=== PATIENT | female | born 1950 | race Caucasian/White ===

== ENCOUNTER 2018-09-04 09:48 | Emergency (ER) | payer OTHER ==
--- OUTSIDE RECORDS SUMMARY | 2018-09-04 09:52 | XMS REPORT | Summary of Care ---
:1950 Author Organization [facility] Address [address] [place] [id number] Encounter HQ Encntr_alias(FIN) [id number] Date(s): 06/16/16 - 06/16/16 [facility] [address] [place] [address]- [phone] Discharge Disposition: Home or Self Care Attending Physician: Elizabeth Rodriguez MD Vital Signs No data available for this section Problem List Condition Effective Dates Status Health Status Informant Kidney disease(Confirmed) Active Breast cancer(Confirmed) Resolved Chicken pox(Confirmed) Resolved Allergies, Adverse Reactions, Alerts Substance Reaction Severity Status NKDA Active Medications No data available for this section Results No data available for this section Immunizations No data available for this section Procedures Procedure Date Related Diagnosis Body Site Breast cancer1 07/26/94 1removal of right breast Social History Social History Type Response Smoking Status Never smoker; Exposure to Tobacco Smoke None; Cigarette Smoking Last 365 Days No; Reg Smoking Cessation Counseling No Assessment and Plan No data available for this section
--- OUTSIDE RECORDS SUMMARY | 2018-09-04 09:52 | XMS REPORT | Continuity of Care Document ---
:1950 Author Organization Interface Problems Problem Status Onset Classification Date Comments Source Date Reported HIP FRACTURE Active [facility] 7 [place] R22.31 - Active [facility] "LOCALIZED 6 [place] SWELLING, MASS AND L Kidney Active Problem 12/18/2016 [facility] disease [place], [place] Breast Resolved Problem 12/18/2016 [facility] cancer [place] Chicken pox Resolved Problem 12/18/2016 [facility] [place] FRACTURE OF Active [facility] [place] [facility] Medications Medication Details Route Status Patient Ordering Order Source Instructions Provider Date Calcium 500 mg, PO, BID, Active Carbonate 500 MG # 60 tab, 0 2017 [place] Chewable Tablet Refill(s), Pharmacy: [facility] [id number] 0.4 ML 40 mg, SUB-Q, Active Enoxaparin Q12H, X 10 day, 2017 [place] sodium 100 MG/ML # 20 ea, 0 Prefilled Refill(s), Syringe Pharmacy: [Lovenox] [facility] [id number] Acetaminophen 1 - 2 tab, PO, Active 300 MG / Codeine Q4H, PRN Pain, X 2017 [place] Phosphate 30 MG 4 day, # 36 tab, Oral Tablet 0 Refill(s) [Tylenol with Codeine #3] Melatonin 3 MG 3 mg=1 tab, PO, Active Extended Release Bedtime, PRN as 2017 [place] Tablet needed for insomnia, X 14 day, # 14 tab, 0 Refill(s), Pharmacy: [facility] [id number] Reglan 10 mg, 1 tab, Inactive Route: PO, Drug 2017 [place] form: TAB, Q6H, PRN Nausea & Vomiting, Start date: 12/15/16 13:13:00 CDT, Duration: 30 day, Stop date: 01/14/17 13:12:00 CDTNotes: (Same as: Reglan) Take 30 min before meals Trazodone 25 mg, 0.5 tab, No Longer Route: PO, Drug Active 2016 [place] form: TAB, Bedtime, Dosing Weight 88.091, kg, PRN Sleep, Start date: 12/13/16 14:39:00 CDT, Duration: 30 day, Stop date: 01/12/17 14:38:00 CDT, ..Notes: (Same As: Desyrel) Melatonin 3 MG 3 mg, 1 tab, No Longer Extended Release Route: PO, Drug Active 2016 [place] Tablet Form: TAB, Dosing Weight 88.091, kg, Bedtime, PRN as needed for insomnia, Start date: 12/13/16 14:39:00 CDT, Duration: 30 day, Stop date: 01/12/17 14:38:00 CDTNotes: (Same as: Melatonin) Ambien 5 mg, 1 tab, No Longer Route: PO, Drug Active 2016 [place] form: TAB, Bedtime, Dosing Weight 88.091, kg, PRN Insomnia, Start date: 12/13/16 14:39:00 CDT, Duration: 30 day, Stop date: 01/12/17 14:38:00 CDTNotes: (Same As: Ambien) Calcium 2,000 mg, 20 mL, Inactive Gluconate Route: IVPB, 2016 [place] ONCE, Dosing Weight 88.091, kg, Priority: STAT, Start date: 12/13/16 11:33:00 CDT, Stop date: 12/13/16 11:33:00 CDTNotes: WASTE: F/P - Sink; E - Municipal Trash Bin Vitamin D3 50,000 IntlUnit, No Longer 10 tab, Route: Active 2016 [place] PO, Drug form: TAB, Q7D, Start date: 12/12/16 11:00:00 CDT, Duration: 30 day, Stop date: 01/09/17 9:00:00 CDTNotes: Same as: Vitamin D3 Non-Formulary Vitamin D2 50,000 IntlUnit, Inactive 1 cap, Route: 2016 [place] PO, Drug form: CAP, Q7D, Start date: 12/12/16 9:00:00 CDT, Duration: 30 day, Stop date: 01/09/17 9:00:00 CDTNotes: (Same as: Vitamin D) "Do Not Crush" phenol 1 spray, Route: No Longer TOP, BID, Drug Active 2016 [place] form: SPRY, PRN Sore Throat, Start date: 12/11/16 21:19:00 CDT, Duration: 30 day, Stop date: 01/10/17 21:18:00 CDTNotes: WASTE: F/P - Black; E - Municipal Trash Bin heparin 5,000 unit, 1 No Longer mL, Route: Active 2016 [place] SUB-Q, Drug form: INJ, Q8H, Start date: 12/11/16 20:00:00 CDT, Duration: 30 day, Stop date: 01/10/17 20:00:00 CDTNotes: porcine heparin vancomycin 1,250 mg, Route: No Longer (SCIP) + sodium IVPB, [id number], Active 2016 [place] chloride 0.9% Dosing Weight 250 mL INJ (for 88.091, kg, Time IV set) 250 mL Critical Medication, Start date: 12/11/16 18:30:00 CDT, Duration: 2 doses or times, Stop date: 12/12/16 6:30:00 CDT, Pharmacy to adjust dose for renal function, ABX Indication: Surgical Pr...Notes: TIME CRITICAL MEDICATION (Same As: Vancocin) Infusion rate 2001 mg: infuse over 2.5 hours MEDICATION WASTE Product Size: 1000 mg Product Wasted: ___ mg Cefazolin 2 gm, Route: Inactive IVPB, [id number], 2017 [place] Dosing Weight 88.091, kg, Start date: 12/11/16 15:00:00 CDT, Duration: 1 doses or times, Stop date: 12/11/16 15:00:00 CDT, ABX Indication: Surgical ProphylaxisNotes : (Same As: AncJuan galiciafzol) MEDICATION WASTE Product Size: 1000 mg Product Wasted: ___ mg Dilaudid 0.5 mg, Route: Inactive 12/11[facility] IVP, ONCE, 2016 [place] Dosing Weight 88.091, kg, Priority: STAT, Start date: 12/11/16 14:01:00 CDT, Stop date: 12/11/16 14:01:00 CDT Fentanyl 25 microgram, Inactive 12/11[facility] Route: IV, 2016 [place] Q10Min, Dosing Weight 88.091, kg, PRN Pain Score 6-10, Start date: 12/11/16 10:02:00 CDT, Duration: 30 day, Stop date: 01/10/17 10:01:00 CDT Ondansetron 4 mg, Route: Inactive 12/11[facility] IVP, ONCE, 2017 [place] Dosing Weight 88.091, kg, PRN Nausea & Vomiting, Start date: 12/11/16 10:02:00 CDT Hydromorphone 0.5 mg, Route: Inactive 12/11[facility] IVP, Q5Min, 2016 [place] Dosing Weight 88.091, kg, PRN Pain Score 7-10, Start date: 12/11/16 10:02:00 CDT, Duration: 4 doses or times, Stop date: Limited # of times Morphine 4 mg, Route: Inactive 12/11[facility] IVP, Q5Min, 2017 [place] Dosing Weight 88.091, kg, PRN Pain Score 7-10, Start date: 12/11/16 10:02:00 CDT, Duration: 3 doses or times, Stop date: Limited # of times Oxycodone 10 mg, Route: Inactive 12/11[facility] PO, Drug form: 2016 [place] TAB, Q4H, Dosing Weight 88.091, kg, PRN Pain Score 7-10, Start date: 12/11/16 10:02:00 CDT, Duration: 30 day, Stop date: 01/10/17 10:01:00 CDT Flumazenil 0.2 mg, Route: Inactive 12/11[facility] IVP, PRN, Dosing 2017 [place] Weight 88.091, kg, PRN Benzodiazepine Reversal, Initial dose, Start date: 12/11/16 10:02:00 CDT, Duration: 30 day, Stop date: 01/10/17 10:01:00 CDT Naloxone 0.4 mg, Route: Inactive IVP, Q2MIN, 2016 [place] Dosing Weight 88.091, kg, PRN Narcotic Reversal, Start date: 12/11/16 10:02:00 CDT, Duration: 8 doses or times, Stop date: Limited # of times ketOROLAC (ANES) IV, ONCE Inactive 2016 [place] dexamethasone Route: IV, Drug Inactive (ANES) form: INJ, ONCE, 2016 [place] Stop date: 12/11/16 9:57:00 CDT ondansetron Route: IV, Drug Inactive (ANES) form: INJ, ONCE, 2016 [place] Stop date: 12/11/16 9:57:00 CDT ergocalciferol 50,000 unit, 1 Inactive cap, Route: PO, 2016 [place] Drug form: CAP, Q7D, Dosing Weight 88.091, kg, Start date: 12/11/16 9:00:00 CDT, Duration: 30 day, Stop date: 01/08/17 9:00:00 CDTNotes: (Same as: Vitamin D) "Do Not Crush" Calcium 500 mg, 1 tab, No Longer Carbonate Route: PO, Drug Active 2016 [place] form: TAB, BID, Dosing Weight 88.091, kg, Start date: 12/11/16 9:00:00 CDT, Duration: 30 day, Stop date: 01/09/17 17:00:00 CDTNotes: 500mg elemental [id number] calcium carbonate. Contains 500mg elemental calcium. (Same As: OsCal 500) Vancomycin 1,250 mg, Route: Inactive IVPB, [id number], 2016 [place] Dosing Weight 88.091, kg, Time Critical Medication, Start date: 12/11/16 9:00:00 CDT, Duration: 2 doses or times, Stop date: 12/11/16 21:00:00 CDT, Pharmacy to adjust dose for renal function, ABX Indication: Surgical Pr...Notes: TIME CRITICAL MEDICATION (Same As: Vancocin) Infusion rate 2001 mg: infuse over 2.5 hours MEDICATION WASTE Product Size: 1000 mg Product Wasted: ___ mg heparin 5,000 unit, 1 Inactive MH mL, Route: 2016 [place] SUB-Q, Drug form: INJ, Q8H, Dosing Weight 81.818, kg, Start date: 12/11/16 8:46:00 CDT, Duration: 30 day, Stop date: 01/10/17 8:00:00 CDTNotes: porcine heparin propofol (ANES) Route: IV, Drug Inactive MH form: INJ, ONCE, 2016 [place] Stop date: 12/11/16 7:31:00 CDT fentaNYL (ANES) Route: IV, Drug Inactive 12/11/ MH form: INJ, ONCE, 2016 [place] Stop date: 12/11/16 7:31:00 CDT ceFAZolin (ANES) Route: IV, Drug Inactive 12/11/ MH form: INJ, ONCE, 2016 [place] Stop date: 12/11/16 7:31:00 CDT midazolam (ANES) Route: IV, Drug Inactive form: SACHINN, 2016 [place] ONCE, Stop date: 12/11/16 7:31:00 CDT Calcium Chloride 1,000 mL, Rate: No Longer 0.0014 MEQ/ML / 25 ml/hr, Infuse Active 2016 [place] Potassium over: 40 hr, Chloride 0.004 Route: IV, MEQ/ML / Sodium Dosing Weight Chloride 0.103 88.091 kg, Total MEQ/ML / Sodium Volume: 1,000, Lactate 0.028 Start date: MEQ/ML 12/11/16 6:28:00 Injectable CDT, Duration: Solution 30 day, Stop date: 01/10/17 6:27:00 CDT vancomycin Route: IV, Drug Inactive MH (ANES) (ANES) form: INJ, Start 2016 [place] date: 12/11/16 6:15:00 CDT, Stop date: 12/11/16 7:15:00 CDT LR 1000 mL INJ Route: IV, Total Inactive (ANES) Volume: 1,000, 2016 [place] Start date: 12/11/16 6:00:00 CDT, Stop date: 12/11/16 7:00:00 CDT Dilaudid 0.5 mg, 0.5 mL, Inactive Route: IV, Drug 2016 [place] form: INJ, ONCE, Dosing Weight 88.091, kg, Start date: 12/11/16 4:41:00 CDT, Stop date: 12/11/16 4:41:00 CDTNotes: Same as: Dilaudid sodium chloride 1,000 mL, Rate: No Longer 0.45% 1000 ml 100 ml/hr, Active 2016 [place] INJ 1,000 mL Infuse over: 10 hr, Route: IV, Dosing Weight 81.818 kg, Total Volume: 1,000, Start date: 12/10/16 20:55:00 CDT, Duration: 30 day, Stop date: 01/09/17 20:54:00 CDT Reglan 10 mg, 2 mL, No Longer Route: IVP, Drug Active 2016 [place] form: INJ, Q6H, Dosing Weight 81.818, kg, PRN Nausea & Vomiting, Start date: 12/10/16 20:53:00 CDT, Duration: 30 day, Stop date: 01/09/17 20:52:00 CDTNotes: (Same as: Reglan) Acetaminophen 650 mg, 2 tab, No Longer Route: PO, Drug Active 2016 [place] form: TAB, Q4H, Dosing Weight 81.818, kg, PRN Pain 1-3/Temp > 100.4 F, Start date: 12/10/16 20:45:00 CDT, Duration: 30 day, Stop date: 01/09/17 20:44:00 CDTNotes: Do not exceed 4 gm/day. (Same as: Tylenol) Saline Flush 10 ml, Route: No Longer 0.9% IVP, Drug Form: Active 2016 [place] INJ, Dosing Weight 81.818, kg, PRN, PRN Line Flush, Start date: 12/10/16 20:45:00 CDT, Duration: 30 day, Stop date: 01/09/17 20:44:00 CDTNotes: (Same as: BD Posiflush) Ondansetron 4 mg, 2 mL, Inactive Route: IVP, Drug 2016 [place] form: INJ, Q6H, Dosing Weight 81.818, kg, PRN Nausea & Vomiting, Start date: 12/10/16 20:45:00 CDT, Duration: 30 day, Stop date: 01/09/17 20:44:00 CDTNotes: (Same as: Zofran) MEDICATION WASTE Product Size: 4 mg Product Wasted: ___ mg Sodium Chloride 1,000 mL, Rate: Inactive 0.154 MEQ/ML 100 ml/hr, 2017 [place] Injectable Infuse over: 10 Solution hr, Route: IV, Dosing Weight 81.818 kg, Total Volume: 1,000, Start date: 12/10/16 20:45:00 CDT, Duration: 30 day, Stop date: 01/09/17 20:44:00 CDT Dilaudid 0.5 mg, 0.5 mL, No Longer Route: IVP, Drug Active 2016 [place] form: INJ, Q3H, Dosing Weight 81.818, kg, PRN Pain Score 7-10, Start date: 12/10/16 20:45:00 CDT, Duration: 30 day, Stop date: 01/09/17 20:44:00 CDTNotes: Same as: Dilaudid Acetaminophen 1 tab, Route: No Longer 325 MG / PO, Drug Form: Active 2017 [place] Hydrocodone TAB, Dosing Bitartrate 10 MG Weight 81.818, Oral Tablet kg, Q4H, PRN [Metter 10/325] Pain Score 4-6, Start date: 12/10/16 20:45:00 CDT, Duration: 30 day, Stop date: 01/09/17 20:44:00 CDTNotes: Do not exceed 4gm/day of acetaminophen. (Same as: Metter 325/10) Zofran 4 mg, 2 mL, Inactive Route: IVP, Drug 2016 [place] form: INJ, ONCE, Dosing Weight 81.818, kg, Priority: STAT, Start date: 12/10/16 19:30:00 CDT, Stop date: 12/10/16 19:30:00 CDTNotes: (Same as: Zofran) MEDICATION WASTE Product Size: 4 mg Product Wasted: ___ mg Morphine 4 mg, 1 mL, Inactive Route: IVP, Drug 2016 [place] form: INJ, ONCE, Dosing Weight 81.818, kg, Priority: STAT, Start date: 12/10/16 19:30:00 CDT, Stop date: 12/10/16 19:30:00 CDTNotes: (Same as:MORPhine Sulfate) Allergies, Adverse Reactions, Alerts Substance Category Reaction Severity Reaction Status Date Comments Source type Reported Immunizations Immunization Date Given Site Status Last Updated Comments Source Results Order Name Results Value Reference Date Interpretation Comments Source Range HEMATOLOGY WBC X 10x3 4.5 K/CMM 3.7 - 10.4 12/14 [place] HEMATOLOGY Hgb 8.4 g/dL 12.0 - 12/14 16.0 [place] HEMATOLOGY RBC X 10x6 2.84 M/CMM 4.20 - 12/14 MH 5.40 /2016 [place] HEMATOLOGY Hct 25.0 % 36.0 - 12/14 MH 48.0 [place] HEMATOLOGY RDW 13.5 % 11.5 - 12/14 14.5 [place] HEMATOLOGY MCV 88.0 fL 80.0 - 12/14 98.0 [place] HEMATOLOGY MCHC 33.5 g/dL 32.0 - 12/14 36.0 [place] HEMATOLOGY MCH 29.5 pg 27.0 - 12/14 31.0 [place] HEMATOLOGY Platelet 159 K/CMM 133 - 450 12/14 [place] HEMATOLOGY MPV 7.9 fL 7.4 - 10.4 12/14 [place] URINE AND UA Bacteria Occasional None Seen 12/13 STOOL /HPF /HPF [place] URINE AND UA RBC 0-2 /HPF 0 - 2 12/13 STOOL [place] URINE AND UA WBC 0-2 /HPF None Seen 12/13 STOOL /HPF [place] URINE AND UA Sq Epi Occasional Few /LPF 12/13 STOOL /LPF /2016 [place] URINE AND UA Leuk Est Negative Negative 12/13 STOOL /2016 [place] (12/13/16 4:31 PM) URINE AND UA 0.2 EU/dL 0.1 - 1.0 12/13 STOOL Urobilinogen [place] URINE AND UA Nitrite Negative Negative 12/13 STOOL [place] (12/13/16 4:31 PM) URINE AND UA Blood Negative Negative 12/13 STOOL [place] (12/13/16 4:31 PM) URINE AND UA Bili Negative Negative 12/13 [place] *NA* (12/13/16 4:31 PM) URINE AND UA Ketones 40 mg/dL Negative 12/13 STOOL mg/dL [place] URINE AND UA Glucose Negative Negative 12/13 STOOL [place] (12/13/16 4:31 PM) URINE AND UA Protein Negative Negative 12/13 STOOL [place] (12/13/16 4:31 PM) URINE AND UA pH 6.0 5.0 - 8.0 12/13 [place] URINE AND UA Spec Grav 1.010 <=1.030 12/13 [place] URINE AND UA Turbidity Clear Clear 12/13 [place] (12/13/16 4:31 PM) URINE AND UA Color Yellow Yellow 12/13 [place] *NA* (12/13/16 4:31 PM) CHEM PANEL Magnesium 2.0 mg/dL 1.8 - 2.4 12/13 [facility] [place] CHEM PANEL Lactic Acid 0.8 mMol/L 0.5 - 2.2 12/13 [facility] [place] Chest 1view Chest 1view Patient Name: THELMA HOLGUIN 12/13 [facility] DX /2016 [facility] : 1950; Age: 66 years Female MR: [id number] Read by: Albert Wilcox MD Dictated Date/time: 12/13/16 12:14 Electronically Signed by: Albert Wilcox MD 12/13/16 12:15 FINAL REPORT Study: Chest 1view DX Order Time: 12/13/2016 11:05 AM CDT Clinical Indication: - post op day #2. COMPARISON: None FINDINGS: Views: 1 LUNGS: There is normal lung volume. Right upper lobe atelectasis/ scarring. There are no pleural effusions. There is no pneumothorax. The pulmonary vasculature is normal. MEDIASTINUM: The cardiac silhouette is prominent which may be accentuated by portable technique. The trachea is midline. Right hilar prominence. Right axillary nicole. BONES: There are no clinically significant osseous abnormalities noted. IMPRESSION: 1. Right hilar prominence secondary to posttreatment change, adenopathy, mass. Right axillary nicole. SL: [id number] ELECTROLYTE AGAP 13.1 meq/L 10.0 - 05/ MH S 20.0 [place] ELECTROLYTE eGFR 96 12/12 Result Comment: The eGFR is calculated using the CKD-EPI formula. In most young, healthy individuals the eGFR will be >90 mL/ min/1.73m2. The eGFR declines with age. An eGFR of 60-89 may be normal in S mL/min/1.7 /2017 some populations, particularly the elderly, for whom the CKD-EPI formula has not been extensively validated. Use of the eGFR is not recommended in the following populations: [address] Individuals with unstable creatinine concentrations, including patients and those with serious co-morbid conditions. Patients with extremes in muscle mass or diet. The data above are obtained from the National Kidney Disease Education Program (NKDEP) which additionally recommends that when the eGFR is used in patients with extremes of body mass index for purposes of drug dosing, the eGFR should be multiplied by the estimated BMI. ELECTROLYTE Sodium Lvl 139 meq/L 135 - 145 /20 MH S /2016 [place] ELECTROLYTE Creatinine 0.60 mg/dL 0.50 - 05 MH S Lvl 1.40 /2016 [place] ELECTROLYTE CO2 26 meq/L 24 - 32 / MH S /2016 [place] ELECTROLYTE Chloride Lvl 104 meq/L 95 - 109 / MH S /2016 [place] ELECTROLYTE Potassium 4.1 meq/L 3.5 - 5.1 /20 MH S Lvl /2017 [place] ELECTROLYTE Calcium Lvl 8.1 mg/dL 8.5 - 10.5 /20 MH S /2016 [place] ELECTROLYTE Glucose Lvl 128 mg/dL 70 - 99 /20 MH S /2016 [place] ELECTROLYTE BUN 14 mg/dL 7 - 22 /20 MH S /2016 [place] HEMATOLOGY Monocytes # 0.5 K/CMM 0.0 - 0.8 12/12 MH /2016 [place] HEMATOLOGY Monocytes 10.1 % 2.0 - 12.0 / MH /2016 [place] HEMATOLOGY Eosinophils 0.1 % 0.0 - 4.0 / [place] HEMATOLOGY Lymphocytes 0.4 K/CMM 1.0 - 5.5 12/12 MH # /2017 [place] HEMATOLOGY Segs-Bands # 4.1 K/CMM 1.5 - 8.1 12/12 [place] HEMATOLOGY Basophils 0.1 % 0.0 - 1.0 12/12 [place] HEMATOLOGY Segs 81.3 % 45.0 - 12/12 MH 75.0 [place] HEMATOLOGY Lymphocytes 8.4 % 20.0 - 12/12 MH 40.0 [place] HEMATOLOGY Platelet 151 K/CMM 133 - 450 12/12 [place] HEMATOLOGY MPV 8.3 fL 7.4 - 10.4 12/12 [place] HEMATOLOGY MCHC 33.7 g/dL 32.0 - 12/12 MH 36.0 [place] HEMATOLOGY Hct 27.9 % 36.0 - 12/12 MH 48.0 [place] HEMATOLOGY MCH 29.9 pg 27.0 - 12/12 MH 31.0 [place] HEMATOLOGY RDW 13.6 % 11.5 - 12/12 MH 14.5 [place] HEMATOLOGY MCV 88.7 fL 80.0 - 12/12 MH 98.0 [place] HEMATOLOGY WBC X 10x3 5.1 K/CMM 3.7 - 10.4 12/12 [place] HEMATOLOGY RBC X 10x6 3.14 M/CMM 4.20 - 12/12 MH 5.40 [place] HEMATOLOGY Hgb 9.4 g/dL 12.0 - 12/12 MH 16.0 [place] CHEM PANEL eGFR 91 12/11 Result Comment: The eGFR is calculated using the CKD-EPI formula. In most young, healthy individuals the eGFR will be >90 mL/ min/1.73m2. The eGFR declines with age. An eGFR of 60-89 may be normal in MH mL/min/1. some populations, particularly the elderly, for whom the CKD-EPI formula has not been extensively validated. Use of the eGFR is not recommended in the following populations: [address] Individuals with unstable creatinine concentrations, including patients and those with serious co-morbid conditions. Patients with extremes in muscle mass or diet. The data above are obtained from the National Kidney Disease Education Program (NKDEP) which additionally recommends that when the eGFR is used in patients with extremes of body mass index for purposes of drug dosing, the eGFR should be multiplied by the estimated BMI. CHEM PANEL CO2 24 meq/L 24 - 32 12/11 [place] CHEM PANEL Calcium Lvl 8.5 mg/dL 8.5 - 10.5 12/11 [place] CHEM PANEL Potassium 4.2 meq/L 3.5 - 5.1 12/11 MH Lvl /2016 [place] CHEM PANEL Sodium Lvl 140 meq/L 135 - 145 12/11 [place] CHEM PANEL Chloride Lvl 106 meq/L 95 - 109 12/11 [place] CHEM PANEL Creatinine 0.70 mg/dL 0.50 - 12/11 MH Lvl 1.40 [place] CHEM PANEL BUN 16 mg/dL 7 - 22 12/11 [place] CHEM PANEL Glucose Lvl 113 mg/dL 70 - 99 12/11 [place] CHEM PANEL AGAP 14.2 meq/L 10.0 - 12/11 MH 20.0 [place] HEMATOLOGY Lymphocytes 9.3 % 20.0 - 12/11 MH 40.0 [place] HEMATOLOGY Segs 80.3 % 45.0 - 12/11 MH 75.0 [place] HEMATOLOGY Monocytes 10.0 % 2.0 - 12.0 12/11 [place] HEMATOLOGY Segs-Bands # 5.5 K/CMM 1.5 - 8.1 12/11 [place] HEMATOLOGY Lymphocytes 0.6 K/CMM 1.0 - 5.5 12/11 MH /2017 [place] HEMATOLOGY Basophils 0.1 % 0.0 - 1.0 12/11 [facility] HEMATOLOGY Eosinophils 0.3 % 0.0 - 4.0 12/11 [facility] HEMATOLOGY Monocytes # 0.7 K/CMM 0.0 - 0.8 12/11 [facility] HEMATOLOGY aPTT 27.2 s 22.9 - 12/11 MH 35.8 [place] HEMATOLOGY PROTIME 13.1 s 12.0 - 12/11 MH 14.7 [facility] HEMATOLOGY INR 0.97 0.85 - 12/11 MH 1. [place] HEMATOLOGY MPV 7.7 fL 7.4 - 10.4 12/11 [facility] HEMATOLOGY RDW 14.2 % 11.5 - 12/11 MH 14.5 [facility] HEMATOLOGY Hgb 12.5 g/dL 12.0 - 12/11 MH 16.0 [place] HEMATOLOGY WBC X 10x3 6.8 K/CMM 3.7 - 10.4 12/11 /2016 [place] HEMATOLOGY MCHC 33.2 g/dL 32.0 - 12/11 MH 36.0 [facility] HEMATOLOGY Hct 37.7 % 36.0 - 12/11 MH 48.0 [place] HEMATOLOGY MCV 89.6 fL 80.0 - 12/11 MH 98.0 [place] HEMATOLOGY MCH 29.7 pg 27.0 - 12/11 MH 31.0 [place] HEMATOLOGY RBC X 10x6 4.21 M/CMM 4.20 - 12/11 MH 5.40 [place] HEMATOLOGY Platelet 170 K/CMM 133 - 450 12/11 MH [place] BLOOD BANK ABO/Rh A POS 12/11 RESULTS /2016 [place] BLOOD BANK Antibody Negative 12/11 RESULTS Scrn /2016 [facility] (12/10/16 11:25 PM) CARDIAC Total CK 115 unit/L 12 - 191 12/11 ENZYMES [place] ELECTROLYTE AGAP 11.3 meq/L 10.0 - 12/11 MH S 20.0 [place] ELECTROLYTE B/C Ratio 22 6 - 25 12/11 S [place] ELECTROLYTE Globulin 3.3 g/dL 2.7 - 4.2 12/11 S [place] ELECTROLYTE A/G Ratio 1.2 0.7 - 1.6 12/11 S [place] ELECTROLYTE eGFR 86 12/11 Result Comment: The eGFR is calculated using the CKD-EPI formula. In most young, healthy individuals the eGFR will be >90 mL/ min/1.73m2. The eGFR declines with age. An eGFR of 60-89 may be normal in S mL/min/1.7 some populations, particularly the elderly, for whom the CKD-EPI formula has not been extensively validated. Use of the eGFR is not recommended in the following populations: [place] 3m2 Individuals with unstable creatinine concentrations, including patients and those with serious co-morbid conditions. Patients with extremes in muscle mass or diet. The data above are obtained from the National Kidney Disease Education Program (NKDEP) which additionally recommends that when the eGFR is used in patients with extremes of body mass index for purposes of drug dosing, the eGFR should be multiplied by the estimated BMI. ELECTROLYTE ASPARTATE 18 unit/L 0 - 37 12/11 S TRANSAMINASE [place] ELECTROLYTE Chloride Lvl 108 meq/L 95 - 109 12/11 S [place] ELECTROLYTE CO2 27 meq/L 24 - 32 12/11 S [place] ELECTROLYTE Calcium Lvl 8.9 mg/dL 8.5 - 10.5 12/11 S [place] ELECTROLYTE Bili Total 0.6 mg/dL 0.2 - 1.3 12/11 S [place] ELECTROLYTE Total 7.2 g/dL 6.4 - 8.4 12/11 S Protein [place] ELECTROLYTE ALANINE 35 unit/L 0 - 65 12/11 S AMINOTRANSFE [place] RASE ELECTROLYTE Sodium Lvl 142 meq/L 135 - 145 12/11 S [place] ELECTROLYTE Potassium 4.3 meq/L 3.5 - 5.1 12/11 S Lvl [place] ELECTROLYTE Creatinine 0.74 mg/dL 0.50 - 12/11 S Lvl 1.40 [place] ELECTROLYTE Alk Phos 113 unit/L 39 - 136 12/11 S [place] ELECTROLYTE Glucose Lvl 151 mg/dL 70 - 99 12/11 S [place] ELECTROLYTE BUN 16 mg/dL 7 - 22 12/11 S [place] ELECTROLYTE Albumin Lvl 3.9 g/dL 3.5 - 5.0 12/11 S [place] HEMATOLOGY Basophils 0.2 % 0.0 - 1.0 12/11 [facility] HEMATOLOGY Monocytes # 0.4 K/CMM 0.0 - 0.8 12/11 [facility] HEMATOLOGY Segs-Bands # 5.5 K/CMM 1.5 - 8.1 12/11 [facility] HEMATOLOGY Lymphocytes 0.5 K/CMM 1.0 - 5.5 12/11 MH # /2017 [place] HEMATOLOGY Lymphocytes 8.4 % 20.0 - 12/11 MH 40.0 [place] HEMATOLOGY Monocytes 6.1 % 2.0 - 12.0 12/11 [facility] HEMATOLOGY Eosinophils 0.2 % 0.0 - 4.0 12/11 /2016 [facility] HEMATOLOGY Segs 85.1 % 45.0 - 12/11 MH 75.0 /2017 [facility] HEMATOLOGY aPTT 24.3 s 22.9 - 12/11 MH 35.8 /2016 [facility] HEMATOLOGY PROTIME 11.9 s 12.0 - 12/11 MH 14.7 [facility] HEMATOLOGY INR 0.86 0.85 - 12/11 MH 1. [facility] Femur Femur series EXAM: XR LEFT FEMUR, 2 VIEWS 12/10 - [facility] DX DX /2016 - [place] DATE: 12/10/2016 7:21 PM CDT Read by: Misael Mccoy MD Dictated Date/time: 12/10/16 20:57 Electronically Signed by: Misael Mccoy MD 12/10/16 20:58 FINAL REPORT INDICATION: Pain Post Trauma. COMPARISON: None Available. TECHNIQUE: AP and lateral views of the left femur were obtained. FINDINGS: There is a displaced and angulated fracture of the left femoral neck. Visualized portions of the pelvic ring are grossly intact. The soft tissues are within normal limits. No radiopaque foreign bodies are noted. IMPRESSION: Displaced and angulated fracture of the left femoral neck. SL: [id number] Ext Upper Ext Upper EXAM: US Right UPPER EXTREMITY VENOUS DOPPLER 06/16 - [facility] Venous Venous /2015 - [facility] Doppler Doppler Unilat US Unilat US DATE: 06/16/2016 3:10 PM [employer] Read by: Ramírez Carson MD Dictated Date/time: 06/16/16 15:50 Electronically Signed by: Ramírez Carson MD 06/16/16 15:57 FINAL REPORT INDICATION: R22.31 Localized swelling, mass and lump, right upper limb ADDITIONAL INFORMATION: Right arm swelling 2 weeks with no pain or redness. History of right-sided breast cancer 15 years ago with lymph nodes removed.. COMPARISON: None. TECHNIQUE: Multiplanar grayscale, color Doppler and spectral Doppler ultrasound of the upper extremity veins. FINDINGS: Upper Extremity Veins: Internal Jugular: Patent. Compressible. Subclavian: Patent. Axillary: Patent. Compressible. Brachial: Patent. Compressible. Basilic: Patent. Compressible. Cephalic: Not visible.. IMPRESSION: 1. No deep venous thrombosis (DVT). 2. The right cephalic vein is not visible. Digital Digital - DIGITAL MAMMO DX UNI MA/L 06/16 - [facility] Mammo DX Mammo DX - [facility] MA UNILATERAL LEFT DIGITAL DIAGNOSTIC MAMMOGRAM: 06/16/2016 CLINICAL: C50.919 Malignant Neoplasm Of Unspecified Site Of Unspecified Female Breast. Read by: Gracia Childs MD PHD Dictated Date/time: 06/16/16 15:06 Electronically Signed by: Gracia Childs MD PHD 06/16/16 15:06 FINAL REPORT Comparison is made to exam dated: 08/14/2014 mammogram. There are scattered fibroglandular densities in the left breast. The patient is status post right mastectomy. There are benign calcifications in the left breast. No significant masses, calcifications, or other findings are seen in the breast. There has been no significant interval change. IMPRESSION: BENIGN There is no mammographic evidence of malignancy. A 1 year screening mammogram is recommended. Gracia Childs M.D. Additional Observers: Franklyn Burns M.D. hh/penrad:06/16/2016 15:06:15 Mortgage Loan Coordinator: Macy URIARTE(Linnea)(Srinivas), [facility] Outpatient Imaging Department This exam was dictated and interpreted by [id number] for [facility]. letter sent: Normal [facility] Mammogram BI-RADS: 2 Benign Vital Signs Vital Sign Value Date Comments Source Heart Rate 81 12/15/2016 [facility] Temperature Oral (F) 98.3 F 12/15/2016 [facility] Respitory Rate 18 12/15/2016 [facility] Systolic (mm Hg) 133 12/15/2016 [facility] Diastolic (mm Hg) 79 12/15/2016 [facility] Respitory Rate 18 12/15/2016 [facility] Heart Rate 96 12/15/2016 [facility] Systolic (mm Hg) 140 12/15/2016 [facility] Diastolic (mm Hg) 78 12/15/2016 [facility] Temperature Oral (F) 98.0 F 12/15/2016 [facility] Respitory Rate 18 12/15/2016 [facility] Temperature Oral (F) 97.7 F 12/15/2016 [facility] Systolic (mm Hg) 144 12/15/2016 [facility] Diastolic (mm Hg) 80 12/15/2016 [facility] Heart Rate 93 12/15/2016 [facility] Height 182.88 cm 12/11/2016 [facility] Weight 88.091 12/11/2016 [facility] BMI Calculated 26.34 12/11/2016 [facility] Weight 81.818 12/10/2016 [facility] BMI Calculated 24.46 12/10/2016 [facility] Height 182.88 cm 12/10/2016 [facility] Encounters Location Location Encounter Encounter Reason Attending ADM DC Status Source Details Type Number For Provider Date Date Visit Outpatient [id number] JULIA 05/18 Active [facility] [place] [facility] [id number] JULIA 06/03 Active [facility] S[facility]AN[facility] /2016 [facility] Outpatient [id number] [facility] 06/16 06/17 [facility] Michael /2015 [facility] Outpt Diag [id number] Elizabeth 06/16 06/17 [facility] Michael /2015 [facility] [id number] JULIA 10/14 [facility] SERRANO /2017 [place] Outpatient [id number] JULIA 10/23 [facility] SERRANO /2017 [place] Outpatient [id number] ABRAR 12/03 [id number]/10 12[facility]2016 [facility] Procedures Procedure Code Date Perfomer Comments Source Breast [id number] 07/26/1994 removal of [facility] cancer<sup>1</sup right breast [place] > Breast [id number] 07/26/1994 removal of [facility] cancer<sup>1</sup right breast > [facility]astectomy [id number] [facility]
--- OUTSIDE RECORDS SUMMARY | 2018-09-04 09:52 | XMS REPORT | Summary of Care ---
:1950 Author Organization [facility] Address [id number] [place] [id number] Encounter HQ [email or web address](FIN) [id number] Date(s): 12/10/16 - 12/15/16 [facility] [id number] [place] [phone] Discharge Disposition: Longterm Facility Attending Physician: Calvin Martinez MD Admitting Physician: Calvin Martinez MD Vital Signs Most recent to oldest 1 2 3 [Reference Range]: Height 182.88 cm 182.88 cm (12/11/16 12:10 AM) (12/10/16 6:59 PM) Current Weight 88.091 kg (12/10/16 9:42 PM) Temperature Oral [96.4-99.1 98.3 DegF 98.0 DegF 97.7 DegF DegF] (12/15/16 3:41 PM) (12/15/16 11:22 AM) (12/15/16 7:57 AM) Blood Pressure [90-140/60-90 133/79 mmHg 140/78 mmHg 144/80 mmHg mmHg] (12/15/16 3:41 PM) (12/15/16 11:22 AM) *HI* (12/15/16 7:57 AM) Respiratory Rate [14-20 18 BRMIN 18 BRMIN 18 BRMIN BRMIN] (12/15/16 3:41 PM) (12/15/16 11:22 AM) (12/15/16 7:57 AM) Peripheral Pulse Rate [60-100 81 bpm 96 bpm 93 bpm bpm] (12/15/16 3:41 PM) (12/15/16 11:22 AM) (12/15/16 7:57 AM) Weight 88.091 kg 81.818 kg (12/11/16 12:10 AM) (12/10/16 6:59 PM) Body Mass Index 26.34 m2 24.46 m2 (12/11/16 12:10 AM) (12/10/16 6:59 PM) Problem List Condition Effective Dates Status Health Status Informant Kidney disease(Confirmed) Active Breast cancer(Confirmed) Resolved Chicken pox(Confirmed) Resolved Allergies, Adverse Reactions, Alerts Substance Reaction Severity Status NKDA Active Medications acetaminophen 650 mg, 2 tab, Route: PO, Drug form: TAB, Q4H, Dosing Weight 81.818, kg, PRN Pain 1-3/Temp > 100.4 F, Start date: 12/10/16 20:45:00 CDT, Duration: 30 day, Stop date: 01/09/17 20:44:00 CDT Notes: Do not exceed 4 gm/day. (Same as: Tylenol) Start Date: 12/10/16 Stop Date: 12/15/16 Status: DiscontinuedAmbien 5 mg, 1 tab, Route: PO, Drug form: TAB, Bedtime, Dosing Weight 88.091, kg, PRN Insomnia, Start date:12/13/16 14:39:00 CDT, Duration: 30 day, Stop date: 14:38:00 CDT Notes: (Same As: Ambien) Start Date: 12/13/16 Stop Date: 12/15/16 Status: DiscontinuedANES flumazenil 0.2 mg, Route: IVP, PRN, Dosing Weight 88.091, kg, PRN Benzodiazepine Reversal, Initial dose, Start date: 12/11/16 10:02:00 CDT, Duration: 30 day, Stop date: 10:01:00 CDT Start Date: 12/11/16 Stop Date: 12/11/16 Status: DiscontinuedANES HYDROmorphone 0.5 mg, Route: IVP, Q5Min, Dosing Weight 88.091, kg, PRN Pain Score 7-10, Start date: 12/11/16 10:02:00 CDT, Duration: 4 doses or times, Stop date: Limited # of times Start Date: 12/11/16 Stop Date: 12/11/16 Status: DiscontinuedANES morphine Sulfate 4 mg, Route: IVP, Q5Min, Dosing Weight 88.091, kg, PRN Pain Score 7-10, Start date: 12/11/16 10:02:00 CDT, Duration: 3 doses or times, Stop date: Limited # of times Start Date: 12/11/16 Stop Date: 12/11/16 Status: DiscontinuedANES naloxone 0.4 mg, Route: IVP, Q2MIN, Dosing Weight 88.091, kg, PRN Narcotic Reversal, Start date: 12/11/16 10:02:00 CDT, Duration: 8 doses or times, Stop date: Limited # of times Start Date: 12/11/16 Stop Date: 12/11/16 Status: DiscontinuedANES ondansetron 4 mg, Route: IVP, ONCE, Dosing Weight 88.091, kg, PRN Nausea & Vomiting, Start date: 12/11/16 10:02:00 CDT Start Date: 12/11/16 Stop Date: 12/11/16 Status: DiscontinuedANES oxyCODONE 10 mg, Route: PO, Drug form: TAB, Q4H, Dosing Weight 88.091, kg, PRN Pain Score 7-10, Start date: 12/11/16 10:02:00 CDT, Duration: 30 day, Stop date: 01/10/17 10:01:00 CDT Start Date: 12/11/16 Stop Date: 12/11/16 Status: Discontinuedcalcium carbonate 500 mg, 1 tab, Route: PO, Drug form: TAB, BID, Dosing Weight 88.091, kg, Start date: 12/11/16 9:00:00 CDT, Duration: 30 day, Stop date: 01/09/17 17:00:00 CDT Notes: 500mg elemental [id number] calcium carbonate. Contains 500mg elemental calcium. (Same As: OsCal 500) Start Date: 12/11/16 Stop Date: 12/15/16 Status: Discontinuedcalcium carbonate 500 mg (200 mg elemental calcium) oral tablet 500 mg, PO, BID, # 60 tab, 0 Refill(s), Pharmacy: [id number] Start Date: 12/15/16 Stop Date: 01/14/17 Status: Orderedcalcium gluconate + sodium chloride 0.9% INJ 80 mL 2,000 mg, 20 mL, Route: IVPB, ONCE, Dosing Weight 88.091, kg, Priority: STAT, Start date: 12/13/16 11:33:00 CDT, Stop date: 12/13/16 11:33:00 CDT Notes: WASTE: F/P - Sink; E - Municipal Trash Bin Start Date: 12/13/16 Stop Date: 12/13/16 Status: CompletedceFAZolin (ANES) Route: IV, Drug form: INJ, ONCE, Stop date: 12/11/16 7:31:00 CDT Start Date: 12/11/16 Stop Date: 12/11/16 Status: CompletedceFAZolin (SCIP) + sodium chloride 0.9% INJ 100 mL 2 gm, Route: IVPB, [id number], Dosing Weight 88.091, kg, Start date: 12/11/16 15:00: 00 CDT, Duration: 1 doses or times, Stop date: 12/11/16 15:00:00 CDT, ABX Indication: Surgical Prophylaxis Notes: (Same As: Darinel Frye) MEDICATION WASTE Product Size: 1000 mgProduct Wasted: ___ mg Start Date: 12/11/16 Stop Date: 12/11/16 Status: CompletedChloraseptic 1.4% spray 1 spray, Route: TOP, BID, Drug form: SPRY, PRN Sore Throat, Start date: 21:19:00 CDT, Duration: 30 day, Stop date: 01/10/17 21:18:00 CDT Notes: WASTE: F/P - Black; E - Municipal Trash Bin Start Date: 12/11/16 Stop Date: 12/15/16 Status: Discontinueddexamethasone (ANES) Route: IV, Drug form: INJ, ONCE, Stop date: 12/11/16 9:57:00 CDT Start Date: 12/11/16 Stop Date: 12/11/16 Status: CompletedDilaudid 0.5 mg, 0.5 mL, Route: IV, Drug form: INJ, ONCE, Dosing Weight 88.091, kg, Start date: 12/11/16 4:41:00 CDT, Stop date: 12/11/16 4:41:00 CDT Notes: Same as: Dilaudid Start Date: 12/11/16 Stop Date: 12/11/16 Status: CompletedDilaudid 0.5 mg, Route: IVP, ONCE, Dosing Weight 88.091, kg, Priority: STAT, Start date: 12/11/16 14:01:00 CDT, Stop date: 12/11/16 14:01:00 CDT Start Date: 12/11/16 Stop Date: 12/11/16 Status: CompletedDilaudid 0.5 mg, 0.5 mL, Route: IVP, Drug form: INJ, Q3H, Dosing Weight 81.818, kg, PRN Pain Score 7-10, Start date: 12/10/16 20:45:00 CDT, Duration: 30 day, Stop date : 01/09/17 20:44:00 CDT Notes: Same as: Dilaudid Start Date: 12/10/16 Stop Date: 12/15/16 Status: Discontinuedergocalciferol 50,000 unit, 1 cap, Route: PO, Drug form: CAP, Q7D, Dosing Weight 88.091, kg, Start date: 12/11/16 9:00:00 CDT, Duration: 30 day, Stop date: 01/08/17 9:00:00 CDT Notes: (Same as: Vitamin D) "Do Not Crush" Start Date: 12/11/16 Stop Date: 12/11/16 Status: DeletedfentaNYL 25 microgram, Route: IV, Q10Min, Dosing Weight 88.091, kg, PRN Pain Score 6-10, Start date: 12/11/1709:02:00 CDT, Duration: 30 day, Stop date: 01/10/17 10:01: 00 CDT Start Date: 12/11/16 Stop Date: 12/11/16 Status: DiscontinuedfentaNYL (ANES) Route: IV, Drug form: INJ, ONCE, Stop date: 12/11/16 7:31:00 CDT Start Date: 12/11/16 Stop Date: 12/11/16 Status: Completedheparin 5,000 unit, 1 mL, Route: SUB-Q, Drug form: INJ, Q8H, Start date: 12/11/16 20:00: 00 CDT, Duration: 30day, Stop date: 01/10/17 20:00:00 CDT Notes: porcine heparin Start Date: 12/11/16 Stop Date: 12/15/16 Status: Discontinuedheparin 5,000 unit, 1 mL, Route: SUB-Q, Drug form: INJ, Q8H, Dosing Weight 81.818, kg, Start date: 12/11/16 8:46:00 CDT, Duration: 30 day, Stop date: 01/10/17 8:00:00 CDT Notes: porcine heparin Start Date: 12/11/16 Stop Date: 12/11/16 Status: DiscontinuedketOROLAC (ANES) IV, ONCE Start Date: 12/11/16 Stop Date: 12/11/16 Status: CompletedLactated Ringers 1,000 mL 1,000 mL, Rate: 25 ml/hr, Infuse over: 40 hr, Route: IV, Dosing Weight 88.091 kg , Total Volume: 1,000, Start date: 12/11/16 6:28:00 CDT, Duration: 30 day, Stop date: 01/10/17 6:27:00 CDT Start Date: 12/11/16 Stop Date: 12/13/16 Status: DiscontinuedLovenox 40 mg/0.4 mL subcutaneous solution 40 mg, SUB-Q, Q12H, X 10 day, # 20 ea, 0 Refill(s), Pharmacy: [facility] [id number] Start Date: 12/15/16 Stop Date: 12/25/16 Status: OrderedLR 1000 mL INJ (ANES) Route: IV, Total Volume: 1,000, Start date: 12/11/16 6:00:00 CDT, Stop date: 7:00:00 CDT Start Date: 12/11/16 Stop Date: 12/11/16 Status: Completedmelatonin 3 mg oral tablet 3 mg, 1 tab, Route: PO, Drug Form: TAB, Dosing Weight 88.091, kg, Bedtime, PRN as needed for insomnia, Start date: 12/13/16 14:39:00 CDT, Duration: 30 day, Stop date: 01/12/17 14:38:00 CDT Notes: (Same as: Melatonin) Start Date: 12/13/16 Stop Date: 12/15/16 Status: Discontinuedmelatonin 3 mg oral tablet 3 mg=1 tab, PO, Bedtime, PRN as needed for insomnia, X 14 day, # 14 tab, 0 Refill(s), Pharmacy: [facility] [id number] Start Date: 12/15/16 Stop Date: 12/29/16 Status: Orderedmidazolam (ANES) Route: IV, Drug form: SOLN, ONCE, Stop date: 12/11/16 7:31:00 CDT Start Date: 12/11/16 Stop Date: 12/11/16 Status: Completedmorphine Sulfate 4 mg, 1 mL, Route: IVP, Drug form: INJ, ONCE, Dosing Weight 81.818, kg, Priority : STAT, Start date: 12/10/16 19:30:00 CDT, Stop date: 12/10/16 19:30:00 CDT Notes: (Same as:MORPhine Sulfate) Start Date: 12/10/16 Stop Date: 12/10/16 Status: CompletedNorco 10/325 oral tablet 1 tab, Route: PO, Drug Form: TAB, Dosing Weight 81.818, kg, Q4H, PRN Pain Score 4-6, Start date: 12/10/16 20:45:00 CDT, Duration: 30 day, Stop date: 01/09/17 20 :44:00 CDT Notes: Do not exceed 4gm/day of acetaminophen. (Same as: Lancing 325/10) Start Date: 12/10/16 Stop Date: 12/15/16 Status: Discontinuedondansetron 4 mg, 2 mL, Route: IVP, Drug form: INJ, Q6H, Dosing Weight 81.818, kg, PRN Nausea & Vomiting, Start date: 12/10/16 20:45:00 CDT, Duration: 30 day, Stop date: 01/09/17 20:44:00 CDT Notes: (Same as: Zofran) MEDICATION WASTE Product Size: 4 mgProduct Wasted: ___ mg Start Date: 12/10/16 Stop Date: 12/10/16 Status: Discontinuedondansetron (ANES) Route: IV, Drug form: INJ, ONCE, Stop date: 12/11/16 9:57:00 CDT Start Date: 12/11/16 Stop Date: 12/11/16 Status: Completedpropofol (ANES) Route: IV, Drug form: INJ, ONCE, Stop date: 12/11/16 7:31:00 CDT Start Date: 12/11/16 Stop Date: 12/11/16 Status: CompletedReglan 10 mg, 2 mL, Route: IVP, Drug form: INJ, Q6H, Dosing Weight 81.818, kg, PRN Nausea & Vomiting, Start date: 12/10/16 20:53:00 CDT, Duration: 30 day, Stop date: 01/09/17 20:52:00 CDT Notes: (Same as: Reglan) Start Date: 12/10/16 Stop Date: 12/15/16 Status: DiscontinuedReglan 10 mg, 1 tab, Route: PO, Drug form: TAB, Q6H, PRN Nausea & Vomiting, Start date: 12/15/16 13:13:00 CDT, Duration: 30 day, Stop date: 01/14/17 13:12:00 CDT Notes: (Same as: Reglan) Take 30 min before meals Start Date: 12/15/16 Stop Date: 12/15/16 Status: DiscontinuedSaline Flush 0.9% 10 ml, Route: IVP, Drug Form: INJ, Dosing Weight 81.818, kg, PRN, PRN Line Flush , Start date: 12/10/16 20:45:00 CDT, Duration: 30 day, Stop date: 01/09/17 20:44 :00 CDT Notes: (Same as: BD Posiflush) Start Date: 12/10/16 Stop Date: 12/15/16 Status: Discontinuedsodium chloride 0.45% 1000 ml INJ 1,000 mL 1,000 mL, Rate: 100 ml/hr, Infuse over: 10 hr, Route: IV, Dosing Weight 81.818 kg, Total Volume: 1,000, Start date: 12/10/16 20:55:00 CDT, Duration: 30 day, Stop date: 01/09/17 20:54:00 CDT Start Date: 12/10/16 Stop Date: 12/12/16 Status: Discontinuedsodium chloride 0.9% 1000 ml INJ 1,000 mL 1,000 mL, Rate: 100 ml/hr, Infuse over: 10 hr, Route: IV, Dosing Weight 81.818 kg, Total Volume: 1,000, Start date: 12/10/16 20:45:00 CDT, Duration: 30 day, Stop date: 01/09/17 20:44:00 CDT Start Date: 12/10/16 Stop Date: 12/10/16 Status: Discontinuedtrazodone 25 mg, 0.5 tab, Route: PO, Drug form: TAB, Bedtime, Dosing Weight 88.091, kg, PRN Sleep, Start date:12/13/16 14:39:00 CDT, Duration: 30 day, Stop date: 14:38:00 CDT, .. Notes: (Same As: Lucía) Start Date: 12/13/16 Stop Date: 12/15/16 Status: DiscontinuedTylenol with Codeine #3 oral tablet 1 - 2 tab, PO, Q4H, PRN Pain, X 4 day, # 36 tab, 0 Refill(s) Start Date: 12/15/16 Stop Date: 12/19/16 Status: Orderedvancomycin (ANES) (ANES) Route: IV, Drug form: INJ, Start date: 12/11/16 6:15:00 CDT, Stop date: 7:15:00 CDT Start Date: 12/11/16 Stop Date: 12/11/16 Status: Completedvancomycin (SCIP) + sodium chloride 0.9% 250 mL INJ (for IV set ) 250 mL 1,250 mg, Route: IVPB, [id number], Dosing Weight 88.091, kg, Time Critical Medication, Start date: 12/11/16 9:00:00 CDT, Duration: 2 doses or times, Stop date: 12/11/16 21:00:00 CDT, Pharmacy to adjust dose for renal function, ABX Indication: Surgical Pr... Notes: TIME CRITICAL MEDICATION(Same As: Vancocin)Infusion rate< 1000 mg: infuse over 1 [id number] - 1500 mg: infuse over 1.5 [id number] - 2000 mg: infuse over 2 hours> 2001 mg: infuse over 2.5 hours MEDICATION WASTE Product Size: 1000 mgProduct Wasted: ___ mg Start Date: 12/11/16 Stop Date: 12/11/16 Status: Deletedvancomycin (SCIP) + sodium chloride 0.9% 250 mL INJ (for IV set) 250 mL 1,250 mg, Route: IVPB, [id number], Dosing Weight 88.091, kg, Time Critical Medication, Start date: 12/11/16 18:30:00 CDT, Duration: 2 doses or times, Stop date: 12/12/16 6:30:00 CDT, Pharmacy to adjust dose for renal function, ABX Indication: Surgical Pr... Notes: TIME CRITICAL MEDICATION(Same As: Vancocin)Infusion rate< 1000 mg: infuse over 1 [id number] - 1500 mg: infuse over 1.5 [id number] - 2000 mg: infuse over 2 hours> 2001 mg: infuse over 2.5 hours MEDICATION WASTE Product Size: 1000 mgProduct Wasted: ___ mg Start Date: 12/11/16 Stop Date: 12/12/16 Status: CompletedVitamin D2 50,000 IntlUnit, 1 cap, Route: PO, Drug form: CAP, Q7D, Start date: 12/12/16 9: 00:00 CDT, Duration: 30 day, Stop date: 01/09/17 9:00:00 CDT Notes: (Same as: Vitamin D) "Do Not Crush" Start Date: 12/12/16 Stop Date: 12/12/16 Status: Voided With ResultsVitamin D3 50,000 IntlUnit, 10 tab, Route: PO, Drug form: TAB, Q7D, Start date: 12/12/16 11 :00:00 CDT, Duration: 30 day, Stop date: 01/09/17 9:00:00 CDT Notes: Same as: Vitamin D3 Non-Formulary Start Date: 12/12/16 Stop Date: 12/15/16 Status: DiscontinuedZofran 4 mg, 2 mL, Route: IVP, Drug form: INJ, ONCE, Dosing Weight 81.818, kg, Priority : STAT, Start date: 12/10/16 19:30:00 CDT, Stop date: 12/10/16 19:30:00 CDT Notes: (Same as: Fausto) MEDICATION WASTE Product Size: 4 mgProduct Wasted: ___ mg Start Date: 12/10/16 Stop Date: 12/10/16 Status: Completed Results BLOOD BANK RESULTS Most recent to oldest [Reference Range]: 1 2 3 ABO/Rh A POS *Unknown* (12/10/16 11:25 PM) Antibody Scrn Negative (12/10/16 11:25 PM) ELECTROLYTES Most recent to oldest 1 2 3 [Reference Range]: Sodium Lvl [135-145 mEq/L] 139 mEq/L 140 mEq/L 142 mEq/L (12/12/16 3:53 AM) (12/11/16 4:21 AM) (12/10/16 10:09 PM) Potassium Lvl [3.5-5.1 4.1 mEq/L 4.2 mEq/L 4.3 mEq/L mEq/L] (12/12/16 3:53 AM) (12/11/16 4:21 AM) (12/10/16 10:09 PM) Chloride Lvl [95-109 mEq/L] 104 mEq/L 106 mEq/L 108 mEq/L (12/12/16 3:53 AM) (12/11/16 4:21 AM) (12/10/16 10:09 PM) CO2 [24-32 mEq/L] 26 mEq/L 24 mEq/L 27 mEq/L (12/12/16 3:53 AM) (12/11/16 4:21 AM) (12/10/16 10:09 PM) AGAP [10.0-20.0 mEq/L] 13.1 mEq/L 14.2 mEq/L 11.3 mEq/L (12/12/16 3:53 AM) (12/11/16 4:21 AM) (12/10/16 10:09 PM) CHEM PANEL Most recent to oldest 1 2 3 [Reference Range]: Creatinine Lvl [0.50-1.40 0.60 mg/dL 0.70 mg/dL 0.74 mg/dL mg/dL] (12/12/16 3:53 AM) (12/11/16 4:21 AM) (12/10/16 10:09 PM) eGFR 96 mL/min/1.73m2 1 91 mL/min/1.73m2 2 86 mL/min/1.73m2 3 *NA* *NA* *NA* (12/12/16 3:53 AM) (12/11/16 4:21 AM) (12/10/16 10:09 PM) BUN [7-22 mg/dL] 14 mg/dL 16 mg/dL 16 mg/dL (12/12/16 3:53 AM) (12/11/16 4:21 AM) (12/10/16 10:09 PM) B/C Ratio [6-25] 22 (12/10/16 10:09 PM) Glucose Lvl [70-99 mg/dL] 128 mg/dL 113 mg/dL 151 mg/dL *HI* *HI* *HI* (12/12/16 3:53 AM) (12/11/16 4:21 AM) (12/10/16 10:09 PM) Total Protein [6.4-8.4 7.2 g/dL g/dL] (12/10/16 10:09 PM) Albumin Lvl [3.5-5.0 g/dL] 3.9 g/dL (12/10/16 10:09 PM) Globulin [2.7-4.2 g/dL] 3.3 g/dL (12/10/16 10:09 PM) A/G Ratio [0.7-1.6] 1.2 (12/10/16 10:09 PM) Calcium Lvl [8.5-10.5 8.1 mg/dL 8.5 mg/dL 8.9 mg/dL mg/dL] *LOW* (12/11/16 4:21 AM) (12/10/16 10:09 PM) (12/12/16 3:53 AM) Magnesium Lvl [1.8-2.4 2.0 mg/dL mg/dL] (12/13/16 2:56 PM) ALT [0-65 unit/L] 35 unit/L (12/10/16 10:09 PM) AST [0-37 unit/L] 18 unit/L (12/10/16 10:09 PM) Alk Phos [39-136 unit/L] 113 unit/L (12/10/16 10:09 PM) Bili Total [0.2-1.3 mg/dL] 0.6 mg/dL (12/10/16 10:09 PM) Lactic Acid Lvl [0.5-2.2 0.8 mMol/L mMol/L] (12/13/16 2:56 PM) 1Result Comment: The eGFR is calculated using the CKD-EPI formula. In most young , healthy individualsthe eGFR will be >90 mL/min/1.73m2. The eGFR declines with age. An eGFR of 60-89 may be normal in some populations, particularly the elderly, for whom the CKD-EPI formula has not been extensively validated. Use of the eGFR is not recommended in the following populations: Individuals with unstable creatinine concentrations, including patients and those with serious co-morbid conditions. Patients with extremes in muscle mass or diet. The data above are obtained from the National Kidney Disease Education Program ( NKDEP) which additionally recommends that when the eGFR is used in patients with extremes of body mass index for purposesof drug dosing, the eGFR should be multiplied by the estimated BMI.2Result Comment: The eGFR is calculated using the CKD-EPI formula. In most young, healthy individualsthe eGFR will be >90 mL/ min/1.73m2. The eGFR declines with age. An eGFR of 60-89 may be normal in some populations, particularly the elderly, for whom the CKD-EPI formula has not been extensively validated. Use of the eGFR is not recommended in the following populations: Individuals with unstable creatinine concentrations, including patients and those with serious co-morbid conditions. Patients with extremes in muscle mass or diet. The data above are obtained from the National Kidney Disease Education Program ( NKDEP) which additionally recommends that when the eGFR is used in patients with extremes of body mass index for purposesof drug dosing, the eGFR should be multiplied by the estimated BMI.3Result Comment: The eGFR is calculated using the CKD-EPI formula. In most young, healthy individualsthe eGFR will be >90 mL/ min/1.73m2. The eGFR declines with age. An eGFR of 60-89 may be normal in some populations, particularly the elderly, for whom the CKD-EPI formula has not been extensively validated. Use of the eGFR is not recommended in the following populations: Individuals with unstable creatinine concentrations, including patients and those with serious co-morbid conditions. Patients with extremes in muscle mass or diet. The data above are obtained from the National Kidney Disease Education Program ( NKDEP) which additionally recommends that when the eGFR is used in patients with extremes of body mass index for purposesof drug dosing, the eGFR should be multiplied by the estimated BMI.CARDIAC ENZYMES Most recent to oldest [Reference Range]: 1 2 3 Total CK [12-191 unit/L] 115 unit/L (12/10/16 10:09 PM) URINE AND STOOL Most recent to oldest [Reference Range]: 1 2 3 UA Turbidity [Clear] Clear (12/13/16 4:31 PM) UA Color [Yellow] Yellow *NA* (12/13/16 4:31 PM) UA pH [5.0-8.0] 6.0 (12/13/16 4:31 PM) UA Spec Grav [<=1.030] 1.010 (12/13/16 4:31 PM) UA Glucose [Negative] Negative (12/13/16 4:31 PM) UA Blood [Negative] Negative (12/13/16 4:31 PM) UA Ketones [Negative mg/dL] 40 mg/dL *ABN* (12/13/16 4:31 PM) UA Protein [Negative] Negative (12/13/16 4:31 PM) UA Urobilinogen [0.1-1.0 EU/dL] 0.2 EU/dL (12/13/16 4:31 PM) UA Bili [Negative] Negative *NA* (12/13/16 4:31 PM) UA Leuk Est [Negative] Negative (12/13/16 4:31 PM) UA Nitrite [Negative] Negative (12/13/16 4:31 PM) UA WBC [None Seen /HPF] 0-2 /HPF (12/13/16 4:31 PM) UA RBC [0-2 /HPF] 0-2 /HPF (12/13/16 4:31 PM) UA Bacteria [None Seen /HPF] Occasional /HPF (12/13/16 4:31 PM) UA Sq Epi [Few /LPF] Occasional /LPF (12/13/16 4:31 PM) HEMATOLOGY Most recent to oldest 1 2 3 [Reference Range]: WBC [3.7-10.4 K/CMM] 4.5 K/CMM 5.1 K/CMM 6.8 K/CMM (12/14/16 4:34 AM) (12/12/16 3:53 AM) (12/11/16 4:21 AM) RBC [4.20-5.40 M/CMM] 2.84 M/CMM 3.14 M/CMM 4.21 M/CMM *LOW* *LOW* (12/11/16 4:21 AM) (12/14/16 4:34 AM) (12/12/16 3:53 AM) Hgb [12.0-16.0 g/dL] 8.4 g/dL 9.4 g/dL 12.5 g/dL *LOW* *LOW* (12/11/16 4:21 AM) (12/14/16 4:34 AM) (12/12/16 3:53 AM) Hct [36.0-48.0 %] 25.0 % 27.9 % 37.7 % *LOW* *LOW* (12/11/16 4:21 AM) (12/14/16 4:34 AM) (12/12/16 3:53 AM) MCV [80.0-98.0 fL] 88.0 fL 88.7 fL 89.6 fL (12/14/16 4:34 AM) (12/12/16 3:53 AM) (12/11/16 4:21 AM) MCH [27.0-31.0 pg] 29.5 pg 29.9 pg 29.7 pg (12/14/16 4:34 AM) (12/12/16 3:53 AM) (12/11/16 4:21 AM) MCHC [32.0-36.0 g/dL] 33.5 g/dL 33.7 g/dL 33.2 g/dL (12/14/16 4:34 AM) (12/12/16 3:53 AM) (12/11/16 4:21 AM) RDW [11.5-14.5 %] 13.5 % 13.6 % 14.2 % (12/14/16 4:34 AM) (12/12/16 3:53 AM) (12/11/16 4:21 AM) Platelet [133-450 K/CMM] 159 K/CMM 151 K/CMM 170 K/CMM (12/14/16 4:34 AM) (12/12/16 3:53 AM) (12/11/16 4:21 AM) MPV [7.4-10.4 fL] 7.9 fL 8.3 fL 7.7 fL (12/14/16 4:34 AM) (12/12/16 3:53 AM) (12/11/16 4:21 AM) Segs [45.0-75.0 %] 81.3 % 80.3 % 85.1 % *HI* *HI* *HI* (12/12/16 3:53 AM) (12/11/16 4:21 AM) (12/10/16 10:09 PM) Lymphocytes [20.0-40.0 %] 8.4 % 9.3 % 8.4 % *LOW* *LOW* *LOW* (12/12/16 3:53 AM) (12/11/16 4:21 AM) (12/10/16 10:09 PM) Monocytes [2.0-12.0 %] 10.1 % 10.0 % 6.1 % (12/12/16 3:53 AM) (12/11/16 4:21 AM) (12/10/16 10:09 PM) Eosinophils [0.0-4.0 %] 0.1 % 0.3 % 0.2 % (12/12/16 3:53 AM) (12/11/16 4:21 AM) (12/10/16 10:09 PM) Basophils [0.0-1.0 %] 0.1 % 0.1 % 0.2 % (12/12/16 3:53 AM) (12/11/16 4:21 AM) (12/10/16 10:09 PM) Segs-Bands # [1.5-8.1 4.1 K/CMM 5.5 K/CMM 5.5 K/CMM K/CMM] (12/12/16 3:53 AM) (12/11/16 4:21 AM) (12/10/16 10:09 PM) Lymphocytes # [1.0-5.5 0.4 K/CMM 0.6 K/CMM 0.5 K/CMM K/CMM] *LOW* *LOW* *LOW* (12/12/16 3:53 AM) (12/11/16 4:21 AM) (12/10/16 10:09 PM) Monocytes # [0.0-0.8 K/CMM] 0.5 K/CMM 0.7 K/CMM 0.4 K/CMM (12/12/16 3:53 AM) (12/11/16 4:21 AM) (12/10/16 10:09 PM) PT [12.0-14.7 seconds] 13.1 seconds 11.9 seconds (12/11/16 4:21 AM) *LOW* (12/10/16 10:09 PM) INR [0.85-1.17] 0.97 0.86 (12/11/16 4:21 AM) (12/10/16 10:09 PM) PTT [22.9-35.8 seconds] 27.2 seconds 24.3 seconds (12/11/16 4:21 AM) (12/10/16 10:09 PM) Immunizations No data available for this section Procedures Procedure Date Related Diagnosis Body Site Breast cancer1 07/26/94 Mastectomy 1removal of right breast Social History Social History Type Response Substance Abuse Use: None. Alcohol Never Smoking Status Never smoker; Exposure to Tobacco Smoke None; Cigarette Smoking Last 365 Days No; Reg Smoking Cessation Counseling No Assessment and Plan Extracted from: Title: Progress Note Author: Fabian Mcnally MD Date: 12/13/16 Assessment/Plan Left femoral neck fracture, s/p left hip hemiarthroplasty - POD#2 Abnormal EKG prolonged Qtc Fever PLAN: Continue acute therapy Repeat EKG F/u blood cultures and will check UA and CXR and lactate Pain control heplock IV Awaiting authorization for post-acute care Prophylaxis heparin Disposition Acute rehab Addendum by Fabian Mcnally MD on 12/13/2016 11:34 CDT Qtc still prolonged. Calcium being replaced. K ok and Mg pending Extracted from: Title: Clinical Document Author: Jonas Bishop MD Date: 12/10/16 History and Physical Attending: Polo Fleming MD Service: Internal Medicine Code status: None Specified=FULL CODE Reason for Admission: HIP FRACTURE Working DRG: None Documented Isolation: None Documented Consulting Physicians: Manfred Zaman MD Office: Service: Orthopedic Surgery CC: L hip pain HPI: This is a 66-year-old woman with below past medical history who presents with left hip pain. Admission, patient was in her backyard walking around when she noticed a large snake which startled her . She quickly turned around to run away from the snake but fell and landed on her left hip. She developed severe on characterizable left hip pain that radiated around the thigh, it was constant. Weig htbearing and movement worsen the pain, alleviated the pain. She called for her son who eventually came but could not help her up so he called 911 and patient was transported to [facility] ER. Before this incident, patient was at her baseline functioning, she denied any preceding lightheadedness/dizziness, shortness of breath, chest pain, palpitations, or any other additional symptoms. She fell on her left side but denies any head trauma or LOC. PMHx: Breast cancer (in remission, s/p mastectomy, chemo, RT) nephritis CKD hypertension and hypotension (meds stopped) PSHx: R mastectomy kidney biopsy FHx: reviewed and noncontributory SHx: Denies T/E/D Meds: See medicine reconciliation Medication List Active Medications No Active Medications Found Medications Inactivated in the Last 72 Hours morphine Sulfate: 4 mg, 1 mL, IVP, ONCE. morphine Sulfate: 4 mg, 1 mL, PYXIS, ONCE. ondansetron: 4 mg, 2 mL, IVP, ONCE. ondansetron: 4 mg, 2 mL, PYXIS, ONCE. Allergies: NKDA ROS: See HPI. All other systems reviewed by myself are negative unless noted above. Physical Exam: Vitals Tmp(F) Pulse BP RR SpO2 FIO2 18 18:59 98.2 86 137/60 18 100 --- 24 Hr Tmax: 98.2F (36.78c) at 0518 18:59 Vital Signs are the last 5 in the past 48 hours. General: NAD, nontoxic appearing HEENT: NCAT, PERRL, MMM, oropharynx is clear, no LAD, no thyromegaly Cardiovascular: RRR, S1S2, no murmurs/rubs/gallops, 2+ bilateral carotid pulses Respiratory: good respiratory effort, CTAB Abdomen: soft, +BS, NT/ND Extremities: no b/l LE edema Skin: No major ecchymosis around left hip Neurologic: AAOx3, comprehension and speech intact, CN III-XII grossly intact Musculoskeletal: Moves all extremities well except for left lower extremity, has limited range of motion of left hip due to pain Psych: appropriate affect Rectal/: deferred Labs: pending Micro: none Imaging: Left hip x-ray ([facility]): Subcapital fracture involves the proximal left femur with mild displacement of the fracture fragments and marked angulation seen at the fracture site. No dislocation is noted. CXR ([facility]): No acute abnormality Femur series DX 12/10/16 21:01:38 IMPRESSION: Displaced and angulated fracture of the left femoral neck. SL: [id number] Signed By: Misael Mccoy MD EKG: NSR, prolonged QT, no major ST abnormalities I reviewed all resulted labs, radiology, and any old records that are pertinent. Assessment and Plan: This is a 66-year-old woman who presents with left hip pain after mechanical fall. She is found to have left femur fracture on imaging. Labs pending. # Left femoral fracture: NPO, iv fluids, pain and nausea control, orthopedics consult #QT prolonged: Avoid QT prolonging agents, will give Reglan for nausea Prophylaxis: SCDs, subQ heparin after surgery Diet: NPO
--- OUTSIDE RECORDS SUMMARY | 2018-09-04 09:52 | XMS REPORT | Summary of Care ---
:1950 Author Organization [facility] [place] Address [address] [place] [id number]- Encounter HQ Encntr_alijonny(FIN) [id number] Date(s): 06/16/16 - 06/16/16 [facility] [address] [place] [address]- [phone] Discharge Disposition: Home or Self Care Attending [...]
[2018-09-04] MEDS ORDERED: LIDOCAINE VISCOUS 2% SOLN 15 ML UDC ONE (10:36)
[2018-09-04] MEDS ORDERED: MAGNE/ALUM HYDROXD 30 ML UCUP ONE (10:36)
--- NOTE | 2018-09-04 11:10 | RAD REPORT ---
EXAM DESCRIPTION: US - Abdomen Exam Limited - 09/04/2018 11:04 am CLINICAL HISTORY: Abdominal pain COMPARISON: None. FINDINGS: No gallstones or sludge. There is no wall thickening or pericholecystic fluid. A [address] polyp is seen adherent to the gallbladder wall. No common duct stone or biliary tree dilatation identified. IMPRESSION: Small 5 mm gallbladder polyp. No other gallbladder or biliary tree finding.
[2018-09-04 11:12] LABS: Absolute Lymphocytes (CBC) 0.8 K/uL (0.7-4.9); Absolute Monocytes 0.5 K/uL (0.1-1.3); Absolute Neutrophil 2.5 K/uL (1.8-8.0); Basophils % 0.4 % (0-1.3); Eosinophils % 1.9 % (0-4.4); Hematocrit 38.2 % (36.0-45.0); Lymphocytes % 21.5 % (15.3-44.8); MPV 8.1 fL (7.6-11.3); Monocytes % 11.6 % (3.3-12.3); RBC Red Blood Cell Count 4.28 M/uL (3.86-4.86)
[2018-09-04 11:38] LABS: Albumin 3.5 g/dL (3.4-5.0); Bilirubin Direct 0.1 mg/dL (0-0.2); Bilirubin Total 0.4 mg/dL (0.2-1.0); Potassium 4.1 mmol/L (3.5-5.1); Protein, Total 6.9 g/dL (6.4-8.2)
[2018-09-04] MEDS ORDERED: MORPHINE 4 MG/ML SYR ONE (13:05)
[2018-09-04] MEDS ORDERED: ONDANSETRON 4 MG/2 ML VIAL ONE (13:05)
--- NOTE | 2018-09-04 14:11 | RAD REPORT ---
EXAM DESCRIPTION: CT - Abdomen Pelvis W Contrast - 09/04/2018 1:44 pm CLINICAL HISTORY: Abdominal pain, epigastric pain, history of right mastectomy for carcinoma COMPARISON: None. TECHNIQUE: Biphasic, helical CT imaging of the abdomen and pelvis was performed following 100 ml non -ionic IV contrast. Oral contrast was given. All CT scans are performed using dose optimization technique as appropriate and may include automated exposure control or mA/KV adjustment according to patient size. FINDINGS: No suspicious findings in the lung bases. The liver, spleen, and pancreas show no suspicious findings. Liver is borderline to mildly fatty infi ltrated. Gallbladder and biliary tree are also without suspicious finding. Symmetric renal function is seen with no hydronephrosis or suspicious renal mass. No pyelonephritis o r acute parenchymal process. No bladder abnormalities. No adrenal abnormalities. No dilated bowel loops or bowel wall thickening. Appendix normal. No active GI process seen. No free air, free fluid or inflammatory stranding. No hernia, mass or bulky lymphadenopathy. No acute bone finding. Left hip prosthesis in place. IMPRESSION: Contrast enhanced CT abdomen and pelvis showing no significant or suspicious finding. Nonacute findings detailed in the body of the report.
[2018-09-04 14:13] LABS: Urine Blood NEGATIVE (NEG); Urine Glucose NEGATIVE (NEG); Urine Protein NEGATIVE (NEG); Urine pH 6.5 (5.0-7.0)
--- NOTE | 2018-09-04 14:50 | EDPHYS ---
Physician Documentation [facility] Name: Mayela Hou Age: 67 yrs Sex: Female : 1950 Arrival Date: 09/04/2018 Time: 09:50 Bed 5 Private MD: Gm Lim ED Physician Gavin Matos HPI: 09/04 10:12 This 67 yrs old Female presents to ER via Unassigned with complaints of rn Abdominal Tenderness. 10:12 The patient presents with abdominal pain in the epigastric area. Onset: The rn symptoms/episode began/occurred last night. The symptoms do not radiate. Associated signs and symptoms: Pertinent positives: anorexia, nausea, Pertinent negatives: blood in stools, chest pain, dysuria, fever, shortness of breath, vomiting, vomiting blood. The symptoms are described as achy, constant. Modifying factors: The symptoms are alleviated by nothing, the symptoms are aggravated by food, touching the area. Severity of pain: At its worst the pain was mild in the emergency department the pain is unchanged. The patient has not experienced similar symptoms in the past. The patient has not recently seen a physician. Epigastric pain that began last night, no vomiting, + nausea, + acid problems in past, no known gallbladder problems. . Historical: - Allergies: 10:16 No Known Allergies; ss - Home Meds: 10:16 None [Active]; ss - PMHx: 10:16 Cancer, Breast Right; ss - PSHx: 10:16 Mastectomy, Right; ss - Immunization history:: Adult Immunizations up to date. - Social history:: Smoking status: Patient/guardian denies using tobacco. - Family history:: not pertinent. - Ebola Screening: : Patient denies exposure to infectious person Patient denies travel to an Ebola-affected area in the 21 days before illness onset. - Hospitalizations: : No recent hospitalization is reported. ROS: 10:12 Constitutional: Negative for fever, chills, and weight loss, Eyes: Negative for injury, rn pain, redness, and discharge, Cardiovascular: Negative for chest pain, palpitations, and edema, Respiratory: Negative for shortness of breath, cough, wheezing, and pleuritic chest pain, Abdomen/GI: + abd pain and nausea MS/Extremity: Negative for injury and deformity, Skin: Negative for injury, rash, and discoloration, Neuro: Negative for headache, weakness, numbness, tingling, and seizure. Exam: 10:12 Constitutional: This is a well developed, well nourished patient who is awake, alert, rn and in no acute distress. Head/Face: Normocephalic, atraumatic. Cardiovascular: Regular rate and rhythm, No pulse deficits. Respiratory: No increased work of breathing, no retractions or nasal flaring. Abdomen/GI: soft, + mild epigastric tenderness, no rebound, neg parson Skin: Warm, dry with normal turgor. Normal color with no rashes, no lesions, and no evidence of cellulitis. MS/ Extremity: Pulses equal, no cyanosis. Neurovascular intact. Full, normal range of motion. Equal circumference. Neuro: Awake and alert, GCS 15, oriented to person, place, time, and situation. Cranial nerves II-XII grossly intact. Motor strength 5/5 in all extremities. Sensory grossly intact. Cerebellar exam normal. Normal gait. Vital Signs: 10:16 BP 129 / 62; Pulse 70; Resp 15; Temp 97.9(TE); Pulse Ox 98% on R/A; Weight 83.01 kg; ss Height 6 ft. 0 in. (182.88 cm); Pain 2/10; 13:12 BP 146 / 80; Pulse 75; Resp 16; Pulse Ox 98% ; sv 10:16 Body Mass Index 24.82 (83.01 kg, 182.88 cm) ss MDM: 09:55 Patient medically screened. rn 14:48 Differential diagnosis: cholecystitis, Cholelithiasis, gastritis, gastroesophageal rn reflux disease, non-specific abd pain, pancreatitis, Peptic Ulcer Disease. Data reviewed: vital signs, nurses notes, lab test result(s), EKG, radiologic studies, CT scan, ultrasound, and as a result, I will admit patient. Counseling: I had a detailed discussion with the patient and/or guardian regarding: the historical points, exam findings, and any diagnostic results supporting the discharge/admit diagnosis, lab results, radiology results, the need for further work-up and treatment in the hospital. Response to treatment: the patient's symptoms have markedly improved after treatment, and as a result, I will admit patient. Refusal of service: The patient/guardian displays adequate decision making capability and despite a detailed discussion of alternatives, benefits, risks, and consequences refuses: Admission to the hospital for further work-up and treatment. ED course: Pt states does not want to be admitted, wants to f/u with Dr. Lim, told her has mild pancreatitis, needs MRCP and HIDA scan as well as GI evaluation, wants to go home, understands risks of leaving. . 09/04 10:02 Order name: Basic Metabolic Panel rn 09/04 10:02 Order name: CBC with Diff; Complete Time: 11:18 rn 09/04 10:02 Order name: Hepatic Function; Complete Time: 11:41 rn 09/04 10:02 Order name: Lipase; Complete Time: 11:41 rn 09/04 10:03 Order name: Basic Metabolic Panel; Complete Time: 11:41 EDMS 09/04 12:13 Order name: Urine Dipstick--Ancillary (enter results); Complete Time: 14:15 em1 09/04 10:02 Order name: IV Saline Lock; Complete Time: 10:38 rn 09/04 10:02 Order name: Labs collected and sent; Complete Time: 10:38 rn 09/04 10:02 Order name: EKG; Complete Time: 10:03 rn 09/04 10:02 Order name: US Abdomen Limited; Complete Time: 11:18 rn 09/04 11:42 Order name: CT Abd/Pelvis - W/Contrast; Complete Time: 14:15 rn 09/04 10:02 Order name: EKG - Nurse/Tech; Complete Time: 10:38 rn 09/04 12:13 Order name: Urine Dipstick-Ancillary (obtain specimen); Complete Time: 12:16 em1 Administered Medications: 10:35 Drug: GI Cocktail without - (Maalox Suspension 30 ml, Lidocaine Liquid 2 % 15 sg ml) Route: PO; 10:54 Follow up: Response: No adverse reaction sg 13:00 Drug: morphine 4 mg Route: IVP; Site: left forearm; sg 14:00 Follow up: Response: No adverse reaction; Pain is decreased sg 13:02 Drug: Zofran 4 mg Route: IVP; Site: left forearm; sg 14:00 Follow up: Response: No adverse reaction; Nausea is decreased sg Disposition: 09/04/18 14:50 Discharged to Home. Impression: Upper abdominal pain, unspecified, Acute pancreatitis, unspecified. - Condition is Stable. - Discharge Instructions: Abdominal Pain, Adult, Acute Pancreatitis, Upper Endoscopy. - Medication Reconciliation Form, Thank You Letter, Antibiotic Education, Prescription Opioid Use form. - Follow up: Gm Lim MD; When: Tomorrow; Reason: Recheck today's complaints, Re-evaluation by your physician. - Problem is new. - Symptoms have improved. Signatures: Dispatcher [employer] EDMS Estrada Mazariegos RN RN Gavin Matos MD MD rn Martinez, [facility] Marleny Sharma RN RN ss Corrections: (The following items were deleted from the chart) 14:50 14:50 09/04/2018 14:50 Discharged to Home. Impression: Upper abdominal pain, rn unspecified. Condition is Stable. Forms are Medication Reconciliation Form, Thank You Letter, Antibiotic Education, Prescription Opioid Use. Follow up: Gm Lim; When: Tomorrow; Reason: Recheck today's complaints, Re-evaluation by your physician. Problem is new. Symptoms have improved. rn 15:04 14:50 09/04/2018 14:50 Discharged to Home. Impression: Upper abdominal pain, rn unspecified; Acute pancreatitis, unspecified. Condition is Stable. Forms are Medication Reconciliation Form, Thank You Letter, Antibiotic Education, Prescription Opioid Use. Follow up: Gm Lim; When: Tomorrow; Reason: Recheck today's complaints, Re-evaluation by your physician. Problem is new. Symptoms have improved. rn
--- NOTE | 2018-09-04 14:50 | ER ---
Nurse's Notes [facility] Name: Mayela Hou Age: 67 yrs Sex: Female : 1950 Arrival Date: 09/04/2018 Time: 09:50 Bed 5 Private MD: Gm Lim Diagnosis: Upper abdominal pain, unspecified;Acute pancreatitis, unspecified Presentation: 09/04 10:08 Presenting complaint: Patient states: epigastric discomfort x 2-3 days. Denies fever, ss V/D. Transition of care: patient was not received from another setting of care. Onset of symptoms was August 01, 2018. Risk Assessment: Do you want to hurt yourself or someone else? Patient reports no desire to harm self or others. Initial Sepsis Screen: Does the patient meet any 2 criteria? No. Patient's initial sepsis screen is negative. Does the patient have a suspected source of infection? No. Patient's initial sepsis screen is negative. Care prior to arrival: None. 10:08 Method Of Arrival: Ambulatory ss 10:08 Acuity: DANIEL 3 ss Historical: - Allergies: 10:16 No Known Allergies; ss - Home Meds: 10:16 None [Active]; ss - PMHx: 10:16 Cancer, Breast Right; ss - PSHx: 10:16 Mastectomy, Right; ss - Immunization history:: Adult Immunizations up to date. - Social history:: Smoking status: Patient/guardian denies using tobacco. - Family history:: not pertinent. - Ebola Screening: : Patient denies exposure to infectious person Patient denies travel to an Ebola-affected area in the 21 days before illness onset. - Hospitalizations: : No recent hospitalization is reported. Screenin:40 Abuse screen: Denies threats or abuse. Denies injuries from another. Nutritional sg screening: No deficits noted. Tuberculosis screening: No symptoms or risk factors identified. Fall Risk None identified. Assessment: 10:40 General: Appears in no apparent distress. comfortable, well groomed, well developed, sg well nourished, Behavior is calm, cooperative, appropriate for age. Pain: Complains of pain in abdomen Quality of pain is described as aching. Neuro: No deficits noted. Cardiovascular: Capillary refill is brisk in bilateral fingers Patient's skin is warm and dry. Chest pain is denied. Respiratory: Airway is patent Respiratory effort is even, unlabored, Respiratory pattern is regular, symmetrical. GI: Abdomen is flat, non-distended, Bowel sounds present X 4 quads. Reports lower abdominal pain, nausea. : No signs and/or symptoms were reported regarding the genitourinary system. EENT: No signs and/or symptoms were reported regarding the EENT system. Derm: Skin is pink, warm \T\ dry. Musculoskeletal: No signs and/or symptoms reported regarding the musculoskeletal system. Vital Signs: 10:16 BP 129 / 62; Pulse 70; Resp 15; Temp 97.9(TE); Pulse Ox 98% on R/A; Weight 83.01 kg; ss Height 6 ft. 0 in. (182.88 cm); Pain 2/10; 13:12 BP 146 / 80; Pulse 75; Resp 16; Pulse Ox 98% ; sv 10:16 Body Mass Index 24.82 (83.01 kg, 182.88 cm) ED Course: 09:50 Patient arrived in ED. sb2 09:51 Gm Lim MD is Private Physician. sb2 09:55 Gavin Matos MD is Attending Physician. rn 10:16 Triage completed. ss 10:16 Arm band placed on right wrist. ss 10:20 Patient has correct armband on for positive identification. Bed in low position. Call sg light in reach. Side rails up X2. 10:20 Pulse ox on. NIBP on. sg 10:38 Estrada Mazariegos, RN is Primary Nurse. sg 10:40 No provider procedures requiring assistance completed. sg 11:06 US Abdomen Limited In Process Unspecified. EDMS 13:44 CT Abd/Pelvis - W/Contrast In Process Unspecified. EDMS 13:48 CT completed. Patient tolerated procedure well. Patient moved to CT via wheelchair. kw1 Patient moved back from CT. 14:49 Gm Lim MD is Referral Physician. rn Administered Medications: 10:35 Drug: GI Cocktail without - (Maalox Suspension 30 ml, Lidocaine Liquid 2 % 15 sg ml) Route: PO; 10:54 Follow up: Response: No adverse reaction sg 13:00 Drug: morphine 4 mg Route: IVP; Site: left forearm; sg 14:00 Follow up: Response: No adverse reaction; Pain is decreased sg 13:02 Drug: Zofran 4 mg Route: IVP; Site: left forearm; sg 14:00 Follow up: Response: No adverse reaction; Nausea is decreased sg Outcome: 14:50 Discharge ordered by MD. skinner 15:04 Patient left the ED. rn Signatures: Dispatcher [employer] Netta Abraham, RN Estrada Farr RN RN sg Nieto, Roman, MD MD rn Smirch, Shelby, RN RN Caroline Thompson kw1 Shiela Palma sb2
--- NOTE | 2018-09-04 21:51 | EKG ---
Test Date: 2018-09-04 Test Time: 10:37:59 Vending Machine Attendant: MEASUREMENT RESULTS: Intervals: Rate: 73 VT: 226 QRSD: 80 QT: 428 QTc: 471 [place]: P: 46 VT: 226 QRS: 17 T: 51 INTERPRETIVE STATEMENTS: Sinus rhythm with 1st degree AV block Otherwise normal ECG Compared to ECG 12/10/2016 12:52:58 First degree AV block now present Prolonged QT interval no longer present Electronically Signed On 09-04-18 21:50:17 LEAF SORTER by Connor Hoskins
== END 2018-09-04 15:04 | disposition home or self-care (01) ==
LOC: ER 09:48
DX: K85.90 Acute pancreatitis without necrosis or infection, unspecified (principal); Z85.3 Personal history of malignant neoplasm of breast; Z90.11 Acquired absence of right breast and nipple
CPT/HCPCS: 36415; 74177; 76705; 80048; 80076; 81003; 83690; 85025; 93005; 96374; 96375; 99284; J2405; Q9967

== ENCOUNTER 2018-11-03 11:50 | Emergency (ER) | payer OTHER ==
--- OUTSIDE RECORDS SUMMARY | 2018-11-03 11:58 | XMS REPORT | Continuity of Care Document ---
:1950 Author Organization Interface Problems Problem Status Onset Classification Date Comments Source Date Reported HIP FRACTURE Active [facility] 7 [place] R22.31 - Active [facility] "LOCALIZED 6 [place] SWELLING, MASS AND L Kidney Active Problem 12/18/2016 [facility] disease [place], [place] Breast Resolved Problem 12/18/2016 [facility] cancer [place], [place] Chicken pox Resolved Problem 12/18/2016 [facility] [place] FRACTURE OF Active [facility] [place] [facility] Medications Medication Details Route Status Patient Ordering Order Source Instructions Provider Date Calcium 500 mg, PO, BID, Active Carbonate 500 MG # 60 tab, 0 2017 [place] Chewable Tablet Refill(s), Pharmacy: [facility] [id number] 0.4 ML 40 mg, SUB-Q, Active Enoxaparin Q12H, X 10 day, 2017 [place] sodium 100 MG/ML # 20 ea, 0 Prefilled Refill(s), Syringe Pharmacy: [Lovenox] [facility] [id number] Acetaminophen 1 - 2 tab, PO, Active 300 MG / Codeine Q4H, PRN Pain, X 2017 [place] Phosphate 30 MG 4 day, # 36 tab, Oral Tablet 0 Refill(s) [Tylenol with Codeine #3] Melatonin 3 MG 3 mg=1 tab, PO, Active Extended Release Bedtime, PRN as 2017 [place] Tablet needed for insomnia, X 14 day, # 14 tab, 0 Refill(s), Pharmacy: [facility] [id number] Reglan 10 mg, 1 tab, Inactive Route: PO, Drug 2017 [place] form: TAB, Q6H, PRN Nausea & Vomiting, Start date: 12/15/16 13:13:00 CDT, Duration: 30 day, Stop date: 01/14/17 13:12:00 CDTNotes: (Same as: Reglan) Take 30 min before meals Trazodone 25 mg, 0.5 tab, No Longer Route: PO, Drug Active 2016 [place] form: TAB, Bedtime, Dosing Weight 88.091, kg, PRN Sleep, Start date: 12/13/16 14:39:00 CDT, Duration: 30 day, Stop date: 01/12/17 14:38:00 CDT, ..Notes: (Same As: Desyrel) Melatonin 3 MG 3 mg, 1 tab, No Longer Extended Release Route: PO, Drug Active 2016 [place] Tablet Form: TAB, Dosing Weight 88.091, kg, Bedtime, PRN as needed for insomnia, Start date: 12/13/16 14:39:00 CDT, Duration: 30 day, Stop date: 01/12/17 14:38:00 CDTNotes: (Same as: Melatonin) Ambien 5 mg, 1 tab, No Longer Route: PO, Drug Active 2016 [place] form: TAB, Bedtime, Dosing Weight 88.091, kg, PRN Insomnia, Start date: 12/13/16 14:39:00 CDT, Duration: 30 day, Stop date: 01/12/17 14:38:00 CDTNotes: (Same As: Ambien) Calcium 2,000 mg, 20 mL, Inactive Gluconate Route: IVPB, 2016 [place] ONCE, Dosing Weight 88.091, kg, Priority: STAT, Start date: 12/13/16 11:33:00 CDT, Stop date: 12/13/16 11:33:00 CDTNotes: WASTE: F/P - Sink; E - Municipal Trash Bin Vitamin D3 50,000 IntlUnit, No Longer 10 tab, Route: Active 2016 [place] PO, Drug form: TAB, Q7D, Start date: 12/12/16 11:00:00 CDT, Duration: 30 day, Stop date: 01/09/17 9:00:00 CDTNotes: Same as: Vitamin D3 Non-Formulary Vitamin D2 50,000 IntlUnit, Inactive 1 cap, Route: 2016 [place] PO, Drug form: CAP, Q7D, Start date: 12/12/16 9:00:00 CDT, Duration: 30 day, Stop date: 01/09/17 9:00:00 CDTNotes: (Same as: Vitamin D) "Do Not Crush" phenol 1 spray, Route: No Longer TOP, BID, Drug Active 2016 [place] form: SPRY, PRN Sore Throat, Start date: 12/11/16 21:19:00 CDT, Duration: 30 day, Stop date: 01/10/17 21:18:00 CDTNotes: WASTE: F/P - Black; E - Municipal Trash Bin heparin 5,000 unit, 1 No Longer mL, Route: Active 2016 [place] SUB-Q, Drug form: INJ, Q8H, Start date: 12/11/16 20:00:00 CDT, Duration: 30 day, Stop date: 01/10/17 20:00:00 CDTNotes: porcine heparin vancomycin 1,250 mg, Route: No Longer (SCIP) + sodium IVPB, [id number], Active 2016 [place] chloride 0.9% Dosing Weight 250 mL INJ [...] 2 gm, Route: Inactive IVPB, [id number], 2017 [place] Dosing Weight 88.091, kg, Start date: 12/11/16 15:00:00 CDT, Duration: 1 doses or times, Stop date: 12/11/16 15:00:00 CDT, ABX Indication: Surgical ProphylaxisNotes : (Same As: AncJuan galiciafzol) MEDICATION WASTE Product Size: 1000 mg Product Wasted: ___ mg Dilaudid 0.5 mg, Route: Inactive [facility] IV[facility], ONCE, 2016 [place] Dosing Weight 88.091, kg, Priority: STAT, Start date: 12/11/16 14:01:00 CDT, Stop date: 12/11/16 14:01:00 CDT Fentanyl 25 microgram, Inactive [facility] Route: IV, 2016 [place] Q10Min, Dosing Weight 88.091, kg, PRN Pain Score 6-10, Start date: 12/11/16 10:02:00 CDT, Duration: 30 day, Stop date: 01/10/17 10:01:00 CDT Ondansetron 4 mg, Route: Inactive [facility] IVP, ONCE, 2017 [place] Dosing Weight 88.091, kg, PRN Nausea & Vomiting, Start date: 12/11/16 10:02:00 CDT Hydromorphone 0.5 mg, Route: Inactive 12/11[facility] IVP, Q5Min, 2016 [place] Dosing Weight 88.091, kg, PRN Pain Score 7-10, Start date: 12/11/16 10:02:00 CDT, Duration: 4 doses or times, Stop date: Limited # of times Morphine 4 mg, Route: Inactive 12/11[facility] IVP, Q5Min, 2017 [place] Dosing Weight 88.091, kg, PRN Pain Score 7-10, Start date: 12/11/16 10:02:00 CDT, Duration: 3 doses or times, Stop date: Limited # of times Oxycodone 10 mg, Route: Inactive 12/[facility] PO, Drug form: 2016 [place] TAB, Q4H, Dosing Weight 88.091, kg, PRN Pain Score 7-10, Start date: 12/11/16 10:02:00 CDT, Duration: 30 day, Stop date: 01/10/17 10:01:00 CDT Flumazenil 0.2 mg, Route: Inactive 12/[facility] IVP, PRN, Dosing 2017 [place] Weight 88.091, kg, PRN Benzodiazepine Reversal, Initial dose, Start date: 12/11/16 10:02:00 CDT, Duration: 30 day, Stop date: 01/10/17 10:01:00 CDT Naloxone 0.4 mg, Route: Inactive IVP, Q2MIN, 2016 [place] Dosing Weight 88.091, kg, PRN Narcotic Reversal, Start date: 12/11/16 10:02:00 CDT, Duration: 8 doses or times, Stop date: Limited # of times ketOROLAC (ANES) IV, ONCE Inactive 2016 [place] dexamethasone Route: IV, Drug Inactive (ANES) form: INJ, ONCE, 2016 [place] Stop date: 12/11/16 9:57:00 CDT ondansetron Route: IV, Drug Inactive (ANES) form: INJ, ONCE, 2016 [place] Stop date: 12/11/16 9:57:00 CDT ergocalciferol 50,000 unit, 1 Inactive cap, Route: PO, 2016 [place] Drug form: CAP, Q7D, Dosing Weight 88.091, kg, Start date: 12/11/16 9:00:00 CDT, Duration: 30 day, Stop date: 01/08/17 9:00:00 CDTNotes: (Same as: Vitamin D) "Do Not Crush" Calcium 500 mg, 1 tab, No Longer Carbonate Route: PO, Drug Active 2016 [place] form: TAB, BID, Dosing Weight 88.091, kg, Start date: 12/11/16 9:00:00 CDT, Duration: 30 day, Stop date: 01/09/17 17:00:00 CDTNotes: 500mg elemental [id number] calcium carbonate. Contains 500mg elemental calcium. (Same As: OsCal 500) Vancomycin 1,250 mg, Route: Inactive IVPB, [id number], 2016 [place] Dosing Weight 88.091, kg, Time Critical Medication, [...] unit, 1 Inactive MH mL, Route: 2016 [place] SUB-Q, Drug form: INJ, Q8H, Dosing Weight 81.818, kg, Start date: 12/11/16 8:46:00 CDT, Duration: 30 day, Stop date: 01/10/17 8:00:00 CDTNotes: porcine heparin propofol (ANES) Route: IV, Drug Inactive MH form: INJ, ONCE, 2016 [place] Stop date: 12/11/16 7:31:00 CDT fentaNYL (ANES) Route: IV, Drug Inactive 12/11/ MH form: INJ, ONCE, 2016 [place] Stop date: 12/11/16 7:31:00 CDT ceFAZolin (ANES) Route: IV, Drug Inactive 12/11/ MH form: INJ, ONCE, 2016 [place] Stop date: 12/11/16 7:31:00 CDT midazolam (ANES) Route: IV, Drug Inactive form: SACHINN, 2016 [place] ONCE, Stop date: 12/11/16 7:31:00 CDT Calcium Chloride 1,000 mL, Rate: No Longer 0.0014 MEQ/ML / 25 ml/hr, Infuse Active 2016 [place] Potassium over: 40 hr, Chloride 0.004 Route: IV, MEQ/ML / Sodium Dosing Weight Chloride 0.103 88.091 kg, Total MEQ/ML / Sodium Volume: 1,000, Lactate 0.028 Start date: MEQ/ML 12/11/16 6:28:00 Injectable CDT, Duration: Solution 30 day, Stop date: 01/10/17 6:27:00 CDT vancomycin Route: IV, Drug Inactive MH (ANES) (ANES) form: INJ, Start 2016 [place] date: 12/11/16 6:15:00 CDT, Stop date: 12/11/16 7:15:00 CDT LR 1000 mL INJ Route: IV, Total Inactive (ANES) Volume: 1,000, 2016 [place] Start date: 12/11/16 6:00:00 CDT, Stop date: 12/11/16 7:00:00 CDT Dilaudid 0.5 mg, 0.5 mL, Inactive Route: IV, Drug 2016 [place] form: INJ, ONCE, Dosing Weight 88.091, kg, Start date: 12/11/16 4:41:00 CDT, Stop date: 12/11/16 4:41:00 CDTNotes: Same as: Dilaudid sodium chloride 1,000 mL, Rate: No Longer 0.45% 1000 ml 100 ml/hr, Active 2016 [place] INJ 1,000 mL Infuse over: 10 hr, Route: IV, Dosing Weight 81.818 kg, Total Volume: 1,000, Start date: 12/10/16 20:55:00 CDT, Duration: 30 day, Stop date: 01/09/17 20:54:00 CDT Reglan 10 mg, 2 mL, No Longer Route: IVP, Drug Active 2016 [place] form: INJ, Q6H, Dosing Weight 81.818, kg, PRN Nausea & Vomiting, Start date: 12/10/16 20:53:00 CDT, Duration: 30 day, Stop date: 01/09/17 20:52:00 CDTNotes: (Same as: Reglan) Acetaminophen 650 mg, 2 tab, No Longer Route: PO, Drug Active 2016 [place] form: TAB, Q4H, Dosing Weight 81.818, kg, PRN Pain 1-3/Temp > 100.4 F, Start date: 12/10/16 20:45:00 CDT, Duration: 30 day, Stop date: 01/09/17 20:44:00 CDTNotes: Do not exceed 4 gm/day. (Same as: Tylenol) Saline Flush 10 ml, Route: No Longer 0.9% IVP, Drug Form: Active 2016 [place] INJ, Dosing Weight 81.818, kg, PRN, PRN Line Flush, Start date: 12/10/16 20:45:00 CDT, Duration: 30 day, Stop date: 01/09/17 20:44:00 CDTNotes: (Same as: BD Posiflush) Ondansetron 4 mg, 2 mL, Inactive Route: IVP, Drug 2016 [place] form: INJ, Q6H, Dosing Weight 81.818, kg, PRN Nausea & Vomiting, Start date: 12/10/16 20:45:00 CDT, Duration: 30 day, Stop date: 01/09/17 20:44:00 CDTNotes: (Same as: Zofran) MEDICATION WASTE Product Size: 4 mg Product Wasted: ___ mg Sodium Chloride 1,000 mL, Rate: Inactive 0.154 MEQ/ML 100 ml/hr, 2017 [place] Injectable Infuse over: 10 Solution hr, Route: IV, Dosing Weight 81.818 kg, Total Volume: 1,000, Start date: 12/10/16 20:45:00 CDT, Duration: 30 day, Stop date: 01/09/17 20:44:00 CDT Dilaudid 0.5 mg, 0.5 mL, No Longer Route: IVP, Drug Active 2016 [place] form: INJ, Q3H, Dosing Weight 81.818, kg, PRN Pain Score 7-10, Start date: 12/10/16 20:45:00 CDT, Duration: 30 day, Stop date: 01/09/17 20:44:00 CDTNotes: Same as: Dilaudid Acetaminophen 1 tab, Route: No Longer 325 MG / PO, Drug Form: Active 2017 [place] Hydrocodone TAB, Dosing Bitartrate 10 MG Weight 81.818, Oral Tablet kg, Q4H, PRN [[place] 10/325] Pain Score 4-6, Start date: 12/10/16 20:45:00 CDT, Duration: 30 day, Stop date: 01/09/17 20:44:00 CDTNotes: Do not exceed 4gm/day of acetaminophen. (Same as: [place] 325/10) Zofran 4 mg, 2 mL, Inactive Route: IVP, Drug 2016 [place] form: INJ, ONCE, Dosing Weight 81.818, kg, Priority: STAT, Start date: 12/10/16 19:30:00 CDT, Stop date: 12/10/16 19:30:00 CDTNotes: (Same as: Zofran) MEDICATION WASTE Product Size: 4 mg Product Wasted: ___ mg Morphine 4 mg, 1 mL, Inactive Route: IVP, Drug 2016 [place] form: INJ, ONCE, Dosing Weight 81.818, kg, [...] 10x3 4.5 K/CMM 3.7 - 10.4 12/14 [place] HEMATOLOGY Hgb 8.4 g/dL 12.0 - 12/14 16.0 [place] HEMATOLOGY RBC X 10x6 2.84 M/CMM 4.20 - 12/14 MH 5.40 /2016 [place] HEMATOLOGY Hct 25.0 % 36.0 - 12/14 MH 48.0 [place] HEMATOLOGY RDW 13.5 % 11.5 - 12/14 14.5 [place] HEMATOLOGY MCV 88.0 fL 80.0 - 12/14 98.0 [place] HEMATOLOGY MCHC 33.5 g/dL 32.0 - 12/14 36.0 [place] HEMATOLOGY MCH 29.5 pg 27.0 - 12/14 31.0 [place] HEMATOLOGY Platelet 159 K/CMM 133 - 450 12/14 [place] HEMATOLOGY MPV 7.9 fL 7.4 - 10.4 12/14 [place] URINE AND UA Bacteria Occasional None Seen 12/13 STOOL /HPF /HPF [place] URINE AND UA RBC 0-2 /HPF 0 - 2 12/13 STOOL [place] URINE AND UA WBC 0-2 /HPF None Seen 12/13 STOOL /HPF [place] URINE AND UA Sq Epi Occasional Few /LPF 12/13 STOOL /LPF /2016 [place] URINE AND UA Leuk Est Negative Negative 12/13 STOOL /2016 [place] (12/13/16 4:31 PM) URINE AND UA 0.2 EU/dL 0.1 - 1.0 12/13 STOOL Urobilinogen [place] URINE AND UA Nitrite Negative Negative 12/13 STOOL [place] (12/13/16 4:31 PM) URINE AND UA Blood Negative Negative 12/13 STOOL [place] (12/13/16 4:31 PM) URINE AND UA Bili Negative Negative 12/13 [place] *NA* (12/13/16 4:31 PM) URINE AND UA Ketones 40 mg/dL Negative 12/13 STOOL mg/dL [place] URINE AND UA Glucose Negative Negative 12/13 STOOL [place] (12/13/16 4:31 PM) URINE AND UA Protein Negative Negative 12/13 STOOL [place] (12/13/16 4:31 PM) URINE AND UA pH 6.0 5.0 - 8.0 12/13 [place] URINE AND UA Spec Grav 1.010 <=1.030 12/13 [place] URINE AND UA Turbidity Clear Clear 12/13 [place] (12/13/16 4:31 PM) URINE AND UA Color Yellow Yellow 12/13 [place] *NA* (12/13/16 4:31 PM) CHEM PANEL Magnesium 2.0 mg/dL 1.8 - 2.4 12/13 [facility] [place] CHEM PANEL Lactic Acid 0.8 mMol/L 0.5 - 2.2 12/13 [facility] [place] Chest 1view Chest 1view Patient Name: THELMA HOLGUIN 12/13 [facility] DX /2016 [facility] : 1950; Age: 66 years Female MR: [id number] Read by: Albert Wilcox MD Dictated Date/time: [...] change, adenopathy, mass. Right axillary nicole. SL: [id number] ELECTROLYTE AGAP 13.1 meq/L 10.0 - 05/ MH S 20.0 [place] ELECTROLYTE eGFR 96 12/12 Result Comment: The [...] is not recommended in the following populations: [address] Individuals with unstable creatinine concentrations, including [...] 135 - 145 /20 MH S /2016 [place] ELECTROLYTE Creatinine 0.60 mg/dL 0.50 - 05 MH S Lvl 1.40 /2016 [place] ELECTROLYTE CO2 26 meq/L 24 - 32 / MH S /2016 [place] ELECTROLYTE Chloride Lvl 104 meq/L 95 - 109 / MH S /2016 [place] ELECTROLYTE Potassium 4.1 meq/L 3.5 - 5.1 /20 MH S Lvl /2017 [place] ELECTROLYTE Calcium Lvl 8.1 mg/dL 8.5 - 10.5 /20 MH S /2016 [place] ELECTROLYTE Glucose Lvl 128 mg/dL 70 - 99 /20 MH S /2016 [place] ELECTROLYTE BUN 14 mg/dL 7 - 22 /20 MH S /2016 [place] HEMATOLOGY Monocytes # 0.5 K/CMM 0.0 - 0.8 12/12 MH /2016 [place] HEMATOLOGY Monocytes 10.1 % 2.0 - 12.0 / MH /2016 [place] HEMATOLOGY Eosinophils 0.1 % 0.0 - 4.0 / [place] HEMATOLOGY Lymphocytes 0.4 K/CMM 1.0 - 5.5 12/12 MH # /2017 [place] HEMATOLOGY Segs-Bands # 4.1 K/CMM 1.5 - 8.1 12/12 [place] HEMATOLOGY Basophils 0.1 % 0.0 - 1.0 12/12 [place] HEMATOLOGY Segs 81.3 % 45.0 - 12/12 MH 75.0 [place] HEMATOLOGY Lymphocytes 8.4 % 20.0 - 12/12 MH 40.0 [place] HEMATOLOGY Platelet 151 K/CMM 133 - 450 12/12 [place] HEMATOLOGY MPV 8.3 fL 7.4 - 10.4 12/12 [place] HEMATOLOGY MCHC 33.7 g/dL 32.0 - 12/12 MH 36.0 [place] HEMATOLOGY Hct 27.9 % 36.0 - 12/12 MH 48.0 [place] HEMATOLOGY MCH 29.9 pg 27.0 - 12/12 MH 31.0 [place] HEMATOLOGY RDW 13.6 % 11.5 - 12/12 MH 14.5 [place] HEMATOLOGY MCV 88.7 fL 80.0 - 12/12 MH 98.0 [place] HEMATOLOGY WBC X 10x3 5.1 K/CMM 3.7 - 10.4 12/12 [place] HEMATOLOGY RBC X 10x6 3.14 M/CMM 4.20 - 12/12 MH 5.40 [place] HEMATOLOGY Hgb 9.4 g/dL 12.0 - 12/12 MH 16.0 [place] CHEM PANEL eGFR 91 12/11 Result Comment: [...] is not recommended in the following populations: [address] Individuals with unstable creatinine concentrations, including [...] CO2 24 meq/L 24 - 32 12/11 [place] CHEM PANEL Calcium Lvl 8.5 mg/dL 8.5 - 10.5 12/11 [place] CHEM PANEL Potassium 4.2 meq/L 3.5 - 5.1 12/11 MH Lvl /2016 [place] CHEM PANEL Sodium Lvl 140 meq/L 135 - 145 12/11 [place] CHEM PANEL Chloride Lvl 106 meq/L 95 - 109 12/11 [place] CHEM PANEL Creatinine 0.70 mg/dL 0.50 - 12/11 MH Lvl 1.40 [place] CHEM PANEL BUN 16 mg/dL 7 - 22 12/11 [place] CHEM PANEL Glucose Lvl 113 mg/dL 70 - 99 12/11 [place] CHEM PANEL AGAP 14.2 meq/L 10.0 - 12/11 MH 20.0 [place] HEMATOLOGY Lymphocytes 9.3 % 20.0 - 12/11 MH 40.0 [place] HEMATOLOGY Segs 80.3 % 45.0 - 12/11 MH 75.0 [place] HEMATOLOGY Monocytes 10.0 % 2.0 - 12.0 12/11 [place] HEMATOLOGY Segs-Bands # 5.5 K/CMM 1.5 - 8.1 12/11 [place] HEMATOLOGY Lymphocytes 0.6 K/CMM 1.0 - 5.5 12/11 MH /2017 [place] HEMATOLOGY Basophils 0.1 % 0.0 - 1.0 12/11 [place] HEMATOLOGY Eosinophils 0.3 % 0.0 - 4.0 12/11 [place] HEMATOLOGY Monocytes # 0.7 K/CMM 0.0 - 0.8 12/11 [place] HEMATOLOGY aPTT 27.2 s 22.9 - 12/11 MH 35.8 [place] HEMATOLOGY PROTIME 13.1 s 12.0 - 12/11 MH 14.7 [place] HEMATOLOGY INR 0.97 0.85 - 12/11 MH 1. [place] HEMATOLOGY MPV 7.7 fL 7.4 - 10.4 12/11 [place] HEMATOLOGY RDW 14.2 % 11.5 - 12/11 MH 14.5 [place] HEMATOLOGY Hgb 12.5 g/dL 12.0 - 12/11 MH 16.0 [place] HEMATOLOGY WBC X 10x3 6.8 K/CMM 3.7 - 10.4 12/11 /2016 [place] HEMATOLOGY MCHC 33.2 g/dL 32.0 - 12/11 MH 36.0 [place] HEMATOLOGY Hct 37.7 % 36.0 - 12/11 MH 48.0 [place] HEMATOLOGY MCV 89.6 fL 80.0 - 12/11 MH 98.0 [place] HEMATOLOGY MCH 29.7 pg 27.0 - 12/11 MH 31.0 [place] HEMATOLOGY RBC X 10x6 4.21 M/CMM 4.20 - 12/11 MH 5.40 [place] HEMATOLOGY Platelet 170 K/CMM 133 - 450 12/11 MH [place] BLOOD BANK ABO/Rh A POS 12/11 RESULTS /2016 [place] BLOOD BANK Antibody Negative 12/11 RESULTS Scrn /2016 [place] (12/10/16 11:25 PM) CARDIAC Total CK 115 unit/L 12 - 191 12/11 ENZYMES [place] ELECTROLYTE AGAP 11.3 meq/L 10.0 - 12/11 MH S 20.0 [place] ELECTROLYTE B/C Ratio 22 6 - 25 12/11 S [place] ELECTROLYTE Globulin 3.3 g/dL 2.7 - 4.2 12/11 S [place] ELECTROLYTE A/G Ratio 1.2 0.7 - 1.6 12/11 S [place] ELECTROLYTE eGFR 86 12/11 Result Comment: The [...] is not recommended in the following populations: [place] 3m2 Individuals with unstable creatinine concentrations, including [...] unit/L 0 - 37 12/11 S TRANSAMINASE [place] ELECTROLYTE Chloride Lvl 108 meq/L 95 - 109 12/11 S [place] ELECTROLYTE CO2 27 meq/L 24 - 32 12/11 S [place] ELECTROLYTE Calcium Lvl 8.9 mg/dL 8.5 - 10.5 12/11 S [place] ELECTROLYTE Bili Total 0.6 mg/dL 0.2 - 1.3 12/11 S [place] ELECTROLYTE Total 7.2 g/dL 6.4 - 8.4 12/11 S Protein [place] ELECTROLYTE ALANINE 35 unit/L 0 - 65 12/11 S AMINOTRANSFE [place] RASE ELECTROLYTE Sodium Lvl 142 meq/L 135 - 145 12/11 S [place] ELECTROLYTE Potassium 4.3 meq/L 3.5 - 5.1 12/11 S Lvl [place] ELECTROLYTE Creatinine 0.74 mg/dL 0.50 - 12/11 S Lvl 1.40 [place] ELECTROLYTE Alk Phos 113 unit/L 39 - 136 12/11 S [place] ELECTROLYTE Glucose Lvl 151 mg/dL 70 - 99 12/11 S [place] ELECTROLYTE BUN 16 mg/dL 7 - 22 12/11 S [place] ELECTROLYTE Albumin Lvl 3.9 g/dL 3.5 - 5.0 12/11 S [place] HEMATOLOGY Basophils 0.2 % 0.0 - 1.0 12/11 [place] HEMATOLOGY Monocytes # 0.4 K/CMM 0.0 - 0.8 12/11 [place] HEMATOLOGY Segs-Bands # 5.5 K/CMM 1.5 - 8.1 12/11 [place] HEMATOLOGY Lymphocytes 0.5 K/CMM 1.0 - 5.5 12/11 MH # /2017 [place] HEMATOLOGY Lymphocytes 8.4 % 20.0 - 12/11 MH 40.0 [place] HEMATOLOGY Monocytes 6.1 % 2.0 - 12.0 12/11 [place] HEMATOLOGY Eosinophils 0.2 % 0.0 - 4.0 12/11 /2016 [place] HEMATOLOGY Segs 85.1 % 45.0 - 12/11 MH 75.0 /2017 [place] HEMATOLOGY aPTT 24.3 s 22.9 - 12/11 MH 35.8 /2016 [place] HEMATOLOGY PROTIME 11.9 s 12.0 - 12/11 MH 14.7 [place] HEMATOLOGY INR 0.86 0.85 - 12/11 MH 1. [place] Femur Femur series EXAM: XR LEFT FEMUR, 2 VIEWS 12/10 - [facility] DX /2016 - [place] DATE: 12/10/2016 7:21 PM CDT Read by: [...] fracture of the left femoral neck. SL: [id number] Ext Upper Ext Upper EXAM: US Right UPPER EXTREMITY VENOUS DOPPLER 06/16 - [facility] Venous Venous /2015 - [place] Doppler Doppler Unilat US Unilat US DATE: 06/16/2016 3:10 PM [employer] Read by: Ramírez Carson MD Dictated Date/time: [...] - [facility] Mammo DX Mammo DX - [facility] MA UNILATERAL LEFT DIGITAL DIAGNOSTIC MAMMOGRAM: [...] Additional Observers: Franklyn Burns M.D. hh/penrad:06/16/2016 15:06:15 Distribution Technician: Macy URIARTE(Linnea)(Srinivas), [facility] Outpatient Imaging Department This exam was dictated and interpreted by [id number] for [facility]. letter sent: Normal [place] Mammogram BI-RADS: 2 Benign Vital Signs Vital Sign Value Date Comments Source Heart Rate 81 12/15/2016 [facility] Temperature Oral (F) 98.3 F 12/15/2016 [facility] Respitory Rate 18 12/15/2016 [facility] Systolic (mm Hg) 133 12/15/2016 [facility] Diastolic (mm Hg) 79 12/15/2016 [facility] Respitory Rate 18 12/15/2016 [facility] Heart Rate 96 12/15/2016 [facility] Systolic (mm Hg) 140 12/15/2016 [facility] Diastolic (mm Hg) 78 12/15/2016 [facility] Temperature Oral (F) 98.0 F 12/15/2016 [facility] Respitory Rate 18 12/15/2016 [facility] Temperature Oral (F) 97.7 F 12/15/2016 [facility] Systolic (mm Hg) 144 12/15/2016 [facility] Diastolic (mm Hg) 80 12/15/2016 [facility] Heart Rate 93 12/15/2016 [facility] Height 182.88 cm 12/11/2016 [facility] Weight 88.091 12/11/2016 [facility] BMI Calculated 26.34 12/11/2016 [facility] Weight 81.818 12/10/2016 [facility] BMI Calculated 24.46 12/10/2016 [facility] Height 182.88 cm 12/10/2016 [facility] Encounters Location Location Encounter Encounter Reason Attending ADM DC Status Source Details Type Number For Provider Date Date Visit Outpatient [id number] JULIA 05/18 Active [facility] SERRANO [place] Outpatient [id number] JULIA 06/03 Active [facility] SERRANO /2016 [place] [facility] Outpatient [id number] Counts Include [facility] 06/16 06/17 [facility] Outpatient Michael /2015 [place] [facility] Outpt Diag [id number] Elizabeth 06/16 06/17 [facility] Outpatient Services Michael /2015 [place] [facility] [place] [facility] [id number] JULIA 10/14 [facility] SERRANO /2017 [place] Outpatient [id number] JULIA 10/23 [facility] S[place]ANO /2017 [place] Outpatient [id number] ABRAR 12/03 [id number] Procedures Procedure Code Date Perfomer Comments Source Breast [id number] 07/26/1994 removal of [facility] cancer<sup>1</sup right breast [place] > Breast [id number] 07/26/1994 removal of [facility] cancer<sup>1</sup right breast > Mastectomy [id number] [facility]
[2018-11-03 13:37] LABS: Absolute Lymphocytes (CBC) 0.5 K/uL (0.7-4.9); Absolute Monocytes 0.3 K/uL (0.1-1.3); Absolute Neutrophil 2.2 K/uL (1.8-8.0); Basophils % 0.4 % (0-1.3); Eosinophils % 1.4 % (0-4.4); Lymphocytes % 16.8 % (15.3-44.8); MPV 7.9 fL (7.6-11.3); Monocytes % 9.4 % (3.3-12.3); RBC Red Blood Cell Count 4.39 M/uL (3.86-4.86)
[2018-11-03 13:39] LABS: Protime INR 1.01
[2018-11-03 13:57] LABS: ALT/SGPT 769 U/L (12-78); Alkaline Phosphatase 568 U/L (45-117); BUN Blood Urea Nitrogen 12 mg/dL (7-18); Bicarbonate 27 mmol/L (21-32); Bilirubin Total 2.2 mg/dL (0.2-1.0); Glucose Level 122 mg/dL (74-106); Potassium 3.6 mmol/L (3.5-5.1); Sodium Level 141 mmol/L (136-145)
[2018-11-03 13:58] LABS: Albumin 3.7 g/dL (3.4-5.0); Bilirubin Direct 1.8 mg/dL (0-0.2); Lipase 99 U/L (73-393); Magnesium 2.4 mg/dL (1.8-2.4); NT PRO-BNP 471 pg/mL (<125); Protein, Total 7.3 g/dL (6.4-8.2); Troponin (Emerg Dept Use Only) < 0.02 ng/mL (0.0-0.045)
[2018-11-03 14:01] LABS: AST/SGOT 336 U/L (15-37)
--- NOTE | 2018-11-03 14:33 | RAD REPORT ---
EXAM DESCRIPTION: RAD - Chest Single View - 11/03/2018 2:26 pm CLINICAL HISTORY: epigastric pain Chest pain. COMPARISON: Chest Single View dated 12/10/2016; CHEST PA AND LAT 2 VIEW dated 12/23/2007 FINDINGS: Portable technique limits examination quality. Linear areas of scarring suspected in the medial right apex. The lungs are otherwise clear. The heart is normal in size. No displaced fractures.Right axillary node dissection clips seen.
--- NOTE | 2018-11-03 14:41 | RAD REPORT ---
EXAM DESCRIPTION: US - Abdomen Exam Limited - 11/03/2018 2:24 pm CLINICAL HISTORY: elevated LFTs COMPARISON: Abdomen Exam Limited dated 09/04/2018; Abdomen Pelvis W Contrast dated 09/04/2018 FINDINGS: The gallbladder demonstrates small 5 mm gallbladder polyp. No pericholecystic fluid or gal lbladder wall thickening. The common bile duct is enlarged measuring 12 mm.. The liver demonstrates fatty liver with evidence of mild intrahepatic biliary dilatation. Incompletel y characterized 26 x 21 mm hypoechoic mass is present in the right lobe of the liver. IMPRESSION: Common bile duct and intrahepatic biliary tree dilatation is present. CBD measures 12 mm . No stones are seen in the gallbladder. Recommend CT abdomen and pelvis with contrast for further as sessment of these findings. Poorly defined 26 x 21 mm hypoechoic mass in the right lobe liver. This may also be further assessed on CT examination.
[2018-11-03] MEDS ORDERED: NA CHLORIDE 0.9% 1,000 ML ONE (15:00)
--- NOTE | 2018-11-03 15:54 | RAD REPORT ---
EXAM DESCRIPTION: CT - Abdomen Pelvis W Contrast - 11/03/2018 3:14 pm CLINICAL HISTORY: Abdominal pain . With vomiting COMPARISON: November 03, 2018 ultrasound TECHNIQUE: Computed axial tomography of the abdomen pelvis was obtained. 100 cc Isovue-300 was admin istered intravenously. Oral contrast was not requested which limits evaluation of bowel. All CT scans are performed using dose optimization technique as appropriate and may include automated exposure control or mA/KV adjustment according to patient size. FINDINGS: 3.2 centimeter mass pancreatic head. Dilatation of the pancreatic duct, bile ducts and gal lbladder. No encasement of the superior mesenteric vessels Several hypodense lesions within right and left lobe of the liver. Largest measures 2.4 centimeters. Vague area of mildly increased density within the dome of the liver measures 3.7 centimeters. Since t he right hepatic vein is narrowed this may represent an additional lesion. Focal fatty sparing is ano ther consideration Spleen, adrenals and kidneys are unremarkable. No evidence of diverticulitis. No omental/ mesenteric nodules seen Tiny umbilical hernia Couple of nonspecific areas of sclerosis within the bones. Small hiatal hernia IMPRESSION: 3.2 centimeter mass within the pancreatic head likely pancreatic carcinoma. Mass obstruc ts the pancreatic and bile ducts. The gallbladder is distended Hepatic lesions likely indicating metastatic disease
--- NOTE | 2018-11-03 17:14 | EKG ---
Test Date: 2018-11-03 Test Time: 12:50:36 Rough Rib Grader: AG/S MEASUREMENT RESULTS: Intervals: Rate: 74 NC: 196 QRSD: 82 QT: 424 QTc: 470 [place]: P: 49 NC: 196 QRS: 15 T: 59 INTERPRETIVE STATEMENTS: Normal sinus rhythm Normal ECG Compared to ECG 09/04/2018 10:37:59 First degree AV block no longer present Electronically Signed On 11-03-18 17:13:06 CDT by Connor Hoskins
--- NOTE | 2018-11-03 17:14 | EDPHYS ---
Physician Documentation [facility] Name: Mayela Hou Age: 67 yrs Sex: Female : 1950 Arrival Date: 11/03/2018 Time: 11:[address] Private MD: ED Physician Gavin Matos HPI: 11/03 12:50 This 67 yrs old Female presents to ER via Ambulatory with complaints of High cp Enzymes. 12:50 The patient presents with abdominal pain in the epigastric area. cp 12:50 Onset: The symptoms/episode began/occurred gradually, and became worse 2 day(s) ago. cp 12:50 Associated signs and symptoms: Pertinent positives: nausea and vomiting, diarrhea, cp shortness of breath, Pertinent negatives: blood in stools, constipation, fever, vomiting blood. The symptoms are described as sharp. Severity of pain: in the emergency department the pain has improved. The patient has been recently seen by a physician: Dr. Lim yesterday, with different complaint(s), lab tests were performed, and was sent to the [facility] Emergency Department for further evaluation. Historical: - Allergies: 11:57 No Known Allergies; sv - PMHx: 11:57 Cancer, Breast Right; sv - PSHx: 11:57 Mastectomy, Right; left hip; sv - Immunization history:: Adult Immunizations up to date. - Social history:: Smoking status: Patient/guardian denies using tobacco. - Ebola Screening: : No symptoms or risks identified at this time. ROS: 13:00 Constitutional: Negative for body aches, chills, fever, poor PO intake. cp 13:00 Eyes: Negative for injury, pain, redness, and discharge. cp 13:00 ENT: Negative for drainage from ear(s), ear pain, sore throat, difficulty swallowing, difficulty handling secretions. 13:00 Cardiovascular: Negative for chest pain, edema, palpitations. 13:00 Respiratory: Positive for shortness of breath, Negative for cough, wheezing. 13:00 Abdomen/GI: Positive for abdominal pain, nausea and vomiting, Negative for constipation, hematemesis, black/tarry stool, rectal bleeding. 13:00 : Negative for urinary symptoms. 13:00 Skin: Negative for rash. 13:00 Neuro: Negative for altered mental status, headache, weakness. 13:00 All other systems are negative. Exam: 12:55 ECG was reviewed by the Attending Physician. cp 13:05 Constitutional: The patient appears in no acute distress, alert, awake, cp non-diaphoretic, non-toxic, well developed, well nourished. 13:05 Head/Face: Normocephalic, atraumatic. Eyes: Pupils equal round and reactive to light, cp extra-ocular motions intact. Lids and lashes normal. Conjunctiva and sclera are non-icteric and not injected. Cornea within normal limits. Periorbital areas with no swelling, redness, or edema. ENT: Nares patent. No nasal discharge, no septal abnormalities noted. Tympanic membranes are normal and external auditory canals are clear. Oropharynx with no redness, swelling, or masses, exudates, or evidence of obstruction, uvula midline. Mucous membranes moist. Chest/axilla: Normal chest wall appearance and motion. Nontender with no deformity. No lesions are appreciated. 13:05 Cardiovascular: Rate: normal, Rhythm: regular, Heart sounds: murmur, not appreciated, JVD: is not appreciated. 13:05 Respiratory: the patient does not display signs of respiratory distress, Respirations: normal, no use of accessory muscles, no retractions, no splinting, no tachypnea, labored breathing, is not present, Breath sounds: are clear throughout, no decreased breath sounds, no stridor, no wheezing. 13:05 Abdomen/GI: Inspection: abdomen appears normal, Bowel sounds: active, all quadrants, Palpation: soft, in all quadrants, mild abdominal tenderness, in the epigastric area, rebound tenderness, is not appreciated, voluntary guarding, is not appreciated, involuntary guarding, is not appreciated. 13:05 Back: pain, is absent, ROM is normal. 13:05 Skin: cellulitis, is not appreciated, no rash present. 13:05 Neuro: Orientation: to person, place \T\ time. Mentation: is normal, Cerebellar function: is grossly normal, Motor: moves all fours, strength is normal, Sensation: is normal. Vital Signs: 11:57 BP 124 / 81; Pulse 88; Resp 24; Temp 97.9; Pulse Ox 98% ; Weight 82.55 kg; Height 6 ft. sv 0 in. (182.88 cm); Pain 0/10; 12:38 BP 142 / 89; Pulse 76; Resp 20; Pulse Ox 100% on R/A; rb1 13:30 BP 151 / 84; Pulse 80; Resp 17; Pulse Ox 100% on R/A; rb1 14:30 BP 143 / 89; Pulse 72; Resp 12; Pulse Ox 97% on R/A; rb1 15:30 BP 166 / 87; Pulse 85; Resp 18; Pulse Ox 99% on R/A; rb1 16:27 BP 160 / 93; Pulse 82; Resp 19; Pulse Ox 98% on R/A; rb1 17:25 BP 171 / 93; Pulse 75; Resp 18; Pulse Ox 99% on R/A; rb1 18:25 BP 165 / 86; Pulse 68; Resp 16; Pulse Ox 100% on R/A; Pain 0/10; rb1 11:57 Body Mass Index 24.68 (82.55 kg, 182.88 cm) sv MDM: 12:06 Patient medically screened. 16:30 Data reviewed: vital signs, nurses notes, lab test result(s), EKG, radiologic studies, cp CT scan, ultrasound, and as a result, I will transfer patient. 16:30 Test interpretation: by ED physician or midlevel provider: ECG, plain radiologic cp studies. 16:51 Physician consultation: DR Espinoza, preschool head teacher \[facility], will consul on cp patient and requests transfer to hospitalist services. 17:00 Physician consultation: [facility], will [facility] for transfer. 11/03 12:43 Order name: Basic Metabolic Panel; Complete Time: 14:26 cp 11/03 14:26 Interpretation: Normal except: CL 108; GLUC 122; GFR 55. cp 11/03 12:43 Order name: CBC with Diff; Complete Time: 14:26 cp 11/03 14:28 Interpretation: Normal except: WBC 3.1; LYMA 0.5. cp 11/03 12:43 Order name: LFT's; Complete Time: 14:26 cp 11/03 14:27 Interpretation: Normal except: AST 336; ALT 769; ALK 568; BILIT 2.2; BILID 1.8; GLOB cp 3.6; A/G 1.0. 11/03 12:43 Order name: Magnesium; Complete Time: 14:26 cp 11/03 12:43 Order name: NT PRO-BNP; Complete Time: 14:26 cp 11/03 12:43 Order name: PT-INR; Complete Time: 14:44 cp 11/03 12:43 Order name: Troponin (emerg Dept Use Only); Complete Time: 14:26 cp 11/03 14:27 Interpretation: Reviewed. 11/03 12:43 Order name: XRAY Chest (1 view); Complete Time: 14:44 cp 11/03 12:43 Order name: EKG; Complete Time: 12:44 cp 11/03 12:43 Order name: Cardiac monitoring; Complete Time: 13:40 cp 11/03 12:43 Order name: Lipase; Complete Time: 14:26 cp 11/03 14:27 Interpretation: Within normal limits: LIP 99. 11/03 14:00 Order name: US Abdomen Limited: liver and gallbladder; Complete Time: 14:44 cp 11/03 14:46 Order name: CT Abd/Pelvis - W/Contrast: no oral contrast; Complete Time: 16:14 cp 11/03 12:43 Order name: EKG - Nurse/Tech; Complete Time: 15:44 cp 11/03 12:43 Order name: IV Saline Lock; Complete Time: 13:39 cp 11/03 12:43 Order name: Labs collected and sent; Complete Time: 13:40 cp 11/03 12:43 Order name: O2 Per Protocol; Complete Time: 13:39 cp 11/03 12:43 Order name: O2 Sat Monitoring; Complete Time: 13:39 cp 11/03 15:51 Order name: NPO; Complete Time: 16:23 cp EC:55 Rate is 74 beats/min. Rhythm is regular. TN interval is normal. QRS interval is normal. cp QT interval is normal. T waves are Flattened in lead aVL. Interpreted by me. Reviewed by me. Administered Medications: 14:50 Drug: NS 0.9% 1000 ml Route: IV; Rate: 500 ml/hr; Site: left forearm; rb1 16:23 Follow up: IV Status: Completed infusion rb1 Disposition: 11/03/18 17:14 Transfer ordered to [facility]. Diagnosis are Pancreatic mass, Elevated liver enzymes. - Reason for transfer: Higher level of care. - Accepting physician is DR Sandy. - Condition is Stable. - Problem is new. - Symptoms have improved. Addendum: 11/05/2018 19:44 Co-signature as Attending Physician, Gavin Matos MD. r n Signatures: Dispatcher [employer] Netta Abraham, RN RN Gavin Sandhu MD MD rn Page, Corey, PA PA cp Sujatha Davis, RN RN rb1 Corrections: (The following items were deleted from the chart) 11/03 14:28 14:26 Normal except: WBC 3.1. cp cp 18:23 12:50 Onset: The symptoms/episode began/occurred and became worse 3 day(s) ago, for cp months, cp 19:24 17:14 11/03/2018 17:14 Transfer ordered to [facility]. Diagnosis is rb1 Pancreatic mass; Elevated liver enzymes. Reason for transfer: Higher level of care. Accepting physician is DR Sandy. Condition is Stable. Problem is new. Symptoms have improved. cp
--- NOTE | 2018-11-03 17:14 | ER ---
Nurse's Notes [facility] Name: Mayela Hou Age: 67 yrs Sex: Female : 1950 Arrival Date: 11/03/2018 Time: 11:[address] Private MD: Diagnosis: Pancreatic mass;Elevated liver enzymes Presentation: 11/03 11:55 Presenting complaint: Patient states: vomiting x 3 days, SOB/epigastric pain x 2 days. sv Went to see Dr Lim and had lab work done and stated "my enzymes are high." Denies fever/chills. Transition of care: patient was not received from another setting of care. Onset of symptoms was October 31, 2018. Care prior to arrival: None. 11:55 Method Of Arrival: Ambulatory sv 11:55 Acuity: DANIEL 3 sv 12:10 Risk Assessment: Do you want to hurt yourself or someone else? Patient reports no rb1 desire to harm self or others. Initial Sepsis Screen: Does the patient meet any 2 criteria? No. Patient's initial sepsis screen is negative. Does the patient have a suspected source of infection? No. Patient's initial sepsis screen is negative. Historical: - Allergies: 11:57 No Known Allergies; sv - PMHx: 11:57 Cancer, Breast Right; sv - PSHx: 11:57 Mastectomy, Right; left hip; sv - Immunization history:: Adult Immunizations up to date. - Social history:: Smoking status: Patient/guardian denies using tobacco. - Ebola Screening: : No symptoms or risks identified at this time. Screenin:10 Abuse screen: Denies threats or abuse. Nutritional screening: No deficits noted. rb1 Tuberculosis screening: No symptoms or risk factors identified. Fall Risk None identified. Assessment: 12:10 General: Appears in no apparent distress. comfortable, Behavior is calm, cooperative, rb1 Denies fever. Pain: Complains of pain in epigastric area Pain currently is 6 out of 10 on a pain scale. Pain began 2-3 days ago. Neuro: Level of Consciousness is awake, alert, obeys commands, Oriented to person, place, time, situation. Cardiovascular: Capillary refill < 3 seconds is brisk in bilateral fingers. Respiratory: Airway is patent Respiratory effort is even, unlabored, Respiratory pattern is regular, symmetrical. GI: Reports diarrhea, nausea, vomiting, since x 3 days. : No signs and/or symptoms were reported regarding the genitourinary system. Derm: Skin is pink, warm \\T\\ dry. 13:10 Reassessment: Patient appears in no apparent distress at this time. No changes from rb1 previously documented assessment. Pt. is requesting something to eat. Educated the pt that she could not have anything to eat or drink until after the test results were all back. Verbalized understanding. 14:10 Reassessment: Patient appears in no apparent distress at this time. Patient and/or rb1 family updated on plan of care and expected duration. Pain level reassessed. Patient is alert, oriented x 3, equal unlabored respirations, skin warm/dry/pink. Pt. is watching TV. 15:09 Reassessment: Patient appears in no apparent distress at this time. No changes from rb1 previously documented assessment. Pt. is wanting something to eat; provider notified. 16:04 Reassessment: Patient appears in no apparent distress at this time. Patient and/or rb1 family updated on plan of care and expected duration. Pain level reassessed. Patient is alert, oriented x 3, equal unlabored respirations, skin warm/dry/pink. Pt. is wanting to eat; provider notified. Received order to keep the pt. NPO. 17:35 Reassessment: Patient appears in no apparent distress at this time. No changes from rb1 previously documented assessment. 17:40 Reassessment: Called report to NELSY Pereira. Information from the [facility] was given. All rb1 questions asked and answered. 18:25 Reassessment: Patient appears in no apparent distress at this time. Patient and/or rb1 family updated on plan of care and expected duration. Pain level reassessed. Patient is alert, oriented x 3, equal unlabored respirations, skin warm/dry/pink. Patient denies pain at this time. 18:40 Reassessment: [facility]. rb1 Vital Signs: 11:57 BP 124 / 81; Pulse 88; Resp 24; Temp 97.9; Pulse Ox 98% ; Weight 82.55 kg; Height 6 ft. sv 0 in. (182.88 cm); Pain 0/10; 12:38 BP 142 / 89; Pulse 76; Resp 20; Pulse Ox 100% on R/A; rb1 13:30 BP 151 / 84; Pulse 80; Resp 17; Pulse Ox 100% on R/A; rb1 14:30 BP 143 / 89; Pulse 72; Resp 12; Pulse Ox 97% on R/A; rb1 15:30 BP 166 / 87; Pulse 85; Resp 18; Pulse Ox 99% on R/A; rb1 16:27 BP 160 / 93; Pulse 82; Resp 19; Pulse Ox 98% on R/A; rb1 17:25 BP 171 / 93; Pulse 75; Resp 18; Pulse Ox 99% on R/A; rb1 18:25 BP 165 / 86; Pulse 68; Resp 16; Pulse Ox 100% on R/A; Pain 0/10; rb1 11:57 Body Mass Index 24.68 (82.55 kg, 182.88 cm) sv ED Course: 11:53 Patient arrived in ED. tw3 11:56 Triage completed. sv 11:57 Arm band placed on. sv 12:06 Kole Feldman PA is PHCP. cp 12:06 Gavin Matos MD is Attending Physician. cp 12:10 Patient has correct armband on for positive identification. Placed in gown. Bed in low rb1 position. Call light in reach. Side rails up X 1. Pulse ox on. NIBP on. Warm blanket given. 12:55 EKG done, by founder and chief technical officer. reviewed by Kole BECK. at1 13:28 Inserted saline lock: 22 gauge in left forearm, using aseptic technique. Blood rb1 collected. 13:34 Sujatha Davis, RN is Primary Nurse. rb1 14:24 US Abdomen Limited: liver and gallbladder In Process Unspecified. EDMS 14:26 XRAY Chest (1 view) In Process Unspecified. EDMS 15:15 CT Abd/Pelvis - W/Contrast: no oral contrast In Process Unspecified. EDMS 16:30 initiated a transfer with Mary at the [facility] transfer center. eb 16:[address] Espinoza the GI occupational health physiotherapist for [facility] with Kole BECK for patient eb transfer consultaion. 16:[address] Sandy the hospitalist occupational health physiotherapist for [facility] with Kole BECK for eb patient transfer consultation. 17:25 administrative approval given by Alondra Falcon at the [facility] transfer eb center/ Pt is going to 2009/ Dr. Sandy has accepted the patient in transfer/ report to be called to [phone]. 18:50 No provider procedures requiring assistance completed. Patient transferred, IV remains rb1 in place. Administered Medications: 14:50 Drug: NS 0.9% 1000 ml Route: IV; Rate: 500 ml/hr; Site: left forearm; rb1 16:23 Follow up: IV Status: Completed infusion rb1 Outcome: 17:14 ER care complete, transfer ordered by . rosalva 18:50 Patient left the ED. rb1 18:50 Transferred by ground EMS to [facility], Transfer form completed. rb1 18:50 Condition: stable 18:50 Instructed on the need for transfer. Signatures: Dispatcher [employer] EDMS Netta Alarcon, RN RN Mable Cantor, quality assurance engineer EKG Tat1 Kole Feldman PA PA cp Barber, Rebecca, RN RN rb1 Ion, Funmilayo tw3 Alondra Marsh Corrections: (The following items were deleted from the chart) 19:29 19:24 Patient left the ED. rb1 rb1
== END 2018-11-03 19:24 | disposition short-term general hospital (02) ==
LOC: ER 11:50
DX: K86.9 Disease of pancreas, unspecified (principal); R74.8 Abnormal levels of other serum enzymes; C50.919 Malignant neoplasm of unspecified site of unspecified female breast
CPT/HCPCS: 96361; 93005; 85025; 80048; 36415; 83735; 85610; 80076; 84484; 83690; 83880; 74177; 71045; 76705; 96360; 99285; Q9967; J7030

== ENCOUNTER 2018-12-08 21:14 | Emergency (ER) | payer OTHER ==
--- OUTSIDE RECORDS SUMMARY | 2018-12-08 21:17 | XMS REPORT | Clinical Summary ---
:1950 Author Organization [facility] Address [address] [place] [address] Care Team Providers Name Role Phone Unavailable Primary Care Provider Unavailable Allergies No Known Allergies Medications Medication Sig Dispensed Refills Start Date End Date Status sodium chloride 1 spray by 15 mL 0 11/05/2018 11/05/2019 Active 0.65% (OCEAN) 0.65 Nasal route % nasal spray as needed. bisacodyl Take 2 30 tablet 0 11/10/2018 12/10/2018 Active (DULCOLAX) 5 mg EC tablets (10 tablet mg total) by mouth daily for 30 days. gabapentin Take 1 90 capsule 2 11/09/2018 11/09/2019 Active (NEURONTIN) 100 MG capsule (100 capsule mg total) by mouth 3 (three) times daily. senna-docusate Take 1 tablet 60 tablet 11 11/09/2018 11/09/2019 Active (SENOKOT S) 8.6-50 by mouth 2 mg per tablet (two) times daily. pantoprazole Take 1 tablet 30 tablet 1 11/09/2018 Active (PROTONIX) 40 MG (40 mg total) tablet by mouth daily. oxyCODONE Take 1 tablet 60 tablet 0 11/09/2018 12/09/2018 Active (ROXICODONE) 5 MG (5 mg total) immediate release by mouth tablet every 4 (four) hours as needed for up to 30 days. Max Daily Amount: 30 mg cetirizine (ZYRTEC) Take 1 tablet 30 tablet 0 11/06/2018 2018 10 MG tablet (10 mg total) by mouth daily for 30 days. HYDROcodone-acetami Take 1 tablet 30 tablet 0 11/05/2018 11/05/2018 Discontinued nophen (NORCO by mouth 5-325) 5-325 mg per every 6 (six) tablet hours as needed for up to 10 days. Max Daily Amount: 4 tablets amLODIPine Take 1 tablet 30 tablet 0 11/06/2018 2018 (NORVASC) 5 MG (5 mg total) tablet by mouth daily for 30 days. HYDROcodone-acetami Take 1 tablet 30 tablet 0 11/05/2018 11/09/2018 Discontinued nophen (NORCO by mouth 5-325) 5-325 mg per every 6 (six) tablet hours as needed for up to 10 days. Max Daily Amount: 4 tablets Active Problems Problem Noted Date Cancer related pain 11/10/2018 Constipation due to opioid therapy 11/10/2018 Pancreatic carcinoma metastatic to liver 11/10/2018 Liver mass 11/04/2018 Biliary obstruction 11/04/2018 Breast CA 11/04/2018 Pancreatic mass 11/03/2018 Elevated LFTs 11/03/2018 Encounters Date Type Specialty Care Team Description 11/04/2018 Surgery Gastroenterology Emelyn Horta UPPER ENDOSCOPY,FNA Mychal Woodard MD W/ULTRASOUND 11/04/2018 Anesthesia Event Gastroenterology Radha Salomon 11/03/2018 - Hospital Encounter Oncology Caren Sandy Elevated LFTs; 11/10/2018 MD Dorothy Pancreatic mass; Aurelio, History of breast cancer; Sonny Elmore Biliary obstruction; MD OSCAR Malignant neoplasm of female breast, unspecified estrogen receptor status, unspecified laterality, unspecified site of breast (HCC); Athreya, Liver mass; Doc Rivera MD Cancer related pain; Pancreatic adenocarcinoma (HCC); Metastatic cancer (HCC) 11/03/2018 Travel after 12/07/2017 Social History Tobacco Use Types Packs/Day Years Used Date Never Smoker Smokeless Tobacco: Never Used Alcohol Use Drinks/Week oz/Week Comments No Alcohol Habits Answer Date Recorded How often do you have a drink containing alcohol? Never 11/03/2018 How many drinks containing alcohol do you have on a typical Not asked day when you are drinking? How often do you have six or more drinks on one occasion? Not asked Sex Assigned at Date Recorded Not on file Job Start Date Occupation Industry Not on file Not on file Not on file Travel History Travel Start Travel End No recent travel history available. Last Filed Vital Signs Vital Sign Reading Time Taken Blood Pressure 145/72 11/10/2018 4:21 AM CDT Pulse 94 11/10/2018 4:21 AM CDT Temperature 36.8 C (98.2 F) 11/10/2018 4:21 AM CDT Respiratory Rate 18 11/10/2018 4:21 AM CDT Oxygen Saturation 95% 11/10/2018 4:21 AM CDT Inhaled Oxygen Concentration 21% 11/07/2018 11:00 PM CDT Weight 78.9 kg (174 lb) 11/07/2018 6:00 AM CDT Height 182.9 cm (6') 11/03/2018 8:20 PM CDT Body Mass Index 23.6 11/07/2018 6:00 AM CDT Plan of Treatment Not on file Implants Implanted Type Area [employer] Device Shelf Model / Identifier Expiration Date Serial / Lot Stent Panc Advanix 5fx3cm Str 3750 - [id number] Stents-Pe [employer] 11/06/2019 3750 / Implanted: Qty: 1 on 11/04/2018 by Emelyn Horta MD ripheral / Stent Viabil Bili 10x6 No Hole [id number] - [id number] Stents-Pe [employer]ORE & 04/29/2020 [id number] / Implanted: Qty: 1 on 11/04/2018 by Emelyn Horta MD ripheral ASSC:MED PRDT / Procedures Procedure Name Priority Date/Time Associated Comments Diagnosis REPORT OF PROCEDURE - 11/22/2018 6:14 ENDOSCOPY URL PM CDT RHYTHM STRIP - SCAN 11/11/2018 10:52 AM CDT US ABDOMEN LIMITED Routine 11/09/2018 5:11 Results for this PM CDT procedure are in the results section. PROTHROMBIN TIME/INR Routine 11/09/2018 11:32 Results for this AM CDT procedure are in the results section. CBC W/PLT COUNT & AUTO Routine 11/09/2018 4:24 Results for this DIFFERENTIAL AM CDT procedure are in the results section. HEPATIC FUNCTION PANEL Routine 11/09/2018 4:24 Results for this AM CDT procedure are in the results section. BASIC METABOLIC PANEL Routine 11/09/2018 4:24 Results for this (7) AM CDT procedure are in the results section. CBC W/PLT COUNT & AUTO Routine 11/09/2018 4:24 Results for this DIFFERENTIAL AM CDT procedure are in the results section. CT ABD/PELVIS - PANCREAS Routine 11/08/2018 1:01 Results for this EVALUATION PM CDT procedure are in the results section. CT CHEST WITH IV Routine 11/08/2018 1:01 Results for this CONTRAST PM CDT procedure are in the results section. XR ABDOMEN 1 VIEW Routine 11/08/2018 10:42 Results for this AM CDT procedure are in the results section. CBC W/PLT COUNT & AUTO Routine 11/08/2018 5:20 Results for this DIFFERENTIAL AM CDT procedure are in the results section. HEPATIC FUNCTION PANEL Routine 11/08/2018 5:20 Results for this AM CDT procedure are in the results section. BASIC METABOLIC PANEL Routine 11/08/2018 5:20 Results for this (7) AM CDT procedure are in the results section. CBC W/PLT COUNT & AUTO Routine 11/08/2018 5:20 Results for this DIFFERENTIAL AM CDT procedure are in the results section. ECG 12-LEAD Routine 11/07/2018 5:49 Results for this PM CDT procedure are in the results section. TROPONIN I Routine 11/07/2018 4:24 Results for this PM CDT procedure are in the results section. CARCINOEMBRYONIC ANTIGEN Routine 11/07/2018 11:01 Results for this (CEA) AM CDT procedure are in the results section. CARBOHYDRATE ANTIGEN Routine 11/07/2018 11:01 Results for this 19-9 (CA 19-9) AM CDT procedure are in the results section. CBC W/PLT COUNT & AUTO Routine 11/07/2018 6:11 Results for this DIFFERENTIAL AM CDT procedure are in the results section. HEPATIC FUNCTION PANEL Routine 11/07/2018 6:11 Results for this AM CDT procedure are in the results section. BASIC METABOLIC PANEL Routine 11/07/2018 6:11 Results for this (7) AM CDT procedure are in the results section. CBC W/PLT COUNT & AUTO Routine 11/07/2018 6:11 Results for this DIFFERENTIAL AM CDT procedure are in the results section. CBC W/PLT COUNT & AUTO Routine 11/06/2018 5:07 Results for this DIFFERENTIAL AM CDT procedure are in the results section. HEPATIC FUNCTION PANEL Routine 11/06/2018 5:07 Results for this AM CDT procedure are in the results section. BASIC METABOLIC PANEL Routine 11/06/2018 5:07 Results for this (7) AM CDT procedure are in the results section. CBC W/PLT COUNT & AUTO Routine 11/06/2018 5:07 Results for this DIFFERENTIAL AM CDT procedure are in the results section. CBC W/PLT COUNT & AUTO Routine 11/05/2018 4:39 Results for this DIFFERENTIAL AM CDT procedure are in the results section. HEPATIC FUNCTION PANEL Routine 11/05/2018 4:39 Results for this AM CDT procedure are in the results section. BASIC METABOLIC PANEL Routine 11/05/2018 4:39 Results for this (7) AM CDT procedure are in the results section. CBC W/PLT COUNT & AUTO Routine 11/05/2018 4:39 Results for this DIFFERENTIAL AM CDT procedure are in the results section. CALCIUM, IONIZED Routine 11/05/2018 4:39 Results for this AM CDT procedure are in the results section. PHOSPHORUS Routine 11/05/2018 4:39 Results for this AM CDT procedure are in the results section. MAGNESIUM Routine 11/05/2018 4:39 Results for this AM CDT procedure are in the results section. REPORT OF PROCEDURE - 11/04/2018 6:12 ENDOSCOPY URL PM CDT FL ERCP Routine 11/04/2018 5:55 Results for this PM CDT procedure are in the results section. CYTOLOGY REQUEST Routine 11/04/2018 5:37 Results for this PM CDT procedure are in the results section. CYTOLOGY AP Routine 11/04/2018 5:37 Results for this PM CDT procedure are in the results section. TISSUE EXAM AP Routine 11/04/2018 5:17 Results for this PM CDT procedure are in the results section. ERCP,BILIARY STENT 11/04/2018 5:00 Pancreatic mass PM CDT Special Needs UPPER ENDOSCOPY,ULTRASOUND, with anesthesia PROCEDURE W/ C-ARM 11/04/2018 5:00 PM CDT Pancreatic mass Special Needs UPPER ENDOSCOPY,ULTRASOUND, with anesthesia ERCP,PANCREATIC STENT 11/04/2018 5:00 PM CDT Pancreatic mass Special Needs UPPER ENDOSCOPY,ULTRASOUND, with anesthesia ERCP,PAPILLOTOMY 11/04/2018 5:00 PM CDT Pancreatic mass Special Needs UPPER ENDOSCOPY,ULTRASOUND, with anesthesia UPPER ENDOSCOPY,FNA W/ULTRASOUND 11/04/2018 5:00 PM CDT Pancreatic mass Special Needs UPPER ENDOSCOPY,ULTRASOUND, with anesthesia FINE NEEDLE ASPIRATE (FNA) Routine 11/04/2018 4:55 PM Results for this REQUEST CDT procedure are in the results section. FINE NEEDLE ASPIRATION BY AP Routine 11/04/2018 4:55 PM Results for this CLINICIAN CDT procedure are in the results section. FINE NEEDLE ASPIRATE (FNA) Routine 11/04/2018 4:46 PM Results for this REQUEST CDT procedure are in the results section. FINE NEEDLE ASPIRATION BY AP Routine 11/04/2018 4:46 PM Results for this CLINICIAN CDT procedure are in the results section. XR CHEST 1 VIEW Routine 11/04/2018 11:56 AM Results for this PORTABLE/BEDSIDE CDT procedure are in the results section. CBC W/PLT COUNT & AUTO Routine 11/03/2018 11:50 PM Results for this DIFFERENTIAL CDT procedure are in the results section. GAMMA GLUTAMYL TRANSFERASE Routine 11/03/2018 11:50 PM Results for this (GGT) CDT procedure are in the results section. HEPATIC FUNCTION PANEL Routine 11/03/2018 11:50 PM Results for this CDT procedure are in the results section. BASIC METABOLIC PANEL (7) Routine 11/03/2018 11:50 PM Results for this CDT procedure are in the results section. CARBOHYDRATE ANTIGEN 19-9 (CA Routine 11/03/2018 11:50 PM Results for this 19-9) CDT procedure are in the results section. CARCINOEMBRYONIC ANTIGEN Routine 11/03/2018 11:50 PM Results for this (CEA) CDT procedure are in the results section. LIPASE Routine 11/03/2018 11:50 PM Results for this CDT procedure are in the results section. PROTHROMBIN TIME/INR Routine 11/03/2018 11:50 PM Results for this CDT procedure are in the results section. CBC W/PLT COUNT & AUTO Routine 11/03/2018 11:50 PM Results for this DIFFERENTIAL CDT procedure are in the results section. URINALYSIS WITH MICROSCOPIC Routine 11/03/2018 11:49 PM Results for this IF INDICATED CDT procedure are in the results section. ECG 12-LEAD Routine 11/03/2018 10:15 PM Results for this CDT procedure are in the results section. after 12/07/2017 Results REPORT OF PROCEDURE - ENDOSCOPY URL (11/22/2018 6:14 PM CDT) Narrative Performed At RHYTHM STRIP - SCAN (11/11/2018 10:52 AM CDT) Narrative Performed At US abdomen limited (11/09/2018 5:11 PM CDT) Specimen Narrative Performed At FINAL REPORT [facility] Limited abdominal ultrasound Technique/findings: Limited sonographic images were obtained of the liver or the assessment of liver lesions. A 2.7 cm hypoechoic lesion is identified within at the junction of the left and right hepatic lobes, likely segment 4. Patient was originally scheduled for image guided biopsy; however, the procedure was canceled by the referring physician endoscopic biopsy had been preceded performed and found to be adequate. Impression: 2.7 cm hepatic lesion identified. Patient originally scheduled for image guided biopsy but the procedure was canceled by the referring provider prior to procedure initiation. Signed: Nils Cruz MD Report Verified Date/Time:11/09/2018 18:07:18 Reading Location: [address] Ultrasound Reading Room Procedure Note Interface, External Ris In - 11/09/2018 6:09 PM CDT FINAL REPORT Limited abdominal ultrasound Technique/findings: Limited sonographic images were obtained of the liver or the assessment of liver lesions. A 2.7 cm hypoechoic lesion is identified within at the junction of the left and right hepatic lobes, likely segment 4. Patient was originally scheduled for image guided biopsy; however, the procedure was canceled by the referring physician endoscopic biopsy had been preceded performed and found to be adequate. Impression: 2.7 cm hepatic lesion identified. Patient originally scheduled for image guided biopsy but the procedure was canceled by the referring provider prior to procedure initiation. Signed: Nils Cruz MD Report Verified Date/Time: 11/09/2018 18:07:18 Reading Location: [address] Ultrasound Reading Room Performing Organization Address City/State/Zipcode Phone Number [facility] Prothrombin time/INR (11/09/2018 11:32 AM CDT)Only the most recent of2 resultswithin the time period is included. Protime 13.3 11.7 - 14.7 seconds [facility] INR 1.0 <=5.9 [facility] Specimen Blood Narrative Performed At RECOMMENDED COUMADIN/WARFARIN INR THERAPY [facility] RANGES STANDARD DOSE: 2.0 - 3.0 Includes: PROPHYLAXIS for venous thrombosis, systemic embolization; TREATMENT for venous thrombosis and/or pulmonary embolus. HIGH RISK: Target INR is 2.5-3.5 for patients with mechanical heart valves. Performing Organization Address City/State/Zipcode Phone Number [facility] [address] [place] [address] [phone] CENTER CBC with platelet count + automated diff (11/09/2018 4:24 AM CDT)Only the most recent of6 resultswithin the time period is included. WBC 4.7 3.5 - 10.5 K/L [facility] RBC 4.02 3.93 - 5.22 M/L [facility] Hemoglobin 11.7 11.2 - 15.7 GM/DL [facility] Hematocrit 37.3 34.1 - 44.9 % [facility] MCV 92.8 79.4 - 94.8 fL [facility] MCH 29.1 25.6 - 32.2 pg [facility] MCHC 31.4 (L) 32.2 - 35.5 GM/DL [facility] RDW 13.4 11.7 - 14.4 % [facility] Platelets 252 150 - 450 K/CU MM [facility] MPV 9.2 (L) 9.4 - 12.3 fL [facility] nRBC 0 0 - 0 /100 WBC [facility] % Neutros 69 % [facility] % Lymphs 17 % [facility] % Monos 13 % [facility] % Eos 1 % [facility] % Baso 0 % [facility] # Neutros 3.25 1.56 - 6.13 K/L [facility] # Lymphs 0.79 (L) 1.18 - 3.74 K/L [facility] # Monos 0.62 (H) 0.24 - 0.36 K/L [facility] # Eos 0.05 0.04 - 0.36 K/L [facility] # Baso 0.01 0.01 - 0.08 K/L [facility] Immature Granulocytes-Relative 0 0 - 1 % [facility] Specimen Blood Performing Organization Address City[facility] Phone Number [address] [phone] [place] Hepatic function panel (11/09/2018 4:24 AM CDT)Only the most recent of6 resultswithin the time period is included. Protein, Total 6.0 6.0 - 8.3 gm/dL [facility] Albumin 3.3 (L) 3.5 - 5.0 g/dL [facility] Total Bilirubin 0.7 0.2 - 1.2 mg/dL [facility] Bilirubin, Direct 0.5 0.1 - 0.5 mg/dL [facility] Alkaline Phosphatase 301 (H) 40 - 150 U/L [facility] AST 20 5 - 34 U/L [facility] ALT 112 (H) 6 - 55 U/L [facility] Specimen Blood Performing Organization Address City/[facility]/Zipcode Phone Number [facility] [address] [place] [phone] [place] Basic Metabolic Panel (11/09/2018 4:24 AM CDT)Only the most recent of6 resultswithin the time period is included. Sodium 131 (L) 136 - 145 meq/L [facility] Potassium 4.6 3.5 - 5.1 meq/L [facility] Chloride 97 (L) 98 - 107 meq/L [facility] CO2 26 22 - 29 meq/L [facility] BUN 24 (H) 7 - 21 mg/dL [facility] Creatinine 0.75 0.57 - 1.25 mg/dL [facility] Glucose 157 (H) 70 - 105 mg/dL [facility] Calcium 8.7 8.4 - 10.2 mg/dL [facility] EGFR 77Comment: ESTIMATED GFR IS mL/min/1.[address] [facility] NOT ACCURATE CREATININE [facility] CENTER CLEARANCE IN PREDICTING GLOMERULAR FILTRATION RATE. ESTIMATED GFR IS NOT APPLICABLE FOR DIALYSIS PATIENTS. Specimen Blood Performing Organization Address City/State/Zipcode Phone Number [facility] [address] [place] [address] [phone] abd/pelvis - pancreas evaluation (11/08/2018 1:01 PM CDT) Specimen Narrative Performed At FINAL REPORT [facility] CT of the Chest, abdomen and pelvis dated 11/08/2018 Clinical information: evaluation of pancreatic cancer. Comment:Axial images of the chest, abdomen, and pelvis were obtained from thoracic inlet to the pubic symphysis with intravenous contrast. Preintravenous axial images of the abdomen were obtained. This exam was performed according to our departmental dose-optimization program, which includes automated exposure control, adjustment of the mA and/or kV according to patient size and/or use of interactive reconstruction technique. Right breast is surgically absent. Heart is normal in size.Great vessels are unremarkable. No adenopathy in the mediastinum or perihilar region. Trachea and mainstem bronchi are patent. Scarring and bronchiectasis is seen in the right upper lobe. Subsegmental atelectasis is seen in both lung bases. The rest of the lungs are clear. No nodular, mass lesion, or airspace disease is present. Esophagus is distended with fluid suggestive of gastroesophageal reflux. Small hiatal hernia is present. No pleural effusion or pleural based mass is seen. Liver and spleen are normal in size. There are 6 hypodense masses in the liver with the largest measuring 2.3 cm in the segment 4B of the liver. Gallbladder is contracted. No gallstone or biliary dilatation is noted. A 4.0 x 2.8 cm mass is seen in the head of the pancreas. There is pancreatic duct dilatation in the neck, body, and tail of the pancreas. The pancreas mass partially encases the superior mesenteric artery and superior mesenteric vein. Both kidneys are normal in size and functioning with bilateral excretion.No hydronephrosis, hydroureter, or urolithiasis is noted. The opacified small and large bowel are suboptimally evaluated secondary to lack of oral GI contrast. Large amount fecal material is seen large bowel suggestive of constipation. The small bowel and appendix are normal in caliber. Uterus is atrophic. Both ovaries are unremarkable. Impression: 1. Hiatal hernia with gastroesophageal reflux. 2. Mass lesion in the head of the pancreas compatible with pancreatic carcinoma. 3. Hypodense masses in the liver consistent with hepatic metastasis. 4. Scarring and bronchiectasis in the right upper lobe. Signed: Sosa Melgar MD Report Verified Date/Time:11/08/2018 16:30:42 Reading Location: [facility] B1 [id number] CT Body Reading Room Procedure Note Interface, External Ris In - 11/08/2018 4:33 PM CDT FINAL REPORT CT of the Chest, abdomen and pelvis dated 11/08/2018 Clinical information: evaluation of pancreatic cancer. Comment: Axial images of the chest, abdomen, and pelvis were obtained from thoracic inlet to the pubic symphysis with intravenous contrast. Preintravenous axial images of the abdomen were obtained. This exam was performed according to our departmental dose-optimization program, which includes automated exposure control, adjustment of the mA and/or kV according to patient size and/or use of interactive reconstruction technique. Right breast is surgically absent. Heart is normal in size. Great vessels are unremarkable. No adenopathy in the mediastinum or perihilar region. Trachea and mainstem bronchi are patent. Scarring and bronchiectasis is seen in the right upper lobe. Subsegmental atelectasis is seen in both lung bases. The rest of the lungs are clear. No nodular, mass lesion, or airspace disease is present. Esophagus is distended with fluid suggestive of gastroesophageal reflux. Small hiatal hernia is present. No pleural effusion or pleural based mass is seen. Liver and spleen are normal in size. There are 6 hypodense masses in the liver with the largest measuring 2.3 cm in the segment 4B of the liver. Gallbladder is contracted. No gallstone or biliary dilatation is noted. A 4.0 x 2.8 cm mass is seen in the head of the pancreas. There is pancreatic duct dilatation in the neck, body, and tail of the pancreas. The pancreas mass partially encases the superior mesenteric artery and superior mesenteric vein. Both kidneys are normal in size and functioning with bilateral excretion. No hydronephrosis, hydroureter, or urolithiasis is noted. The opacified small and large bowel are suboptimally evaluated secondary to lack of oral GI contrast. Large amount fecal material is seen large bowel suggestive of constipation. The small bowel and appendix are normal in caliber. Uterus is atrophic. Both ovaries are unremarkable. Impression: 1. Hiatal hernia with gastroesophageal reflux. 2. Mass lesion in the head of the pancreas compatible with pancreatic carcinoma. 3. Hypodense masses in the liver consistent with hepatic metastasis. 4. Scarring and bronchiectasis in the right upper lobe. Signed: Sosa Melgar MD Report Verified Date/Time: 11/08/2018 16:30:42 Reading Location: [place] [id number] CT Body Reading Room Performing Organization Address City/State/Zipcode Phone Number [facility] CT chest with IV contrast (11/08/2018 1:01 PM CDT) Specimen Narrative Performed At FINAL REPORT [facility] CT of the Chest, abdomen and pelvis dated 11/08/2018 Clinical information: evaluation of pancreatic cancer. Comment:Axial images of the chest, abdomen, and pelvis were obtained from thoracic inlet to the pubic symphysis with intravenous contrast. Preintravenous axial images of the abdomen were obtained. This exam was performed according to our departmental dose-optimization program, which includes automated exposure control, adjustment of the mA and/or kV according to patient size and/or use of interactive reconstruction technique. Right breast is surgically absent. Heart is normal in size.Great vessels are unremarkable. No adenopathy in the mediastinum or perihilar region. Trachea and mainstem bronchi are patent. Scarring and bronchiectasis is seen in the right upper lobe. Subsegmental atelectasis is seen in both lung bases. The rest of the lungs are clear. No nodular, mass lesion, or airspace disease is present. Esophagus is distended with fluid suggestive of gastroesophageal reflux. Small hiatal hernia is present. No pleural effusion or pleural based mass is seen. Liver and spleen are normal in size. There are 6 hypodense masses in the liver with the largest measuring 2.3 cm in the segment 4B of the liver. Gallbladder is contracted. No gallstone or biliary dilatation is noted. A 4.0 x 2.8 cm mass is seen in the head of the pancreas. There is pancreatic duct dilatation in the neck, body, and tail of the pancreas. The pancreas mass partially encases the superior mesenteric artery and superior mesenteric vein. Both kidneys are normal in size and functioning with bilateral excretion.No hydronephrosis, hydroureter, or urolithiasis is noted. The opacified small and large bowel are suboptimally evaluated secondary to lack of oral GI contrast. Large amount fecal material is seen large bowel suggestive of constipation. The small bowel and appendix are normal in caliber. Uterus is atrophic. Both ovaries are unremarkable. Impression: 1. Hiatal hernia with gastroesophageal reflux. 2. Mass lesion in the head of the pancreas compatible with pancreatic carcinoma. 3. Hypodense masses in the liver consistent with hepatic metastasis. 4. Scarring and bronchiectasis in the right upper lobe. Signed: Sosa Melgar MD Report Verified Date/Time:11/08/2018 16:30:42 Reading Location: [address] Body Reading Room Procedure Note Interface, External Ris In - 11/08/2018 4:33 PM CDT FINAL REPORT CT of the Chest, abdomen and pelvis dated 11/08/2018 Clinical information: evaluation of pancreatic cancer. Comment: Axial images of the chest, abdomen, and pelvis were obtained from thoracic inlet to the pubic symphysis with intravenous contrast. Preintravenous axial images of the abdomen were obtained. This exam was performed according to our departmental dose-optimization program, which includes automated exposure control, adjustment of the mA and/or kV according to patient size and/or use of interactive reconstruction technique. Right breast is surgically absent. Heart is normal in size. Great vessels are unremarkable. No adenopathy in the mediastinum or perihilar region. Trachea and mainstem bronchi are patent. Scarring and bronchiectasis is seen in the right upper lobe. Subsegmental atelectasis is seen in both lung bases. The rest of the lungs are clear. No nodular, mass lesion, or airspace disease is present. Esophagus is distended with fluid suggestive of gastroesophageal reflux. Small hiatal hernia is present. No pleural effusion or pleural based mass is seen. Liver and spleen are normal in size. There are 6 hypodense masses in the liver with the largest measuring 2.3 cm in the segment 4B of the liver. Gallbladder is contracted. No gallstone or biliary dilatation is noted. A 4.0 x 2.8 cm mass is seen in the head of the pancreas. There is pancreatic duct dilatation in the neck, body, and tail of the pancreas. The pancreas mass partially encases the superior mesenteric artery and superior mesenteric vein. Both kidneys are normal in size and functioning with bilateral excretion. No hydronephrosis, hydroureter, or urolithiasis is noted. The opacified small and large bowel are suboptimally evaluated secondary to lack of oral GI contrast. Large amount fecal material is seen large bowel suggestive of constipation. The small bowel and appendix are normal in caliber. Uterus is atrophic. Both ovaries are unremarkable. Impression: 1. Hiatal hernia with gastroesophageal reflux. 2. Mass lesion in the head of the pancreas compatible with pancreatic carcinoma. 3. Hypodense masses in the liver consistent with hepatic metastasis. 4. Scarring and bronchiectasis in the right upper lobe. Signed: Sosa Melgar MD Report Verified Date/Time: 11/08/2018 16:30:42 Reading Location: [facility] B1 C013Y CT Body Reading Room Performing Organization Address City/State/Zipcode Phone Number [facility] XR abdomen / KUB 1 view (11/08/2018 10:42 AM CDT) Specimen Narrative Performed At FINAL REPORT [facility] Abdomen one view Comparison: None. Reason for exam:Constipation Findings: There is mild gaseous distention of colon. A moderate amount of fecal content is present. No free air is identified. Two stents project over the right upper quadrant, one is likely located in the CBD, location of the other is unclear, probably in bowel. There is suspected pneumobilia. Status post left hip hemiarthroplasty. No acute bony abnormality. Signed: Sean Godoy MD Report Verified Date/Time:11/08/2018 11:16:58 Reading Location: [facility] Radiology Reading Room Procedure Note Interface, External Ris In - 11/08/2018 11:19 AM CDT FINAL REPORT Abdomen one view Comparison: None. Reason for exam: Constipation Findings: There is mild gaseous distention of colon. A moderate amount of fecal content is present. No free air is identified. Two stents project over the right upper quadrant, one is likely located in the CBD, location of the other is unclear, probably in bowel. There is suspected pneumobilia. Status post left hip hemiarthroplasty. No acute bony abnormality. Signed: Sean Godoy MD Report Verified Date/Time: 11/08/2018 11:16:58 Reading Location: [facility] Radiology Reading Room Performing Organization Address City/State/Zipcode Phone Number GE RIS ECG 12 lead (11/07/2018 5:49 PM CDT)Only the most recent of2 resultswithin the time period is included. Specimen Narrative Performed At Ventricular Rate 89 BPM GE MUSE Atrial Rate 89 BPM P-R Interval 166 ms QRS Duration 82 ms Q-T Interval 412 ms QTC Calculation(Bazett) 501 ms P [place] 33 degrees R [place] -3 degrees T [place] 43 degrees Normal sinus rhythm Normal ECG When compared with ECG of 03-NOV-2018 22:15, No significant change was found Confirmed by Marisol FOWLER, TAYLA ([id number]) on 11/08/2018 7:39:45 AM Procedure Note Interface, External Ris In - 11/08/2018 7:39 AM CDT Ventricular Rate 89 BPM Atrial Rate 89 BPM P-R Interval 166 ms QRS Duration 82 ms Q-T Interval 412 ms QTC Calculation(Bazett) 501 ms P [place] 33 degrees R [place] -3 degrees T [place] 43 degrees Normal sinus rhythm Normal ECG When compared with ECG of 03-NOV-2018 22:15, No significant change was found Confirmed by Marisol FOWLER MICHAEL ([id number]) on 11/08/2018 7:39:45 AM Performing Organization Address City/[facility] Phone Number GE PADMINI Troponin I (11/07/2018 4:24 PM CDT) Troponin I <0.01 0.00 - 0.03 ng/mL [facility] Specimen Blood Narrative Performed At Troponin I (TnI) levels must be interpreted [facility] in the context of the presenting symptoms and the clinical findings. Elevated TnI levels indicate myocardial damage, but are not specific for ischemic heart disease. Elevated TnI levels are seen in patients with other cardiac conditions (including myocarditis and congestive heart failure), and slight TnI elevations occur in patients with other conditions, including sepsis, renal failure, acidosis, acute neurological disease, and persistent tachyarrhythmia. Performing Organization Address [facility] Phone Number [place] [phone] [place] [address] [place] Carbohydrate antigen 19-9 (CA 19-9) (11/07/2018 11:01 AM CDT)Only the most recent of2 resultswithin the time period is included. CA 19-9 1978 (H) <34 U/mL [facility] Comment: This test was performed using the Siemens Chemiluminescent method. Values obtained from different assay methods cannot be used interchangeably. CA19-9 levels, regardless of value, should not be interpreted as absolute evidence of the presence or absence of disease. Specimen Blood Narrative Performed At Performing Lab [facility] [address] [place] [address] [place] [address] Heidy Kaur MD, PhD, CRISTÓBAL Performing Organization Address [facility] Phone Number [facility] [place] [address] [facility] [id number] [facility] Carcinoembryonic Antigen (CEA) (11/07/2018 11:01 AM CDT)Only the most recent of2 resultswithin the time period is included. CEA, SERUM 2.6 0.0 - 5.0 ng/mL [facility] Specimen Blood Performing Organization Address City/[facility]/Zipcode Phone Number [address] [address] CENTER Calcium, Ionized (11/05/2018 4:39 AM CDT) Calcium, Ion 1.06 (L) 1.12 - 1.27 mmol/L [facility] pH, Blood 7.39 [facility] Specimen Blood Performing Organization Address City/[facility]/Zipcode Phone Number [address] [phone] CENTER Phosphorus (11/05/2018 4:39 AM CDT) Phosphorus 2.7 2.3 - 4.7 mg/dL [facility] Specimen Blood Performing Organization Address City/[facility] Phone Number [address] [address] [phone] CENTER Magnesium (11/05/2018 4:39 AM CDT) Magnesium 1.9 1.6 - 2.6 mg/dL [facility] Specimen Blood Performing Organization Address [facility] Phone Number [address] [phone] [place] REPORT OF PROCEDURE - ENDOSCOPY URL (11/04/2018 6:12 PM CDT) Narrative Performed At FL ERCP (11/04/2018 5:55 PM CDT) Specimen Narrative Performed At FINAL REPORT [facility] Examination: ERCP 5 fluoroscopic spot views were obtained during the procedure by the ordering service. Images are nondiagnostic as no radiologist was present at the time of imaging. Fluoroscopic time was 71.7 seconds. Please see the procedure report for details. Signed: Rubio Goel MD Report Verified Date/Time:11/04/2018 21:43:27 Reading Location: [address] Reading Room Procedure Note Interface, External Ris In - 11/04/2018 9:45 PM CDT FINAL REPORT Examination: ERCP 5 fluoroscopic spot views were obtained during the procedure by the ordering service. Images are nondiagnostic as no radiologist was present at the time of imaging. Fluoroscopic time was 71.7 seconds. Please see the procedure report for details. Signed: Rubio Goel MD Report Verified Date/Time: 11/04/2018 21:43:27 Reading Location: [address] Reading Room Performing Organization Address City/[facility]/Zipcode Phone Number GE [facility] CYTOLOGY REQUEST (11/04/2018 5:37 PM CDT) Cytology See Separate Report [facility] Specimen Brushings Performing Organization Address City/[facility] Phone Number [address] [address] [phone] CENTER Cytology (11/04/2018 5:37 PM CDT) Case Report Medical Cytology Report Case: [id number] [facility] Authorizing Provider:Emelyn Horta Collected: 11/04/2018 1737 [facility] MD Vance Ordering Location: [address] Received: 11/07/2018 1148 SERVICE Pathologist: Eric Flower MD Specimen:Common Bile Duct DIAGNOSIS COMMON BILE DUCT BRUSHING (CYTOSPINS): [facility] - SUSPICIOUS FOR MALIGNANCY [facility] Signing Pathologist Direct Phone Line: [phone] COMMENT [facility] Please also see surgical pathology report [id number] and cytopathology reports [id number] and [id number]. [facility] CPT Code(s) 78566 [facility] CLINICAL DATA Focal liver lesions; [facility] pancreatic massinvading [facility] vein and liver; hepatobiliary obstruction; elevated LFTs; h/o breast cancer s/p Chemo/XRT and right mastectomy SPECIMEN SOURCE COMMON BILE DUCT BRUSHING [facility] GROSS DESCRIPTION Prepared 2 cytospins from 1 brush tip collected in 15 ml cytorich red fixative [facility] Collected: [id number] [facility] Received: [id number] STATEMENT OF ADEQUACY Satisfactory [facility] Gross assessment was [facility] performed at [place], Department of [facility] Pathology, [address] [place] [address], Technical component was [facility] performed at [place], Department [facility] Pathology, [address] [place] [address], Professional component was [facility] performed at [place], Department of [facility] Pathology, [address] [place] [address], Specimen [place]ushings Narrative Performed At Performing Organization Address City/State/Zipcode Phone Number [address] [address] [phone] [place] Tissue Exam (11/04/2018 5:17 PM CDT) Case Report Surgical Pathology Report Case: [id number] [facility] Authorizing Provider:Emelyn Horta Collected: 11/04/2018 1717 [facility] MD Vance Ordering Location: [address] Received: 11/07/2018 0808 SERVICE Pathologist: Tresa Lanier MD Specimen:Pancreas, Head,fine needle aspirate of mass in formulin DIAGNOSIS A. PANCREAS, HEAD MASS, FNA GUIDED BIOPSY: [facility] - INVASIVE POORLY DIFFERENTIATED ADENOCARCINOMA (SEE COMMENT) [facility] Signing Pathologist Direct Phone Line: [phone] COMMENT There is extremely minimal amount of tumor in the biopsy. Please correlate with results of concurrently obtained cytology results ([id number] ). [facility] Special stain for mucicarmine is negative. Immunostain for Cam5.2 highlights the stromal invasion. Immunostain for SOILA-3 (faint nuclear staining is non- specific), ER and mammaglobin are negative. IDC: Dr. Pedro Pablo banks. CPT Code(s) 38354 [facility] [address] [facility] [id number] CLINICAL HISTORY Pancreatic mass [facility] SPECIMEN SOURCE Pancreas head fine needle aspirate [facility] GROSS DESCRIPTION The specimen is received in a [facility] formalin-filled container labeled [facility] with the patient's information and labeled "pancreas head fine needle aspirate" and consists of multiple stringy fragments of hemorrhagic soft tissue measuring 1 x 0.4 x 0.2 cm in aggregate, submitted entirely in A1. CG/ew SPECIAL STUDIES The interpretation of this case included the use of immunohistochemistry or special stains. [facility] Immunohistochemistry technical testing was performed at [facility], Pathology Laboratory where it was developed and its performance characteristics were determined. It has not be en cleared or approved by the U.S. Food and Drug Administration. The FDA has determined that such clearance or approval is not necessary. The test is used for clinical purposes. It should not be regarde d as investigational or for research. This laboratory is certified under the Clinical Laboratory Improvement Amendments of 1988 (CLIA-88) as qualified to perform high complexity clinical laboratory testing. Specimen Tissue - Pancreas, Head Performing Organization Address City/[facility]/Zipcode Phone Number [address] [address] [phone] [place] FINE NEEDLE ASPIRATE (FNA) REQUEST (11/04/2018 4:55 PM CDT)Only the most recent of2 resultswithin the time period is included. Cytology See Separate Report [facility] Specimen Fine Needle Aspirate - Pancreas, Head Performing Organization Address City/[facility]/Zipcode Phone Number [address] [address] [phone] CENTER Fine Needle Aspirate by Clinician (11/04/2018 4:55 PM CDT)Only the most recent of2 resultswithin the time period is included. Case Report Medical Cytology Report Case: [id number] [facility] Authorizing Provider:Emelyn Horta Collected: 11/04/2018 1655 [facility] MD Vance Ordering Location: [address] Received: 11/07/2018 1148 SERVICE Pathologist: Eric Flower MD Specimen:Pancreas, Head DIAGNOSIS HEAD OF PANCREAS MASS, FNA BY CLINICIAN (CYTOSPINS AND CELL BLOCK OF ASPIRATE): [facility] - POSITIVE FOR MALIGNANCY [facility] - ADENOCARCINOMA, DUCTAL TYPE Signing Pathologist Direct Phone Line: [phone] COMMENT [facility] Please also see surgical pathology report [id number] and cytopathology reports [id number] and [id number]. [facility] CPT Code(s) 79026, [address] [facility] CLINICAL DATA Focal liver lesions; [facility] pancreatic massinvading [facility] vein and liver; hepatobiliary obstruction; elevated LFTs; h/o breast cancer s/p Chemo/XRT and right mastectomy SPECIMEN SOURCE HEAD OF PANCREAS MASS FNA [facility] GROSS DESCRIPTION Prepared cell block(A2) and 4 cytospins from 18 ml cytorich red fixative sample [facility] Collected: [id number] [facility] Received: [id number] Gross assessment was [facility] performed at [place], Department [facility] Pathology, [address] [place] [address], Technical component was [facility] performed at [place], Department [facility] Pathology, [address] [place] [address], Professional component was [facility] performed at [place], Department of [facility] Pathology, [address] [place] [address], Specimen Fine Needle Aspirate - Pancreas, Head Narrative Performed At Performing Organization Address City/State/Zipcode Phone Number [place] [phone] [place] [phone] CENTER XR chest 1 view portable / bedside (11/04/2018 11:56 AM CDT) Specimen Narrative Performed At FINAL REPORT GE RIS TECHNIQUE: Frontal chest radiograph dated 11/04/2018. CLINICAL HISTORY: SOB COMPARISON STUDY: None IMPRESSION: Linear scarring is seen in the medial right upper lobe. Lungs are otherwise clear. No pleural effusion or pneumothorax. Cardiomediastinal silhouette is normal in size. No pulmonary edema. Bones are osteopenic. The right axilla. Signed: Michaela Martinez MD Report Verified Date/Time:11/04/2018 14:08:49 Reading Location: [facility] Radiology Reading Room Procedure Note Interface, External Ris In - 11/04/2018 2:10 PM CDT FINAL REPORT TECHNIQUE: Frontal chest radiograph dated 11/04/2018. CLINICAL HISTORY: SOB COMPARISON STUDY: None IMPRESSION: Linear scarring is seen in the medial right upper lobe. Lungs are otherwise clear. No pleural effusion or pneumothorax. Cardiomediastinal silhouette is normal in size. No pulmonary edema. Bones are osteopenic. The right axilla. Signed: Michaela Martinez MD Report Verified Date/Time: 11/04/2018 14:08:49 Reading Location: [facility] Radiology Reading Room Performing Organization Address City/State/Zipcode Phone Number [facility] Lipase (11/03/2018 11:50 PM CDT) Lipase 34 8 - 78 U/L [facility] Specimen Blood Narrative Performed At Specimen slightly icteric [facility] Performing Organization Address City/[facility]/Zipcode Phone Number [address] [address] CENTER Gamma Glutamyl Transferase (GGT) (11/03/2018 11:50 PM CDT) GGT 465 (H) 9 - 64 U/L [facility] Specimen Blood Narrative Performed At Specimen slightly icteric [facility] Performing Organization Address City/[facility]/Zipcode Phone Number [facility] [address] [place] [address] [place] Urinalysis with Microscopic If Indicated (11/03/2018 11:49 PM CDT) Color, UA Yellow [facility] Clarity, UA Clear [facility] Specific [place], UA 1.019 1.001 - 1.035 [facility] pH, UA 7.0 5.0 - 8.0 [facility] Protein, UA Negative Negative [facility] Glucose, UA 50 mg/dL (A) Negative [facility] Ketones, UA 100 mg/dL (A) Negative [facility] Bilirubin, UA Negative Negative [facility] Blood, UA Negative Negative [facility] Nitrite, UA Negative Negative [facility] Leukocytes, UA Negative Negative [facility] Urobilinogen, UA 0.2 0.2 - 1.0 mg/dL [facility] Specimen Source [facility] Specimen Urine Performing Organization Address City/[facility]/Zipcode Phone Number [facility] [address] [place] [address] [place] after 12/07/2017 Insurance Payer Benefit Plan / Group Subscriber ID Type Phone Address MEDICARE MEDICARE A B xxxxxxxxxxx Medicare [facility] GENERIC MEDICARE xxxxxxxxx Medigap SUPPLEMENT/INDIVIDUAL SUPPLEMENT Advance Directives For more information, please contact:[address] [phone] Code Status Date Activated Date Inactivated Comments Full Code 11/03/2018 9:48 PM 11/10/2018 12:13 PM This code status was determined by: Patient Name Relationship Healthcare Agent Relationship Phone RAVINRUDDYVICTOR MANUEL Nesbitt son Primary healthcare agent [phone]
--- OUTSIDE RECORDS SUMMARY | 2018-12-08 21:18 | XMS REPORT | Continuity of Care Document ---
:1950 Author Organization Interface Problems Problem Status Onset Classification Date Comments Source Date Reported CHEMOTHERAPY Active 12/02/[address] [facility] 19 [place] Trochanteric 06/23/20 10/12/2018 [facility] bursitis, left 18 [place] hip 727.49 - BURSAL Active 04/27/20 [facility] CYST NEC 18 [place] Z00.00 - ENCNTR Active 03/11/20 [facility] FOR GENERAL 18 [place] ADULT MEDIC Unspecified 02/26/20 09/08/2018 [facility] intracapsular 18 [place] fracture of left [facility] femur, [place] subsequent encounter for closed fracture with routine healing LEFT HIP Active 12/23/19 [facility] WALTER METHOD 18 [facility] UPDATE Active 12/10/19 [facility] 18 [facility] L HIP DRY NEEDLE Active 07/26/19 [facility] 18 [facility] LEFT Active 12/12/19 [facility] HIP/WALTER 17 [place] [facility] HIP FRACTURE Active 12/11/[address] [facility] 17 [place] LEFT HIP Active 11/24/19 [facility] 17 [facility] R22.31 - Active 06/09/20 [facility] "LOCALIZED 16 [place] SWELLING, MASS AND L Kidney disease Active Problem 10/12/2018 MICHELLE Vera,[facility] Breast cancer Resolved Problem 10/12/2018 MICHELLE Vera,[facility] Chicken pox Resolved Problem 10/12/2018 MICHELLE Vera,[facility] Pain in left hip 09/08/2018 [facility] FRACTURE OF UNSP Active [facility] PART OF NECK OF [place] UNSP FE SECONDARY MALIG Active [facility] NEOPLASM OF [place] LIVER AND IN MALIGNANT Active [facility] NEOPLASM OF HEAD [place] OF PANCREAS UNSP Active [facility] INTRACAPSULAR [place] FRACTURE OF LEFT [facility] FEMU [place] PAIN IN LEFT HIP Active [facility] Medications Medication Details Route Status Patient Ordering Order Source Instructions Provider Date Calcium 500 mg, PO, BID, Active Carbonate 500 MG # 60 tab, 0 2017 [place] Chewable Tablet Refill(s), Pharmacy: [facility] [id number] 0.4 ML 40 mg, SUB-Q, Active Enoxaparin Q12H, X 10 day, 2017 [place] sodium 100 MG/ML # 20 ea, 0 Prefilled Refill(s), Syringe Pharmacy: [Lovenox] [facility] [id number] Acetaminophen 1 - 2 tab, PO, Active 300 MG / Codeine Q4H, PRN Pain, X 2017 [place] Phosphate 30 MG 4 day, # 36 tab, Oral Tablet 0 Refill(s) [Tylenol with Codeine #3] Melatonin 3 MG 3 mg=1 tab, PO, Active Extended Release Bedtime, PRN as 2017 [place] Tablet needed for insomnia, X 14 day, # 14 tab, 0 Refill(s), Pharmacy: [facility] [id number] Reglan 10 mg, 1 tab, Inactive Route: PO, Drug 2016 [place] form: TAB, Q6H, PRN Nausea & Vomiting, Start date: 12/15/16 13:13:00 CDT, Duration: 30 day, Stop date: 01/14/17 13:12:00 CDTNotes: (Same as: Reglan) Take 30 min before meals Trazodone 25 mg, 0.5 tab, No Longer Route: PO, Drug Active 2016 [place] form: TAB, Bedtime, Dosing Weight 88.091, kg, PRN Sleep, Start date: 12/13/16 14:39:00 CDT, Duration: 30 day, Stop date: 01/12/17 14:38:00 CDT, ..Notes: (Same As: Desyrel) Melatonin 3 MG 3 mg, 1 tab, No Longer Extended Release Route: PO, Drug Active 2016 [place] Tablet Form: TAB, Dosing Weight 88.091, kg, Bedtime, PRN as needed for insomnia, Start date: 12/13/16 14:39:00 CDT, Duration: 30 day, Stop date: 01/12/17 14:38:00 CDTNotes: (Same as: Melatonin) Ambien 5 mg, 1 tab, No Longer Route: PO, Drug Active 2016 [place] form: TAB, Bedtime, Dosing Weight 88.091, kg, PRN Insomnia, Start date: 12/13/16 14:39:00 CDT, Duration: 30 day, Stop date: 01/12/17 14:38:00 CDTNotes: (Same As: Ambien) Calcium 2,000 mg, 20 mL, Inactive Gluconate Route: IVPB, 2016 [place] ONCE, Dosing Weight 88.091, kg, Priority: STAT, Start date: 12/13/16 11:33:00 CDT, Stop date: 12/13/16 11:33:00 CDTNotes: WASTE: F/P - Sink; E - Municipal Trash Bin Vitamin D3 50,000 IntlUnit, No Longer 10 tab, Route: Active 2016 [place] PO, Drug form: TAB, Q7D, Start date: 12/12/16 11:00:00 CDT, Duration: 30 day, Stop date: 01/09/17 9:00:00 CDTNotes: Same as: Vitamin D3 Non-Formulary Vitamin D2 50,000 IntlUnit, Inactive 1 cap, Route: 2016 [place] PO, Drug form: CAP, Q7D, Start date: 12/12/16 9:00:00 CDT, Duration: 30 day, Stop date: 01/09/17 9:00:00 CDTNotes: (Same as: Vitamin D) "Do Not Crush" phenol 1 spray, Route: No Longer TOP, BID, Drug Active 2016 [place] form: SPRY, PRN Sore Throat, Start date: 12/11/16 21:19:00 CDT, Duration: 30 day, Stop date: 01/10/17 21:18:00 CDTNotes: WASTE: F/P - Black; E - Municipal Trash Bin heparin 5,000 unit, 1 No Longer mL, Route: Active 2016 [place] SUB-Q, Drug form: INJ, Q8H, Start date: 12/11/16 20:00:00 CDT, Duration: 30 day, Stop date: 06/18/17 20:00:00 CDTNotes: porcine heparin vancomycin 1,250 mg, Route: No Longer (SCIP) + sodium IVPB, [id number], Active 2016 [place] chloride 0.9% Dosing Weight 250 mL INJ [...] 2 gm, Route: Inactive IVPB, [id number], 2017 [place] Dosing Weight 88.091, kg, Start date: 12/11/16 15:00:00 CDT, Duration: 1 doses or times, Stop date: 12/11/16 15:00:00 CDT, ABX Indication: Surgical ProphylaxisNotes : (Same As: Ancef Kefzol) MEDICATION WASTE Product Size: 1000 mg Product Wasted: ___ mg Dilaudid 0.5 mg, Route: Inactive IVP, ONCE, 2016 [place] Dosing Weight 88.091, kg, Priority: STAT, Start date: 12/11/16 14:01:00 CDT, Stop date: 12/11/16 14:01:00 CDT Fentanyl 25 microgram, Inactive Route: IV, 2017 [place] Q10Min, Dosing Weight 88.091, kg, PRN Pain Score 6-10, Start date: 12/11/16 10:02:00 CDT, Duration: 30 day, Stop date: 01/10/17 10:01:00 CDT Ondansetron 4 mg, Route: Inactive IVP, ONCE, 2016 [place] Dosing Weight 88.091, kg, PRN Nausea & Vomiting, Start date: 12/11/16 10:02:00 CDT Hydromorphone 0.5 mg, Route: Inactive IVP, Q5Min, 2017 [place] Dosing Weight 88.091, kg, PRN Pain Score 7-10, Start date: 12/11/16 10:02:00 CDT, Duration: 4 doses or times, Stop date: Limited # of times Morphine 4 mg, Route: Inactive IVP, Q5Min, 2017 [place] Dosing Weight 88.091, kg, PRN Pain Score 7-10, Start date: 12/11/16 10:02:00 CDT, Duration: 3 doses or times, Stop date: Limited # of times Oxycodone 10 mg, Route: Inactive PO, Drug form: 2017 [place] TAB, Q4H, Dosing Weight 88.091, kg, PRN Pain Score 7-10, Start date: 12/11/16 10:02:00 CDT, Duration: 30 day, Stop date: 01/10/17 10:01:00 CDT Flumazenil 0.2 mg, Route: Inactive IVP, PRN, Dosing 2017 [place] Weight 88.091, kg, PRN Benzodiazepine Reversal, Initial dose, Start date: 12/11/16 10:02:00 CDT, Duration: 30 day, Stop date: 01/10/17 10:01:00 CDT Naloxone 0.4 mg, Route: Inactive IVP, Q2MIN, 2017 [place] Dosing Weight 88.091, kg, PRN Narcotic Reversal, Start date: 12/11/16 10:02:00 CDT, Duration: 8 doses or times, Stop date: Limited # of times ketOROLAC (ANES) IV, ONCE Inactive 2016 [place] dexamethasone Route: IV, Drug Inactive (ANES) form: INJ, ONCE, 2016 [place] Stop date: 12/11/16 9:57:00 CDT ondansetron Route: IV, Drug Inactive (ANES) form: INJ, ONCE, 2016 [place] Stop date: 12/11/16 9:57:00 CDT ergocalciferol 50,000 unit, 1 Inactive cap, Route: PO, 2016 [place] Drug form: CAP, Q7D, Dosing Weight 88.091, kg, Start date: 12/11/16 9:00:00 CDT, Duration: 30 day, Stop date: 01/08/17 9:00:00 CDTNotes: (Same as: Vitamin D) "Do Not Crush" Calcium 500 mg, 1 tab, No Longer Carbonate Route: PO, Drug Active 2016 [place] form: TAB, BID, Dosing Weight 88.091, kg, Start date: 12/11/16 9:00:00 CDT, Duration: 30 day, Stop date: 01/09/17 17:00:00 CDTNotes: 500mg elemental [id number] calcium carbonate. Contains 500mg elemental calcium. (Same As: OsCal 500) Vancomycin 1,250 mg, Route: Inactive IVPB, [id number], 2016 [place] Dosing Weight 88.091, kg, Time Critical Medication, Start date: 12/11/16 9:00:00 CDT, Duration: 2 doses or times, Stop date: 12/11/16 21:00:00 CDT, Pharmacy to adjust dose for renal function, ABX Indication: Surgical Pr...Notes: TIME CRITICAL MEDICATION (Same As: Vancocin) Infusion rate 2001 mg: infuse over 2.5 hours MEDICATION WASTE Product Size: 1000 mg Product Wasted: ___ mg heparin 5,000 unit, 1 Inactive mL, Route: 2016 [place] SUB-Q, Drug form: INJ, Q8H, Dosing Weight 81.818, kg, Start date: 12/11/16 8:46:00 CDT, Duration: 30 day, Stop date: 01/10/17 8:00:00 CDTNotes: porcine heparin propofol (ANES) Route: IV, Drug Inactive form: INJ, ONCE, 2016 [place] Stop date: 12/11/16 7:31:00 CDT fentaNYL (ANES) Route: IV, Drug Inactive form: INJ, ONCE, 2016 [place] Stop date: 12/11/16 7:31:00 CDT ceFAZolin (ANES) Route: IV, Drug Inactive form: INJ, ONCE, 2016 [place] Stop date: 12/11/16 7:31:00 CDT midazolam (ANES) Route: IV, Drug Inactive form: SOLN, 2016 [place] ONCE, Stop date: 12/11/16 7:31:00 CDT Calcium Chloride 1,000 mL, Rate: No Longer 0.0014 MEQ/ML / 25 ml/hr, Infuse Active 2016 [place] Potassium over: 40 hr, Chloride 0.004 Route: IV, MEQ/ML / Sodium Dosing Weight Chloride 0.103 88.091 kg, Total MEQ/ML / Sodium Volume: 1,000, Lactate 0.028 Start date: MEQ/ML 12/11/16 6:28:00 Injectable CDT, Duration: Solution 30 day, Stop date: 01/10/17 6:27:00 CDT vancomycin Route: IV, Drug Inactive (ANES) (ANES) form: INJ, Start 2016 [place] date: 12/11/16 6:15:00 CDT, Stop date: 12/11/16 7:15:00 CDT LR 1000 mL INJ Route: IV, Total Inactive (ANES) Volume: 1,000, 2016 [place] Start date: 12/11/16 6:00:00 CDT, Stop date: 12/11/16 7:00:00 CDT Dilaudid 0.5 mg, 0.5 mL, Inactive Route: IV, Drug 2016 [place] form: INJ, ONCE, Dosing Weight 88.091, kg, Start date: 12/11/16 4:41:00 CDT, Stop date: 12/11/16 4:41:00 CDTNotes: Same as: Dilaudid sodium chloride 1,000 mL, Rate: No Longer 0.45% 1000 ml 100 ml/hr, Active 2016 [place] INJ 1,000 mL Infuse over: 10 hr, Route: IV, Dosing Weight 81.818 kg, Total Volume: 1,000, Start date: 12/10/16 20:55:00 CDT, Duration: 30 day, Stop date: 01/09/17 20:54:00 CDT Reglan 10 mg, 2 mL, No Longer Route: IVP, Drug Active 2016 [place] form: INJ, Q6H, Dosing Weight 81.818, kg, PRN Nausea & Vomiting, Start date: 12/10/16 20:53:00 CDT, Duration: 30 day, Stop date: 01/09/17 20:52:00 CDTNotes: (Same as: Reglan) Acetaminophen 650 mg, 2 tab, No Longer Route: PO, Drug Active 2016 [place] form: TAB, Q4H, Dosing Weight 81.818, kg, PRN Pain 1-3/Temp > 100.4 F, Start date: 12/10/16 20:45:00 CDT, Duration: 30 day, Stop date: 01/09/17 20:44:00 CDTNotes: Do not exceed 4 gm/day. (Same as: Tylenol) Saline Flush 10 ml, Route: No Longer 0.9% IVP, Drug Form: Active 2016 [place] INJ, Dosing Weight 81.818, kg, PRN, PRN Line Flush, Start date: 12/10/16 20:45:00 CDT, Duration: 30 day, Stop date: 01/09/17 20:44:00 CDTNotes: (Same as: BD Posiflush) Ondansetron 4 mg, 2 mL, Inactive Route: IVP, Drug 2016 [place] form: INJ, Q6H, Dosing Weight 81.818, kg, PRN Nausea & Vomiting, Start date: 12/10/16 20:45:00 CDT, Duration: 30 day, Stop date: 01/09/17 20:44:00 CDTNotes: (Same as: Luciefran) MEDICATION WASTE Product Size: 4 mg Product Wasted: ___ mg Sodium Chloride 1,000 mL, Rate: Inactive 0.154 MEQ/ML 100 ml/hr, 2016 [place] Injectable Infuse over: 10 Solution hr, Route: IV, Dosing Weight 81.818 kg, Total Volume: 1,000, Start date: 12/10/16 20:45:00 CDT, Duration: 30 day, Stop date: 01/09/17 20:44:00 CDT Dilaudid 0.5 mg, 0.5 mL, No Longer Route: IVP, Drug Active 2016 [place] form: INJ, Q3H, Dosing Weight 81.818, kg, PRN Pain Score 7-10, Start date: 12/10/16 20:45:00 CDT, Duration: 30 day, Stop date: 01/09/17 20:44:00 CDTNotes: Same as: Dilaudid Acetaminophen 1 tab, Route: No Longer 325 MG / PO, Drug Form: Active 2017 [place] Hydrocodone TAB, Dosing Bitartrate 10 MG Weight 81.818, Oral Tablet kg, Q4H, PRN [[place] 10/325] Pain Score 4-6, Start date: 12/10/16 20:45:00 CDT, Duration: 30 day, Stop date: 01/09/17 20:44:00 CDTNotes: Do not exceed 4gm/day of acetaminophen. (Same as: [place] 325/10) Zofran 4 mg, 2 mL, Inactive Route: IVP, Drug 2016 [place] form: INJ, ONCE, Dosing Weight 81.818, kg, Priority: STAT, Start date: 12/10/16 19:30:00 CDT, Stop date: 12/10/16 19:30:00 CDTNotes: (Same as: Zofran) MEDICATION WASTE Product Size: 4 mg Product Wasted: ___ mg Morphine 4 mg, 1 mL, Inactive Route: IVP, Drug 2016 [place] form: INJ, ONCE, Dosing Weight 81.818, kg, Priority: STAT, Start date: 12/10/16 19:30:00 CDT, Stop date: 12/10/16 19:30:00 CDTNotes: (Same as:MORPhine Sulfate) Allergies, Adverse Reactions, Alerts Substance Category Reaction Severity Reaction Status Date Comments Source type Reported Immunizations Immunization Date Given Site Status Last Updated Comments Source Results Order Name Results Value Reference Date Interpretation Comments Source Range Venogram Venogram Patient Name: THELMA HOLGUIN 12/06 - [facility] [place] vena cava vena cava VR : 1950; Age: 68 years Female VR MR: [id number] Read by: Denny Zavala MD Dictated Date/time: 12/06/18 11:35 Electronically Signed by: Denny Zavala MD 12/06/18 11:40 FINAL REPORT PROCEDURE: 1. Ultrasound and fluoroscopic-guided placement of a right chest port via the right internal jugular vein 2. Venography of the left brachiocephalic vein and superior vena cava 3. Moderate sedation CLINICAL INFORMATION: Need for chemotherapy, history of pancreatic and breast cancer CONSENT: The procedure, risks, benefits and alternatives were discussed with the patient and written informed consent was obtained. A "time out" was performed per protocol prior to the procedure. 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 The patient was continuously monitored by a nurse using automated blood pressure , electrocardiogram, and pulse oximetry. [place] [facility] [place] is permanently stored in the hospital information system. The personal supervised moderate sedation time was 45 minutes. Medications administered: Versed 4 mg IV and Fentanyl 200 mcg IV. The patient was placed in a supine position on the fluoroscopy table. The patient's left neck and chest were prepped and draped with sterile technique. All elements of maximum sterile barrier techn ique were utilized. The overlying skin was anesthetized with 1% lidocaine. Preprocedure ultrasound demonstrated a patent left internal jugular vein and an image stored in the medical record. Under steri le ultrasound guidance, an 18-gauge needle was advanced into the left internal jugular vein. Subsequently, a 0.035 inch wire was advanced into the left brachiocephalic vein but was noted to have difficu lty. A 4-Mauritian sheath was then placed over the wire. Digital subtraction angiography was then performed which demonstrated complete occlusion of the left brachiocephalic vein with numerous collaterals. Although patient has had a prior right mastectomy for breast cancer 23 years ago, the decision was made to place the chest port on the right side. The patient's right neck and chest were prepped and draped with sterile technique. All elements of maximum sterile barrier technique were utilized. The overlying skin was anesthetized with 1% lidoc sandra. Preprocedure ultrasound demonstrated a patent right internal jugular vein and an image stored in the medical record. Under sterile ultrasound guidance, an 18-gauge needle was advanced into the right internal jugular vein. Subsequently, a 0.035 inch wire was advanced into the IVC. An incision was made using a 10 blade and a pocket created within the chest wall using blunt dissection. The catheter was tunneled under the sk in to the IJ puncture site. The peel-away sheath was inserted over the wire. The catheter was then inserted until the tip projected over the cavoatrial junction. The peel-away sheath was removed and the catheter was connected to the chest port. Final postprocedure fluoroscopic imaging demonstrated good position of the chest port, with tip projecting over the cavoatrial junction. The port was packed with heparin and the incision site was closed using deep and subcuticular Vicryl sutures. The skin puncture site in the neck was closed using Dermabond. Sterile dressings were applie d. Patient tolerated the procedure well without immediate complication. IMPRESSION: Successful placement of a right IJ chest port. 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 SL: [id number] CVC insert CVC insert Patient Name: THELMA HOLGUIN 12/06 - [facility] tunnel tunnel /[address] [place] [address] w/-w/o w/-w/o : 1950; Age: 68 years Female port/pump port/pump age 5+ yrs age 5+ yrs MR: [id number] Read by: Denny Zavala MD VR Dictated Date/time: 12/06/18 11:35 Electronically Signed by: Denny Zavala MD 12/06/18 11:40 FINAL REPORT PROCEDURE: 1. Ultrasound and fluoroscopic-guided placement of a right chest port via the right internal jugular vein 2. Venography of the left brachiocephalic vein and superior vena cava 3. Moderate sedation CLINICAL INFORMATION: Need for chemotherapy, history of pancreatic and breast cancer CONSENT: The procedure, risks, benefits and alternatives were discussed with the patient and written informed consent was obtained. A "time out" was performed per protocol prior to the procedure. 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 The patient was continuously monitored by a nurse using automated blood pressure , electrocardiogram, and pulse oximetry. The [facility] emergency sedation record is permanently stored in the hospital information system. The personal supervised moderate sedation time was 45 minutes. Medications administered: Versed 4 mg IV and Fentanyl 200 mcg IV. The patient was placed in a supine position on the fluoroscopy table. The patient's left neck and chest were prepped and draped with sterile technique. All elements of maximum sterile barrier techn ique were utilized. The overlying skin was anesthetized with 1% lidocaine. Preprocedure ultrasound demonstrated a patent left internal jugular vein and an image stored in the medical record. Under steri le ultrasound guidance, an 18-gauge needle was advanced into the left internal jugular vein. Subsequently, a 0.035 inch wire was advanced into the left brachiocephalic vein but was noted to have difficu lty. A 4-Mauritian sheath was then placed over the wire. Digital subtraction angiography was then performed which demonstrated complete occlusion of the left brachiocephalic vein with numerous collaterals. Although patient has had a prior right mastectomy for breast cancer 23 years ago, the decision was made to place the chest port on the right side. The patient's right neck and chest were prepped and draped with sterile technique. All elements of maximum sterile barrier technique were utilized. The overlying skin was anesthetized with 1% lidoc sandra. Preprocedure ultrasound demonstrated a patent right internal jugular vein and an image stored in the medical record. Under sterile ultrasound guidance, an 18-gauge needle was advanced into the right internal jugular vein. Subsequently, a 0.035 inch wire was advanced into the IVC. An incision was made using a 10 blade and a pocket created within the chest wall using blunt dissection. The catheter was tunneled under the sk in to the IJ puncture site. The peel-away sheath was inserted over the wire. The catheter was then inserted until the tip projected over the cavoatrial junction. The peel-away sheath was removed and the catheter was connected to the chest port. Final postprocedure fluoroscopic imaging demonstrated good position of the chest port, with tip projecting over the cavoatrial junction. The port was packed with heparin and the incision site was closed using deep and subcuticular Vicryl sutures. The skin puncture site in the neck was closed using Dermabond. Sterile dressings were applie d. Patient tolerated the procedure well without immediate complication. IMPRESSION: Successful placement of a right IJ chest port. 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 SL: [id number] Drain/Inj Drain/Inj EXAM: ULTRASOUND-GUIDED THERAPEUTIC LEFT GREATER TROCHANTER REGION INJECTIONS 03/25 - [facility] /2018 - [place] Joint/Bursa Joint/Bursa This report was dictated by a College Athlete/Fellow. I have personally reviewed the images as US US well as the Resident's interpretation and agree with the findings. DATE: 03/25/2018 9:58 AM CDT Read by: Hugh Galindo (Fellow ) Resident: Hugh Galindo (Fellow) Dictated Date/time: 03/25/18 10:44 Electronically Signed by: Aleena Rasmussen MD 03/25/18 18:38 FINAL REPORT INDICATION: lt trochanteric bursitis COMPARISON: None. PRE-PROCEDURE: Consent: An informed consent was obtained from the patient, prior to the procedure. Appropriate time out procedures were performed. Preliminary ultrasound demonstrates a small greater trochanteric bursal effusion and tendinosis of the gluteus medius and minimus. PROCEDURE: The skin was prepped and draped in the usual fashion under aseptic precautions. 1% lidocaine was utilized for local anesthesia. Under direct ultrasound guidance a 25-gauge 1.5 inch long needle was advanced to the greater trochanteric bursa, and subsequently to the myotendinous junctions of the gluteus medius and gluteus minimus muscles. Infiltration of lidocaine 1% was performed to produce a cleavage plane. 20 mg of Kenalog (1mL) and 1mL 0.2% ropivacaine were subsequently injected into each site. Then, a 25-gauge 1.5 inch long needle was advanced into 3 triggerpoints indicated by the patient and lidocaine than 7-10 mg of Kenalog and 1 mL 0.2% ropivacaine were injected into each site. No immediate complications. Preprocedure pain score: 0/10 Postprocedure pain score: 0/10 Dr. Aleena Rasmussen, attending, was present for the procedure. IMPRESSION: Technically successful ultrasound-guided therapeutic injection of the left greater trochanteric bursa, left gluteus minimus and medius myotendinous junctions, and 3 painful trigger points around the region that the patient indicated. HEMATOLOGY WBC X 10x3 4.5 K/CMM 3.7 - 10.4 12/14 [place] HEMATOLOGY Hgb 8.4 g/dL 12.0 - 12/14 MH 16.0 [place] HEMATOLOGY RBC X 10x6 2.84 M/CMM 4.20 - 12/14 MH 5.40 /2016 [place] HEMATOLOGY Hct 25.0 % 36.0 - 12/14 MH 48.0 /2016 [place] HEMATOLOGY RDW 13.5 % 11.5 - 12/14 MH 14.5 /2016 [place] HEMATOLOGY MCV 88.0 fL 80.0 - 12/14 MH 98.0 /2016 [place] HEMATOLOGY MCHC 33.5 g/dL 32.0 - 12/14 MH 36.0 [place] HEMATOLOGY MCH 29.5 pg 27.0 - 12/14 MH 31.0 [place] HEMATOLOGY Platelet 159 K/CMM 133 - 450 12/14 [place] HEMATOLOGY MPV 7.9 fL 7.4 - 10.4 12/14 [place] URINE AND UA Bacteria Occasional None Seen 12/13 STOOL /HPF /HPF /2016 [place] URINE AND UA RBC 0-2 /HPF 0 - 2 12/13 STOOL [place] URINE AND UA WBC 0-2 /HPF None Seen 12/13 STOOL /HPF /2016 [place] URINE AND UA Sq Epi Occasional Few /LPF 12/13 STOOL /LPF /2016 [place] URINE AND UA Leuk Est Negative Negative 12/13 STOOL [place] (12/13/16 4:31 PM) URINE AND UA 0.2 EU/dL 0.1 - 1.0 12/13 STOOL Urobilinogen /2016 [place] URINE AND UA Nitrite Negative Negative 12/13 STOOL [place] (12/13/16 4:31 PM) URINE AND UA Blood Negative Negative 12/13 STOOL [place] (12/13/16 4:31 PM) URINE AND UA Bili Negative Negative 12/13 STOOL [place] *NA* (12/13/16 4:31 PM) URINE AND UA Ketones 40 mg/dL Negative 12/13 [facility] mg/dL /2016 [place] URINE AND UA Glucose Negative Negative 12/13 [place] (12/13/16 4:31 PM) URINE AND UA Protein Negative Negative 12/13 STOOL [place] (12/13/16 4:31 PM) URINE AND UA pH 6.0 5.0 - 8.0 12/13 [place] URINE AND UA Spec Grav 1.010 <=1.030 12/13 [place] URINE AND UA Turbidity Clear Clear 12/13 [place] (12/13/16 4:31 PM) URINE AND UA Color Yellow Yellow 12/13 [place] *NA* (12/13/16 4:31 PM) CHEM PANEL Magnesium 2.0 mg/dL 1.8 - 2.4 12/13 [facility] [place] CHEM PANEL Lactic Acid 0.8 mMol/L 0.5 - 2.2 12/13 [facility] [place] Chest 1view Chest 1view Patient Name: THELMA HOLGUIN 12/13 [facility] DX DX /2016 [facility] : 1950; Age: 66 years Female MR: [id number] Read by: Albert Wilcox MD Dictated Date/time: [...] change, adenopathy, mass. Right axillary nicole. SL: [id number] ELECTROLYTE AGAP 13.1 meq/L 10.0 - 12/12 S 20.0 [place] ELECTROLYTE eGFR 96 12/12 Result Comment: The eGFR is calculated using the CKD-EPI formula. In most young, healthy individuals the eGFR will be >90 mL/ min/1.73m2. The eGFR declines with age. An eGFR of 60-89 may be normal in mL/min/1.7 /2017 some populations, particularly the elderly, for whom the CKD-EPI formula has not been extensively validated. Use of the eGFR is not recommended in the following populations: [address] Individuals with unstable creatinine concentrations, including [...] Sodium Lvl 139 meq/L 135 - 145 12/12 S [place] ELECTROLYTE Creatinine 0.60 mg/dL 0.50 - 12/12 S Lvl 1.40 [place] ELECTROLYTE CO2 26 meq/L 24 - 32 12/12 S [place] ELECTROLYTE Chloride Lvl 104 meq/L 95 - 109 12/12 S [place] ELECTROLYTE Potassium 4.1 meq/L 3.5 - 5.1 12/12 S Lvl /2016 [place] ELECTROLYTE Calcium Lvl 8.1 mg/dL 8.5 - 10.5 12/12 S [place] ELECTROLYTE Glucose Lvl 128 mg/dL 70 - 99 12/12 S [place] ELECTROLYTE BUN 14 mg/dL 7 - 22 12/12 S [place] HEMATOLOGY Monocytes # 0.5 K/CMM 0.0 - 0.8 12/12 [place] HEMATOLOGY Monocytes 10.1 % 2.0 - 12.0 12/12 [place] HEMATOLOGY Eosinophils 0.1 % 0.0 - 4.0 12/12 [place] HEMATOLOGY Lymphocytes 0.4 K/CMM 1.0 - 5.5 12/12 MH # /2017 [place] HEMATOLOGY Segs-Bands # 4.1 K/CMM 1.5 - 8.1 12/12 [place] HEMATOLOGY Basophils 0.1 % 0.0 - 1.0 12/12 [place] HEMATOLOGY Segs 81.3 % 45.0 - 12/12 MH 75.0 /2017 [place] HEMATOLOGY Lymphocytes 8.4 % 20.0 - 12/12 MH 40.0 [place] HEMATOLOGY Platelet 151 K/CMM 133 - 450 12/12 [place] HEMATOLOGY MPV 8.3 fL 7.4 - 10.4 12/12 [place] HEMATOLOGY MCHC 33.7 g/dL 32.0 - 12/12 MH 36.0 [place] HEMATOLOGY Hct 27.9 % 36.0 - 12/12 MH 48.0 [place] HEMATOLOGY MCH 29.9 pg 27.0 - 12/12 MH 31.0 [place] HEMATOLOGY RDW 13.6 % 11.5 - 12/12 MH 14. [place] HEMATOLOGY MCV 88.7 fL 80.0 - 12/12 MH 98.0 [place] HEMATOLOGY WBC X 10x3 5.1 K/CMM 3.7 - 10.4 12/12 [place] HEMATOLOGY RBC X 10x6 3.14 M/CMM 4.20 - 12/12 MH 5.40 [place] HEMATOLOGY Hgb 9.4 g/dL 12.0 - 12/12 MH 16.0 [place] CHEM PANEL eGFR 91 12/11 Result Comment: The eGFR is calculated using the CKD-EPI formula. In most young, healthy individuals the eGFR will be >90 mL/ min/1.73m2. The eGFR declines with age. An eGFR of 60-89 may be normal in mL/min/1. some populations, particularly the elderly, for whom the CKD-EPI formula has not been extensively validated. Use of the eGFR is not recommended in the following populations: [place] [address] Individuals with unstable creatinine concentrations, including patients [...] CO2 24 meq/L 24 - 32 12/11 [place] CHEM PANEL Calcium Lvl 8.5 mg/dL 8.5 - 10.5 12/11 [place] CHEM PANEL Potassium 4.2 meq/L 3.5 - 5.1 12/11 MH Lvl [place] CHEM PANEL Sodium Lvl 140 meq/L 135 - 145 12/11 [place] CHEM PANEL Chloride Lvl 106 meq/L 95 - 109 12/11 [place] CHEM PANEL Creatinine 0.70 mg/dL 0.50 - 12/11 MH Lvl 1.40 /2016 [place] CHEM PANEL BUN 16 mg/dL 7 - 22 12/11 /2016 [place] CHEM PANEL Glucose Lvl 113 mg/dL 70 - 99 12/11 [place] CHEM PANEL AGAP 14.2 meq/L 10.0 - 12/11 MH 20.0 [place] HEMATOLOGY Lymphocytes 9.3 % 20.0 - 12/11 MH 40.0 [place] HEMATOLOGY Segs 80.3 % 45.0 - 12/11 MH 75.0 [place] HEMATOLOGY Monocytes 10.0 % 2.0 - 12.0 12/11 [place] HEMATOLOGY Segs-Bands # 5.5 K/CMM 1.5 - 8.1 12/11 [place] HEMATOLOGY Lymphocytes 0.6 K/CMM 1.0 - 5.5 12/11 MH [place] HEMATOLOGY Basophils 0.1 % 0.0 - 1.0 12/11 [place] HEMATOLOGY Eosinophils 0.3 % 0.0 - 4.0 12/11 [place] HEMATOLOGY Monocytes # 0.7 K/CMM 0.0 - 0.8 12/11 [place] HEMATOLOGY aPTT 27.2 s 22.9 - 12/11 MH 35.8 [place] HEMATOLOGY PROTIME 13.1 s 12.0 - 12/11 MH 14.7 [place] HEMATOLOGY INR 0.97 0.85 - 12/11 MH 1. [place] HEMATOLOGY MPV 7.7 fL 7.4 - 10.4 12/11 [place] HEMATOLOGY RDW 14.2 % 11.5 - 12/11 MH 14.5 [place] HEMATOLOGY Hgb 12.5 g/dL 12.0 - 12/11 MH 16.0 [place] HEMATOLOGY WBC X 10x3 6.8 K/CMM 3.7 - 10.4 12/11 [place] HEMATOLOGY MCHC 33.2 g/dL 32.0 - 12/11 MH 36.0 [place] HEMATOLOGY Hct 37.7 % 36.0 - 12/11 MH 48.0 [place] HEMATOLOGY MCV 89.6 fL 80.0 - 05/19 MH 98.0 [place] HEMATOLOGY MCH 29.7 pg 27.0 - 12/11 MH 31.0 [place] HEMATOLOGY RBC X 10x6 4.21 M/CMM 4.20 - 12/11 MH 5.40 /2016 [place] HEMATOLOGY Platelet 170 K/CMM 133 - 450 12/11 /2016 [place] BLOOD BANK ABO/Rh A POS 12/11 MH RESULTS /2016 [place] BLOOD BANK Antibody Negative 12/11 RESULTS Scrn /2016 [place] (12/10/16 11:25 PM) CARDIAC Total CK 115 unit/L 12 - 191 12/11 ENZYMES [place] ELECTROLYTE AGAP 11.3 meq/L 10.0 - 12/11 S 20.0 [place] ELECTROLYTE B/C Ratio 22 6 - 25 12/11 S [place] ELECTROLYTE Globulin 3.3 g/dL 2.7 - 4.2 12/11 S [place] ELECTROLYTE A/G Ratio 1.2 0.7 - 1.6 12/11 [place] ELECTROLYTE eGFR 86 12/11 Result Comment: The eGFR is calculated using the CKD-EPI formula. In most young, healthy individuals the eGFR will be >90 mL/ min/1.73m2. The eGFR declines with age. An eGFR of 60-89 may be normal in mL/min/1.7 some populations, particularly the elderly, for whom the CKD-EPI formula has not been extensively validated. Use of the eGFR is not recommended in the following populations: [place] 3m2 Individuals with unstable creatinine concentrations, including [...] 18 unit/L 0 - 37 12/11 S [place] ELECTROLYTE Chloride Lvl 108 meq/L 95 - 109 12/11 S [place] ELECTROLYTE CO2 27 meq/L 24 - 32 12/11 S [place] ELECTROLYTE Calcium Lvl 8.9 mg/dL 8.5 - 10.5 12/11 S [place] ELECTROLYTE Bili Total 0.6 mg/dL 0.2 - 1.3 12/11 S /2016 [place] ELECTROLYTE Total 7.2 g/dL 6.4 - 8.4 12/11 S Protein /2016 [place] ELECTROLYTE ALANINE 35 unit/L 0 - 65 12/11 S AMINOTRANSFE [place] RASE ELECTROLYTE Sodium Lvl 142 meq/L 135 - 145 12/11 S [place] ELECTROLYTE Potassium 4.3 meq/L 3.5 - 5.1 12/11 S Lvl /2016 [place] ELECTROLYTE Creatinine 0.74 mg/dL 0.50 - 12/11 S Lvl 1.40 /2016 [place] ELECTROLYTE Alk Phos 113 unit/L 39 - 136 12/11 S [place] ELECTROLYTE Glucose Lvl 151 mg/dL 70 - 99 12/11 S [place] ELECTROLYTE BUN 16 mg/dL 7 - 22 12/11 S [place] ELECTROLYTE Albumin Lvl 3.9 g/dL 3.5 - 5.0 12/11 S [place] HEMATOLOGY Basophils 0.2 % 0.0 - 1.0 12/11 [place] HEMATOLOGY Monocytes # 0.4 K/CMM 0.0 - 0.8 12/11 MH /2016 [place] HEMATOLOGY Segs-Bands # 5.5 K/CMM 1.5 - 8.1 12/11 [place] HEMATOLOGY Lymphocytes 0.5 K/CMM 1.0 - 5.5 12/11 MH # /2017 [place] HEMATOLOGY Lymphocytes 8.4 % 20.0 - 12/11 MH 40.0 [place] HEMATOLOGY Monocytes 6.1 % 2.0 - 12.0 12/11 [place] HEMATOLOGY Eosinophils 0.2 % 0.0 - 4.0 12/11 [place] HEMATOLOGY Segs 85.1 % 45.0 - 12/11 MH 75.0 [place] HEMATOLOGY aPTT 24.3 s 22.9 - 12/11 MH 35.8 [place] HEMATOLOGY PROTIME 11.9 s 12.0 - 12/11 MH 14.7 [place] HEMATOLOGY INR 0.86 0.85 - 12/11 MH 1.17 [place] Femur Femur series EXAM: XR LEFT FEMUR, 2 VIEWS 12/10 - [facility] series DX DX /2016 [place] DATE: 12/10/2016 7:21 PM CDT Read by: [...] fracture of the left femoral neck. 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 hh/penrad:06/16/2016 15:06:15 Trades Helper: Macy MONDRAGON)(Srinivas), [facility] Outpatient Imaging Department This exam was dictated and interpreted by [id number] for [facility] Breast Center. letter sent: Normal [place] Mammogram BI-RADS: 2 Benign Vital Signs Vital Sign Value Date Comments Source Heart Rate 81 12/15/2016 [facility] Temperature Oral (F) 98.3 F 12/15/2016 [facility] Respitory Rate 18 12/15/2016 [facility] Systolic (mm Hg) 133 12/15/2016 [facility] Diastolic (mm Hg) 79 12/15/2016 [facility] Respitory Rate 18 12/15/2016 [facility] Heart Rate 96 12/15/2016 [facility] Systolic (mm Hg) 140 12/15/2016 [facility] Diastolic (mm Hg) 78 12/15/2016 [facility] Temperature Oral (F) 98.0 F 12/15/2016 [facility] Respitory Rate 18 12/15/2016 [facility] Temperature Oral (F) 97.7 F 12/15/2016 [facility] Systolic (mm Hg) 144 12/15/2016 [facility] Diastolic (mm Hg) 80 12/15/2016 [facility] Heart Rate 93 12/15/2016 [facility] Height 182.88 cm 12/11/2016 [facility] Weight 88.091 12/11/2016 [facility] BMI Calculated 26.34 12/11/2016 [facility] Weight 81.818 12/10/2016 [facility] BMI Calculated 24.46 12/10/2016 [facility] Height 182.88 cm 12/10/2016 [facility] Encounters Location Location Encounter Encounter Reason Attending ADM DC Status Source Details Type Number For Provider Date Date Visit Outpatient [id number] [facility] [place] [address] Outpatient [id number] JULIA [facility]/03 [facility] Outpatient [id number] Elizabeth 06/16 06/17 [facility] Michael [facility]2015 [facility] [id number] Elizabeth 06/16 06/17 [facility] Michael /2015 [facility] [place] Outpatient [id number] JULIA 10/14 [facility] [place] Outpatient [id number] JULIA 10/23 [facility] [place] Outpatient [id number] ABRAR 12/03 [facility] [id number] Coryadijat 12/10 12/16 [place] Gregorioyi /2016 [facility] OP Therapy [id number] Manfred Junie 12/22 01/21 [facility] Patients /2017 [facility] SMR OP Therapy [id number] Manfred Junie 01/21 02/20 [facility] Patients /2017 [facility] Outpt Diag [id number] Manfred Junie 03/25 03/26 [facility] Out[facility] Services /2017 [facility] [place] Procedures Procedure Code Date Perfomer Comments Source Arthrocentesis, 03/25/2018 [facility] aspiration and/or [place] injection, major joint or bursa (eg, shoulder, hip, knee, subacromial bursa); with ultrasound guidance, with permanent recording and reporting Breast [id number] 07/26/1994 removal of [facility] cancer<sup>1</sup> right breast [place] Breast [id number] 07/26/1994 removal of [facility] cancer<sup>1</sup> right breast Breast [id number] 07/26/1994 removal of [facility] cancer<sup>1</sup> right breast [facility] Mastectomy [id number] [facility] Mastectomy [id number] [facility] Mastectomy [id number] [facility] [place]
--- OUTSIDE RECORDS SUMMARY | 2018-12-08 21:19 | XMS REPORT | Summary of Care ---
:1950 Author Organization [facility] Address Unavailable , Encounter HQ Renetta(GAEL) [id number] Date(s): 01/21/18 - 02/19/18 [facility] Encounter Diagnosis Unspecified intracapsular fracture of left femur, subsequent encounter for closed fracture with routine healing (Final) - 02/24/18 Pain in left hip (Final) - Discharge Disposition: Home or Self Care Attending Physician: Manfred Zaman MD Vital Signs No data available for [...] Procedures Procedure Date Related Diagnosis Body Site Status Breast cancer1 07/26/94 Completed Mastectomy Completed 1removal of right breast Social History Social History Type Response Substance Abuse Use: None. Alcohol Never Smoking Status Never smoker; Exposure to Tobacco Smoke None; Cigarette Smoking Last 365 Days No; Reg Smoking Cessation Counseling No entered on: 12/10/16 Assessment and Plan No data available for this section
--- OUTSIDE RECORDS SUMMARY | 2018-12-08 21:19 | XMS REPORT | Summary of Care ---
:1950 Author Organization [facility] Address Unavailable , Encounter HQ Renetta(GAEL) [id number] Date(s): 12/22/17 - 01/20/18 [facility] Discharge Disposition: Home or Self Care Attending [...]
--- OUTSIDE RECORDS SUMMARY | 2018-12-08 21:19 | XMS REPORT | Summary of Care ---
:1950 Author Organization [facility]patient [facility] [place] Address [address] [place] [address]- Encounter HQ Rubyntr_feliciano(FIN) [id number] Date(s): 03/25/18 - 03/25/18 [facility] [place] [address] [place] [address]- [phone] Encounter Diagnosis Trochanteric bursitis, left hip (Final) - 06/23/18 Discharge Disposition: Home or Self Care Attending Physician: Manfred Zaman MD Referring Physician: Manfred Zaman MD Vital Signs No [...] Procedure Date Related Diagnosis Body Site Status Arthrocentesis, aspiration and/or 03/25/18 Completed injection, major joint or bursa (eg, shoulder, hip, knee, subacromial bursa); with ultrasound guidance, with permanent recording and reporting Breast cancer1 07/26/94 Completed Mastectomy Completed 1removal of right breast Social History Social History Type Response Substance Abuse Use: None. Alcohol Never Smoking Status Never smoker; Exposure to Tobacco Smoke None; Cigarette Smoking Last 365 Days No; Reg Smoking Cessation Counseling No entered on: 12/10/16 Assessment and Plan No data available for this section
--- OUTSIDE RECORDS SUMMARY | 2018-12-08 21:20 | XMS REPORT ---
:1950 [facility] [address] [place] [address] [address] [place] [address] Care Team Providers Name Role Phone CARLOS HUNT Unavailable Unavailable Problems This patient has no known problems. Allergies, Adverse Reactions, Alerts This patient has no known allergies or adverse reactions. Medications This patient has no known medications. Encounters Start End Encounter Admission Attending Care Care Encounter Date/Time Date/Time Type Type Clinicians Facility Department ID 2018 2018 Outpatient [facility] MED [id number] 07:24:00 07:24:00 Results Test Description Test Time Test Comments Text Results Atomic Results Result Comments FINE NEEDLE 2018-11-29 Medical Cytology Report ASPIRATION BY 15:36:00 Case: [id number] CLINICIAN Authorizing Provider: Emelyn Horta Collected: 11/04/2018 Megan Woodard MD Ordering Location: [address] Received: 11/07/2018 1148 SERVICE Pathologist: Eric Flower MD Specimen: Liver REASON FOR ADDENDUM: TO REPORT ADDITIONAL IMMUNOSTAINS.RESULT:SOILA-3 IMMUNOSTAIN: NEGATIVE (PATCHY/WEAK)MAMMOGLOBIN: NEGATIVETissue will be sent for PDL-1 as per the request of the clinician.CPT code:[id number] electronically signed by Tresa Lanier MD on 11/29/2018 at 3:36 PMFOCAL LIVER LESIONS, FNA BY CLINICIAN (CYTOSPINS AND CELL BLOCK OF ASPIRATE): - POSITIVE FOR MALIGNANCY - METASTATIC ADENOCARCINOMA Signing Pathologist Direct Phone Line: [phone] signed by Eric Flower MD on 11/08/2018 at 1:16 PMThe tumor cells show the same morphologic appearance as the adenocarcinoma in the pancreas.Please also see surgical pathology report [id number] and cytopathology reports [id number] and 993. 50352, [id number] liver lesions; pancreatic mass invading vein and liver; hepatobiliary obstruction; elevated LFTs; h/o breast cancer s/p Chemo/XRT and right mastectomyFOCAL LIVER LESIONS FNAPrepared cell block(A2) and 4 cytospins from 15 ml cytorich red fixative sampleCollected: [id number]: [id number] [facility], Department of Pathology, [address] [place] [address], [facility], [address] [place] [address], [facility]voqcLos [facility], [facility] of [facility]ology, [address] [place] [address], TISSUE EXAM 2018-11-10 Surgical Pathology Report 14:07:00 Case: [id number] Authorizing Provider: Eemlyn Horta Collected: 11/04/2018 Ad Woodard MD Ordering Location: [address] Received: 11/07/2018 0808 SERVICE Pathologist: Tresa Lanier MD Specimen: Pancreas, Head, fine needle aspirate of mass in formulin A. PANCREAS, HEAD MASS, FNA GUIDED BIOPSY: - INVASIVE POORLY DIFFERENTIATED ADENOCARCINOMA (SEE COMMENT) Signing Pathologist Direct Phone Line: [phone] signed by Tresa Lanier MD on 11/10/2018 at 2:07 PMPreliminary result electronically signed by Tresa Lanier MD on 11/08/2018 at 3:45 PMPreliminary result electronically signed by Tresa Lanier MD on 11/07/2018 at 6:50 PMThere is extremely minimal amount of tumor in the biopsy. Please correlate with results of concurrently obtained cytology results ([id number] to 993 ).Special stain for mucicarmine is negative. Immunostain for Cam5.2 highlights the stromal invasion. Immunostain for SOILA-3 (faint nuclear staining is non-specific), ER and mammaglobin are negative.IDC: Dr. Pedro Pablo Umana concurs.[id number] ncreatic massPancreas head fine needle aspirate of mass The specimen is received in a formalin-filled container labeled with the patient's information and labeled "pancreas head fine needle aspirate" and consists of multiple stringy fragments of hemorrhagic soft tissue measuring 1 x 0.4 x 0.2 cm in aggregate, submitted entirely in A1. CG/ew The interpretation of this case included the use of immunohistochemistry or special stains. Immunohistochemistry technical testing was performed at [facility], Pathology Laboratory where it was developed and its performance characteristics were determined. It has not been cleared or approved by the U.S. Food and Drug Administration. The FDA has determined that such clearance or approval is not necessary. The test is used for clinical purposes. It should not be regarded as investigational or for research. This laboratory is certified under the Clinical Laboratory Improvement Amendments of 1988 (CLIA-88) as qualified to perform high complexity clinical laboratory testing. U/S, ABDOMINAL, 2018-11-09 Reason for FINAL REPORT PATIENT ID: LIMITED 18:07:00 exam:->please [id number] Limited abdominal biopsy liver ultrasound Technique/findings: masses visualized Limited sonographic images were on CT to diagnose obtained of the liver or the metastatic cancer assessment of liver lesions. A 2.7 cm [...] prior to procedure initiation. Signed: Nils Cruz MDReport Verified Date/Time: 11/09/2018 18:07:18 Reading Location: [address] Ultrasound Reading Room HROMBIN TIME/INR 2018-11-09 11:59:00 Test Item Value Reference Range Comments PROTIME (BEAKER) (test qikt=552) 13.3 seconds 11.7-14.7 INR (BEAKER) (test oveh=144) 1.0 <=5.9 RECOMMENDED COUMADIN/WARFARIN INR THERAPY RANGESSTANDARD DOSE: 2.0 - 3.0 Includes: PROPHYLAXIS forvenous thrombosis, systemic embolization; TREATMENT for venous thrombosis and/or pulmonary embolus.HIGH RISK: Target INR is 2.5-3.5 for patients with mechanical heart valves.HEPATIC FUNCTION [id number] 05:41 :00 Test Item Value Reference Range Comments TOTAL PROTEIN (BEAKER) (test yqwv=595) 6.0 gm/dL 6.0-8.3 ALBUMIN (BEAKER) (test edut=2585) 3.3 g/dL 3.5-5.0 BILIRUBIN TOTAL (BEAKER) (test ufrv=913) 0.7 mg/dL 0.2-1.2 BILIRUBIN DIRECT (BEAKER) (test hbjv=326) 0.5 mg/dL 0.1-0.5 ALKALINE PHOSPHATASE (BEAKER) (test ovij=184) 301 U/L 40-150 AST (SGOT) (BEAKER) (test cltv=773) 20 U/L 5-34 ALT (SGPT) (BEAKER) (test qwuk=701) 112 U/L 6-55 BASIC METABOLIC [id number] 05:41:00 Test Item Value Reference Range Comments SODIUM (BEAKER) (test 131 meq/L 136-145 mqrq=504) POTASSIUM (BEAKER) (test 4.6 meq/L 3.5-5.1 rjxz=003) CHLORIDE (BEAKER) (test 97 meq/L 98-107 yrwn=478) CO2 (BEAKER) (test 26 meq/L 22-29 kynr=934) BLOOD UREA NITROGEN 24 mg/dL 7-21 (BEAKER) (test pxet=108) CREATININE (BEAKER) (test 0.75 mg/dL 0.57-1.25 hmkx=042) GLUCOSE RANDOM (BEAKER) 157 mg/dL 70-105 (test hpla=434) CALCIUM (BEAKER) (test 8.7 mg/dL 8.4-10.2 vatf=098) EGFR (BEAKER) (test 77 mL/min/1.73 sq m ESTIMATED GFR IS NOT motj=6813) ACCURATE CREATININE CLEARANCE IN PREDICTING GLOMERULAR FILTRATION RATE. ESTIMATED GFR IS NOT APPLICABLE FOR DIALYSIS PATIENTS. CBC W/PLT COUNT & AUTO [id number] 05:15:00 Test Item Value Reference Range Comments WHITE BLOOD CELL COUNT (BEAKER) (test uwye=833) 4.7 K/ L 3.5-10.5 RED BLOOD CELL COUNT (BEAKER) (test fmyu=403) 4.02 M/ L 3.93-5.22 HEMOGLOBIN (BEAKER) (test xpup=275) 11.7 GM/DL 11.2-15.7 HEMATOCRIT (BEAKER) (test sedi=313) 37.3 % 34.1-44.9 MEAN CORPUSCULAR VOLUME (BEAKER) (test yvgf=222) 92.8 fL 79.4-94.8 MEAN CORPUSCULAR HEMOGLOBIN (BEAKER) (test 29.1 pg 25.6-32.2 zjly=182) MEAN CORPUSCULAR HEMOGLOBIN CONC (BEAKER) (test 31.4 GM/DL 32.2-35.5 zdxj=972) RED CELL DISTRIBUTION WIDTH (BEAKER) (test 13.4 % 11.7-14.4 vwge=956) PLATELET COUNT (BEAKER) (test zlip=855) 252 K/CU MM 150-450 MEAN PLATELET VOLUME (BEAKER) (test lodc=978) 9.2 fL 9.4-12.3 NUCLEATED RED BLOOD CELLS (BEAKER) (test 0 /100 WBC 0-0 zqvx=209) NEUTROPHILS RELATIVE PERCENT (BEAKER) (test 69 % oujt=047) LYMPHOCYTES RELATIVE PERCENT (BEAKER) (test 17 % rrwc=018) MONOCYTES RELATIVE PERCENT (BEAKER) (test 13 % uhzc=493) EOSINOPHILS RELATIVE PERCENT (BEAKER) (test 1 % fuox=605) BASOPHILS RELATIVE PERCENT (BEAKER) (test 0 % ewax=394) NEUTROPHILS ABSOLUTE COUNT (BEAKER) (test 3.25 K/ L 1.56-6.13 qggv=944) LYMPHOCYTES ABSOLUTE COUNT (BEAKER) (test 0.79 K/ L 1.18-3.74 wsuv=072) MONOCYTES ABSOLUTE COUNT (BEAKER) (test 0.62 K/ L 0.24-0.36 ibcb=605) EOSINOPHILS ABSOLUTE COUNT (BEAKER) (test 0.05 K/ L 0.04-0.36 jywy=587) BASOPHILS ABSOLUTE COUNT (BEAKER) (test 0.01 K/ L 0.01-0.08 kmoa=134) IMMATURE GRANULOCYTES-RELATIVE PERCENT (BEAKER) 0 % 0-1 (test usem=0669) CT, CHEST, WITH [id number] 16:30:00FINAL REPORT CT of the Chest, abdomen and pelvis dated 11/08/2018 Clinical information: evaluation of pancreatic cancer. Comment: Axial images of the chest, abdomen, and pelvis were obtained from thoracic inlet to the pubic symphysis with intravenous contrast. Preintravenous axial images of the abdomen were obtained. This exam was performed according to our departmental dose-optimization program , which includes automated exposure control, adjustment of the mA and/or kV according to patient size and/or use of interactive reconstruction technique. Right breast is surgically absent. Heart is normal in size. Great vessels are unremarkable. No adenopathy in the mediastinum or perihilar region. Trachea and mainstem bronchi are patent. Scarring and bronchiectasis is seen in theright upper lobe. Subsegmental atelectasis is seen in both lung bases. The rest of the lungs are clear. No nodular, mass lesion, or airspace disease is present. Esophagus is distended with fluid suggestive of gastroesophageal reflux. Small hiatal hernia is present. No pleural effusion or pleural basedmass is seen. Liver and spleen are normal in size. There are 6 hypodense masses in the liver with the largest measuring 2.3 cm in the segment 4B of the liver. Gallbladder is contracted. No gallstone orbiliary dilatation is noted. A 4.0 x 2.8 [...] secondary to lack of oral GI contrast. Largeamount fecal material is seen large bowel suggestive of constipation. The small bowel and appendix are normal in caliber. Uterus is atrophic. Both ovaries are unremarkable. Impression: 1. Hiatal herniawith gastroesophageal reflux.2. Mass lesion in the head of the pancreas compatible with pancreatic carcinoma.3. Hypodense masses in the liver consistent with hepatic metastasis.4. Scarring and bronchiectasis in the right upper lobe. Signed: Sosa Melgar MDReport Verified Date/Time: 11/08/2018 16:30:42Reading Location: [facility] B1 C013Y CT Body Reading Room 04: 30 PMCT, ABDOMEN - PELVIS, PANCREAS [id number] 16:30:00Reason for exam :->evaluation of pancreatic cancer.FINAL REPORT CT of the Chest, abdomen and pelvis dated 11/08/2018 Clinical information: evaluation of pancreatic cancer. Comment: Axial images of the chest, abdomen, and pelvis were obtained from thoracic inlet to the pubic symphysis with intravenous contrast. Preintravenous axial images of the abdomen were obtained. This exam was performed according to our departmental dose-optimization program , which includes automated exposure control, adjustment of the mA and/or kV according to patient size and/or use of interactive reconstruction technique. Right breast is surgically absent. Heart is normal in size. Great vessels are unremarkable. No adenopathy in the mediastinum or perihilar region. Trachea and mainstem bronchi are patent. Scarring and bronchiectasis is seen in theright upper lobe. Subsegmental atelectasis is seen in both lung bases. The rest of the lungs are clear. No nodular, mass lesion, or airspace disease is present. Esophagus is distended with fluid suggestive of gastroesophageal reflux. Small hiatal hernia is present. No pleural effusion or pleural basedmass is seen. Liver and spleen are normal in size. There are 6 hypodense masses in the liver with the largest measuring 2.3 cm in the segment 4B of the liver. Gallbladder is contracted. No gallstone orbiliary dilatation is noted. A 4.0 x 2.8 [...] secondary to lack of oral GI contrast. Largeamount fecal material is seen large bowel suggestive of constipation. The small bowel and appendix are normal in caliber. Uterus is atrophic. Both ovaries are unremarkable. Impression: 1. Hiatal herniawith gastroesophageal reflux.2. Mass lesion in the head of the pancreas compatible with pancreatic carcinoma.3. Hypodense masses in the liver consistent with hepatic metastasis.4. Scarring and bronchiectasis in the right upper lobe. Signed: Sosa Melgarort Verified Date/Time: 11/08/2018 16:30:42Reading Location: [facility] B1 C013Y CT Body Reading Room 04: 30 [id number] 13:12:00Medical Cytology Report Case: [id number] Authorizing Provider: Emelyn Horta Collected: 11/04/2018 173Yanelis Woodard MD OrderingLocation: [address] Received: 2018 1148 SERVICE Pathologist: Eric Flower MD Specimen: Common Bile Duct COMMON BILE DUCT BRUSHING (CYTOSPINS): - SUSPICIOUS FOR MALIGNANCY Signing Pathologist Direct Phone Line: [phone] signed by Eric Flower MD on 11/08/2018 at 1:12 PMPlease also see surgical pathology report [id number] and cytopathology reports [id number] and 992. [id number] liver lesions; pancreatic mass invading vein and liver; hepatobiliary obstruction; elevated LFTs; h/o breast cancer s/p Chemo/XRT and right mastectomyCOMMON BILE DUCT BRUSHING Prepared 2 cytospins from 1 brush tip collected in 15 ml cytorich red fixativeCollected: [id number]: [id number] [facility], Department of Pathology, [address] [place] [address], [facility]gbLos [facility], [facility] of [facility], [address] [place] [address] , [facility]mmbfqLos [facility], Department of [facility]ology, [address] [place] [address], YVCG NEEDLE ASPIRATION BY [id number] 13:10:00Medical Cytology Report Case: [id number] Authorizing Provider: Emelyn Horta Collected: 11/04/2018 1655 MD Vance OrderingLocation: [address] Received: 2018 1148 SERVICE Pathologist: Eric Flower MD Specimen: Pancreas, Head HEAD OF PANCREAS MASS, FNA BY CLINICIAN (CYTOSPINS AND CELL BLOCK OF ASPIRATE): - POSITIVE FOR MALIGNANCY - ADENOCARCINOMA, DUCTAL TYPE Signing Pathologist Direct Phone Line: [phone] signed by Eric Flower MD on 11/08/2018 at 1:10 PMPlease also see surgical pathology report [id number] and cytopathology reports [id number] and 993. 09274, [id number] liver lesions; pancreatic mass invading vein and liver; hepatobiliary obstruction; elevated LFTs; h/o breast cancer s/p Chemo/XRT and right mastectomyHEAD OF PANCREAS MASS FNAPrepared cell block(A2) and 4 cytospins from 18 ml cytorich red fixative sampleCollected: [id number]: [id number], [facility] of [facility], [address] [place] [address], EgkjwvLos [facility], [facility] of Pathology, [address] [place] [address], Tel WLos [facility], [facility] of [facility], [address] [place] [address], EUR, ABDOMEN/KUB, 1 VIEW [id number] 11:16:00Reason for exam:->ConstipationFINAL REPORT Abdomen one view Comparison: None. Reason for exam: Constipation Findings: There is mild gaseous distention of colon. A moderate amount of fecal content is present.No free air is identified. Two stents project over the right upper quadrant, one is likely located in the CBD, location of the other is unclear, probably in bowel. There is suspected pneumobilia. Status post left hip hemiarthroplasty. No acute bony abnormality. Signed: Sean Godoy MDReport Verified Date/Time: 11/08/2018 11:16:58 Reading Location: [facility] Radiology Reading Room 11: 16 AMHEPATIC FUNCTION [id number] 06:24:00 Test Item Value Reference Range Comments TOTAL PROTEIN (BEAKER) (test xxpx=326) 6.2 gm/dL 6.0-8.3 ALBUMIN (BEAKER) (test jibd=3306) 3.5 g/dL 3.5-5.0 BILIRUBIN TOTAL (BEAKER) (test rlks=993) 0.7 mg/dL 0.2-1.2 BILIRUBIN DIRECT (BEAKER) (test ntoz=625) 0.5 mg/dL 0.1-0.5 ALKALINE PHOSPHATASE (BEAKER) (test wokz=411) 330 U/L 40-150 AST (SGOT) (BEAKER) (test fiqd=575) 40 U/L 5-34 ALT (SGPT) (BEAKER) (test goyi=602) 170 U/L 6-55 BASIC METABOLIC [id number] 06:24:00 Test Item Value Reference Range Comments SODIUM (BEAKER) (test 138 meq/L 136-145 wbjj=804) POTASSIUM (BEAKER) (test 3.9 meq/L 3.5-5.1 ranc=003) CHLORIDE (BEAKER) (test 103 meq/L 98-107 gyav=787) CO2 (BEAKER) (test 26 meq/L 22-29 mnza=119) BLOOD UREA NITROGEN 21 mg/dL 7-21 (BEAKER) (test fkxd=359) CREATININE (BEAKER) (test 0.73 mg/dL 0.57-1.25 eyur=360) GLUCOSE RANDOM (BEAKER) 119 mg/dL 70-105 (test jzyb=038) CALCIUM (BEAKER) (test 9.4 mg/dL 8.4-10.2 khxw=420) EGFR (BEAKER) (test 80 mL/min/1.73 sq m ESTIMATED GFR IS NOT nszg=5352) ACCURATE CREATININE CLEARANCE IN PREDICTING GLOMERULAR FILTRATION RATE. ESTIMATED GFR IS NOT APPLICABLE FOR DIALYSIS PATIENTS. CBC W/PLT COUNT & AUTO [id number] 06:10:00 Test Item Value Reference Range Comments WHITE BLOOD CELL COUNT (BEAKER) (test zkrv=090) 4.8 K/ L 3.5-10.5 RED BLOOD CELL COUNT (BEAKER) (test ijee=159) 4.63 M/ L 3.93-5.22 HEMOGLOBIN (BEAKER) (test mqkq=015) 13.4 GM/DL 11.2-15.7 HEMATOCRIT (BEAKER) (test pzfj=105) 44.6 % 34.1-44.9 MEAN CORPUSCULAR VOLUME (BEAKER) (test kqrr=783) 96.3 fL 79.4-94.8 MEAN CORPUSCULAR HEMOGLOBIN (BEAKER) (test 28.9 pg 25.6-32.2 fftn=120) MEAN CORPUSCULAR HEMOGLOBIN CONC (BEAKER) (test 30.0 GM/DL 32.2-35.5 cgtn=434) RED CELL DISTRIBUTION WIDTH (BEAKER) (test 13.5 % 11.7-14.4 jisr=933) PLATELET COUNT (BEAKER) (test vugd=536) 218 K/CU MM 150-450 MEAN PLATELET VOLUME (BEAKER) (test gogp=976) 9.6 fL 9.4-12.3 NUCLEATED RED BLOOD CELLS (BEAKER) (test 0 /100 WBC 0-0 ejxm=935) NEUTROPHILS RELATIVE PERCENT (BEAKER) (test 63 % oknb=127) LYMPHOCYTES RELATIVE PERCENT (BEAKER) (test 23 % wrtg=306) MONOCYTES RELATIVE PERCENT (BEAKER) (test 12 % uxft=529) EOSINOPHILS RELATIVE PERCENT (BEAKER) (test 1 % idck=517) BASOPHILS RELATIVE PERCENT (BEAKER) (test 0 % xrwz=933) NEUTROPHILS ABSOLUTE COUNT (BEAKER) (test 3.06 K/ L 1.56-6.13 fgzg=271) LYMPHOCYTES ABSOLUTE COUNT (BEAKER) (test 1.13 K/ L 1.18-3.74 fmjz=033) MONOCYTES ABSOLUTE COUNT (BEAKER) (test 0.56 K/ L 0.24-0.36 ntck=979) EOSINOPHILS ABSOLUTE COUNT (BEAKER) (test 0.06 K/ L 0.04-0.36 ojxm=988) BASOPHILS ABSOLUTE COUNT (BEAKER) (test 0.01 K/ L 0.01-0.08 zenf=887) IMMATURE GRANULOCYTES-RELATIVE PERCENT (BEAKER) 0 % 0-1 (test sill=2829) TROPONIN [id number] 17:36:00 Test Item Value Reference Range Comments TROPONIN I (BEAKER) (test tnxk=509) < ng/mL 0.00-0.03 Troponin I (TnI) levels must be interpreted in the context of the presenting symptoms and the clinical findings. Elevated TnI levels indicate myocardial damage, but are not specific for ischemic heart disease. Elevated TnI levels are seen in patients with other cardiac conditions (including myocarditis and congestive heart failure), and slight TnI elevations occur in patients with other conditions, including sepsis, renal failure, acidosis, acute neurological disease, and persistent tachyarrhythmia.CYTOLOGY [id number] 13:00:00 Test Item Value Reference Range Comments CYTOLOGY RESULT POINTER (BEAKER) (test See Separate Report ejjt=6333) FINE NEEDLE ASPIRATE (FNA) [id number] 13:00:00 Test Item Value Reference Range Comments CYTOLOGY RESULT POINTER (BEAKER) (test See Separate Report mmjt=3631) FINE NEEDLE ASPIRATE (FNA) [id number] 13:00:00 Test Item Value Reference Range Comments CYTOLOGY RESULT POINTER (BEAKER) (test See Separate Report oxea=6665) CARCINOEMBRYONIC ANTIGEN (CEA)2018-11-07 12:05:00 Test Item Value Reference Range Comments CARCINOEMBRYONIC ANTIGEN (BEAKER) (test whms=822) 2.6 ng/mL 0.0-5.0 HEPATIC FUNCTION [id number] 07:29:00 Test Item Value Reference Range Comments TOTAL PROTEIN (BEAKER) (test rvhx=087) 6.5 gm/dL 6.0-8.3 ALBUMIN (BEAKER) (test ixpp=4701) 3.6 g/dL 3.5-5.0 BILIRUBIN TOTAL (BEAKER) (test tofv=664) 0.8 mg/dL 0.2-1.2 BILIRUBIN DIRECT (BEAKER) (test rzap=194) 0.6 mg/dL 0.1-0.5 ALKALINE PHOSPHATASE (BEAKER) (test wqae=578) 377 U/L 40-150 AST (SGOT) (BEAKER) (test kino=678) 54 U/L 5-34 ALT (SGPT) (BEAKER) (test mckc=494) 239 U/L 6-55 BASIC METABOLIC [id number] 07:29:00 Test Item Value Reference Range Comments SODIUM (BEAKER) (test 137 meq/L 136-145 jper=770) POTASSIUM (BEAKER) (test 4.1 meq/L 3.5-5.1 nspb=105) CHLORIDE (BEAKER) (test 102 meq/L 98-107 rsdm=175) CO2 (BEAKER) (test 26 meq/L 22-29 bnou=692) BLOOD UREA NITROGEN 15 mg/dL 7-21 (BEAKER) (test vjeu=449) CREATININE (BEAKER) (test 0.76 mg/dL 0.57-1.25 waov=445) GLUCOSE RANDOM (BEAKER) 134 mg/dL 70-105 (test txby=260) CALCIUM (BEAKER) (test 9.8 mg/dL 8.4-10.2 sflo=004) EGFR (BEAKER) (test 76 mL/min/1.73 sq m ESTIMATED GFR IS NOT chij=4724) ACCURATE CREATININE CLEARANCE IN PREDICTING GLOMERULAR FILTRATION RATE. ESTIMATED GFR IS NOT APPLICABLE FOR DIALYSIS PATIENTS. CBC W/PLT COUNT & AUTO [id number] 06:59:00 Test Item Value Reference Range Comments WHITE BLOOD CELL COUNT (BEAKER) (test gknn=523) 5.3 K/ L 3.5-10.5 RED BLOOD CELL COUNT (BEAKER) (test teip=809) 4.18 M/ L 3.93-5.22 HEMOGLOBIN (BEAKER) (test dpwb=925) 12.4 GM/DL 11.2-15.7 HEMATOCRIT (BEAKER) (test lccs=977) 37.9 % 34.1-44.9 MEAN CORPUSCULAR VOLUME (BEAKER) (test cbbp=670) 90.7 fL 79.4-94.8 MEAN CORPUSCULAR HEMOGLOBIN (BEAKER) (test 29.7 pg 25.6-32.2 fsia=942) MEAN CORPUSCULAR HEMOGLOBIN CONC (BEAKER) (test 32.7 GM/DL 32.2-35.5 jxmy=370) RED CELL DISTRIBUTION WIDTH (BEAKER) (test 13.4 % 11.7-14.4 lmmb=838) PLATELET COUNT (BEAKER) (test mbvg=563) 223 K/CU MM 150-450 MEAN PLATELET VOLUME (BEAKER) (test ncvp=156) 9.4 fL 9.4-12.3 NUCLEATED RED BLOOD CELLS (BEAKER) (test 0 /100 WBC 0-0 bpad=759) NEUTROPHILS RELATIVE PERCENT (BEAKER) (test 76 % mmmk=667) LYMPHOCYTES RELATIVE PERCENT (BEAKER) (test 14 % xqji=317) MONOCYTES RELATIVE PERCENT (BEAKER) (test 9 % qfmg=296) EOSINOPHILS RELATIVE PERCENT (BEAKER) (test 1 % gjpw=834) BASOPHILS RELATIVE PERCENT (BEAKER) (test 0 % woiz=994) NEUTROPHILS ABSOLUTE COUNT (BEAKER) (test 3.97 K/ L 1.56-6.13 xqxs=484) LYMPHOCYTES ABSOLUTE COUNT (BEAKER) (test 0.76 K/ L 1.18-3.74 vubp=304) MONOCYTES ABSOLUTE COUNT (BEAKER) (test 0.46 K/ L 0.24-0.36 bsth=647) EOSINOPHILS ABSOLUTE COUNT (BEAKER) (test 0.04 K/ L 0.04-0.36 hzby=067) BASOPHILS ABSOLUTE COUNT (BEAKER) (test 0.01 K/ L 0.01-0.08 qwug=805) IMMATURE GRANULOCYTES-RELATIVE PERCENT (BEAKER) 0 % 0-1 (test dsqn=3506) HEPATIC FUNCTION [id number] 07:57:00 Test Item Value Reference Range Comments TOTAL PROTEIN (BEAKER) (test tlnl=263) 6.5 gm/dL 6.0-8.3 ALBUMIN (BEAKER) (test ysug=6511) 3.6 g/dL 3.5-5.0 BILIRUBIN TOTAL (BEAKER) (test yopk=544) 0.9 mg/dL 0.2-1.2 BILIRUBIN DIRECT (BEAKER) (test pmwx=484) 0.6 mg/dL 0.1-0.5 ALKALINE PHOSPHATASE (BEAKER) (test zkri=575) 410 U/L 40-150 AST (SGOT) (BEAKER) (test mdca=828) 72 U/L 5-34 ALT (SGPT) (BEAKER) (test suuy=751) 321 U/L 6-55 BASIC METABOLIC [id number] 07:41:00 Test Item Value Reference Range Comments SODIUM (BEAKER) (test 136 meq/L 136-145 ludk=312) POTASSIUM (BEAKER) (test 3.8 meq/L 3.5-5.1 Specimen slightly dsxu=344) hemolyzed CHLORIDE (BEAKER) (test 103 meq/L 98-107 kfzx=511) CO2 (BEAKER) (test 24 meq/L 22-29 rvka=368) BLOOD UREA NITROGEN 11 mg/dL 7-21 (BEAKER) (test jmiu=921) CREATININE (BEAKER) (test 0.66 mg/dL 0.57-1.25 Specimen slightly ggxe=356) hemolyzed GLUCOSE RANDOM (BEAKER) 125 mg/dL 70-105 (test zmkc=274) CALCIUM (BEAKER) (test 9.3 mg/dL 8.4-10.2 fobj=031) EGFR (BEAKER) (test 90 mL/min/1.73 sq m ESTIMATED GFR IS NOT puwf=1905) ACCURATE CREATININE CLEARANCE IN PREDICTING GLOMERULAR FILTRATION RATE. ESTIMATED GFR IS NOT APPLICABLE FOR DIALYSIS PATIENTS. CBC W/PLT COUNT & AUTO [id number] 06:24:00 Test Item Value Reference Range Comments WHITE BLOOD CELL COUNT (BEAKER) (test kryl=605) 5.7 K/ L 3.5-10.5 RED BLOOD CELL COUNT (BEAKER) (test ecqc=502) 4.28 M/ L 3.93-5.22 HEMOGLOBIN (BEAKER) (test ddxt=057) 12.6 GM/DL 11.2-15.7 HEMATOCRIT (BEAKER) (test qmrb=880) 39.6 % 34.1-44.9 MEAN CORPUSCULAR VOLUME (BEAKER) (test tywp=164) 92.5 fL 79.4-94.8 MEAN CORPUSCULAR HEMOGLOBIN (BEAKER) (test 29.4 pg 25.6-32.2 rfmn=163) MEAN CORPUSCULAR HEMOGLOBIN CONC (BEAKER) (test 31.8 GM/DL 32.2-35.5 zqnn=045) RED CELL DISTRIBUTION WIDTH (BEAKER) (test 13.7 % 11.7-14.4 topu=246) PLATELET COUNT (BEAKER) (test wodt=144) 236 K/CU MM 150-450 MEAN PLATELET VOLUME (BEAKER) (test vzta=842) 9.6 fL 9.4-12.3 NUCLEATED RED BLOOD CELLS (BEAKER) (test 0 /100 WBC 0-0 firl=206) NEUTROPHILS RELATIVE PERCENT (BEAKER) (test 80 % adfq=849) LYMPHOCYTES RELATIVE PERCENT (BEAKER) (test 11 % nwsu=116) MONOCYTES RELATIVE PERCENT (BEAKER) (test 8 % gqke=483) EOSINOPHILS RELATIVE PERCENT (BEAKER) (test 1 % fkol=061) BASOPHILS RELATIVE PERCENT (BEAKER) (test 0 % hgyv=910) NEUTROPHILS ABSOLUTE COUNT (BEAKER) (test 4.54 K/ L 1.56-6.13 mdnr=036) LYMPHOCYTES ABSOLUTE COUNT (BEAKER) (test 0.63 K/ L 1.18-3.74 xjlf=474) MONOCYTES ABSOLUTE COUNT (BEAKER) (test 0.45 K/ L 0.24-0.36 ijyr=874) EOSINOPHILS ABSOLUTE COUNT (BEAKER) (test 0.05 K/ L 0.04-0.36 mpkr=687) BASOPHILS ABSOLUTE COUNT (BEAKER) (test 0.01 K/ L 0.01-0.08 wnqr=741) IMMATURE GRANULOCYTES-RELATIVE PERCENT (BEAKER) 0 % 0-1 (test efes=3710) [id number] 06:07:00 Test Item Value Reference Range Comments PHOSPHORUS (BEAKER) (test jidk=302) 2.7 mg/dL 2.3-4.7 [id number] 06:07:00 Test Item Value Reference Range Comments MAGNESIUM (BEAKER) (test qdgj=922) 1.9 mg/dL 1.6-2.6 BASIC METABOLIC [id number] 06:07:00 Test Item Value Reference Range Comments SODIUM (BEAKER) (test 139 meq/L 136-145 mnia=101) POTASSIUM (BEAKER) (test 4.0 meq/L 3.5-5.1 cktv=456) CHLORIDE (BEAKER) (test 109 meq/L 98-107 dxfn=607) CO2 (BEAKER) (test 19 meq/L 22-29 vuup=326) BLOOD UREA NITROGEN 13 mg/dL 7-21 (BEAKER) (test iqpz=065) CREATININE (BEAKER) (test 0.63 mg/dL 0.57-1.25 pjtt=758) GLUCOSE RANDOM (BEAKER) 114 mg/dL 70-105 (test bgjc=809) CALCIUM (BEAKER) (test 8.9 mg/dL 8.4-10.2 gpnf=168) EGFR (BEAKER) (test 95 mL/min/1.73 sq m ESTIMATED GFR IS NOT mwpj=0575) ACCURATE CREATININE CLEARANCE IN PREDICTING GLOMERULAR FILTRATION RATE. ESTIMATED GFR IS NOT APPLICABLE FOR DIALYSIS PATIENTS. HEPATIC FUNCTION [id number] 06:07:00 Test Item Value Reference Range Comments TOTAL PROTEIN (BEAKER) (test qsuf=331) 6.1 gm/dL 6.0-8.3 ALBUMIN (BEAKER) (test aemg=2826) 3.5 g/dL 3.5-5.0 BILIRUBIN TOTAL (BEAKER) (test uktj=579) 1.3 mg/dL 0.2-1.2 BILIRUBIN DIRECT (BEAKER) (test dwge=391) 0.9 mg/dL 0.1-0.5 ALKALINE PHOSPHATASE (BEAKER) (test ibac=127) 419 U/L 40-150 AST (SGOT) (BEAKER) (test ldzo=639) 121 U/L 5-34 ALT (SGPT) (BEAKER) (test ywkn=770) 418 U/L 6-55 CALCIUM, [id number] 05:42:00 Test Item Value Reference Range Comments CALCIUM IONIZED (BEAKER) (test iepp=188) 1.06 mmol/L 1.12-1.27 PH, BLOOD (BEAKER) (test lrxm=8324) 7.39 CBC W/PLT COUNT & AUTO [id number] 05:29:00 Test Item Value Reference Range Comments WHITE BLOOD CELL COUNT (BEAKER) (test lhcf=831) 5.8 K/ L 3.5-10.5 RED BLOOD CELL COUNT (BEAKER) (test qxji=577) 4.07 M/ L 3.93-5.22 HEMOGLOBIN (BEAKER) (test ljvb=890) 11.9 GM/DL 11.2-15.7 HEMATOCRIT (BEAKER) (test sqzn=573) 37.3 % 34.1-44.9 MEAN CORPUSCULAR VOLUME (BEAKER) (test uqlh=224) 91.6 fL 79.4-94.8 MEAN CORPUSCULAR HEMOGLOBIN (BEAKER) (test 29.2 pg 25.6-32.2 gnen=392) MEAN CORPUSCULAR HEMOGLOBIN CONC (BEAKER) (test 31.9 GM/DL 32.2-35.5 acyc=402) RED CELL DISTRIBUTION WIDTH (BEAKER) (test 13.8 % 11.7-14.4 xjss=623) PLATELET COUNT (BEAKER) (test mspa=811) 218 K/CU MM 150-450 MEAN PLATELET VOLUME (BEAKER) (test ktpu=322) 9.5 fL 9.4-12.3 NUCLEATED RED BLOOD CELLS (BEAKER) (test 0 /100 WBC 0-0 rhfv=686) NEUTROPHILS RELATIVE PERCENT (BEAKER) (test 81 % bqky=452) LYMPHOCYTES RELATIVE PERCENT (BEAKER) (test 9 % byge=318) MONOCYTES RELATIVE PERCENT (BEAKER) (test 9 % tyky=499) EOSINOPHILS RELATIVE PERCENT (BEAKER) (test 1 % rmbn=403) BASOPHILS RELATIVE PERCENT (BEAKER) (test 0 % zlzv=849) NEUTROPHILS ABSOLUTE COUNT (BEAKER) (test 4.69 K/ L 1.56-6.13 bwro=335) LYMPHOCYTES ABSOLUTE COUNT (BEAKER) (test 0.51 K/ L 1.18-3.74 jfml=623) MONOCYTES ABSOLUTE COUNT (BEAKER) (test 0.51 K/ L 0.24-0.36 ohha=059) EOSINOPHILS ABSOLUTE COUNT (BEAKER) (test 0.04 K/ L 0.04-0.36 usxj=341) BASOPHILS ABSOLUTE COUNT (BEAKER) (test 0.01 K/ L 0.01-0.08 qcml=112) IMMATURE GRANULOCYTES-RELATIVE PERCENT (BEAKER) 0 % 0-1 (test pzxr=5711) [place], [id number] 21:43:00Reason for exam:->Pancreatic head massFINAL REPORT Examination: ERCP 5 fluoroscopic spot views were obtained during the procedure by the ordering service. Images are nondiagnostic as no radiologist was present at the time of imaging. Fluoroscopic time was 71.7 seconds. Please see the procedure report for details. Signed: Rubio Lucas MDReport Verified Date/Time: 11/04/2018 21:43: 27 Reading Location: [address] Reading Room RAD, CHEST, 1 VIEW, NON [id number] 14:08:00Reason for exam:->SOBShould this be performed at the bedside?->YesFINAL REPORT TECHNIQUE: Frontal chest radiograph dated 11/04/2018. CLINICAL HISTORY: SOB COMPARISON STUDY: None IMPRESSION:Linear scarring is seen in the medial right upper lobe.Lungs are otherwise clear. No pleural effusion or pneumothorax. Cardiomediastinal silhouette is normal in size. No pulmonary edema. Bones are osteopenic. The right axilla. Signed: Michaela Cantu MDReport Verified Date/Time: 2018 14:08:49 Reading Location: [facility] Radiology Reading Room CARCINOEMBRYONIC ANTIGEN (CEA)2018-11-04 05:00:00 Test Item Value Reference Range Comments CARCINOEMBRYONIC ANTIGEN (BEAKER) (test estg=487) 2.5 ng/mL 0.0-5.0 BASIC METABOLIC [id number] 00:58:00 Test Item Value Reference Range Comments SODIUM (BEAKER) (test 139 meq/L 136-145 hxjf=282) POTASSIUM (BEAKER) (test 3.4 meq/L 3.5-5.1 pwkf=378) CHLORIDE (BEAKER) (test 108 meq/L 98-107 rbnv=360) CO2 (BEAKER) (test 22 meq/L 22-29 rwzm=844) BLOOD UREA NITROGEN 10 mg/dL 7-21 (BEAKER) (test eakv=586) CREATININE (BEAKER) (test 0.74 mg/dL 0.57-1.25 pfzi=530) GLUCOSE RANDOM (BEAKER) 184 mg/dL 70-105 (test kthw=560) CALCIUM (BEAKER) (test 8.8 mg/dL 8.4-10.2 wjza=190) EGFR (BEAKER) (test 79 mL/min/1.73 sq m ESTIMATED GFR IS NOT nmmi=2208) ACCURATE CREATININE CLEARANCE IN PREDICTING GLOMERULAR FILTRATION RATE. ESTIMATED GFR IS NOT APPLICABLE FOR DIALYSIS PATIENTS. Specimen slightly ictericGAMMA GLUTAMYL TRANSFERASE (GGT)2018-11-04 00:58:00 Test Item Value Reference Range Comments GAMMA GLUTAMYL TRANSFERASE (BEAKER) (test hcpy=820) 465 U/L 9-64 Specimen slightly ictericHEPATIC FUNCTION [id number] 00:58:00 Test Item Value Reference Range Comments TOTAL PROTEIN (BEAKER) (test ikyd=234) 6.5 gm/dL 6.0-8.3 ALBUMIN (BEAKER) (test pndj=6459) 3.7 g/dL 3.5-5.0 BILIRUBIN TOTAL (BEAKER) (test ekfn=866) 3.0 mg/dL 0.2-1.2 BILIRUBIN DIRECT (BEAKER) (test qxsj=121) 2.3 mg/dL 0.1-0.5 ALKALINE PHOSPHATASE (BEAKER) (test fdtr=029) 462 U/L 40-150 AST (SGOT) (BEAKER) (test gaqk=955) 211 U/L 5-34 ALT (SGPT) (BEAKER) (test nkrt=461) 552 U/L 6-55 Specimen slightly [id number] 00:58:00 Test Item Value Reference Range Comments LIPASE (BEAKER) (test cbvf=876) 34 U/L 8-78 Specimen slightly ictericPROTHROMBIN [id number] 00:37:00 Test Item Value Reference Range Comments PROTIME (BEAKER) (test qhfq=134) 13.5 seconds 11.7-14.7 INR (BEAKER) (test tngn=724) 1.0 <=5.9 RECOMMENDED COUMADIN/WARFARIN INR THERAPY RANGESSTANDARD DOSE: 2.0 - 3.0 Includes: PROPHYLAXIS forvenous thrombosis, systemic embolization; TREATMENT for venous thrombosis and/or pulmonary embolus.HIGH RISK: Target INR is 2.5-3.5 for patients with mechanical heart valves.CBC W/PLT COUNT & AUTO [id number] 00:30:00 Test Item Value Reference Range Comments WHITE BLOOD CELL COUNT (BEAKER) (test vvks=778) 3.7 K/ L 3.5-10.5 RED BLOOD CELL COUNT (BEAKER) (test gark=997) 4.04 M/ L 3.93-5.22 HEMOGLOBIN (BEAKER) (test jdyw=015) 11.8 GM/DL 11.2-15.7 HEMATOCRIT (BEAKER) (test ezzn=544) 37.0 % 34.1-44.9 MEAN CORPUSCULAR VOLUME (BEAKER) (test ggyp=507) 91.6 fL 79.4-94.8 MEAN CORPUSCULAR HEMOGLOBIN (BEAKER) (test 29.2 pg 25.6-32.2 yzab=072) MEAN CORPUSCULAR HEMOGLOBIN CONC (BEAKER) (test 31.9 GM/DL 32.2-35.5 zarm=304) RED CELL DISTRIBUTION WIDTH (BEAKER) (test 13.5 % 11.7-14.4 khgb=221) PLATELET COUNT (BEAKER) (test zfih=980) 181 K/CU MM 150-450 MEAN PLATELET VOLUME (BEAKER) (test kioo=169) 9.8 fL 9.4-12.3 NUCLEATED RED BLOOD CELLS (BEAKER) (test 0 /100 WBC 0-0 iizp=692) NEUTROPHILS RELATIVE PERCENT (BEAKER) (test 72 % nogx=840) LYMPHOCYTES RELATIVE PERCENT (BEAKER) (test 17 % kwmn=576) MONOCYTES RELATIVE PERCENT (BEAKER) (test 9 % thpv=965) EOSINOPHILS RELATIVE PERCENT (BEAKER) (test 1 % ppbo=698) BASOPHILS RELATIVE PERCENT (BEAKER) (test 0 % nlbr=940) NEUTROPHILS ABSOLUTE COUNT (BEAKER) (test 2.68 K/ L 1.56-6.13 bvqj=933) LYMPHOCYTES ABSOLUTE COUNT (BEAKER) (test 0.64 K/ L 1.18-3.74 zndm=249) MONOCYTES ABSOLUTE COUNT (BEAKER) (test 0.33 K/ L 0.24-0.36 uvdm=917) EOSINOPHILS ABSOLUTE COUNT (BEAKER) (test 0.05 K/ L 0.04-0.36 dmky=796) BASOPHILS ABSOLUTE COUNT (BEAKER) (test 0.01 K/ L 0.01-0.08 bnco=470) IMMATURE GRANULOCYTES-RELATIVE PERCENT (BEAKER) 0 % 0-1 (test bskz=2952) URINALYSIS WITH MICROSCOPIC IF [id number] 00:29:00 Test Item Value Reference Range Comments COLOR (BEAKER) (test rtan=450) Yellow CLARITY (BEAKER) (test rfvf=808) Clear SPECIFIC GRAVITY UA (BEAKER) (test ukyg=440) 1.019 1.001-1.035 PH UA (BEAKER) (test nwjq=181) 7.0 5.0-8.0 PROTEIN UA (BEAKER) (test dxmg=452) Negative Negative GLUCOSE UA (BEAKER) (test htbj=209) 50 mg/dL Negative KETONES UA (BEAKER) (test kska=222) 100 mg/dL Negative BILIRUBIN UA (BEAKER) (test iaec=728) Negative Negative BLOOD UA (BEAKER) (test clsm=555) Negative Negative NITRITE UA (BEAKER) (test snxd=646) Negative Negative LEUKOCYTE ESTERASE UA (BEAKER) (test vnul=920) Negative Negative UROBILINOGEN UA (BEAKER) (test qtsc=018) 0.2 mg/dL 0.2-1.0 SOURCE(BEAKER) (test liro=4781)
[2018-12-08] MEDS ORDERED: HYDROMORPHONE HCL 1 MG/ML INJ ONE (22:34)
--- NOTE | 2018-12-08 23:10 | ER ---
Nurse's Notes [facility] Name: Mayela Hou Age: 68 yrs Sex: Female : 1950 Arrival Date: 12/08/2018 Time: 21:15 Bed 14 Private MD: Gm Lim Diagnosis: Other chronic pain Presentation: 12/08 21:20 Presenting complaint: Patient states: I have cancer and the pain is getting unbearable. ed1 I called the cancer center and they told me to come here. Transition of care: patient was not received from another setting of care. Onset of symptoms was December 08, 2018. Risk Assessment: Do you want to hurt yourself or someone else? Patient reports no desire to harm self or others. Initial Sepsis Screen: Does the patient meet any 2 criteria? No. Patient's initial sepsis screen is negative. Does the patient have a suspected source of infection? No. Patient's initial sepsis screen is negative. Care prior to arrival: None. 21:20 Method Of Arrival: Wheelchair ed1 21:20 Acuity: DANIEL 3 ed1 Triage Assessment: 21:24 General: Appears uncomfortable, Behavior is calm, cooperative. Pain: Complains of pain ed1 in abdomen Pain currently is 10 out of 10 on a pain scale. Historical: - Allergies: 21:24 No Known Allergies; ed1 - Home Meds: 21:24 Senna-S 8.6-50 mg oral tab 1 tabs twice a day [Active]; Yale 5-325 mg Oral tab 1 tab ed1 every 6 hours [Active]; Dulcolax (bisacodyl) 5 mg Oral TbEC 2 tabs once daily [Active]; gabapentin 100 mg oral cap 1 caps 3 times per day [Active]; - PMHx: 21:24 Cancer, Breast Right; Cancer, Pancreatic and Liver Stage 4; ed1 - PSHx: 21:24 Port Placement; Mastectomy, Right; Hip Replacement; Vein removal; ed1 - Immunization history:: Adult Immunizations up to date. - Social history:: Smoking status: Patient/guardian denies using tobacco. - Ebola Screening: : Patient negative for fever greater than or equal to 101.5 degrees Fahrenheit, and additional compatible Ebola Virus Disease symptoms Patient denies exposure to infectious person Patient denies travel to an Ebola-affected area in the 21 days before illness onset No symptoms or risks identified at this time. Screenin:41 Abuse screen: Denies threats or abuse. Denies injuries from another. Nutritional rv screening: No deficits noted. Tuberculosis screening: No symptoms or risk factors identified. Fall Risk None identified. Assessment: 22:40 General: Appears in no apparent distress. uncomfortable, Behavior is calm, cooperative. rv Pain: Complains of pain in abdomen. Neuro: Level of Consciousness is awake, alert, obeys commands, Oriented to person, place, time, situation. Cardiovascular: Capillary refill < 3 seconds. Respiratory: Airway is patent. GI: No signs and/or symptoms were reported involving the gastrointestinal system. : No signs and/or symptoms were reported regarding the genitourinary system. EENT: No signs and/or symptoms were reported regarding the EENT system. Derm: Skin is intact. Musculoskeletal: Reports pain in generalized. Vital Signs: 21:24 BP 113 / 76; Pulse 102; Resp 20; Temp 99.2(TE); Pulse Ox 98% on R/A; Weight 74.84 kg; ed1 Height 6 ft. 0 in. (182.88 cm); Pain 10/10; 22:00 BP 120 / 77; Pulse 90; Resp 17; Temp 99; Pulse Ox 97% ; rv 22:30 BP 131 / 81; Pulse 85; Resp 15; Temp 98.7; Pulse Ox 99% ; rv 23:30 BP 139 / 76; Pulse 88; Resp 17; Temp 99; Pulse Ox 98% ; rv 21:24 Body Mass Index 22.38 (74.84 kg, 182.88 cm) ed1 ED Course: 21:15 Patient arrived in ED. am2 21:15 Gm Lim MD is Private Physician. am2 21:21 Triage completed. ed1 21:24 Arm band placed on left wrist. ed1 21:30 Shiraz Palacio RN is Primary Nurse. rv 21:46 Gibson Myers NP is PHCP. pm1 21:46 Kole Tavera MD is Attending Physician. pm1 22:41 Patient has correct armband on for positive identification. Bed in low position. Call rv light in reach. Side rails up X 1. Adult w/ patient. Pulse ox on. NIBP on. 23:40 No provider procedures requiring assistance completed. Patient did not have IV access rv during this emergency room visit. Administered Medications: 22:29 Drug: Dilaudid 1 mg Route: IM; Site: left deltoid; rv 23:37 Follow up: Response: No adverse reaction; Pain is unchanged, physician notified rv 23:07 CANCELLED (Change to fentanyl patch): Dilaudid 1 mg IM once pm1 23:25 Drug: fentaNYL Patch (50 mcg/hr) 1 patches Route: Transdermal; Site: affected area; rv 23:38 Follow up: Response: No adverse reaction rv Outcome: 23:09 Discharge ordered by MD. pm1 23:40 Discharged to home via wheelchair. rv 23:40 Condition: DISCHARGED WITH FENTANYL PATCH. 23:40 Discharge instructions given to patient, family, Instructed on discharge instructions, follow up and referral plans. Demonstrated understanding of instructions, follow-up care. 23:41 Patient left the ED. rv Signatures: Radha Powers RN RN ed1 Gibson Myers NP QUARTZ CUTTER pm1 Mable Bravo am2 Shiraz Palacio RN RN rv
--- NOTE | 2018-12-08 23:10 | EDPHYS ---
Physician Documentation [facility] Name: Mayela Hou Age: 68 yrs Sex: Female : 1950 Arrival Date: 12/08/2018 Time: 21:15 Bed 14 Private MD: Gm Lim ED Physician Kole Tavera HPI: 12/08 22:08 This 68 yrs old Female presents to ER via Wheelchair with complaints of Pain pm1 All Over - hx of CA. 22:08 Patient with history of generalized body aches from her stage 4 pancreatic cancer. pm1 Patient reports for the past week her pain has been getting worse. Patient has been prescribed Rhododendron 5 mg PO Q6hr and she has been taking 10 mg PO Q6hr. Patient contacted the cancer center to be seen for stronger pain medications today. She was advised that she would possibly need something stronger, such as a fentanyl patch. Patient was directed to report to the ER for the medication. Historical: - Allergies: 21:24 No Known Allergies; ed1 - Home Meds: 21:24 Senna-S 8.6-50 mg oral tab 1 tabs twice a day [Active]; Rhododendron 5-325 mg Oral tab 1 tab ed1 every 6 hours [Active]; Dulcolax (bisacodyl) 5 mg Oral TbEC 2 tabs once daily [Active]; gabapentin 100 mg oral cap 1 caps 3 times per day [Active]; - PMHx: 21:24 Cancer, Breast Right; Cancer, Pancreatic and Liver Stage 4; ed1 - PSHx: 21:24 Port Placement; Mastectomy, Right; Hip Replacement; Vein removal; ed1 - Immunization history:: Adult Immunizations up to date. - Social history:: Smoking status: Patient/guardian denies using tobacco. - Ebola Screening: : Patient negative for fever greater than or equal to 101.5 degrees Fahrenheit, and additional compatible Ebola Virus Disease symptoms Patient denies exposure to infectious person Patient denies travel to an Ebola-affected area in the 21 days before illness onset No symptoms or risks identified at this time. ROS: 22:08 Constitutional: Negative for fever, chills, and weight loss, Eyes: Negative for injury, pm1 pain, redness, and discharge, ENT: Negative for injury, pain, and discharge, Neck: Negative for injury, pain, and swelling, Cardiovascular: Negative for chest pain, palpitations, and edema, Respiratory: Negative for shortness of breath, cough, wheezing, and pleuritic chest pain, Abdomen/GI: Negative for abdominal pain, nausea, vomiting, diarrhea, and constipation, Back: Negative for injury and pain, : Negative for injury, bleeding, discharge, and swelling, MS/Extremity: Negative for injury and deformity, Skin: Negative for injury, rash, and discoloration, Neuro: Negative for headache, weakness, numbness, tingling, and seizure. Exam: 22:08 Constitutional: This is a well developed, well nourished patient who is awake, alert, pm1 and in no acute distress. Head/Face: Normocephalic, atraumatic. Eyes: Pupils equal round and reactive to light, extra-ocular motions intact. Lids and lashes normal. Conjunctiva and sclera are non-icteric and not injected. Cornea within normal limits. Periorbital areas with no swelling, redness, or edema. ENT: Nares patent. No nasal discharge, no septal abnormalities noted. Tympanic membranes are normal and external auditory canals are clear. Oropharynx with no redness, swelling, or masses, exudates, or evidence of obstruction, uvula midline. Mucous membranes moist. Neck: Trachea midline, no thyromegaly or masses palpated, and no cervical lymphadenopathy. Supple, full range of motion without nuchal rigidity, or vertebral point tenderness. No Meningismus. Chest/axilla: Normal chest wall appearance and motion. Nontender with no deformity. No lesions are appreciated. Cardiovascular: Regular rate and rhythm with a normal S1 and S2. No gallops, murmurs, or rubs. Normal PMI, no JVD. No pulse deficits. Respiratory: Lungs have equal breath sounds bilaterally, clear to auscultation and percussion. No rales, rhonchi or wheezes noted. No increased work of breathing, no retractions or nasal flaring. Abdomen/GI: Soft, non-tender, with normal bowel sounds. No distension or tympany. No guarding or rebound. No evidence of tenderness throughout. Back: No spinal tenderness. No costovertebral tenderness. Full range of motion. Skin: Warm, dry with normal turgor. Normal color with no rashes, no lesions, and no evidence of cellulitis. MS/ Extremity: Pulses equal, no cyanosis. Neurovascular intact. Full, normal range of motion. 22:08 Neuro: Orientation: is normal, Motor: is normal, moves all fours. Vital Signs: 21:24 BP 113 / 76; Pulse 102; Resp 20; Temp 99.2(TE); Pulse Ox 98% on R/A; Weight 74.84 kg; ed1 Height 6 ft. 0 in. (182.88 cm); Pain 10/10; 22:00 BP 120 / 77; Pulse 90; Resp 17; Temp 99; Pulse Ox 97% ; rv 22:30 BP 131 / 81; Pulse 85; Resp 15; Temp 98.7; Pulse Ox 99% ; rv 23:30 BP 139 / 76; Pulse 88; Resp 17; Temp 99; Pulse Ox 98% ; rv 21:24 Body Mass Index 22.38 (74.84 kg, 182.88 cm) ed1 MDM: 21:53 Patient medically screened. pm1 22:04 Data reviewed: vital signs. Data interpreted: Pulse oximetry: on room air is 98 %. pm1 Interpretation: normal. 23:07 Counseling: I had a detailed discussion with the patient and/or guardian regarding: the pm1 historical points, exam findings, and any diagnostic results supporting the discharge/admit diagnosis, the need for outpatient follow up, continued pain management, to return to the emergency department if symptoms worsen or persist or if there are any questions or concerns that arise at home. Administered Medications: 22:29 Drug: Dilaudid 1 mg Route: IM; Site: left deltoid; rv 23:37 Follow up: Response: No adverse reaction; Pain is unchanged, physician notified rv 23:07 CANCELLED (Change to fentanyl patch): Dilaudid 1 mg IM once pm1 23:25 Drug: fentaNYL Patch (50 mcg/hr) 1 patches Route: Transdermal; Site: affected area; rv 23:38 Follow up: Response: No adverse reaction rv Disposition: 12/09 07:23 Co-signature as Attending Physician, Kole Tavera MD I agree with the assessment and oni plan of care. Disposition: 12/08/18 23:09 Discharged to Home. Impression: Other chronic pain. - Condition is Stable. - Discharge Instructions: Chronic Pain. - Medication Reconciliation Form, Thank You Letter, Antibiotic Education, Prescription Opioid Use form. - Follow up: Emergency Department; When: As needed; Reason: Worsening of condition. Follow up: Private Physician; When: 2 - 3 days; Reason: Recheck today's complaints, Continuance of care, Re-evaluation by your physician. - Problem is new. - Symptoms have improved. Signatures: Kole Tavera MD MD cha Riggs, Erika, RN RN ed1 Gibson Myers, SENIOR SOUS CHEF SENIOR SOUS CHEF pm1 Shiraz Palacio, RN RN rv Corrections: (The following items were deleted from the chart) 12/08 23:07 23:00 Dilaudid 1 mg IM once ordered. pm1 pm1 23:41 23:09 12/08/2018 23:09 Discharged to Home. Impression: Other chronic pain. Condition is rv Stable. Discharge Instructions: Chronic Pain. Forms are Medication Reconciliation Form, Thank You Letter, Antibiotic Education, Prescription Opioid Use. Follow up: Emergency Department; When: As needed; Reason: Worsening of condition. Follow up: Private Physician; When: 2 - 3 days; Reason: Recheck today's complaints, Continuance of care, Re-evaluation by your physician. Problem is new. Symptoms have improved. pm1
[2018-12-08] MEDS ORDERED: FENTANYL 50 MCG/PATCH TD ONE (23:31)
== END 2018-12-08 23:41 | disposition home or self-care (01) ==
LOC: ER 21:14
DX: G89.29 Other chronic pain (principal); C22.9 Malignant neoplasm of liver, not specified as primary or secondary; C25.9 Malignant neoplasm of pancreas, unspecified
CPT/HCPCS: 96372; 99283; J1170

== ENCOUNTER 2018-12-11 10:59 | Emergency (ER) | payer OTHER ==
--- OUTSIDE RECORDS SUMMARY | 2018-12-11 11:02 | XMS REPORT | Clinical Summary ---
:1950 [facility] Organization [facility] Address [address] [place] [address] Care Team Providers Name Role Phone Unavailable Primary Care Provider Unavailable Allergies No Known Allergies Medications Medication Sig Dispensed Refills Start Date End Date Status sodium chloride 1 spray by 15 mL 0 11/05/2018 11/05/2019 Active 0.65% (OCEAN) 0.65 Nasal route % nasal spray as needed. gabapentin Take 1 90 capsule 2 11/09/2018 [...] (40 mg total) tablet by mouth daily. cetirizine (ZYRTEC) Take 1 tablet 30 tablet [...] 10 days. Max Daily Amount: 4 tablets bisacodyl Take 2 30 tablet 0 11/10/2018 12/10/2018 (DULCOLAX) 5 mg EC tablets (10 tablet mg total) by mouth daily for 30 days. oxyCODONE Take 1 tablet 60 tablet 0 11/09/2018 12/09/2018 (ROXICODONE) 5 MG (5 mg total) immediate release by mouth tablet every 4 (four) hours as needed for up to 30 days. Max Daily Amount: 30 mg Active Problems Problem Noted Date Cancer related [...] (HCC); Metastatic cancer (HCC) 11/03/2018 Travel after 12/10/2017 Social History Tobacco Use Types Packs/Day Years [...] Not on file Implants Implanted Type Area Quality Assurance Group Leader Device Shelf Model / Identifier Expiration Date Serial / Lot Stent Panc Advanix 5fx3cm Str 3750 - [id number] Stents-Pe [employer] 11/06/2019 3750 / Implanted: Qty: 1 on 11/04/2018 by Emelyn Horta MD ripheral / Stent Viabil Bili 10x6 No Hole [id number] - [id number] Stents-Pe [employer] & 04/29/2020 [id number] / Implanted: Qty: 1 on 11/04/2018 by [...] procedure are in the results section. after 12/10/2017 Results REPORT OF PROCEDURE - ENDOSCOPY URL (11/22/2018 6:14 PM CDT) Narrative Performed At RHYTHM STRIP - SCAN (11/11/2018 10:52 AM CDT) Narrative Performed At US abdomen limited (11/09/2018 5:11 PM CDT) Specimen Narrative Performed At FINAL REPORT [employer] Limited abdominal ultrasound Technique/findings: Limited sonographic images [...] MD Report Verified Date/Time:11/09/2018 18:07:18 Reading Location: [address] Ultrasound Reading Room Procedure Note Interface, [...] Report Verified Date/Time: 11/09/2018 18:07:18 Reading Location: [address] Ultrasound Reading Room Performing Organization Address City/State/Zipcode Phone Number [facility] Prothrombin time/INR (11/09/2018 11:32 AM CDT)Only the most recent of2 resultswithin the time period is included. Protime 13.3 11.7 - 14.7 seconds [facility] INR 1.0 <=5.9 [facility] Specimen Blood Narrative Performed At RECOMMENDED COUMADIN/WARFARIN INR THERAPY [facility] RANGES STANDARD DOSE: 2.0 - 3.0 Includes: PROPHYLAXIS for venous thrombosis, systemic embolization; TREATMENT for venous thrombosis and/or pulmonary embolus. HIGH RISK: Target INR is 2.5-3.5 for patients with mechanical heart valves. Performing Organization Address City/State/Zipcode Phone Number [facility] [address] [place] [address] [phone] CENTER CBC with platelet count + automated diff (11/09/2018 4:24 AM CDT)Only the most recent of6 resultswithin the time period is included. WBC 4.7 3.5 - 10.5 K/L [facility] RBC 4.02 3.93 - 5.22 M/L [facility] Hemoglobin 11.7 11.2 - 15.7 GM/DL [facility] Hematocrit 37.3 34.1 - 44.9 % [facility] MCV 92.8 79.4 - 94.8 fL [facility] MCH 29.1 25.6 - 32.2 pg [facility] MCHC 31.4 (L) 32.2 - 35.5 GM/DL [facility] RDW 13.4 11.7 - 14.4 % [facility] Platelets 252 150 - 450 K/CU MM [facility] MPV 9.2 (L) 9.4 - 12.3 fL [facility] nRBC 0 0 - 0 /100 WBC [facility] % Neutros 69 % [facility] % Lymphs 17 % [facility] % Monos 13 % [facility] % Eos 1 % [facility] % Baso 0 % [facility] # Neutros 3.25 1.56 - 6.13 K/L [facility] # Lymphs 0.79 (L) 1.18 - 3.74 K/L [facility] # Monos 0.62 (H) 0.24 - 0.36 K/L [facility] # Eos 0.05 0.04 - 0.36 K/L [facility] # Baso 0.01 0.01 - 0.08 K/L [facility] Immature Granulocytes-Relative 0 0 - 1 % [facility] Specimen Blood Performing Organization Address City/[facility] Phone Number [address] [address] [phone] [place] Hepatic function panel (11/09/2018 4:24 AM CDT)Only the most recent of6 resultswithin the time period is included. Protein, Total 6.0 6.0 - 8.3 gm/dL [facility] Albumin 3.3 (L) 3.5 - 5.0 g/dL [facility] Total Bilirubin 0.7 0.2 - 1.2 mg/dL [facility] Bilirubin, Direct 0.5 0.1 - 0.5 mg/dL [facility] Alkaline Phosphatase 301 (H) 40 - 150 U/L [facility] AST 20 5 - 34 U/L [facility] ALT 112 (H) 6 - 55 U/L [facility] Specimen Blood Performing Organization Address City/[facility]/Zipcode Phone Number [facility] [address] [place] [address] [phone] [place] Basic Metabolic Panel (11/09/2018 4:24 AM CDT)Only the most recent of6 resultswithin the time period is included. Sodium 131 (L) 136 - 145 meq/L [facility] Potassium 4.6 3.5 - 5.1 meq/L [facility] Chloride 97 (L) 98 - 107 meq/L [facility] CO2 26 22 - 29 meq/L [facility] BUN 24 (H) 7 - 21 mg/dL [facility] Creatinine 0.75 0.57 - 1.25 mg/dL [facility] Glucose 157 (H) 70 - 105 mg/dL [facility] Calcium 8.7 8.4 - 10.2 mg/dL [facility] EGFR 77Comment: ESTIMATED GFR IS mL/min/1.73 sq m [facility] NOT ACCURATE CREATININE [facility] CLEARANCE IN PREDICTING GLOMERULAR FILTRATION RATE. ESTIMATED GFR IS NOT APPLICABLE FOR DIALYSIS PATIENTS. Specimen Blood Performing Organization Address City/State/Zipcode Phone Number [facility] [address] [place] [address] [phone] abd/pelvis - pancreas evaluation (11/08/2018 1:01 PM CDT) Specimen Narrative Performed At FINAL REPORT [facility] CT of the Chest, abdomen and pelvis [...] MD Report Verified Date/Time:11/08/2018 16:30:42 Reading Location: [facility] B[facility] C013Y CT Body Reading Room Procedure [...] Report Verified Date/Time: 11/08/2018 16:30:42 Reading Location: [facility] C013Y CT Body Reading Room Performing Organization Address City/State/Zipcode Phone Number [facility] CT chest with IV contrast (11/08/2018 1:01 PM CDT) Specimen Narrative Performed At FINAL REPORT [facility] CT of the Chest, abdomen and pelvis [...] MD Report Verified Date/Time:11/08/2018 16:30:42 Reading Location: [address] Body Reading Room Procedure Note [...] Report Verified Date/Time: 11/08/2018 16:30:42 Reading Location: [facility] B1 C013Y CT Body Reading Room Performing Organization Address City/State/Zipcode Phone Number [employer] XR abdomen / KUB 1 view (11/08/2018 10:42 AM CDT) Specimen Narrative Performed At FINAL REPORT [employer] Abdomen one view Comparison: None. Reason for [...] MD Report Verified Date/Time:11/08/2018 11:16:58 Reading Location: [facility] [address] Radiology Reading Room Procedure Note Interface, External [...] Report Verified Date/Time: 11/08/2018 11:16:58 Reading Location: [facility] [address] Radiology Reading Room Performing Organization Address City/State/Zipcode Phone Number GE [facility] ECG 12 lead (11/07/2018 5:49 PM CDT)Only the most recent of2 resultswithin the time period is included. Specimen Narrative Performed At Ventricular Rate 89 BPM GE MUSE Atrial Rate 89 BPM P-R Interval 166 ms QRS Duration 82 ms Q-T Interval 412 ms QTC Calculation(Bazett) 501 ms P Etna 33 degrees R Etna -3 degrees T Etna 43 degrees Normal sinus rhythm Normal ECG [...] 412 ms QTC Calculation(Bazett) 501 ms P Etna 33 degrees R Etna -3 degrees T Et[place] 43 degrees Normal sinus rhythm Normal ECG When compared with ECG of 03-NOV-2018 22:15, No significant change was found Confirmed by Marisol FOWLER MICHAEL ([id number]) on 11/08/2018 7:39:45 AM Performing Organization Address [facility] Phone Number [place] Troponin I (11/07/2018 4:24 PM CDT) Troponin I <0.01 0.00 - 0.03 ng/mL [facility] Specimen Blood Narrative Performed At Troponin I (TnI) levels must be interpreted [facility] in the context of the presenting symptoms [...] persistent tachyarrhythmia. Performing Organization Address [facility] [place] [address] [place] Carbohydrate antigen 19-9 (CA 19-9) (11/07/2018 11:01 AM CDT)Only the most recent of2 resultswithin the time period is included. CA 19-9 1978 (H) <34 U/mL [facility] Comment: This test was performed using the Siemens Chemiluminescent method. Values obtained from different assay methods cannot be used interchangeably. CA19-9 levels, regardless of value, should not be interpreted as absolute evidence of the presence or absence of disease. Specimen Blood Narrative Performed At Performing Lab [facility] [employer] [address] [place] [address] Heidy Kaur MD, PhD, CRISTÓBAL Performing Organization Address [facility] Phone Number [facility] [place] [address] [facility] Carcinoembryonic Antigen (CEA) (11/07/2018 11:01 AM CDT)Only the most recent of2 resultswithin the time period is included. CEA, SERUM 2.6 0.0 - 5.0 ng/mL [facility] Specimen Blood Performing Organization Address City/[facility]/Zipcode Phone Number [address] [address] CENTER Calcium, Ionized (11/05/2018 4:39 AM CDT) Calcium, Ion 1.06 (L) 1.12 - 1.27 mmol/L [facility] pH, Blood 7.39 [facility] Specimen Blood Performing Organization Address City/[facility] Phone Number [address] [address] [phone] CENTER Phosphorus (11/05/2018 4:39 AM CDT) Phosphorus 2.7 2.3 - 4.7 mg/dL [facility] Specimen Blood Performing Organization Address City/[facility] Phone Number [address] [address] [phone] CENTER Magnesium (11/05/2018 4:39 AM CDT) Magnesium 1.9 1.6 - 2.6 mg/dL [facility] Specimen Blood Performing Organization Address [facility] Phone Number [address] [phone] [place] REPORT OF PROCEDURE - ENDOSCOPY URL (11/04/2018 6:12 PM CDT) Narrative Performed At FL ERCP (11/04/2018 5:55 PM CDT) Specimen Narrative Performed At FINAL REPORT [facility] Examination: ERCP 5 fluoroscopic spot views were obtained during the procedure by the ordering service. Images are nondiagnostic as no radiologist was present at the time of imaging. Fluoroscopic time was 71.7 seconds. Please see the procedure report for details. Signed: Rubio Goel MD Report Verified Date/Time:11/04/2018 21:43:27 Reading Location: [address] Reading Room Procedure Note Interface, External [...] Report Verified Date/Time: 11/04/2018 21:43:27 Reading Location: [address] Reading Room Performing Organization Address City/[facility]/Zipcode Phone Number [facility] CYTOLOGY REQUEST (11/04/2018 5:37 PM CDT) Cytology See Separate Report [facility] Specimen Brushings Performing Organization Address City/[facility] Phone Number [address] [address] [phone] CENTER Cytology (11/04/2018 5:37 PM CDT) Case Report Medical Cytology Report Case: [id number] [facility] Authorizing Provider:Emelyn Horta Collected: 11/04/2018 1737 [facility] MD Vance Ordering Location: [address] Received: 11/07/2018 1148 SERVICE Pathologist: Eric Flower MD Specimen:Common Bile Duct DIAGNOSIS COMMON BILE DUCT BRUSHING (CYTOSPINS): [facility] - SUSPICIOUS FOR MALIGNANCY [facility] Signing Pathologist Direct Phone Line: [phone] COMMENT [facility] Please also see surgical pathology report [id number] and cytopathology reports [id number] and [id number]. [facility] CPT Code(s) 40350 [facility] CLINICAL DATA Focal liver lesions; [facility] pancreatic massinvading [facility] vein and liver; hepatobiliary obstruction; elevated LFTs; h/o breast cancer s/p Chemo/XRT and right mastectomy SPECIMEN SOURCE COMMON BILE DUCT BRUSHING [facility] GROSS DESCRIPTION Prepared 2 cytospins from 1 brush tip collected in 15 ml cytorich red fixative [facility] Collected: [id number] [facility] Received: [id number] STATEMENT OF ADEQUACY Satisfactory [facility] Gross assessment was [facility] performed at [place], Department of [facility] Pathology, [address] [place] [address], Technical component was [facility] performed at [place], Department [facility] Pathology, [address] [place] [address], Professional component was [facility] performed at [place], Department of [facility] Pathology, [address] [place] [address], Specimen Brushings Narrative Performed At Performing Organization Address City/State/Zipcode Phone Number [address] [phone] [place] Tissue Exam (11/04/2018 5:17 PM CDT) Case Report Surgical Pathology Report Case: [id number] [facility] Authorizing Provider:Emelyn Horta Collected: 11/04/2018 1717 [facility] MD Vance Ordering Location: [address] Received: 11/07/2018 0808 SERVICE Pathologist: Tresa Lanier MD Specimen:Pancreas, Head,fine needle aspirate of mass in formulin DIAGNOSIS A. PANCREAS, HEAD MASS, FNA GUIDED BIOPSY: [facility] - INVASIVE POORLY DIFFERENTIATED ADENOCARCINOMA (SEE COMMENT) [facility] Signing Pathologist Direct Phone Line: [phone] COMMENT There is extremely minimal amount of tumor in the biopsy. Please correlate with results of concurrently obtained cytology results ([id number] ). [facility] Special stain for mucicarmine is negative. Immunostain for Cam5.2 highlights the stromal invasion. Immunostain for SOILA-3 (faint nuclear staining is non- specific), ER and mammaglobin are negative. IDC: Dr. Pedro Pablo banks. CPT Code(s) 39313 [facility] [address] [facility] 278[address] [id number] CLINICAL HISTORY Pancreatic mass [facility] SPECIMEN SOURCE Pancreas head fine needle aspirate [facility] of [facility] GROSS DESCRIPTION The specimen is received in a [facility] formalin-filled container labeled [facility] with the patient's information and labeled "pancreas head fine needle aspirate" and consists of multiple stringy fragments of hemorrhagic soft tissue measuring 1 x 0.4 x 0.2 cm in aggregate, submitted entirely in A1. CG/ew SPECIAL STUDIES The interpretation of this case included the use of immunohistochemistry or special stains. [facility] Immunohistochemistry technical testing was performed at [facility], Pathology Laboratory where it was developed and [...] Tissue - Pancreas, Head Performing Organization Address City/[facility]/Zipcode Phone Number [place] [id number] [place] [address] [phone] [place] FINE NEEDLE ASPIRATE (FNA) REQUEST (11/04/2018 4:55 PM CDT)Only the most recent of2 resultswithin the time period is included. Cytology See Separate Report [facility] Specimen Fine Needle Aspirate - Pancreas, Head Performing Organization Address City/[facility]/Zipcode Phone Number [place] [id number] [place] [address] [phone] [place] Fine Needle Aspirate by Clinician (11/04/2018 4:55 PM CDT)Only the most recent of2 resultswithin the time period is included. Case Report Medical Cytology Report Case: [id number] [facility] Authorizing Provider:Emelyn Horta Collected: 11/04/2018 1655 [facility] MD Vance Ordering Location: [address] Received: 11/07/2018 1148 SERVICE Pathologist: Eric Flower MD Specimen:Pancreas, Head DIAGNOSIS HEAD OF PANCREAS MASS, FNA BY CLINICIAN (CYTOSPINS AND CELL BLOCK OF ASPIRATE): [facility] - POSITIVE FOR MALIGNANCY [facility] - ADENOCARCINOMA, DUCTAL TYPE Signing Pathologist Direct Phone Line: [phone] COMMENT [facility] Please also see surgical pathology report [id number] and cytopathology reports [id number] and [id number]. [facility] CPT Code(s) 54948, 06544 [facility] CLINICAL DATA Focal liver lesions; [facility] pancreatic massinvading [facility] vein and liver; hepatobiliary obstruction; elevated LFTs; h/o breast cancer s/p Chemo/XRT and right mastectomy SPECIMEN SOURCE HEAD OF PANCREAS MASS FNA [facility] GROSS DESCRIPTION Prepared cell block(A2) and 4 cytospins from 18 ml cytorich red fixative sample [facility] Collected: [id number] [facility] Received: [id number] Gross assessment was [facility] performed at [place], Department [facility] Pathology, [address] [place] [address], Technical component was [facility] performed at [place], Department [facility] Pathology, [address] [place] [address], Professional component was [facility] performed at [place], Department of [facility] Pathology, [address] [place] [address], Specimen Fine Needle Aspirate - Pancreas, Head Narrative Performed At Performing Organization Address City/State/Zipcode Phone Number [facility] [address] [place] [address] CENTER XR chest 1 view portable / [...] MD Report Verified Date/Time:11/04/2018 14:08:49 Reading Location: [facility] Radiology Reading Room Procedure Note Interface, External [...] Report Verified Date/Time: 11/04/2018 14:08:49 Reading Location: [facility] Radiology Reading Room Performing Organization Address City/State/Zipcode Phone Number [facility] Lipase (11/03/2018 11:50 PM CDT) Lipase 34 8 - 78 U/L [facility] Specimen Blood Narrative Performed At Specimen slightly icteric [facility] Performing Organization Address City/State/Zipcode Phone Number [facility] [address] [place] [address] [phone] CENTER Gamma Glutamyl Transferase (GGT) (11/03/2018 11:50 PM CDT) GGT 465 (H) 9 - 64 U/L [facility] Specimen Blood Narrative Performed At Specimen slightly icteric [facility] Performing Organization Address City/[facility]/Zipcode Phone Number [facility] [address] [place] [address] [place] Urinalysis with Microscopic If Indicated (11/03/2018 11:49 PM CDT) Color, UA Yellow [facility] Clarity, UA Clear [facility] Specific [place], UA 1.019 1.001 - 1.035 [facility] pH, UA 7.0 5.0 - 8.0 [facility] Protein, UA Negative Negative [facility] Glucose, UA 50 mg/dL (A) Negative [facility] Ketones, UA 100 mg/dL (A) Negative [facility] Bilirubin, UA Negative Negative [facility] Blood, UA Negative Negative [facility] Nitrite, UA Negative Negative [facility] Leukocytes, UA Negative Negative [facility] Urobilinogen, UA 0.2 0.2 - 1.0 mg/dL [facility] Specimen Source [facility] Specimen Urine Performing Organization Address City/[facility]/Zipcode Phone Number [facility] [address] [place] [address] [phone] [place] after 12/10/2017 Insurance Payer Benefit Plan / Group Subscriber ID Type Phone Address MEDICARE MEDICARE A B xxxxxxxxxxx Medicare [facility] GENERIC MEDICARE xxxxxxxxx Med[employer]ap SUPPLEMENT/INDIVIDUAL SUPPLEMENT Advance Directives For more information, please contact:[address] [phone] Code Status Date Activated Date Inactivated Comments Full Code 11/03/2018 9:48 PM 11/10/2018 12:13 PM This code status was determined by: Patient Name Relationship Healthcare Agent Relationship Phone RAVIN JOSEPH Natural son Primary healthcare agent [phone]
--- OUTSIDE RECORDS SUMMARY | 2018-12-11 11:04 | XMS REPORT | Continuity of Care Document ---
:1950 Author Organization Interface Problems Problem Status Onset Classification Date Comments Source Date Reported CHEMOTHERAPY Active 12/02/19 [facility] 19 [place] Trochanteric 06/23/20 10/12/2018 [facility] bursitis, left 18 [place] hip 727.49 - BURSAL Active 04/27/20 [facility] CYST NEC 18 [place] Z00.00 - ENCNTR Active 03/11/20 [facility] FOR GENERAL 18 [place] ADULT MEDIC Unspecified 02/26/20 09/08/2018 [facility] intracapsular 18 [place] fracture of left [facility] femur, [place] subsequent encounter for closed fracture with routine healing LEFT HIP Active 12/23/19 [facility] WALTER METHOD 18 [facility] UPDATE Active 12/10/19 [facility] 18 [facility] L HIP DRY NEEDLE Active 07/26/19 [facility] 18 [facility] LEFT Active 12/12/19 [facility] HIP/WALTER 17 [place] [facility] HIP FRACTURE Active 12/11/19 [facility] 17 [place] LEFT HIP Active 11/24/19 [facility] 17 [facility] R22.31 - Active 06/09/20 [facility] "LOCALIZED 16 [place] SWELLING, MASS AND L Kidney disease Active Problem 12/10/2018 MICHELLE Vera,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 UNSP Active [facility] INTRACAPSULAR [place] FRACTURE OF LEFT [facility] FEMU [place] PAIN IN LEFT HIP Active [facility] Medications Medication Details Route Status Patient Ordering Order Source Instructions Provider Date Imodium A-D 2 mg, 1 cap, Inactive Route: PO, Drug 2019 [place] form: CAP, ONCE, Dosing Weight 77.273, kg, Start date: 12/06/18 8:25:00 CDT, Stop date: 12/06/18 8:25:00 CDTNotes: (Same as: Imodium) MAX adult dose is 8 caps/day Loperamide 2 mg=1 tab, PO, Inactive Hydrochloride 2 ONCE, PRN Loose 2019 [place] MG Oral Tablet Stools, # 1 tab, [Imodium] 0 Refill(s) gabapentin 100 100 mg=1 cap, Active MG Oral Capsule PO, TID, # 90 2019 [place] cap, 1 Refill(s) Calcium 500 mg, PO, BID, Active Carbonate 500 MG # 60 tab, 0 2017 [place] Chewable Tablet Refill(s), Pharmacy: [facility] [id number] 0.4 ML 40 mg, SUB-Q, Active Enoxaparin Q12H, X 10 day, 2017 [place] sodium 100 MG/ML # 20 ea, 0 Prefilled Refill(s), Syringe Pharmacy: [Lovenox] [facility] [id number] Acetaminophen 1 - 2 tab, PO, Active 300 MG / Codeine Q4H, PRN Pain, X 2017 [place] Phosphate 30 MG 4 day, # 36 tab, Oral Tablet 0 Refill(s) [Tylenol with Codeine #3] Melatonin 3 MG 3 mg=1 tab, PO, Active Extended Release Bedtime, PRN as 2017 [place] Tablet needed for insomnia, X 14 day, # 14 tab, 0 Refill(s), Pharmacy: [facility] [id number] Reglan 10 mg, 1 tab, Inactive Route: PO, Drug 2016 [place] form: TAB, Q6H, PRN Nausea & Vomiting, Start date: 12/15/16 13:13:00 CDT, Duration: 30 day, Stop date: 01/14/17 13:12:00 CDTNotes: (Same as: Reglan) Take 30 min before meals Trazodone 25 mg, 0.5 tab, No Longer Route: PO, Drug Active 2016 [place] form: TAB, Bedtime, Dosing Weight 88.091, kg, PRN Sleep, Start date: 12/13/16 14:39:00 CDT, Duration: 30 day, Stop date: 01/12/17 14:38:00 CDT, ..Notes: (Same As: Desyrel) Melatonin 3 MG 3 mg, 1 tab, No Longer Extended Release Route: PO, Drug Active 2016 [place] Tablet Form: TAB, Dosing Weight 88.091, kg, Bedtime, PRN as needed for insomnia, Start date: 12/13/16 14:39:00 CDT, Duration: 30 day, Stop date: 01/12/17 14:38:00 CDTNotes: (Same as: Melatonin) Ambien 5 mg, 1 tab, No Longer Route: PO, Drug Active 2016 [place] form: TAB, Bedtime, Dosing Weight 88.091, kg, PRN Insomnia, Start date: 12/13/16 14:39:00 CDT, Duration: 30 day, Stop date: 01/12/17 14:38:00 CDTNotes: (Same As: Ambien) Calcium 2,000 mg, 20 mL, Inactive Gluconate Route: IVPB, 2016 [place] ONCE, Dosing Weight 88.091, kg, Priority: STAT, Start date: 12/13/16 11:33:00 CDT, Stop date: 12/13/16 11:33:00 CDTNotes: WASTE: F/P - Sink; E - [employer] Trash [employer] Vitamin D3 50,000 IntlUnit, No Longer 10 tab, Route: Active 2016 [place] PO, Drug form: TAB, Q7D, Start date: 12/12/16 11:00:00 CDT, Duration: 30 day, Stop date: 01/09/17 9:00:00 CDTNotes: Same as: Vitamin D3 Non-Formulary Vitamin D2 50,000 IntlUnit, Inactive 1 cap, Route: 2016 [place] PO, Drug form: CAP, Q7D, Start date: 12/12/16 9:00:00 CDT, Duration: 30 day, Stop date: 01/09/17 9:00:00 CDTNotes: (Same as: Vitamin D) "Do Not Crush" phenol 1 spray, Route: No Longer TOP, BID, Drug Active 2016 [place] form: SPRY, PRN Sore Throat, Start date: 12/11/16 21:19:00 CDT, Duration: 30 day, Stop date: 01/10/17 21:18:00 CDTNotes: WASTE: F/P - Black; E - [employer] Trash [employer] heparin 5,000 unit, 1 No Longer mL, Route: Active 2016 [place] SUB-Q, Drug form: INJ, Q8H, Start date: 12/11/16 20:00:00 CDT, Duration: 30 day, Stop date: 01/10/17 20:00:00 CDTNotes: porcine heparin vancomycin 1,250 mg, Route: No Longer (SCIP) + sodium IVPB, [id number], Active 2016 [place] chloride 0.9% Dosing Weight 250 mL INJ [...] Cefazolin 2 gm, Route: Inactive IVPB, ABXQ8H, 2016 [place] Dosing Weight 88.091, kg, Start date: 12/11/16 15:00:00 CDT, Duration: 1 doses or times, Stop date: 12/11/16 15:00:00 CDT, ABX Indication: Surgical ProphylaxisNotes : (Same As: AncefJuanfzol) MEDICATION WASTE Product Size: 1000 mg Product Wasted: ___ mg Dilaudid 0.5 mg, Route: Inactive IVP, ONCE, 2016 [place] Dosing Weight 88.091, kg, Priority: STAT, Start date: 12/11/16 14:01:00 CDT, Stop date: 12/11/16 14:01:00 CDT Fentanyl 25 microgram, Inactive Route: IV, 2016 [place] Q10Min, Dosing Weight 88.091, kg, PRN Pain Score 6-10, Start date: 12/11/16 10:02:00 CDT, Duration: 30 day, Stop date: 01/10/17 10:01:00 CDT Ondansetron 4 mg, Route: Inactive 12/11[facility] IVP, ONCE, 2017 [place] Dosing Weight 88.091, kg, PRN Nausea & Vomiting, Start date: 12/11/16 10:02:00 CDT Hydromorphone 0.5 mg, Route: Inactive 12/11[facility] IVP, Q5Min, 2016 [place] Dosing Weight 88.091, kg, PRN Pain Score 7-10, Start date: 12/11/16 10:02:00 CDT, Duration: 4 doses or times, Stop date: Limited # of times Morphine 4 mg, Route: Inactive 12/11[facility] IVP, Q5Min, 2016 [place] Dosing Weight 88.091, kg, PRN Pain Score 7-10, Start date: 12/11/16 10:02:00 CDT, Duration: 3 doses or times, Stop date: Limited # of times Oxycodone 10 mg, Route: Inactive 12/11[facility] PO, Drug form: 2016 [place] TAB, Q4H, Dosing Weight 88.091, kg, PRN Pain Score 7-10, Start date: 12/11/16 10:02:00 CDT, Duration: 30 day, Stop date: 01/10/17 10:01:00 CDT Flumazenil 0.2 mg, Route: Inactive IVP, PRN, Dosing 2017 [place] Weight 88.091, kg, PRN Benzodiazepine Reversal, Initial dose, Start date: 12/11/16 10:02:00 CDT, Duration: 30 day, Stop date: 01/10/17 10:01:00 CDT Naloxone 0.4 mg, Route: Inactive 12/11[facility] IVP, Q2MIN, 2017 [place] Dosing Weight 88.091, kg, PRN Narcotic Reversal, Start date: 12/11/16 10:02:00 CDT, Duration: 8 doses or times, Stop date: Limited # of times ketOROLAC (ANES) IV, ONCE Inactive 2016 [place] dexamethasone Route: IV, Drug Inactive (ANES) form: INJ, ONCE, 2016 [place] Stop date: 12/11/16 9:57:00 CDT ondansetron Route: IV, Drug Inactive (ANES) form: INJ, ONCE, 2016 [place] Stop date: 12/11/16 9:57:00 CDT ergocalciferol 50,000 unit, 1 Inactive cap, Route: PO, 2016 [place] Drug form: CAP, Q7D, Dosing Weight 88.091, kg, Start date: 12/11/16 9:00:00 CDT, Duration: 30 day, Stop date: 01/08/17 9:00:00 CDTNotes: (Same as: Vitamin D) "Do Not Crush" Calcium 500 mg, 1 tab, No Longer Carbonate Route: PO, Drug Active 2016 [place] form: TAB, BID, Dosing Weight 88.091, kg, Start date: 12/11/16 9:00:00 CDT, Duration: 30 day, Stop date: 01/09/17 17:00:00 CDTNotes: 500mg elemental [id number] calcium carbonate. Contains 500mg elemental calcium. (Same As: OsCal 500) Vancomycin 1,250 mg, Route: Inactive IVPB, [id number], 2016 [place] Dosing Weight 88.091, kg, Time Critical Medication, [...] 5,000 unit, 1 Inactive mL, Route: 2016 [place] SUB-Q, Drug form: INJ, Q8H, Dosing Weight 81.818, kg, Start date: 12/11/16 8:46:00 CDT, Duration: 30 day, Stop date: 01/10/17 8:00:00 CDTNotes: porcine heparin propofol (ANES) Route: IV, Drug Inactive form: INJ, ONCE, 2016 [place] Stop date: 12/11/16 7:31:00 CDT fentaNYL (ANES) Route: IV, Drug Inactive form: INJ, ONCE, 2016 [place] Stop date: 12/11/16 7:31:00 CDT ceFAZolin (ANES) Route: IV, Drug Inactive form: INJ, ONCE, 2016 [place] Stop date: 12/11/16 7:31:00 CDT midazolam (ANES) Route: IV, Drug Inactive form: SOLN, 2016 [place] ONCE, Stop date: 12/11/16 7:31:00 CDT Calcium Chloride 1,000 mL, Rate: No Longer 0.0014 MEQ/ML / 25 ml/hr, Infuse Active 2016 [place] Potassium over: 40 hr, Chloride 0.004 Route: IV, MEQ/ML / Sodium Dosing Weight Chloride 0.103 88.091 kg, Total MEQ/ML / Sodium Volume: 1,000, Lactate 0.028 Start date: MEQ/ML 12/11/16 6:28:00 Injectable CDT, Duration: Solution 30 day, Stop date: 01/10/17 6:27:00 CDT vancomycin Route: IV, Drug Inactive (ANES) (ANES) form: INJ, Start 2016 [place] date: 12/11/16 6:15:00 CDT, Stop date: 12/11/16 7:15:00 CDT LR 1000 mL INJ Route: IV, Total Inactive (ANES) Volume: 1,000, 2016 [place] Start date: 12/11/16 6:00:00 CDT, Stop date: 12/11/16 7:00:00 CDT Dilaudid 0.5 mg, 0.5 mL, Inactive Route: IV, Drug 2016 [place] form: INJ, ONCE, Dosing Weight 88.091, kg, Start date: 12/11/16 4:41:00 CDT, Stop date: 12/11/16 4:41:00 CDTNotes: Same as: Dilaudid sodium chloride 1,000 mL, Rate: No Longer 0.45% 1000 ml 100 ml/hr, Active 2016 [place] INJ 1,000 mL Infuse over: 10 hr, Route: IV, Dosing Weight 81.818 kg, Total Volume: 1,000, Start date: 12/10/16 20:55:00 CDT, Duration: 30 day, Stop date: 01/09/17 20:54:00 CDT Reglan 10 mg, 2 mL, No Longer Route: IVP, Drug Active 2016 [place] form: INJ, Q6H, Dosing Weight 81.818, kg, PRN Nausea & Vomiting, Start date: 12/10/16 20:53:00 CDT, Duration: 30 day, Stop date: 01/09/17 20:52:00 CDTNotes: (Same as: Reglan) Acetaminophen 650 mg, 2 tab, No Longer Route: PO, Drug Active 2016 [place] form: TAB, Q4H, Dosing Weight 81.818, kg, PRN Pain 1-3/Temp > 100.4 F, Start date: 12/10/16 20:45:00 CDT, Duration: 30 day, Stop date: 01/09/17 20:44:00 CDTNotes: Do not exceed 4 gm/day. (Same as: Tylenol) Saline Flush 10 ml, Route: No Longer 0.9% IVP, Drug Form: Active 2016 [place] INJ, Dosing Weight 81.818, kg, PRN, PRN Line Flush, Start date: 12/10/16 20:45:00 CDT, Duration: 30 day, Stop date: 01/09/17 20:44:00 CDTNotes: (Same as: BD Posiflush) Ondansetron 4 mg, 2 mL, Inactive Route: IVP, Drug 2016 [place] form: INJ, Q6H, Dosing Weight 81.818, kg, PRN Nausea & Vomiting, Start date: 12/10/16 20:45:00 CDT, Duration: 30 day, Stop date: 01/09/17 20:44:00 CDTNotes: (Same as: Zofran) MEDICATION WASTE Product Size: 4 mg Product Wasted: ___ mg Sodium Chloride 1,000 mL, Rate: Inactive 0.154 MEQ/ML 100 ml/hr, 2017 [place] Injectable Infuse over: 10 Solution hr, Route: IV, Dosing Weight 81.818 kg, Total Volume: 1,000, Start date: 12/10/16 20:45:00 CDT, Duration: 30 day, Stop date: 01/09/17 20:44:00 CDT Dilaudid 0.5 mg, 0.5 mL, No Longer Route: IVP, Drug Active 2016 [place] form: INJ, Q3H, Dosing Weight 81.818, kg, PRN Pain Score 7-10, Start date: 12/10/16 20:45:00 CDT, Duration: 30 day, Stop date: 01/09/17 20:44:00 CDTNotes: Same as: Dilaudid Acetaminophen 1 tab, Route: No Longer 325 MG / PO, Drug Form: Active 2016 [place] Hydrocodone TAB, Dosing Bitartrate 10 MG Weight 81.818, Oral Tablet kg, Q4H, PRN [[place] 10/325] Pain Score 4-6, Start date: 12/10/16 20:45:00 CDT, Duration: 30 day, Stop date: 01/09/17 20:44:00 CDTNotes: Do not exceed 4gm/day of acetaminophen. (Same as: [place] 325/10) Zofran 4 mg, 2 mL, Inactive Route: IVP, Drug 2016 [place] form: INJ, ONCE, Dosing Weight 81.818, kg, Priority: STAT, Start date: 12/10/16 19:30:00 CDT, Stop date: 12/10/16 19:30:00 CDTNotes: (Same as: Zofran) MEDICATION WASTE Product Size: 4 mg Product Wasted: ___ mg Morphine 4 mg, 1 mL, Inactive Route: IVP, Drug 2016 [place] form: INJ, ONCE, Dosing Weight 81.818, kg, Priority: STAT, Start date: 12/10/16 19:30:00 CDT, Stop date: 12/10/16 19:30:00 CDTNotes: (Same as:MORPhine Sulfate) Allergies, Adverse Reactions, Alerts Substance Category Reaction Severity Reaction Status Date Comments Source type Reported Immunizations Immunization Date Given Site Status Last Updated Comments Source Results Order Name Results Value Reference Date Interpretation Comments Source Range HEMATOLOGY INR 0.98 0.85 - 12/06 MH 1. [place] HEMATOLOGY PT 12.8 s 12.0 - 12/06 MH 14. [place] HEMATOLOGY PTT 29.8 s 22.9 - 12/06 MH 35.8 [place] Venogram Venogram Patient Name: THELMA HOLGUIN 12/06 - [facility] /2018 [facility] vena cava vena cava VR : 1950; Age: 68 years Female VR MR: [id number] Read by: Denny Zavala MD Dictated Date/time: [...] per protocol prior to the procedure. 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 The [facility] sedation record is permanently stored in the [...] was noted to have difficu lty. A 4-Occitan sheath was then placed over the wire. [...] brachiocephalic vein with numerous venous collaterals. SL: [id number] CVC insert CVC insert Patient Name: THELMA HOLGUIN 12/06 - [facility] [place] w/-w/o w/-w/o : 1950; Age: 68 years Female port/pump port/pump age 5+ yrs age 5+ yrs MR: [id number] Read by: Denny Zavala MD VR VR Dictated Date/time: 12/06/18 11:35 Electronically Signed [...] per protocol prior to the procedure. 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 The patient was continuously monitored by a nurse using automated blood pressure , electrocardiogram, and pulse oximetry. The [facility] sedation record is permanently stored in [...] was noted to have difficu lty. A 4-Occitan sheath was then placed over the wire. [...] brachiocephalic vein with numerous venous collaterals. SL: [id number] Drain/Inj Drain/Inj EXAM: ULTRASOUND-GUIDED THERAPEUTIC LEFT GREATER TROCHANTER REGION INJECTIONS 03/25 - [facility] /2018 - [place] Joint/Bursa Joint/Bursa This report was dictated by a Interpreter Deaf/Fellow. I have personally reviewed the images as [...] 10x3 4.5 K/CMM 3.7 - 10.4 12/14 [place] HEMATOLOGY Hgb 8.4 g/dL 12.0 - 12/14 MH 16.0 [place] HEMATOLOGY RBC X 10x6 2.84 M/CMM 4.20 - 12/14 MH 5.40 /2017 [place] HEMATOLOGY Hct 25.0 % 36.0 - 12/14 MH 48.0 [place] HEMATOLOGY RDW 13.5 % 11.5 - 12/14 MH 14.5 [place] HEMATOLOGY MCV 88.0 fL 80.0 - 12/14 MH 98.0 /2016 [place] HEMATOLOGY MCHC 33.5 g/dL 32.0 - 12/14 MH 36.0 [place] HEMATOLOGY MCH 29.5 pg 27.0 - 12/14 MH 31.0 [facility] Platelet 159 K/CMM 133 - 450 12/14 [facility] MPV 7.9 fL 7.4 - 10.4 12/14 [place] URINE AND UA Bacteria Occasional None Seen 12/13 STOOL /HPF /HPF /2016 [place] URINE AND UA RBC 0-2 /HPF 0 - 2 12/13 STOOL [place] URINE AND UA WBC 0-2 /HPF None Seen 12/13 STOOL /HPF [place] URINE AND UA Sq Epi Occasional Few /LPF 12/13 STOOL /LPF /2016 [place] URINE AND UA Leuk Est Negative Negative 12/13 STOOL [place] (12/13/16 4:31 PM) URINE AND UA 0.2 EU/dL 0.1 - 1.0 12/13 STOOL Urobilinogen [place] URINE AND UA Nitrite Negative Negative 12/13 STOOL [place] (12/13/16 4:31 PM) URINE AND UA Blood Negative Negative 12/13 STOOL [place] (12/13/16 4:31 PM) URINE AND UA Bili Negative Negative 12/13 STOOL [place] *NA* (12/13/16 4:31 PM) URINE AND UA Ketones 40 mg/dL Negative 12/13 STOOL mg/dL [place] URINE AND UA Glucose Negative Negative 12/13 STOOL [place] (12/13/16 4:31 PM) URINE AND UA Protein Negative Negative 12/13 STOOL [place] (12/13/16 4:31 PM) URINE AND UA pH 6.0 5.0 - 8.0 12/13 [place] URINE AND UA Spec Grav 1.010 <=1.030 12/13 [place] URINE AND UA Turbidity Clear Clear 12/13 STOOL [place] (12/13/16 4:31 PM) URINE AND UA Color Yellow Yellow 12/13 [place] *NA* (12/13/16 4:31 PM) CHEM PANEL Magnesium 2.0 mg/dL 1.8 - 2.4 12/13 [facility] [place] CHEM PANEL Lactic Acid 0.8 mMol/L 0.5 - 2.2 12/13 [facility] [place] Chest 1view Chest 1view Patient Name: THELMA HOLGUIN 12/13 - [facility] DX DX /2016 - [place] : 1950; Age: 66 years Female MR: [id number] Read by: Albert Wilcox MD Dictated Date/time: [...] change, adenopathy, mass. Right axillary nicole. SL: [id number] ELECTROLYTE AGAP 13.1 meq/L 10.0 - 05 MH S 20.0 [place] ELECTROLYTE eGFR 96 12/12 Result Comment: The eGFR is calculated using the CKD-EPI formula. In most young, healthy individuals the eGFR will be >90 mL/ min/1.73m2. The eGFR declines with age. An eGFR of 60-89 may be normal in MH S mL/min/1.7 2017 some populations, particularly the elderly, for whom the CKD-EPI formula has not been extensively validated. Use of the eGFR is not recommended in the following populations: [place] 3m2 Individuals with unstable creatinine concentrations, including [...] Sodium Lvl 139 meq/L 135 - 145 05/20 MH S /2016 [place] ELECTROLYTE Creatinine 0.60 mg/dL 0.50 - 0520 MH S Lvl 1.40 /2016 [place] ELECTROLYTE CO2 26 meq/L 24 - 32 05/20 MH S /2016 [place] ELECTROLYTE Chloride Lvl 104 meq/L 95 - 109 05/20 MH S /2016 [place] ELECTROLYTE Potassium 4.1 meq/L 3.5 - 5.1 05/20 MH S Lvl /2016 [place] ELECTROLYTE Calcium Lvl 8.1 mg/dL 8.5 - 10.5 05/20 MH S [place] ELECTROLYTE Glucose Lvl 128 mg/dL 70 - 99 12/12 S [place] ELECTROLYTE BUN 14 mg/dL 7 - 22 12/12 S [place] HEMATOLOGY Monocytes # 0.5 K/CMM 0.0 - 0.8 12/12 [place] HEMATOLOGY Monocytes 10.1 % 2.0 - 12.0 12/12 MH [place] HEMATOLOGY Eosinophils 0.1 % 0.0 - 4.0 12/12 MH [place] HEMATOLOGY Lymphocytes 0.4 K/CMM 1.0 - 5.5 / MH # /2017 [place] HEMATOLOGY Segs-Bands # 4.1 K/CMM 1.5 - 8.1 12/12 MH [place] HEMATOLOGY Basophils 0.1 % 0.0 - 1.0 12/12 [place] HEMATOLOGY Segs 81.3 % 45.0 - 12/12 MH 75.0 [place] HEMATOLOGY Lymphocytes 8.4 % 20.0 - 12/12 MH 40.0 [place] HEMATOLOGY Platelet 151 K/CMM 133 - 450 12/12 [place] HEMATOLOGY MPV 8.3 fL 7.4 - 10.4 12/12 [place] HEMATOLOGY MCHC 33.7 g/dL 32.0 - 12/12 MH 36.0 [place] HEMATOLOGY Hct 27.9 % 36.0 - 12/12 MH 48.0 [place] HEMATOLOGY MCH 29.9 pg 27.0 - 12/12 MH 31.0 [place] HEMATOLOGY RDW 13.6 % 11.5 - 12/12 MH 14.5 [place] HEMATOLOGY MCV 88.7 fL 80.0 - 12/12 MH 98.0 [place] HEMATOLOGY WBC X 10x3 5.1 K/CMM 3.7 - 10.4 12/12 [place] HEMATOLOGY RBC X 10x6 3.14 M/CMM 4.20 - 12/12 MH 5.40 [place] HEMATOLOGY Hgb 9.4 g/dL 12.0 - 12/12 MH 16.0 [place] CHEM PANEL eGFR 91 12/11 Result Comment: The eGFR is calculated using the CKD-EPI formula. In most young, healthy individuals the eGFR will be >90 mL/ min/1.73m2. The eGFR declines with age. An eGFR of 60-89 may be normal in MH mL/min/1.7 2017 some populations, particularly the elderly, for whom the CKD-EPI formula has not been extensively validated. Use of the eGFR is not recommended in the following populations: [place] [address] Individuals with unstable creatinine concentrations, including patients [...] CO2 24 meq/L 24 - 32 12/11 [place] CHEM PANEL Calcium Lvl 8.5 mg/dL 8.5 - 10.5 12/11 [place] CHEM PANEL Potassium 4.2 meq/L 3.5 - 5.1 12/11 MH Lvl /2016 [place] CHEM PANEL Sodium Lvl 140 meq/L 135 - 145 12/11 [place] CHEM PANEL Chloride Lvl 106 meq/L 95 - 109 12/11 [place] CHEM PANEL Creatinine 0.70 mg/dL 0.50 - 12/11 MH Lvl 1.40 [place] CHEM PANEL BUN 16 mg/dL 7 - 22 12/11 [place] CHEM PANEL Glucose Lvl 113 mg/dL 70 - 99 12/11 [place] CHEM PANEL AGAP 14.2 meq/L 10.0 - 12/11 MH 20.0 /2016 [place] HEMATOLOGY Lymphocytes 9.3 % 20.0 - 12/11 MH 40.0 [place] HEMATOLOGY Segs 80.3 % 45.0 - 12/11 MH 75.0 [place] HEMATOLOGY Monocytes 10.0 % 2.0 - 12.0 12/11 [place] HEMATOLOGY Segs-Bands # 5.5 K/CMM 1.5 - 8.1 12/11 [place] HEMATOLOGY Lymphocytes 0.6 K/CMM 1.0 - 5.5 12/11 MH # /2017 [place] HEMATOLOGY Basophils 0.1 % 0.0 - 1.0 12/11 [place] HEMATOLOGY Eosinophils 0.3 % 0.0 - 4.0 12/11 [place] HEMATOLOGY Monocytes # 0.7 K/CMM 0.0 - 0.8 12/11 /2016 [place] HEMATOLOGY aPTT 27.2 s 22.9 - 12/11 MH 35.8 /2016 [place] HEMATOLOGY PROTIME 13.1 s 12.0 - 12/11 MH 14.7 [place] HEMATOLOGY INR 0.97 0.85 - 12/11 MH 1.17 [place] HEMATOLOGY MPV 7.7 fL 7.4 - 10.4 12/11 /2016 [place] HEMATOLOGY RDW 14.2 % 11.5 - 12/11 MH 14.5 [place] HEMATOLOGY Hgb 12.5 g/dL 12.0 - 12/11 MH 16.0 [place] HEMATOLOGY WBC X 10x3 6.8 K/CMM 3.7 - 10.4 12/11 /2016 [place] HEMATOLOGY MCHC 33.2 g/dL 32.0 - 12/11 MH 36.0 [place] HEMATOLOGY Hct 37.7 % 36.0 - 12/11 MH 48.0 [place] HEMATOLOGY MCV 89.6 fL 80.0 - 12/11 MH 98.0 [place] HEMATOLOGY MCH 29.7 pg 27.0 - 12/11 MH 31.0 [place] HEMATOLOGY RBC X 10x6 4.21 M/CMM 4.20 - 12/11 MH 5.40 /2016 [place] HEMATOLOGY Platelet 170 K/CMM 133 - 450 12/11 /2016 [place] BLOOD BANK ABO/Rh A POS 12/11 RESULTS /2016 [place] BLOOD BANK Antibody Negative 12/11 RESULTS Scrn /2016 [place] (12/10/16 11:25 PM) CARDIAC Total CK 115 unit/L 12 - 191 12/11 MH ENZYMES /2016 [place] ELECTROLYTE AGAP 11.3 meq/L 10.0 - 12/11 MH S 20.0 [place] ELECTROLYTE B/C Ratio 22 6 - 25 12/11 S [place] ELECTROLYTE Globulin 3.3 g/dL 2.7 - 4.2 12/11 S [place] ELECTROLYTE A/G Ratio 1.2 0.7 - 1.6 12/11 S [place] ELECTROLYTE eGFR 86 12/11 Result Comment: The eGFR is calculated using the CKD-EPI formula. In most young, healthy individuals the eGFR will be >90 mL/ min/1.73m2. The eGFR declines with age. An eGFR of 60-89 may be normal in mL/min/1.7 /2016 some populations, particularly the elderly, for whom the CKD-EPI formula has not been extensively validated. Use of the eGFR is not recommended in the following populations: [address] Individuals with unstable creatinine concentrations, including [...] 18 unit/L 0 - 37 12/11 S [place] ELECTROLYTE Chloride Lvl 108 meq/L 95 - 109 12/11 S [place] ELECTROLYTE CO2 27 meq/L 24 - 32 12/11 S [place] ELECTROLYTE Calcium Lvl 8.9 mg/dL 8.5 - 10.5 12/11 S [place] ELECTROLYTE Bili Total 0.6 mg/dL 0.2 - 1.3 12/11 S [place] ELECTR[facility] Total 7.2 g/dL 6.4 - 8.4 12/11 S Protein [place] ELECTR[facility] ALANINE 35 unit/L 0 - 65 12/11 S AMINOTRANSFE [place] [facility] ELECTROLYTE Sodium Lvl 142 meq/L 135 - 145 12/11 S [place] ELECTR[facility] Potassium 4.3 meq/L 3.5 - 5.1 12/11 S Lvl [place] ELECTROLY[facility] Creatinine 0.74 mg/dL 0.50 - 12/11 S Lvl 1.40 [place] [facility]LECT[facility] Alk Phos 113 unit/L 39 - 136 12/11 S [place] [facility]LECT[facility] Glucose Lvl 151 mg/dL 70 - 99 12/11 S [place] [facility] BUN 16 mg/dL 7 - 22 12/11 S [place] ELECTR[facility] Albumin Lvl 3.9 g/dL 3.5 - 5.0 12/11 S [place] HEMATOLOGY Basophils 0.2 % 0.0 - 1.0 12/11 [place] HEMATOLOGY Monocytes # 0.4 K/CMM 0.0 - 0.8 12/11 [place] HEMATOLOG[facility] Segs-Bands # 5.5 K/CMM 1.5 - 8.1 12/11 [place] HEMATOLOG[facility] Lymphocytes 0.5 K/CMM 1.0 - 5.5 12/11 MH # /2017 [place] HEMATOLOGY Lymphocytes 8.4 % 20.0 - 12/11 MH 40.0 /2016 [place] [facility] Monocytes 6.1 % 2.0 - 12.0 12/11 [place] [facility] Eosinophils 0.2 % 0.0 - 4.0 12/11 [place] [facility] Segs 85.1 % 45.0 - 12/11 MH 75.0 [place] [facility] aPTT 24.3 s 22.9 - 12/11 MH 35.8 [place] [facility] PROTIME 11.9 s 12.0 - 12/11 MH 14.7 [place] [facility] INR 0.86 0.85 - 12/11 MH 1. [place] Femur Femur series EXAM: XR LEFT FEMUR, 2 VIEWS 12/10 - [facility] series DX DX /2016 - [place] DATE: 12/10/2016 7:21 PM CDT Read by: [...] fracture of the left femoral neck. 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 Additional Observers: Franklyn Burns M.D. hh/lashaun:06/16/2016 15:06:15 Video Games Mechanic: Macy URIARTE(Linnea)(M), [facility] Outpatient Imaging Department This exam was dictated and interpreted by [id number] for [facility]. letter sent: Normal [place] Mammogram BI-RADS: 2 Benign Vital Signs Vital Sign Value Date Comments Source Weight 77.273 2018 [facility] BMI Calculated 23.1 2018 [facility] Height 182.88 cm 2018 [facility] Heart Rate 81 12/15/2016 [facility] Temperature Oral (F) 98.3 F 12/15/2016 [facility] Respitory Rate 18 12/15/2016 [facility] Systolic (mm Hg) 133 12/15/2016 [facility] Diastolic (mm Hg) 79 12/15/2016 [facility] Respitory Rate 18 12/15/2016 [facility] Heart Rate 96 12/15/2016 [facility] Systolic (mm Hg) 140 12/15/2016 [facility] Diastolic (mm Hg) 78 12/15/2016 [facility] Temperature Oral (F) 98.0 F 12/15/2016 [facility] Respitory Rate 18 12/15/2016 [facility] Temperature Oral (F) 97.7 F 12/15/2016 [facility] Systolic (mm Hg) 144 12/15/2016 [facility] Diastolic (mm Hg) 80 12/15/2016 [facility] Heart Rate 93 12/15/2016 [facility] Height 182.88 cm 12/11/2016 [facility] Weight 88.091 12/11/2016 [facility] BMI Calculated 26.34 12/11/2016 [facility] Weight 81.818 12/10/2016 [facility] BMI Calculated 24.46 12/10/2016 [facility] Height 182.88 cm 12/10/2016 [facility] Encounters Location Location Encounter Encounter Reason Attending ADM DC Status Source Details Type Number For Provider Date Date Visit Outpatient [id number] [facility]UL[facility]18 [facility] [id number] JULIA 06/03 [facility] Outpatient [id number] Elizabeth Michael 06/16 06/17 [facility] Out[facility] Outpt Diag [id number] Elizabeth Michael 06/16 06/17 [facility] [id number] JULIA 10/14 [facility] [place] Outpatient [id number] JULIA 10/23 [facility] Outpatient [id number] ABRAR 12/03 [id number] Coryadijat 12/10 12/16 [place] 1 [place] /2016 [facility] OP Therapy [id number] Manfred Junie 12/22 01/21 [facility] OP Therapy [id number] Manfred Junie 01/21 02/20 [facility] [id number] Manfred Junie 03/25 03/26 [facility] Outpt Diag [id number] Manfred Junie 05/23 05/23 [facility] Outpatient [id number] Dominique 12/06 12/07 [facility] 0 [facility] Procedures Procedure Code Date Perfomer Comments Source Arthrocentesis, 03/25/2018 [facility] aspiration and/or [facility] injection, major joint or bursa (eg, shoulder, hip, knee, subacromial bursa); with ultrasound guidance, with permanent recording and reporting Breast [id number] 07/26/1994 removal of OPI cancer<sup>1</sup> right breast [facility] Breast [id number] 07/26/1994 removal of [facility] cancer<sup>1</sup> right breast Breast [id number] 07/26/1994 removal of [facility] cancer<sup>1</sup> right breast [facility] Mastectomy [id number] [facility] Mastectomy [id number] [facility] Mastectomy [id number] [facility] [place] Finger operation [id number] [facility] Hip replacement [id number] [facility] Finger operation [id number] [facility] Hip replacement [id number] [facility] [place]
--- OUTSIDE RECORDS SUMMARY | 2018-12-11 11:05 | XMS REPORT | Summary of Care ---
:1950 Author Organization [facility] Outpatient Imaging [facility] Address [address] [place], [place] [address]- Encounter HQ Elaine_feliciano(FIN) [id number] Date(s): 05/23/18 - 05/23/18 [facility] [address] [place] [phone]- [phone] Attending Physician: Manfred Zaman MD Referring Physician: Manfred Zaman MD Vital Signs No data available for this section Problem List Condition Effective Dates Status Health Status Informant Kidney disease(Confirmed) Active Breast cancer(Confirmed) Resolved Chicken pox(Confirmed) Resolved Allergies, Adverse Reactions, Alerts No Known Allergies Medications No data available for this section Results No data available for this section Immunizations No data available for this section Procedures Procedure Date Related Diagnosis Body Site Status Breast cancer1 07/26/94 Completed Finger operation Completed Hip replacement Completed Mastectomy Completed 1removal of right breast Social History Social History Type Response Substance Abuse Use: None. Alcohol Never Smoking Status Never smoker; Exposure to Tobacco Smoke None; Cigarette Smoking Last 365 Days No; Reg Smoking Cessation Counseling No entered on: 12/06/18 Assessment and Plan No data available for this section
--- OUTSIDE RECORDS SUMMARY | 2018-12-11 11:06 | XMS REPORT ---
:1950 [facility] Address [address] [place] [address] [address] [place] [address] Care Team Providers Name Role Phone CARLOS HUNT Unavailable Unavailable Problems This patient has no known problems. Allergies, Adverse Reactions, Alerts This patient has no known allergies or adverse reactions. Medications This patient has no known medications. Encounters Start End Encounter Admission Attending Care Care Encounter Date/Time Date/Time Type Type Clinicians Facility Department ID 2018 2018 Outpatient [facility] MED 7500 07:24:00 07:24:00 Results Test Description Test Time Test Comments Text Results Atomic Results Result Comments FINE NEEDLE 2018-11-29 Medical Cytology Report ASPIRATION BY 15:36:00 Case: [id number] CLINICIAN Authorizing Provider: Emelyn Horta Collected: 11/04/2018 Megan Woodard MD Ordering Location: [address] Received: 11/07/2018 1148 SERVICE Pathologist: Eric Flower MD Specimen: Liver REASON FOR ADDENDUM: TO REPORT ADDITIONAL IMMUNOSTAINS.RESULT:SOILA-3 IMMUNOSTAIN: NEGATIVE (PATCHY/WEAK)MAMMOGLOBIN: NEGATIVETissue will be sent for PDL-1 as per the request of the clinician.CPT code:[id number] electronically signed by Tresa Lanier MD on 11/29/2018 at 3:36 PMFOCAL LIVER LESIONS, FNA BY CLINICIAN (CYTOSPINS AND CELL BLOCK OF ASPIRATE): - POSITIVE FOR MALIGNANCY - METASTATIC ADENOCARCINOMA Signing Pathologist Direct Phone Line: [phone] signed by Eric Flower MD on 11/08/2018 at 1:16 PMThe tumor cells show the same morphologic appearance as the adenocarcinoma in the pancreas.Please also see surgical pathology report [id number] and cytopathology reports [id number] and 993. 82871, 18535Ippth liver lesions; pancreatic mass invading vein and liver; hepatobiliary obstruction; elevated LFTs; h/o breast cancer s/p Chemo/XRT and right mastectomyFOCAL LIVER LESIONS FNAPrepared cell block(A2) and 4 cytospins from 15 ml cytorich red fixative sampleCollected: [id number]: [id number] [facility], Department of Pathology, [address] [place] [address], [facility]tfned[facility], [facility] of [facility]ology, [address] [place] [address], LuknldPacific [facility], Department of Pathology, [address] [place] [address], TISSUE EXAM 2018-11-10 Surgical Pathology Report 14:07:00 Case: [id number] Authorizing Provider: Emelyn Horta Collected: 11/04/2018 Ad Woodard MD Ordering Location: [address] Received: 11/07/2018 0808 SERVICE Pathologist: Tresa Lanier MD Specimen: Pancreas, Head, fine needle aspirate of mass in formulin A. PANCREAS, HEAD MASS, FNA GUIDED BIOPSY: - INVASIVE POORLY DIFFERENTIATED ADENOCARCINOMA (SEE COMMENT) Signing Pathologist Direct Phone Line: [phone] signed by Tresa Lanier MD on 11/10/2018 [...] mammaglobin are negative.IDC: Dr. Pedro Pablo Umana concurs.[id number] ncreatic massPancreas head fine needle aspirate of [...] stains. Immunohistochemistry technical testing was performed at [facility], Pathology Laboratory where it was developed and [...] FINAL REPORT PATIENT ID: LIMITED 18:07:00 exam:->please [id number] Limited abdominal biopsy liver ultrasound Technique/findings: masses [...] MDReport Verified Date/Time: 11/09/2018 18:07:18 Reading Location: [address] Ultrasound Reading Room HROMBIN TIME/INR 2018-11-09 11:59:00 Test Item Value Reference Range Comments PROTIME (BEAKER) (test hhgv=067) 13.3 seconds 11.7-14.7 INR (BEAKER) (test wger=356) 1.0 <=5.9 RECOMMENDED COUMADIN/WARFARIN INR THERAPY RANGESSTANDARD DOSE: 2.0 - 3.0 Includes: PROPHYLAXIS forvenous thrombosis, systemic embolization; TREATMENT for venous thrombosis and/or pulmonary embolus.HIGH RISK: Target INR is 2.5-3.5 for patients with mechanical heart valves.HEPATIC FUNCTION [id number] 05:41 :00 Test Item Value Reference Range Comments TOTAL PROTEIN (BEAKER) (test scab=108) 6.0 gm/dL 6.0-8.3 ALBUMIN (BEAKER) (test hayx=7257) 3.3 g/dL 3.5-5.0 BILIRUBIN TOTAL (BEAKER) (test hphr=072) 0.7 mg/dL 0.2-1.2 BILIRUBIN DIRECT (BEAKER) (test fwhj=480) 0.5 mg/dL 0.1-0.5 ALKALINE PHOSPHATASE (BEAKER) (test wneb=573) 301 U/L 40-150 AST (SGOT) (BEAKER) (test yzyf=706) 20 U/L 5-34 ALT (SGPT) (BEAKER) (test jliq=383) 112 U/L 6-55 BASIC METABOLIC [id number] 05:41:00 Test Item Value Reference Range Comments SODIUM (BEAKER) (test 131 meq/L 136-145 mfbt=014) POTASSIUM (BEAKER) (test 4.6 meq/L 3.5-5.1 nsaa=993) CHLORIDE (BEAKER) (test 97 meq/L 98-107 gbon=069) CO2 (BEAKER) (test 26 meq/L 22-29 mzye=996) BLOOD UREA NITROGEN 24 mg/dL 7-21 (BEAKER) (test zmyx=403) CREATININE (BEAKER) (test 0.75 mg/dL 0.57-1.25 oklr=312) GLUCOSE RANDOM (BEAKER) 157 mg/dL 70-105 (test dxjy=142) CALCIUM (BEAKER) (test 8.7 mg/dL 8.4-10.2 ykwp=866) EGFR (BEAKER) (test 77 mL/min/1.73 sq m ESTIMATED GFR IS NOT ruyb=8827) ACCURATE CREATININE CLEARANCE IN PREDICTING GLOMERULAR FILTRATION RATE. ESTIMATED GFR IS NOT APPLICABLE FOR DIALYSIS PATIENTS. CBC W/PLT COUNT & AUTO [id number] 05:15:00 Test Item Value Reference Range Comments WHITE BLOOD CELL COUNT (BEAKER) (test asot=800) 4.7 K/ L 3.5-10.5 RED BLOOD CELL COUNT (BEAKER) (test gjgt=824) 4.02 M/ L 3.93-5.22 HEMOGLOBIN (BEAKER) (test uugb=140) 11.7 GM/DL 11.2-15.7 HEMATOCRIT (BEAKER) (test umog=992) 37.3 % 34.1-44.9 MEAN CORPUSCULAR VOLUME (BEAKER) (test pffw=409) 92.8 fL 79.4-94.8 MEAN CORPUSCULAR HEMOGLOBIN (BEAKER) (test 29.1 pg 25.6-32.2 xcrt=545) MEAN CORPUSCULAR HEMOGLOBIN CONC (BEAKER) (test 31.4 GM/DL 32.2-35.5 ybqn=119) RED CELL DISTRIBUTION WIDTH (BEAKER) (test 13.4 % 11.7-14.4 obkm=213) PLATELET COUNT (BEAKER) (test ntyd=610) 252 K/CU MM 150-450 MEAN PLATELET VOLUME (BEAKER) (test rafc=969) 9.2 fL 9.4-12.3 NUCLEATED RED BLOOD CELLS (BEAKER) (test 0 /100 WBC 0-0 ramf=993) NEUTROPHILS RELATIVE PERCENT (BEAKER) (test 69 % nkcq=909) LYMPHOCYTES RELATIVE PERCENT (BEAKER) (test 17 % qpuo=489) MONOCYTES RELATIVE PERCENT (BEAKER) (test 13 % wyrl=265) EOSINOPHILS RELATIVE PERCENT (BEAKER) (test 1 % rply=044) BASOPHILS RELATIVE PERCENT (BEAKER) (test 0 % purt=341) NEUTROPHILS ABSOLUTE COUNT (BEAKER) (test 3.25 K/ L 1.56-6.13 gldl=700) LYMPHOCYTES ABSOLUTE COUNT (BEAKER) (test 0.79 K/ L 1.18-3.74 rete=948) MONOCYTES ABSOLUTE COUNT (BEAKER) (test 0.62 K/ L 0.24-0.36 wrtf=182) EOSINOPHILS ABSOLUTE COUNT (BEAKER) (test 0.05 K/ L 0.04-0.36 duxa=161) BASOPHILS ABSOLUTE COUNT (BEAKER) (test 0.01 K/ L 0.01-0.08 ylod=601) IMMATURE GRANULOCYTES-RELATIVE PERCENT (BEAKER) 0 % 0-1 (test povg=2069) CT, CHEST, WITH [id number] 16:30:00FINAL REPORT CT of the Chest, abdomen [...] Melgar MDReport Verified Date/Time: 11/08/2018 16:30:42Reading Location: [facility] B1 C013Y CT Body Reading Room 04: 30 PMCT, ABDOMEN - PELVIS, PANCREAS [id number] 16:30:00Reason for exam :->evaluation of pancreatic cancer.FINAL [...] Sosa Melgarort Verified Date/Time: 11/08/2018 16:30:42Reading Location: [facility] B1 C013Y CT Body Reading Room 04: 30 [id number] 13:12:00Medical Cytology Report Case: [id number] Authorizing Provider: Emelyn Horta Collected: 11/04/2018 173Yanelis Woodard MD OrderingLocation: [address] Received: 2018 1148 SERVICE Pathologist: Eric Flower MD Specimen: Common Bile Duct COMMON BILE DUCT BRUSHING (CYTOSPINS): - SUSPICIOUS FOR MALIGNANCY Signing Pathologist Direct Phone Line: [phone] signed by Eric Flower MD on 11/08/2018 at 1:12 PMPlease also see surgical pathology report [id number] and cytopathology reports [id number] and 992. 03711Wwdqk liver lesions; pancreatic mass invading vein and liver; hepatobiliary obstruction; elevated LFTs; h/o breast cancer s/p Chemo/XRT and right mastectomyCOMMON BILE DUCT BRUSHING Prepared 2 cytospins from 1 brush tip collected in 15 ml cytorich red fixativeCollected: [id number]: [id number] [facility], Department of Pathology, [address] [place] [address], PtziitPacific [facility], Department of Pathology, [address] [place] [address] , DsjhxrPacific [facility], Department of Pathology, [address] [place] [address], ULDV NEEDLE ASPIRATION BY [id number] 13:10:00Medical Cytology Report Case: [id number] Authorizing Provider: Emelyn Horta Collected: 11/04/2018 1655 MD Vance OrderingLocation: [address] Received: 2018 1148 SERVICE Pathologist: Eric Flower MD Specimen: Pancreas, Head HEAD OF PANCREAS MASS, FNA BY CLINICIAN (CYTOSPINS AND CELL BLOCK OF ASPIRATE): - POSITIVE FOR MALIGNANCY - ADENOCARCINOMA, DUCTAL TYPE Signing Pathologist Direct Phone Line: [phone] signed by Eric Flower MD on 11/08/2018 at 1:10 PMPlease also see surgical pathology report [id number] and cytopathology reports [id number] and 993. 97315, 79[address]Gpvps liver lesions; pancreatic mass invading vein and liver; hepatobiliary obstruction; elevated LFTs; h/o breast cancer s/p Chemo/XRT and right mastectomyHEAD OF PANCREAS MASS FNAPrepared cell block(A2) and 4 cytospins from 18 ml cytorich red fixative sampleCollected: [id number]: [id number] [facility], [facility] of [facility]ology, [address] [place] [address], TaphuuPacific [facility], Department of Pathology, [address] [place] [address], Tel RPacific [facility], Department of Pathology, [address] [place] [address], BRC, ABDOMEN/KUB, 1 VIEW [id number] 11:16:00Reason for exam:->ConstipationFINAL REPORT Abdomen one view [...] MDReport Verified Date/Time: 11/08/2018 11:16:58 Reading Location: [facility] Radiology Reading Room 11: 16 AMHEPATIC FUNCTION [id number] 06:24:00 Test Item Value Reference Range Comments TOTAL PROTEIN (BEAKER) (test mztm=554) 6.2 gm/dL 6.0-8.3 ALBUMIN (BEAKER) (test hfku=8037) 3.5 g/dL 3.5-5.0 BILIRUBIN TOTAL (BEAKER) (test shlu=433) 0.7 mg/dL 0.2-1.2 BILIRUBIN DIRECT (BEAKER) (test ggqk=119) 0.5 mg/dL 0.1-0.5 ALKALINE PHOSPHATASE (BEAKER) (test wwwd=336) 330 U/L 40-150 AST (SGOT) (BEAKER) (test ufjy=168) 40 U/L 5-34 ALT (SGPT) (BEAKER) (test mlkq=526) 170 U/L 6-55 BASIC METABOLIC [id number] 06:24:00 Test Item Value Reference Range Comments SODIUM (BEAKER) (test 138 meq/L 136-145 rrdj=291) POTASSIUM (BEAKER) (test 3.9 meq/L 3.5-5.1 tbqs=233) CHLORIDE (BEAKER) (test 103 meq/L 98-107 jjwh=110) CO2 (BEAKER) (test 26 meq/L 22-29 yffr=684) BLOOD UREA NITROGEN 21 mg/dL 7-21 (BEAKER) (test yoio=336) CREATININE (BEAKER) (test 0.73 mg/dL 0.57-1.25 bmjz=350) GLUCOSE RANDOM (BEAKER) 119 mg/dL 70-105 (test oixz=950) CALCIUM (BEAKER) (test 9.4 mg/dL 8.4-10.2 vppo=372) EGFR (BEAKER) (test 80 mL/min/1.73 sq m ESTIMATED GFR IS NOT lsgd=4864) ACCURATE CREATININE CLEARANCE IN PREDICTING GLOMERULAR FILTRATION RATE. ESTIMATED GFR IS NOT APPLICABLE FOR DIALYSIS PATIENTS. CBC W/PLT COUNT & AUTO [id number] 06:10:00 Test Item Value Reference Range Comments WHITE BLOOD CELL COUNT (BEAKER) (test dvtm=103) 4.8 K/ L 3.5-10.5 RED BLOOD CELL COUNT (BEAKER) (test jsyi=057) 4.63 M/ L 3.93-5.22 HEMOGLOBIN (BEAKER) (test mhak=096) 13.4 GM/DL 11.2-15.7 HEMATOCRIT (BEAKER) (test jaqf=261) 44.6 % 34.1-44.9 MEAN CORPUSCULAR VOLUME (BEAKER) (test dmkc=591) 96.3 fL 79.4-94.8 MEAN CORPUSCULAR HEMOGLOBIN (BEAKER) (test 28.9 pg 25.6-32.2 fhwp=256) MEAN CORPUSCULAR HEMOGLOBIN CONC (BEAKER) (test 30.0 GM/DL 32.2-35.5 iqky=167) RED CELL DISTRIBUTION WIDTH (BEAKER) (test 13.5 % 11.7-14.4 skar=668) PLATELET COUNT (BEAKER) (test xjfl=749) 218 K/CU MM 150-450 MEAN PLATELET VOLUME (BEAKER) (test hoil=885) 9.6 fL 9.4-12.3 NUCLEATED RED BLOOD CELLS (BEAKER) (test 0 /100 WBC 0-0 nobl=903) NEUTROPHILS RELATIVE PERCENT (BEAKER) (test 63 % iyqe=089) LYMPHOCYTES RELATIVE PERCENT (BEAKER) (test 23 % zfmp=009) MONOCYTES RELATIVE PERCENT (BEAKER) (test 12 % lrao=132) EOSINOPHILS RELATIVE PERCENT (BEAKER) (test 1 % uzan=241) BASOPHILS RELATIVE PERCENT (BEAKER) (test 0 % hmfu=681) NEUTROPHILS ABSOLUTE COUNT (BEAKER) (test 3.06 K/ L 1.56-6.13 gwtx=248) LYMPHOCYTES ABSOLUTE COUNT (BEAKER) (test 1.13 K/ L 1.18-3.74 cibr=608) MONOCYTES ABSOLUTE COUNT (BEAKER) (test 0.56 K/ L 0.24-0.36 kmlc=766) EOSINOPHILS ABSOLUTE COUNT (BEAKER) (test 0.06 K/ L 0.04-0.36 ubzb=017) BASOPHILS ABSOLUTE COUNT (BEAKER) (test 0.01 K/ L 0.01-0.08 nrrx=855) IMMATURE GRANULOCYTES-RELATIVE PERCENT (BEAKER) 0 % 0-1 (test noak=6294) TROPONIN [id number] 17:36:00 Test Item Value Reference Range Comments TROPONIN I (BEAKER) (test nijx=426) < ng/mL 0.00-0.03 Troponin I (TnI) levels [...] acidosis, acute neurological disease, and persistent tachyarrhythmia.CYTOLOGY [id number] 13:00:00 Test Item Value Reference Range Comments CYTOLOGY RESULT POINTER (BEAKER) (test See Separate Report ejet=2625) FINE NEEDLE ASPIRATE (FNA) [id number] 13:00:00 Test Item Value Reference Range Comments CYTOLOGY RESULT POINTER (BEAKER) (test See Separate Report fekj=8744) FINE NEEDLE ASPIRATE (FNA) [id number] 13:00:00 Test Item Value Reference Range Comments CYTOLOGY RESULT POINTER (BEAKER) (test See Separate Report demd=8220) CARCINOEMBRYONIC ANTIGEN (CEA)2018-11-07 12:05:00 Test Item Value Reference Range Comments CARCINOEMBRYONIC ANTIGEN (BEAKER) (test muet=808) 2.6 ng/mL 0.0-5.0 HEPATIC FUNCTION [id number] 07:29:00 Test Item Value Reference Range Comments TOTAL PROTEIN (BEAKER) (test tmrn=547) 6.5 gm/dL 6.0-8.3 ALBUMIN (BEAKER) (test zlhr=2963) 3.6 g/dL 3.5-5.0 BILIRUBIN TOTAL (BEAKER) (test lkeo=915) 0.8 mg/dL 0.2-1.2 BILIRUBIN DIRECT (BEAKER) (test fzka=261) 0.6 mg/dL 0.1-0.5 ALKALINE PHOSPHATASE (BEAKER) (test folg=513) 377 U/L 40-150 AST (SGOT) (BEAKER) (test oujh=424) 54 U/L 5-34 ALT (SGPT) (BEAKER) (test iqkj=725) 239 U/L 6-55 BASIC METABOLIC [id number] 07:29:00 Test Item Value Reference Range Comments SODIUM (BEAKER) (test 137 meq/L 136-145 aoyd=026) POTASSIUM (BEAKER) (test 4.1 meq/L 3.5-5.1 nxtd=788) CHLORIDE (BEAKER) (test 102 meq/L 98-107 xotn=093) CO2 (BEAKER) (test 26 meq/L 22-29 xbdw=771) BLOOD UREA NITROGEN 15 mg/dL 7-21 (BEAKER) (test oxyr=834) CREATININE (BEAKER) (test 0.76 mg/dL 0.57-1.25 cqeq=048) GLUCOSE RANDOM (BEAKER) 134 mg/dL 70-105 (test lxnr=808) CALCIUM (BEAKER) (test 9.8 mg/dL 8.4-10.2 wbao=316) EGFR (BEAKER) (test 76 mL/min/1.73 sq m ESTIMATED GFR IS NOT chkt=0288) ACCURATE CREATININE CLEARANCE IN PREDICTING GLOMERULAR FILTRATION RATE. ESTIMATED GFR IS NOT APPLICABLE FOR DIALYSIS PATIENTS. CBC W/PLT COUNT & AUTO [id number] 06:59:00 Test Item Value Reference Range Comments WHITE BLOOD CELL COUNT (BEAKER) (test eygz=936) 5.3 K/ L 3.5-10.5 RED BLOOD CELL COUNT (BEAKER) (test cscz=726) 4.18 M/ L 3.93-5.22 HEMOGLOBIN (BEAKER) (test jcqb=144) 12.4 GM/DL 11.2-15.7 HEMATOCRIT (BEAKER) (test crrr=242) 37.9 % 34.1-44.9 MEAN CORPUSCULAR VOLUME (BEAKER) (test docb=670) 90.7 fL 79.4-94.8 MEAN CORPUSCULAR HEMOGLOBIN (BEAKER) (test 29.7 pg 25.6-32.2 vrld=075) MEAN CORPUSCULAR HEMOGLOBIN CONC (BEAKER) (test 32.7 GM/DL 32.2-35.5 nmgk=320) RED CELL DISTRIBUTION WIDTH (BEAKER) (test 13.4 % 11.7-14.4 mval=972) PLATELET COUNT (BEAKER) (test qkzn=471) 223 K/CU MM 150-450 MEAN PLATELET VOLUME (BEAKER) (test tpvl=997) 9.4 fL 9.4-12.3 NUCLEATED RED BLOOD CELLS (BEAKER) (test 0 /100 WBC 0-0 dytw=244) NEUTROPHILS RELATIVE PERCENT (BEAKER) (test 76 % utco=988) LYMPHOCYTES RELATIVE PERCENT (BEAKER) (test 14 % ovqj=021) MONOCYTES RELATIVE PERCENT (BEAKER) (test 9 % dqjt=128) EOSINOPHILS RELATIVE PERCENT (BEAKER) (test 1 % jmdj=426) BASOPHILS RELATIVE PERCENT (BEAKER) (test 0 % vgyg=966) NEUTROPHILS ABSOLUTE COUNT (BEAKER) (test 3.97 K/ L 1.56-6.13 piqm=618) LYMPHOCYTES ABSOLUTE COUNT (BEAKER) (test 0.76 K/ L 1.18-3.74 zogt=527) MONOCYTES ABSOLUTE COUNT (BEAKER) (test 0.46 K/ L 0.24-0.36 lorf=370) EOSINOPHILS ABSOLUTE COUNT (BEAKER) (test 0.04 K/ L 0.04-0.36 zhre=860) BASOPHILS ABSOLUTE COUNT (BEAKER) (test 0.01 K/ L 0.01-0.08 hkwx=094) IMMATURE GRANULOCYTES-RELATIVE PERCENT (BEAKER) 0 % 0-1 (test piui=9189) HEPATIC FUNCTION [id number] 07:57:00 Test Item Value Reference Range Comments TOTAL PROTEIN (BEAKER) (test ukvu=698) 6.5 gm/dL 6.0-8.3 ALBUMIN (BEAKER) (test dwrj=3712) 3.6 g/dL 3.5-5.0 BILIRUBIN TOTAL (BEAKER) (test nhvt=220) 0.9 mg/dL 0.2-1.2 BILIRUBIN DIRECT (BEAKER) (test unww=683) 0.6 mg/dL 0.1-0.5 ALKALINE PHOSPHATASE (BEAKER) (test chvz=005) 410 U/L 40-150 AST (SGOT) (BEAKER) (test qumx=174) 72 U/L 5-34 ALT (SGPT) (BEAKER) (test renq=172) 321 U/L 6-55 BASIC METABOLIC [id number] 07:41:00 Test Item Value Reference Range Comments SODIUM (BEAKER) (test 136 meq/L 136-145 xrkm=911) POTASSIUM (BEAKER) (test 3.8 meq/L 3.5-5.1 Specimen slightly gmvq=886) hemolyzed CHLORIDE (BEAKER) (test 103 meq/L 98-107 lphb=119) CO2 (BEAKER) (test 24 meq/L 22-29 nhcq=154) BLOOD UREA NITROGEN 11 mg/dL 7-21 (BEAKER) (test xdex=068) CREATININE (BEAKER) (test 0.66 mg/dL 0.57-1.25 Specimen slightly qzhq=362) hemolyzed GLUCOSE RANDOM (BEAKER) 125 mg/dL 70-105 (test zvdb=178) CALCIUM (BEAKER) (test 9.3 mg/dL 8.4-10.2 zbag=745) EGFR (BEAKER) (test 90 mL/min/1.73 sq m ESTIMATED GFR IS NOT zdhm=8147) ACCURATE CREATININE CLEARANCE IN PREDICTING GLOMERULAR FILTRATION RATE. ESTIMATED GFR IS NOT APPLICABLE FOR DIALYSIS PATIENTS. CBC W/PLT COUNT & AUTO [id number] 06:24:00 Test Item Value Reference Range Comments WHITE BLOOD CELL COUNT (BEAKER) (test kkzr=677) 5.7 K/ L 3.5-10.5 RED BLOOD CELL COUNT (BEAKER) (test ytkw=785) 4.28 M/ L 3.93-5.22 HEMOGLOBIN (BEAKER) (test thtv=616) 12.6 GM/DL 11.2-15.7 HEMATOCRIT (BEAKER) (test azms=150) 39.6 % 34.1-44.9 MEAN CORPUSCULAR VOLUME (BEAKER) (test sowc=953) 92.5 fL 79.4-94.8 MEAN CORPUSCULAR HEMOGLOBIN (BEAKER) (test 29.4 pg 25.6-32.2 vgjl=903) MEAN CORPUSCULAR HEMOGLOBIN CONC (BEAKER) (test 31.8 GM/DL 32.2-35.5 ipcj=074) RED CELL DISTRIBUTION WIDTH (BEAKER) (test 13.7 % 11.7-14.4 pvbw=631) PLATELET COUNT (BEAKER) (test pazq=627) 236 K/CU MM 150-450 MEAN PLATELET VOLUME (BEAKER) (test qzwx=372) 9.6 fL 9.4-12.3 NUCLEATED RED BLOOD CELLS (BEAKER) (test 0 /100 WBC 0-0 rxdt=046) NEUTROPHILS RELATIVE PERCENT (BEAKER) (test 80 % qxey=094) LYMPHOCYTES RELATIVE PERCENT (BEAKER) (test 11 % jpwq=773) MONOCYTES RELATIVE PERCENT (BEAKER) (test 8 % uqwg=584) EOSINOPHILS RELATIVE PERCENT (BEAKER) (test 1 % brbk=354) BASOPHILS RELATIVE PERCENT (BEAKER) (test 0 % hjdf=294) NEUTROPHILS ABSOLUTE COUNT (BEAKER) (test 4.54 K/ L 1.56-6.13 ihvw=619) LYMPHOCYTES ABSOLUTE COUNT (BEAKER) (test 0.63 K/ L 1.18-3.74 rvkp=532) MONOCYTES ABSOLUTE COUNT (BEAKER) (test 0.45 K/ L 0.24-0.36 lhfx=355) EOSINOPHILS ABSOLUTE COUNT (BEAKER) (test 0.05 K/ L 0.04-0.36 cvjs=328) BASOPHILS ABSOLUTE COUNT (BEAKER) (test 0.01 K/ L 0.01-0.08 jmic=268) IMMATURE GRANULOCYTES-RELATIVE PERCENT (BEAKER) 0 % 0-1 (test jfsm=9188) [id number] 06:07:00 Test Item Value Reference Range Comments PHOSPHORUS (BEAKER) (test qgua=989) 2.7 mg/dL 2.3-4.7 [id number] 06:07:00 Test Item Value Reference Range Comments MAGNESIUM (BEAKER) (test fwpm=202) 1.9 mg/dL 1.6-2.6 BASIC METABOLIC [id number] 06:07:00 Test Item Value Reference Range Comments SODIUM (BEAKER) (test 139 meq/L 136-145 pkwa=261) POTASSIUM (BEAKER) (test 4.0 meq/L 3.5-5.1 fkqj=802) CHLORIDE (BEAKER) (test 109 meq/L 98-107 brtl=500) CO2 (BEAKER) (test 19 meq/L 22-29 odvi=567) BLOOD UREA NITROGEN 13 mg/dL 7-21 (BEAKER) (test yjce=033) CREATININE (BEAKER) (test 0.63 mg/dL 0.57-1.25 olms=766) GLUCOSE RANDOM (BEAKER) 114 mg/dL 70-105 (test xyog=848) CALCIUM (BEAKER) (test 8.9 mg/dL 8.4-10.2 hrum=585) EGFR (BEAKER) (test 95 mL/min/1.73 sq m ESTIMATED GFR IS NOT jpta=8781) ACCURATE CREATININE CLEARANCE IN PREDICTING GLOMERULAR FILTRATION RATE. ESTIMATED GFR IS NOT APPLICABLE FOR DIALYSIS PATIENTS. HEPATIC FUNCTION [id number] 06:07:00 Test Item Value Reference Range Comments TOTAL PROTEIN (BEAKER) (test jmrp=842) 6.1 gm/dL 6.0-8.3 ALBUMIN (BEAKER) (test bdnx=3839) 3.5 g/dL 3.5-5.0 BILIRUBIN TOTAL (BEAKER) (test pypm=824) 1.3 mg/dL 0.2-1.2 BILIRUBIN DIRECT (BEAKER) (test mhwf=369) 0.9 mg/dL 0.1-0.5 ALKALINE PHOSPHATASE (BEAKER) (test russ=033) 419 U/L 40-150 AST (SGOT) (BEAKER) (test lrbo=923) 121 U/L 5-34 ALT (SGPT) (BEAKER) (test hcgz=136) 418 U/L 6-55 CALCIUM, [id number] 05:42:00 Test Item Value Reference Range Comments CALCIUM IONIZED (BEAKER) (test hqvg=571) 1.06 mmol/L 1.12-1.27 PH, BLOOD (BEAKER) (test veeg=1633) 7.39 CBC W/PLT COUNT & AUTO [id number] 05:29:00 Test Item Value Reference Range Comments WHITE BLOOD CELL COUNT (BEAKER) (test coii=180) 5.8 K/ L 3.5-10.5 RED BLOOD CELL COUNT (BEAKER) (test kute=018) 4.07 M/ L 3.93-5.22 HEMOGLOBIN (BEAKER) (test roch=924) 11.9 GM/DL 11.2-15.7 HEMATOCRIT (BEAKER) (test ytpv=956) 37.3 % 34.1-44.9 MEAN CORPUSCULAR VOLUME (BEAKER) (test drhu=317) 91.6 fL 79.4-94.8 MEAN CORPUSCULAR HEMOGLOBIN (BEAKER) (test 29.2 pg 25.6-32.2 gncd=426) MEAN CORPUSCULAR HEMOGLOBIN CONC (BEAKER) (test 31.9 GM/DL 32.2-35.5 moji=739) RED CELL DISTRIBUTION WIDTH (BEAKER) (test 13.8 % 11.7-14.4 ldfk=993) PLATELET COUNT (BEAKER) (test awzz=885) 218 K/CU MM 150-450 MEAN PLATELET VOLUME (BEAKER) (test ypmg=618) 9.5 fL 9.4-12.3 NUCLEATED RED BLOOD CELLS (BEAKER) (test 0 /100 WBC 0-0 dicj=569) NEUTROPHILS RELATIVE PERCENT (BEAKER) (test 81 % cuji=517) LYMPHOCYTES RELATIVE PERCENT (BEAKER) (test 9 % hvgm=867) MONOCYTES RELATIVE PERCENT (BEAKER) (test 9 % ksfk=219) EOSINOPHILS RELATIVE PERCENT (BEAKER) (test 1 % xymc=175) BASOPHILS RELATIVE PERCENT (BEAKER) (test 0 % zfep=407) NEUTROPHILS ABSOLUTE COUNT (BEAKER) (test 4.69 K/ L 1.56-6.13 msyl=931) LYMPHOCYTES ABSOLUTE COUNT (BEAKER) (test 0.51 K/ L 1.18-3.74 vshi=833) MONOCYTES ABSOLUTE COUNT (BEAKER) (test 0.51 K/ L 0.24-0.36 btbd=293) EOSINOPHILS ABSOLUTE COUNT (BEAKER) (test 0.04 K/ L 0.04-0.36 wjbt=528) BASOPHILS ABSOLUTE COUNT (BEAKER) (test 0.01 K/ L 0.01-0.08 btfu=108) IMMATURE GRANULOCYTES-RELATIVE PERCENT (BEAKER) 0 % 0-1 (test hzla=3411) FL, [id number] 21:43:00Reason for exam:->Pancreatic head massFINAL REPORT Examination: ERCP 5 fluoroscopic spot views were obtained during the procedure by the ordering service. Images are nondiagnostic as no radiologist was present at the time of imaging. Fluoroscopic time was 71.7 seconds. Please see the procedure report for details. Signed: Rubio Lucas MDReport Verified Date/Time: 11/04/2018 21:43: 27 Reading Location: [address] Reading Room RAD, CHEST, 1 VIEW, NON [id number] 14:08:00Reason for exam:->SOBShould this be performed at [...] MDReport Verified Date/Time: 2018 14:08:49 Reading Location: [facility] Radiology Reading Room CARCINOEMBRYONIC ANTIGEN (CEA)2018-11-04 05:00:00 Test Item Value Reference Range Comments CARCINOEMBRYONIC ANTIGEN (BEAKER) (test jkbg=371) 2.5 ng/mL 0.0-5.0 BASIC METABOLIC [id number] 00:58:00 Test Item Value Reference Range Comments SODIUM (BEAKER) (test 139 meq/L 136-145 jhoa=342) POTASSIUM (BEAKER) (test 3.4 meq/L 3.5-5.1 ciiz=075) CHLORIDE (BEAKER) (test 108 meq/L 98-107 ryks=374) CO2 (BEAKER) (test 22 meq/L 22-29 izev=387) BLOOD UREA NITROGEN 10 mg/dL 7-21 (BEAKER) (test mvib=364) CREATININE (BEAKER) (test 0.74 mg/dL 0.57-1.25 tdmy=838) GLUCOSE RANDOM (BEAKER) 184 mg/dL 70-105 (test scne=884) CALCIUM (BEAKER) (test 8.8 mg/dL 8.4-10.2 rpos=884) EGFR (BEAKER) (test 79 mL/min/1.73 sq m ESTIMATED GFR IS NOT ylzs=3450) ACCURATE CREATININE CLEARANCE IN PREDICTING GLOMERULAR FILTRATION RATE. ESTIMATED GFR IS NOT APPLICABLE FOR DIALYSIS PATIENTS. Specimen slightly ictericGAMMA GLUTAMYL TRANSFERASE (GGT)2018-11-04 00:58:00 Test Item Value Reference Range Comments GAMMA GLUTAMYL TRANSFERASE (BEAKER) (test jtmw=804) 465 U/L 9-64 Specimen slightly ictericHEPATIC FUNCTION [id number] 00:58:00 Test Item Value Reference Range Comments TOTAL PROTEIN (BEAKER) (test vlxu=396) 6.5 gm/dL 6.0-8.3 ALBUMIN (BEAKER) (test zxty=2067) 3.7 g/dL 3.5-5.0 BILIRUBIN TOTAL (BEAKER) (test mcjw=837) 3.0 mg/dL 0.2-1.2 BILIRUBIN DIRECT (BEAKER) (test yrfw=832) 2.3 mg/dL 0.1-0.5 ALKALINE PHOSPHATASE (BEAKER) (test rdwl=633) 462 U/L 40-150 AST (SGOT) (BEAKER) (test azue=299) 211 U/L 5-34 ALT (SGPT) (BEAKER) (test msvz=194) 552 U/L 6-55 Specimen slightly [id number] 00:58:00 Test Item Value Reference Range Comments LIPASE (BEAKER) (test yzsh=610) 34 U/L 8-78 Specimen slightly ictericPROTHROMBIN [id number] 00:37:00 Test Item Value Reference Range Comments PROTIME (BEAKER) (test dnjr=877) 13.5 seconds 11.7-14.7 INR (BEAKER) (test sytg=402) 1.0 <=5.9 RECOMMENDED COUMADIN/WARFARIN INR THERAPY RANGESSTANDARD DOSE: 2.0 - 3.0 Includes: PROPHYLAXIS forvenous thrombosis, systemic embolization; TREATMENT for venous thrombosis and/or pulmonary embolus.HIGH RISK: Target INR is 2.5-3.5 for patients with mechanical heart valves.CBC W/PLT COUNT & AUTO [id number] 00:30:00 Test Item Value Reference Range Comments WHITE BLOOD CELL COUNT (BEAKER) (test xeli=726) 3.7 K/ L 3.5-10.5 RED BLOOD CELL COUNT (BEAKER) (test ccnl=832) 4.04 M/ L 3.93-5.22 HEMOGLOBIN (BEAKER) (test hgbn=062) 11.8 GM/DL 11.2-15.7 HEMATOCRIT (BEAKER) (test wgnu=131) 37.0 % 34.1-44.9 MEAN CORPUSCULAR VOLUME (BEAKER) (test hmcj=095) 91.6 fL 79.4-94.8 MEAN CORPUSCULAR HEMOGLOBIN (BEAKER) (test 29.2 pg 25.6-32.2 ifxl=434) MEAN CORPUSCULAR HEMOGLOBIN CONC (BEAKER) (test 31.9 GM/DL 32.2-35.5 wpbn=362) RED CELL DISTRIBUTION WIDTH (BEAKER) (test 13.5 % 11.7-14.4 tljs=056) PLATELET COUNT (BEAKER) (test mwzw=824) 181 K/CU MM 150-450 MEAN PLATELET VOLUME (BEAKER) (test gduv=176) 9.8 fL 9.4-12.3 NUCLEATED RED BLOOD CELLS (BEAKER) (test 0 /100 WBC 0-0 faty=328) NEUTROPHILS RELATIVE PERCENT (BEAKER) (test 72 % tjyw=527) LYMPHOCYTES RELATIVE PERCENT (BEAKER) (test 17 % gihj=539) MONOCYTES RELATIVE PERCENT (BEAKER) (test 9 % zqdf=172) EOSINOPHILS RELATIVE PERCENT (BEAKER) (test 1 % xmej=103) BASOPHILS RELATIVE PERCENT (BEAKER) (test 0 % wmhf=058) NEUTROPHILS ABSOLUTE COUNT (BEAKER) (test 2.68 K/ L 1.56-6.13 ertw=941) LYMPHOCYTES ABSOLUTE COUNT (BEAKER) (test 0.64 K/ L 1.18-3.74 cghw=949) MONOCYTES ABSOLUTE COUNT (BEAKER) (test 0.33 K/ L 0.24-0.36 lenp=498) EOSINOPHILS ABSOLUTE COUNT (BEAKER) (test 0.05 K/ L 0.04-0.36 mymw=416) BASOPHILS ABSOLUTE COUNT (BEAKER) (test 0.01 K/ L 0.01-0.08 ljrr=114) IMMATURE GRANULOCYTES-RELATIVE PERCENT (BEAKER) 0 % 0-1 (test drbt=4919) URINALYSIS WITH MICROSCOPIC IF [id number] 00:29:00 Test Item Value Reference Range Comments COLOR (BEAKER) (test yymg=016) Yellow CLARITY (BEAKER) (test vtkc=826) Clear SPECIFIC GRAVITY UA (BEAKER) (test ybnq=994) 1.019 1.001-1.035 PH UA (BEAKER) (test tkqx=679) 7.0 5.0-8.0 PROTEIN UA (BEAKER) (test vjnt=060) Negative Negative GLUCOSE UA (BEAKER) (test tvzn=437) 50 mg/dL Negative KETONES UA (BEAKER) (test bthx=296) 100 mg/dL Negative BILIRUBIN UA (BEAKER) (test twhv=997) Negative Negative BLOOD UA (BEAKER) (test fezu=020) Negative Negative NITRITE UA (BEAKER) (test ctyn=279) Negative Negative LEUKOCYTE ESTERASE UA (BEAKER) (test lbvj=926) Negative Negative UROBILINOGEN UA (BEAKER) (test ckkb=917) 0.2 mg/dL 0.2-1.0 SOURCE(BEAKER) (test bxwc=5277)
--- NOTE | 2018-12-11 12:22 | RAD REPORT ---
EXAM DESCRIPTION: CT - CTHCSPWOC - 12/11/2018 12:12 pm CLINICAL HISTORY: Trauma, head and neck injury. PAIN COMPARISON: No comparisons TECHNIQUE: Axial 5 mm thick images of the head were obtained. Axial 2 mm thick images of the cervical spine were obtained with sagittal and coronal reconstruction images generated and reviewed. All CT scans are performed using dose optimization technique as appropriate and may include automated exposure control or mA/KV adjustment according to patient size. FINDINGS: CT HEAD WITHOUT CONTRAST: No acute hemorrhage, hydrocephalus or extra-axial collection is identified.Mild generalized brain atr ophy is present with mild periventricular and deep white matter chronic microvascular ischemic change s.No areas of brain edema or midline shift. The paranasal sinuses and mastoids are clear.The calvarium is intact. CT CERVICAL SPINE WITHOUT CONTRAST: No fracture or subluxation.Mild cervical degenerative changes.No prevertebral soft tissues swelling i s identified. Mild vague opacity is present in the right apex. IMPRESSION: No acute intracranial or cervical spine findings. Vague pulmonary opacity seen right apex, infiltrate is possible.
--- NOTE | 2018-12-11 12:32 | EDPHYS ---
Physician Documentation [facility] Name: Mayela Hou Age: 68 yrs Sex: Female : 1950 Arrival Date: 12/11/2018 Time: 11:01 Bed 5 Private MD: ED Physician Frederick Mustafa HPI: 12/11 12:25 This 68 yrs old Female presents to ER via Wheelchair with complaints of gs Numbness Of Hand. 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 gs Onset: The symptoms/episode began/occurred this morning, UPON WAKING. Context: occurred at home. Associated signs and symptoms: Pertinent positives: paresthesias. Severity of symptoms: At their worst the symptoms were moderate in the emergency department the symptoms are unchanged. The patient has not experienced similar symptoms in the past. Historical: - Allergies: 11:17 No Known Allergies; ph - PMHx: 11:17 Cancer, Breast Right; Cancer, Pancreatic and Liver Stage 4; ph - PSHx: :17 Port Placement; Mastectomy, Right; Hip Replacement; Vein removal; ph - Immunization history:: Adult Immunizations up to date. - Social history:: Smoking status: Patient/guardian denies using tobacco. - Ebola Screening: : No symptoms or risks identified at this time. ROS: 12:25 Neuro: Negative for altered mental status. gs 12:25 All other systems are negative. Exam: 12:25 Head/Face: Normocephalic, atraumatic. Eyes: Pupils equal round and reactive to light, gs extra-ocular motions intact. Lids and lashes normal. Conjunctiva and sclera are non-icteric and not injected. Cornea within normal limits. Periorbital areas with no swelling, redness, or edema. ENT: Nares patent. No nasal discharge, no septal abnormalities noted. Tympanic membranes are normal and external auditory canals are clear. Oropharynx with no redness, swelling, or masses, exudates, or evidence of obstruction, uvula midline. Mucous membranes moist. Neck: Trachea midline, no thyromegaly or masses palpated, and no cervical lymphadenopathy. Supple, full range of motion without nuchal rigidity, or vertebral point tenderness. No Meningismus. Chest/axilla: Normal chest wall appearance and motion. Nontender with no deformity. No lesions are appreciated. Cardiovascular: Regular rate and rhythm with a normal S1 and S2. No gallops, murmurs, or rubs. Normal PMI, no JVD. No pulse deficits. Respiratory: Lungs have equal breath sounds bilaterally, clear to auscultation and percussion. No rales, rhonchi or wheezes noted. No increased work of breathing, no retractions or nasal flaring. Abdomen/GI: Soft, non-tender, with normal bowel sounds. No distension or tympany. No guarding or rebound. No evidence of tenderness throughout. Back: No spinal tenderness. No costovertebral tenderness. Full range of motion. Skin: Warm, dry with normal turgor. Normal color with no rashes, no lesions, and no evidence of cellulitis. MS/ Extremity: Pulses equal, no cyanosis. Neurovascular intact. Full, normal range of motion. 12:25 Constitutional: The patient appears alert, awake. 12:25 Neuro: Orientation: is normal, to person, place, time \T\ situation. Mentation: is normal, Memory: is normal, Cranial nerves: grossly normal, CN II- XII are normal as tested, Cerebellar function: normal finger to nose testing, Motor: strength is 5/5 in all extremities, OPPOSITION THUMB TO 5TH DIGIT WITH WEAKNESS, Sensation: pin prick is decreased in the palmar aspect of distal phalanx of left index finger and palmar aspect of distal phalanx of left thumb, Gait: is steady. Vital Signs: 11:16 BP 100 / 69; Pulse 95; Resp 18; Temp 97.4; Pulse Ox 95% on R/A; Weight 72.57 kg; Height ph 6 ft. 0 in. (182.88 cm); Pain 0/10; 12:26 BP 119 / 71; Pulse 88; Resp 18; Pulse Ox 95% ; sv 11:16 Body Mass Index 21.70 (72.57 kg, 182.88 cm) ph MDM: 11:46 Patient medically screened. 12:25 Data reviewed: vital signs, nurses notes, radiologic studies. Counseling: I had a gs detailed discussion with the patient and/or guardian regarding: the historical points, exam findings, and any diagnostic results supporting the discharge/admit diagnosis, radiology results, the need for outpatient follow up. Response to treatment: the patient's symptoms have mildly improved after treatment, and as a result, I will admit patient. ED course: DDX, METASTASES, CARPEL TUNNEL, NEUROPRAXIA. 12/11 11:54 Order name: CT Head C Spine; Complete Time: 12:25 gs 12/11 12:33 Order name: EKG; Complete Time: 12:33 sv 12/11 12:33 Order name: EKG - Nurse/Tech; Complete Time: 12:33 sv Administered Medications: No medications were administered Disposition: 12/11/18 12:31 Discharged to Home. Impression: Mononeuropathies of upper limb. - Condition is Stable. - Discharge Instructions: Focal Neuropathy. - Medication Reconciliation Form, Thank You Letter, Antibiotic Education, Prescription Opioid Use form. - Follow up: Giovanny Chang MD; When: 2 - 3 days; Reason: Re-evaluation by your physician. Signatures: Dispatcher [employer] EDMS Netta Alarcon RN RN Macy Bangura RN RN Maria Isabel Robertson RN RN Frederick Mustafa MD MD Corrections: (The following items were deleted from the chart) 12:40 12:31 12/11/2018 12:31 Discharged to Home. Impression: Mononeuropathies of upper limb. hb Condition is Stable. Forms are Medication Reconciliation Form, Thank You Letter, Antibiotic Education, Prescription Opioid Use. Follow up: Giovanny Chang; When: 2 - 3 days; Reason: Re-evaluation by your physician. gs
--- NOTE | 2018-12-11 12:32 | ER ---
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 Transition of care: patient was not received from another setting of care. Onset of symptoms was December 11, 2018. Risk Assessment: Do you want to hurt yourself or someone else? Patient reports no desire to harm self or others. Initial Sepsis Screen: Does the patient meet any 2 criteria? No. Patient's initial sepsis screen is negative. Does the patient have a suspected source of infection? No. Patient's initial sepsis screen is negative. Care prior to arrival: None. 11:13 Method Of Arrival: Wheelchair ph 11:13 Acuity: DANIEL 3 ph Historical: - Allergies: 11:17 No Known Allergies; ph - PMHx: 11:17 Cancer, Breast Right; Cancer, Pancreatic and Liver Stage 4; ph - PSHx: 11:17 Port Placement; Mastectomy, Right; Hip Replacement; Vein removal; ph - Immunization history:: Adult Immunizations up to date. - Social history:: Smoking status: Patient/guardian denies using tobacco. - Ebola Screening: : No symptoms or risks identified at this time. Screenin:23 Abuse screen: Denies threats or abuse. Denies injuries from another. Nutritional hb screening: No deficits noted. Tuberculosis screening: No symptoms or risk factors identified. Fall Risk None identified. Assessment: 11:35 General: Appears in no apparent distress. Behavior is calm, cooperative. Pain: Pain hb currently is 3 out of 10 on a pain scale. Neuro: Level of Consciousness is awake, alert, obeys commands, Oriented to person, place, time, situation, Reports numbness left hand. Cardiovascular: Capillary refill < 3 seconds Patient's skin is warm and dry. Respiratory: Airway is patent Respiratory effort is even, unlabored, Respiratory pattern is regular, symmetrical. GI: No signs and/or symptoms were reported involving the gastrointestinal system. : No signs and/or symptoms were reported regarding the genitourinary system. EENT: No signs and/or symptoms were reported regarding the EENT system. Derm: Skin is intact, is healthy with good turgor. Musculoskeletal: No signs and/or symptoms reported regarding the musculoskeletal system. Vital Signs: 11:16 BP 100 / 69; Pulse 95; Resp 18; Temp 97.4; Pulse Ox 95% on R/A; Weight 72.57 kg; Height ph 6 ft. 0 in. (182.88 cm); Pain 0/10; 12:26 BP 119 / 71; Pulse 88; Resp 18; Pulse Ox 95% ; sv 11:16 Body Mass Index 21.70 (72.57 kg, 182.88 cm) ph ED Course: 11:01 Patient arrived in ED. tw3 11:16 Triage completed. ph 11:17 Arm band placed on. ph 11:23 Maria Isabel Robertson, NELSY is Primary Nurse. hb 11:30 EKG done, by ED staff, reviewed by Frederick Mustafa MD. ms 11:34 Frederick Mustafa MD is Attending Physician. gs 11:45 Patient has correct armband on for positive identification. Bed in low position. Call hb light in reach. Side rails up X 1. 12:11 CT completed. Patient tolerated procedure well. Patient moved to CT via wheelchair. mw3 Patient moved back from CT. 12:12 CT Head C Spine In Process Unspecified. EDMS 12:31 Giovanny Chang MD is Referral Physician. gs 12:38 No provider procedures requiring assistance completed. Patient did not have IV access hb during this emergency room visit. Administered Medications: No medications were administered Outcome: 12:31 Discharge ordered by . gs 12:38 Discharged to home with family. hb 12:38 Condition: stable 12:38 Discharge instructions given to patient, Instructed on discharge instructions, follow up and referral plans. Demonstrated understanding of instructions, follow-up care. 12:40 Patient left the ED. hb Signatures: Dispatcher [employer] EDNetta Patterson RN RN Elizabeth Jackman ms, Patricia, RN RN Maria Isabel Robertson RN RN hb Ion, Funmilayo tw3 Frederick Mustafa MD MD gs Willis, Michelle mw3 Corrections: (The following items were deleted from the chart) 12:38 11:35 Neuro: Level of Consciousness is awake, alert, obeys commands, Oriented to hb person, place, time, situation, Reports paresthesias left arm hb
[2018-12-11 14:18] VITALS: TEMP 97.4; O2SAT 95
[2018-12-11 14:20] VITALS: BP 119/71
--- NOTE | 2018-12-12 12:54 | EKG ---
Test Date: 2018-12-11 Test Time: 11:26:16 Financial Services Consultant: MEASUREMENT RESULTS: Intervals: Rate: 91 NE: 158 QRSD: 84 QT: 394 QTc: 484 [place]: P: 29 NE: 158 QRS: -6 T: 43 INTERPRETIVE STATEMENTS: Normal sinus rhythm Normal ECG Compared to ECG 11/03/2018 12:50:36 No significant changes Electronically Signed On 12-12-18 12:52:21 CDT by Connor Hoskins
== END 2018-12-11 12:40 | disposition home or self-care (01) ==
LOC: ER 10:59
DX: G56.92 Unspecified mononeuropathy of left upper limb (principal); Z85.3 Personal history of malignant neoplasm of breast; Z85.05 Personal history of malignant neoplasm of liver; Z85.07 Personal history of malignant neoplasm of pancreas; Z90.11 Acquired absence of right breast and nipple
CPT/HCPCS: 70450; 72125; 93005; 99284

== ENCOUNTER 2018-12-12 11:44 | Inpatient (IN) | payer OTHER ==
--- OUTSIDE RECORDS SUMMARY | 2018-12-12 11:55 | XMS REPORT | Clinical Summary ---
:1950 Author Organization [facility] [place] Address [address] [place] [address] Care Team Providers Name Role Phone Unavailable [...] Salomon 11/03/2018 - Hospital Encounter Oncology Caren Sadny Elevated LFTs; 11/10/2018 MD Dorothy Pancreatic mass; Aurelio, History of breast cancer; Sonny Elmore Biliary obstruction; MD OSCAR Malignant neoplasm of female breast, unspecified estrogen receptor status, unspecified laterality, unspecified site of breast (HCC); Athreya, Liver mass; Doc Rivera MD Cancer related pain; Pancreatic adenocarcinoma (HCC); Metastatic cancer (HCC) 11/03/2018 Travel after 12/11/2017 Social History Tobacco Use Types Packs/Day Years [...] Not on file 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 after 12/11/2017 Results REPORT OF PROCEDURE - ENDOSCOPY URL (11/22/2018 6:14 PM CDT) Narrative Performed At RHYTHM STRIP - SCAN (11/11/2018 10:52 AM CDT) Narrative Performed At US abdomen limited (11/09/2018 5:11 PM CDT) Specimen Narrative Performed At FINAL REPORT [facility] Limited abdominal ultrasound Technique/findings: Limited sonographic images [...] MD Report Verified Date/Time:11/09/2018 18:07:18 Reading Location: [address] Ultrasound Reading Room Procedure Note Interface, [...] Report Verified Date/Time: 11/09/2018 18:07:18 Reading Location: [address] Ultrasound Reading Room Performing Organization Address City/State/Zipcode Phone Number [facility] Prothrombin time/INR (11/09/2018 11:32 AM CDT)Only the most recent of2 resultswithin the time period is included. Protime 13.3 11.7 - 14.7 seconds [facility] INR 1.0 <=5.9 [facility] Specimen Blood Narrative Performed At RECOMMENDED COUMADIN/WARFARIN INR THERAPY [facility] RANGES STANDARD DOSE: 2.0 - 3.0 Includes: PROPHYLAXIS for venous thrombosis, systemic embolization; TREATMENT for venous thrombosis and/or pulmonary embolus. HIGH RISK: Target INR is 2.5-3.5 for patients with mechanical heart valves. Performing Organization Address City/State/Zipcode Phone Number [facility] [address] [place] [address] CENTER CBC with platelet count + automated diff (11/09/2018 4:24 AM CDT)Only the most recent of6 resultswithin the time period is included. WBC 4.7 3.5 - 10.5 K/L [facility] RBC 4.02 3.93 - 5.22 M/L [facility] Hemoglobin 11.7 11.2 - 15.7 GM/DL [facility] Hematocrit 37.3 34.1 - 44.9 % [facility] MCV 92.8 79.4 - 94.8 fL [facility] MCH 29.1 25.6 - 32.2 pg [facility] MCHC 31.4 (L) 32.2 - 35.5 GM/DL [facility] RDW 13.4 11.7 - 14.4 % [facility] Platelets 252 150 - 450 K/CU MM [facility] MPV 9.2 (L) 9.4 - 12.3 fL [facility] nRBC 0 0 - 0 /100 WBC [facility] % Neutros 69 % [facility] % Lymphs 17 % [facility] % Monos 13 % [facility] % Eos 1 % [facility] % Baso 0 % [facility] # Neutros 3.25 1.56 - 6.13 K/L [facility] # Lymphs 0.79 (L) 1.18 - 3.74 K/L [facility] # Monos 0.62 (H) 0.24 - 0.36 K/L [facility] # Eos 0.05 0.04 - 0.36 K/L [facility] # Baso 0.01 0.01 - 0.08 K/L [facility] Immature Granulocytes-Relative 0 0 - 1 % [facility] Specimen Blood Performing Organization Address City/[facility] Centercode Phone Number [address] [address] [phone] [place] Hepatic function panel (11/09/2018 4:24 AM CDT)Only the most recent of6 resultswithin the time period is included. Protein, Total 6.0 6.0 - 8.3 gm/dL [facility] Albumin 3.3 (L) 3.5 - 5.0 g/dL [facility] Total Bilirubin 0.7 0.2 - 1.2 mg/dL [facility] Bilirubin, Direct 0.5 0.1 - 0.5 mg/dL [facility] Alkaline Phosphatase 301 (H) 40 - 150 U/L [facility] AST 20 5 - 34 U/L [facility] ALT 112 (H) 6 - 55 U/L [facility] Specimen Blood Performing Organization Address City/[facility]/Zipcode Phone Number [facility] [address] [place] [address] [phone] [place] Basic Metabolic Panel (11/09/2018 4:24 AM CDT)Only the most recent of6 resultswithin the time period is included. Sodium 131 (L) 136 - 145 meq/L [facility] Potassium 4.6 3.5 - 5.1 meq/L [facility] Chloride 97 (L) 98 - 107 meq/L [facility] CO2 26 22 - 29 meq/L [facility] BUN 24 (H) 7 - 21 mg/dL [facility] Creatinine 0.75 0.57 - 1.25 mg/dL [facility] Glucose 157 (H) 70 - 105 mg/dL [facility] Calcium 8.7 8.4 - 10.2 mg/dL [facility] EGFR 77Comment: ESTIMATED GFR IS mL/min/1.73 sq m [facility] NOT ACCURATE CREATININE [facility] CLEARANCE IN PREDICTING GLOMERULAR FILTRATION RATE. ESTIMATED GFR IS NOT APPLICABLE FOR DIALYSIS PATIENTS. Specimen Blood Performing Organization Address City/State/Zipcode Phone Number [facility] [address] [place] [address] [phone] abd/pelvis - pancreas evaluation (11/08/2018 1:01 PM CDT) Specimen Narrative Performed At FINAL REPORT [facility] [facility] CT of the Chest, abdomen and pelvis [...] MD Report Verified Date/Time:11/08/2018 16:30:42 Reading Location: [facility] B1 C013Y CT Body Reading Room Procedure [...] Report Verified Date/Time: 11/08/2018 16:30:42 Reading Location: [facility] C013Y CT Body Reading Room Performing Organization Address City/State/Zipcode Phone Number [facility] CT chest with IV contrast (11/08/2018 1:01 PM CDT) Specimen Narrative Performed At FINAL REPORT [facility] CT of the Chest, abdomen and pelvis [...] MD Report Verified Date/Time:11/08/2018 16:30:42 Reading Location: [address] Body Reading Room Procedure Note [...] Report Verified Date/Time: 11/08/2018 16:30:42 Reading Location: [facility] B1 C013Y CT Body Reading Room Performing Organization Address City/State/Zipcode Phone Number [facility] XR abdomen / KUB 1 view (11/08/2018 10:42 AM CDT) Specimen Narrative Performed At FINAL REPORT [facility] Abdomen one view Comparison: None. Reason for [...] MD Report Verified Date/Time:11/08/2018 11:16:58 Reading Location: [facility] Radiology Reading Room Procedure Note Interface, External [...] Report Verified Date/Time: 11/08/2018 11:16:58 Reading Location: [facility] Radiology Reading Room Performing Organization Address City/State/Zipcode Phone Number [facility] ECG 12 lead (11/07/2018 5:49 PM CDT)Only the most recent of2 resultswithin the time period is included. Specimen Narrative Performed At Ventricular Rate 89 BPM GE MUSE Atrial Rate 89 BPM P-R Interval 166 ms QRS Duration 82 ms Q-T Interval 412 ms QTC Calculation(Bazett) 501 ms P [place] 33 degrees R [place] -3 degrees T [place] 43 degrees Normal sinus rhythm Normal ECG [...] 412 ms QTC Calculation(Bazett) 501 ms P [place] 33 degrees R [place] -3 degrees T [place] 43 degrees Normal sinus rhythm Normal ECG When compared with ECG of 03-NOV-2018 22:15, No significant change was found Confirmed by Marisol FOWLER MICHAEL ([id number]) on 11/08/2018 7:39:45 AM Performing Organization Address [facility] Centerconc Phone Number [place] Troponin I (11/07/2018 4:24 PM CDT) Troponin I <0.01 0.00 - 0.03 ng/mL [facility] Specimen Blood Narrative Performed At Troponin I (TnI) levels must be interpreted [facility] in the context of the presenting symptoms [...] disease, and persistent tachyarrhythmia. Performing Organization Address [facility] [place] [address] [place] Carbohydrate antigen 19-9 (CA 19-9) (11/07/2018 11:01 AM CDT)Only the most recent of2 resultswithin the time period is included. CA 19-9 1978 (H) <34 U/mL [facility] Comment: This test was performed using the Siemens Chemiluminescent method. Values obtained from different assay methods cannot be used interchangeably. CA19-9 levels, regardless of value, should not be interpreted as absolute evidence of the presence or absence of disease. Specimen Blood Narrative Performed At Performing Lab [facility] [employer] [address] [place] [address] Heidy Kaur MD, PhD, CRISTÓBAL Performing Organization Address [facility] Phone Number [facility] [place] [address] INCORPORATED [address] [facility] Carcinoembryonic Antigen (CEA) (11/07/2018 11:01 AM CDT)Only the most recent of2 resultswithin the time period is included. CEA, SERUM 2.6 0.0 - 5.0 ng/mL [facility] Specimen Blood Performing Organization Address City/[facility]/Zipcode Phone Number [address] [address] CENTER Calcium, Ionized (11/05/2018 4:39 AM CDT) Calcium, Ion 1.06 (L) 1.12 - 1.27 mmol/L [facility] pH, Blood 7.39 [facility] Specimen Blood Performing Organization Address City/[facility] Centercode Phone Number [address] [address] CENTER Phosphorus (11/05/2018 4:39 AM CDT) Phosphorus 2.7 2.3 - 4.7 mg/dL [facility] Specimen Blood Performing Organization Address City/[facility] Centercode Phone Number [address] [address] CENTER Magnesium (11/05/2018 4:39 AM CDT) Magnesium 1.9 1.6 - 2.6 mg/dL [facility] Specimen Blood Performing Organization Address [facility] Centerconc Phone Number [address] [phone] [place] REPORT OF PROCEDURE - ENDOSCOPY URL (11/04/2018 6:12 PM CDT) Narrative Performed At [place] ERCP (11/04/2018 5:55 PM CDT) Specimen Narrative Performed At FINAL REPORT [facility] Examination: ERCP 5 fluoroscopic spot views were obtained during the procedure by the ordering service. Images are nondiagnostic as no radiologist was present at the time of imaging. Fluoroscopic time was 71.7 seconds. Please see the procedure report for details. Signed: Rubio Goel MD Report Verified Date/Time:11/04/2018 21:43:27 Reading Location: [address] Reading Room Procedure Note Interface, External [...] Report Verified Date/Time: 11/04/2018 21:43:27 Reading Location: [address] Reading Room Performing Organization Address City/[facility]/Zipcode Phone Number [facility] CYTOLOGY REQUEST (11/04/2018 5:37 PM CDT) Cytology See Separate Report [facility] Specimen Brushings Performing Organization Address City/[facility] Health Centercode Phone Number [address] [address] CENTER Cytology (11/04/2018 5:37 PM CDT) Case Report Medical Cytology Report Case: [id number] [facility] Authorizing Provider:Emelyn Horta Collected: 11/04/2018 1737 [facility] MD Vance Ordering Location: [address] Received: 11/07/2018 1148 SERVICE Pathologist: Eric Flower MD Specimen:Common Bile Duct DIAGNOSIS COMMON BILE DUCT BRUSHING (CYTOSPINS): [facility] - SUSPICIOUS FOR MALIGNANCY [facility] Signing Pathologist Direct Phone Line: [phone] COMMENT [facility] Please also see surgical pathology report [id number] and cytopathology reports [id number] and [id number]. [facility] CPT Code(s) 93019 [facility] CLINICAL DATA Focal liver lesions; [facility] pancreatic massinvading [facility] vein and liver; hepatobiliary obstruction; elevated LFTs; h/o breast cancer s/p Chemo/XRT and right mastectomy SPECIMEN SOURCE COMMON BILE DUCT BRUSHING [facility] GROSS DESCRIPTION Prepared 2 cytospins from 1 brush tip collected in 15 ml cytorich red fixative [facility] Collected: [id number] [facility] Received: [id number] STATEMENT OF ADEQUACY Satisfactory [facility] Gross assessment was [facility] performed at [place], Department of [facility] Pathology, [address] [place] [address], Technical component was [facility] performed at [place], Department [facility] Pathology, [address] [place] [address], Professional component was [facility] performed at [place], Department of [facility] Pathology, [address] [place] [address], Specimen Brushings Narrative Performed At Performing Organization Address City/State/Zipcode Phone Number [address] [phone] [place] Tissue Exam (11/04/2018 5:17 PM CDT) Case Report Surgical Pathology Report Case: [id number] [facility] Authorizing Provider:Emelyn Horta Collected: 11/04/2018 1717 [facility] MD Vance Ordering Location: [address] Received: 11/07/2018 0808 SERVICE Pathologist: Tresa Lanier MD Specimen:Pancreas, Head,fine needle aspirate of mass in formulin DIAGNOSIS A. PANCREAS, HEAD MASS, FNA GUIDED BIOPSY: [facility] - INVASIVE POORLY DIFFERENTIATED ADENOCARCINOMA (SEE COMMENT) [facility] Signing Pathologist Direct Phone Line: [phone] COMMENT There is extremely minimal amount of tumor in the biopsy. Please correlate with results of concurrently obtained cytology results ([id number] ). [facility] Special stain for mucicarmine is negative. Immunostain for Cam5.2 highlights the stromal invasion. Immunostain for SOILA-3 (faint nuclear staining is non- specific), ER and mammaglobin are negative. IDC: Dr. Pedro Pablo banks. CPT Code(s) 41549 [facility] [address] [facility] [address] [id number] CLINICAL HISTORY Pancreatic mass [facility] SPECIMEN SOURCE Pancreas head fine needle aspirate [facility] of [facility] GROSS DESCRIPTION The specimen is received in a [facility] formalin-filled container labeled [facility] with the patient's information and labeled "pancreas head fine needle aspirate" and consists of multiple stringy fragments of hemorrhagic soft tissue measuring 1 x 0.4 x 0.2 cm in aggregate, submitted entirely in A1. CG/ew SPECIAL STUDIES The interpretation of this case included the use of immunohistochemistry or special stains. [facility] Immunohistochemistry technical testing was performed at [facility] Pathology Laboratory where it was [...] Tissue - Pancreas, Head Performing Organization Address City/[facility]/Zipcode Phone Number [place] [phone] [place] [address] [phone] [place] FINE NEEDLE ASPIRATE (FNA) REQUEST (11/04/2018 4:55 PM CDT)Only the most recent of2 resultswithin the time period is included. Cytology See Separate Report [facility] Specimen Fine Needle Aspirate - Pancreas, Head Performing Organization Address City/[facility]/Zipcode Phone Number [place] [phone] [place] [address] [phone] [place] Fine Needle Aspirate by Clinician (11/04/2018 4:55 PM CDT)Only the most recent of2 resultswithin the time period is included. Case Report Medical Cytology Report Case: [id number] [facility] Authorizing Provider:Emelyn Horta Collected: 11/04/2018 1655 [facility] MD Vance Ordering Location: [address] Received: 11/07/2018 1148 SERVICE Pathologist: Eric Flower MD Specimen:Pancreas, Head DIAGNOSIS HEAD OF PANCREAS MASS, FNA BY CLINICIAN (CYTOSPINS AND CELL BLOCK OF ASPIRATE): [facility] - POSITIVE FOR MALIGNANCY [facility] - ADENOCARCINOMA, DUCTAL TYPE Signing Pathologist Direct Phone Line: [phone] COMMENT [facility] Please also see surgical pathology report [id number] and cytopathology reports [id number] and [id number]. [facility] CPT Code(s) 71308, 160[address] [facility] CLINICAL DATA Focal liver lesions; [facility] pancreatic massinvading [facility] vein and liver; hepatobiliary obstruction; elevated LFTs; h/o breast cancer s/p Chemo/XRT and right mastectomy SPECIMEN SOURCE HEAD OF PANCREAS MASS FNA [facility] GROSS DESCRIPTION Prepared cell block(A2) and 4 cytospins from 18 ml cytorich red fixative sample [facility] Collected: [id number] [facility] Received: [id number] Gross assessment was [facility] performed at [place], Department [facility] Pathology, [address] [place] [address], Technical component was [facility] performed at [place], Department [facility] Pathology, [address] [place] [address], Professional component was [facility] performed at [place], Department of [facility] Pathology, [address] [place] [address], Specimen Fine Needle Aspirate - Pancreas, Head Narrative Performed At Performing Organization Address City/State/Zipcode Phone Number [facility] [address] [place] [address] CENTER XR chest 1 view portable / [...] MD Report Verified Date/Time:11/04/2018 14:08:49 Reading Location: [facility] Radiology Reading Room Procedure Note Interface, External [...] Report Verified Date/Time: 11/04/2018 14:08:49 Reading Location: [facility] Radiology Reading Room Performing Organization Address City/State/Zipcode Phone Number [facility] Lipase (11/03/2018 11:50 PM CDT) Lipase 34 8 - 78 U/L [facility] Specimen Blood Narrative Performed At Specimen slightly icteric [facility] Performing Organization Address City/State/Zipcode Phone Number [facility] [address] [place] [address] [phone] CENTER Gamma Glutamyl Transferase (GGT) (11/03/2018 11:50 PM CDT) GGT 465 (H) 9 - 64 U/L [facility] Specimen Blood Narrative Performed At Specimen slightly icteric [facility] Performing Organization Address City/[facility]/Zipcode Phone Number [facility] [address] [place] [address] [place] Urinalysis with Microscopic If Indicated (11/03/2018 11:49 PM CDT) Color, UA Yellow [facility] Clarity, UA Clear [facility] Specific Dexter, UA 1.019 1.001 - 1.035 [facility] pH, UA 7.0 5.0 - 8.0 [facility] Protein, UA Negative Negative [facility] Glucose, UA 50 mg/dL (A) Negative [facility] Ketones, UA 100 mg/dL (A) Negative [facility] Bilirubin, UA Negative Negative [facility] Blood, UA Negative Negative [facility] Nitrite, UA Negative Negative [facility] Leukocytes, UA Negative Negative [facility] Urobilinogen, UA 0.2 0.2 - 1.0 mg/dL [facility] Specimen Source [facility] Specimen Urine Performing Organization Address City/[facility]/Zipcode Phone Number [facility] [address] [place] [address] [phone] [place] after 12/11/2017 Insurance Payer Benefit Plan / Group Subscriber ID Type Phone Address MEDICARE MEDICARE A B xxxxxxxxxxx Medicare [facility] GENERIC MEDICARE xxxxxxxxx [employer] SUPPLEMENT/INDIVIDUAL SUPPLEMENT Advance Directives For more information, please contact:[address] [phone] Code Status Date Activated Date Inactivated Comments Full Code 11/03/2018 9:48 PM 11/10/2018 12:13 PM This code status was determined by: Patient Name Relationship Healthcare Agent Relationship Phone RAVIN JOSEPH Natural son Primary healthcare agent [phone]
--- OUTSIDE RECORDS SUMMARY | 2018-12-12 11:57 | XMS REPORT | Continuity of Care Document ---
:1950 Author Organization Interface Problems Problem Status Onset Classification Date Comments Source Date Reported CHEMOTHERAPY Active 12/02/19 [facility] 19 [place] Trochanteric 06/23/20 10/12/2018 [facility] bursitis, left 18 [place] hip 727.49 - BURSAL Active 04/27/20 [facility] CYST NEC 18 [place] Z00.00 - ENCNTR Active 03/11/20 [facility] FOR GENERAL 18 [place] ADULT MEDIC Unspecified 02/26/20 09/08/2018 [facility] intracapsular 18 [place] fracture of left [facility] femur, [place] subsequent encounter for closed fracture with routine healing LEFT HIP Active 12/23/19 [facility] WALTER METHOD 18 [facility] UPDATE Active 12/10/19 [facility] 18 [facility] L HIP DRY NEEDLE Active 07/26/19 [facility] 18 [facility] LEFT Active 12/12/19 [facility] HIP/WALTER 17 [place] [facility] HIP FRACTURE Active 12/11/19 [facility] 17 [place] LEFT HIP Active 11/24/19 [facility] 17 [facility] R22.31 - Active 06/09/20 [facility] "LOCALIZED 16 [place] SWELLING, MASS AND L Kidney disease Active Problem 12/10/2018 MICHELLE Vera,[facility] Breast cancer Resolved Problem 12/10/2018 MICHELLE Vera,[facility] Chicken pox Resolved Problem 12/10/2018 MICHELLE Vera,[facility] Pain in left hip 09/08/2018 [facility] FRACTURE OF UNSP Active [facility] PART OF NECK OF [place] UNSP FE SECONDARY MALIG Active [facility] 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 INTRACAPSULAR [place] FRACTURE OF LEFT [facility] FEMU [place] PAIN IN LEFT HIP Active [facility] Medications Medication Details Route Status Patient Ordering Order Source Instructions Provider Date Imodium A-D 2 mg, 1 cap, Inactive Route: PO, Drug 2019 [place] form: CAP, ONCE, Dosing Weight 77.273, kg, Start date: 12/06/18 8:25:00 CDT, Stop date: 12/06/18 8:25:00 CDTNotes: (Same as: Imodium) MAX adult dose is 8 caps/day Loperamide 2 mg=1 tab, PO, Inactive Hydrochloride 2 ONCE, PRN Loose 2019 [place] MG Oral Tablet Stools, # 1 tab, [Imodium] 0 Refill(s) gabapentin 100 100 mg=1 cap, Active MG Oral Capsule PO, TID, # 90 2019 [place] cap, 1 Refill(s) Calcium 500 mg, PO, BID, Active Carbonate 500 MG # 60 tab, 0 2017 [place] Chewable Tablet Refill(s), Pharmacy: [id number] 0.4 ML 40 mg, SUB-Q, Active Enoxaparin Q12H, X 10 day, 2017 [place] sodium 100 MG/ML # 20 ea, 0 Prefilled Refill(s), Syringe Pharmacy: [Lovenox] [facility] [id number] Acetaminophen 1 - 2 tab, PO, Active 300 MG / Codeine Q4H, PRN Pain, X 2017 [place] Phosphate 30 MG 4 day, # 36 tab, Oral Tablet 0 Refill(s) [Tylenol with Codeine #3] Melatonin 3 MG 3 mg=1 tab, PO, Active Extended Release Bedtime, PRN as 2017 [place] Tablet needed for insomnia, X 14 day, # 14 tab, 0 Refill(s), Pharmacy: [facility] [id number] Reglan 10 mg, 1 tab, Inactive Route: PO, Drug 2016 [place] form: TAB, Q6H, PRN Nausea & Vomiting, Start date: 12/15/16 13:13:00 CDT, Duration: 30 day, Stop date: 01/14/17 13:12:00 CDTNotes: (Same as: Reglan) Take 30 min before meals Trazodone 25 mg, 0.5 tab, No Longer Route: PO, Drug Active 2016 [place] form: TAB, Bedtime, Dosing Weight 88.091, kg, PRN Sleep, Start date: 12/13/16 14:39:00 CDT, Duration: 30 day, Stop date: 01/12/17 14:38:00 CDT, ..Notes: (Same As: Desyrel) Melatonin 3 MG 3 mg, 1 tab, No Longer Extended Release Route: PO, Drug Active 2016 [place] Tablet Form: TAB, Dosing Weight 88.091, kg, Bedtime, PRN as needed for insomnia, Start date: 12/13/16 14:39:00 CDT, Duration: 30 day, Stop date: 01/12/17 14:38:00 CDTNotes: (Same as: Melatonin) Ambien 5 mg, 1 tab, No Longer Route: PO, Drug Active 2016 [place] form: TAB, Bedtime, Dosing Weight 88.091, kg, PRN Insomnia, Start date: 12/13/16 14:39:00 CDT, Duration: 30 day, Stop date: 01/12/17 14:38:00 CDTNotes: (Same As: Ambien) Calcium 2,000 mg, 20 mL, Inactive Gluconate Route: IVPB, 2016 [place] ONCE, Dosing Weight 88.091, kg, Priority: STAT, Start date: 12/13/16 11:33:00 CDT, Stop date: 12/13/16 11:33:00 CDTNotes: WASTE: F/P - Sink; E - Municipal Trash Bin Vitamin D3 50,000 IntlUnit, No Longer 10 tab, Route: Active 2016 [place] PO, Drug form: TAB, Q7D, Start date: 12/12/16 11:00:00 CDT, Duration: 30 day, Stop date: 01/09/17 9:00:00 CDTNotes: Same as: Vitamin D3 Non-Formulary Vitamin D2 50,000 IntlUnit, Inactive 1 cap, Route: 2016 [place] PO, Drug form: CAP, Q7D, Start date: 12/12/16 9:00:00 CDT, Duration: 30 day, Stop date: 01/09/17 9:00:00 CDTNotes: (Same as: Vitamin D) "Do Not Crush" phenol 1 spray, Route: No Longer TOP, BID, Drug Active 2016 [place] form: SPRY, PRN Sore Throat, Start date: 12/11/16 21:19:00 CDT, Duration: 30 day, Stop date: 01/10/17 21:18:00 CDTNotes: WASTE: F/P - Black; E - Municipal Trash Bin heparin 5,000 unit, 1 No Longer mL, Route: Active 2016 [place] SUB-Q, Drug form: INJ, Q8H, Start date: 12/11/16 20:00:00 CDT, Duration: 30 day, Stop date: 01/10/17 20:00:00 CDTNotes: porcine heparin vancomycin 1,250 mg, Route: No Longer (SCIP) + sodium IVPB, [id number], Active 2016 [place] chloride 0.9% Dosing Weight 250 mL INJ [...] 2 gm, Route: Inactive IVPB, [id number], 2016 [place] Dosing Weight 88.091, kg, Start date: 12/11/16 15:00:00 CDT, Duration: 1 doses or times, Stop date: 12/11/16 15:00:00 CDT, ABX Indication: Surgical ProphylaxisNotes : (Same As: AncefJuanfzol) MEDICATION WASTE Product Size: 1000 mg Product Wasted: ___ mg Dilaudid 0.5 mg, Route: Inactive IVP, ONCE, 2016 [place] Dosing Weight 88.091, kg, Priority: STAT, Start date: 12/11/16 14:01:00 CDT, Stop date: 12/11/16 14:01:00 CDT Fentanyl 25 microgram, Inactive Route: IV, 2016 [place] Q10Min, Dosing Weight 88.091, kg, PRN Pain Score 6-10, Start date: 12/11/16 10:02:00 CDT, Duration: 30 day, Stop date: 01/10/17 10:01:00 CDT Ondansetron 4 mg, Route: Inactive 12/11[facility] IVP, ONCE, 2017 [place] Dosing Weight 88.091, kg, PRN Nausea & Vomiting, Start date: 12/11/16 10:02:00 CDT Hydromorphone 0.5 mg, Route: Inactive 12/11[facility] IVP, Q5Min, 2016 [place] Dosing Weight 88.091, kg, PRN Pain Score 7-10, Start date: 12/11/16 10:02:00 CDT, Duration: 4 doses or times, Stop date: Limited # of times Morphine 4 mg, Route: Inactive 12/11[facility] IVP, Q5Min, 2016 [place] Dosing Weight 88.091, kg, PRN Pain Score 7-10, Start date: 12/11/16 10:02:00 CDT, Duration: 3 doses or times, Stop date: Limited # of times Oxycodone 10 mg, Route: Inactive 12/11[facility] PO, Drug form: 2016 [place] TAB, Q4H, Dosing Weight 88.091, kg, PRN Pain Score 7-10, Start date: 12/11/16 10:02:00 CDT, Duration: 30 day, Stop date: 01/10/17 10:01:00 CDT Flumazenil 0.2 mg, Route: Inactive IVP, PRN, Dosing 2017 [place] Weight 88.091, kg, PRN Benzodiazepine Reversal, Initial dose, Start date: 12/11/16 10:02:00 CDT, Duration: 30 day, Stop date: 01/10/17 10:01:00 CDT Naloxone 0.4 mg, Route: Inactive 12/11[facility] IVP, Q2MIN, 2017 [place] Dosing Weight 88.091, kg, PRN Narcotic Reversal, Start date: 12/11/16 10:02:00 CDT, Duration: 8 doses or times, Stop date: Limited # of times ketOROLAC (ANES) IV, ONCE Inactive 2016 [place] dexamethasone Route: IV, Drug Inactive (ANES) form: INJ, ONCE, 2016 [place] Stop date: 12/11/16 9:57:00 CDT ondansetron Route: IV, Drug Inactive (ANES) form: INJ, ONCE, 2016 [place] Stop date: 12/11/16 9:57:00 CDT ergocalciferol 50,000 unit, 1 Inactive cap, Route: PO, 2016 [place] Drug form: CAP, Q7D, Dosing Weight 88.091, kg, Start date: 12/11/16 9:00:00 CDT, Duration: 30 day, Stop date: 01/08/17 9:00:00 CDTNotes: (Same as: Vitamin D) "Do Not Crush" Calcium 500 mg, 1 tab, No Longer Carbonate Route: PO, Drug Active 2016 [place] form: TAB, BID, Dosing Weight 88.091, kg, Start date: 12/11/16 9:00:00 CDT, Duration: 30 day, Stop date: 01/09/17 17:00:00 CDTNotes: 500mg elemental [id number] calcium carbonate. Contains 500mg elemental calcium. (Same As: OsCal 500) Vancomycin 1,250 mg, Route: Inactive IVPB, [id number], 2016 [place] Dosing Weight 88.091, kg, Time Critical Medication, [...] 5,000 unit, 1 Inactive mL, Route: 2016 [place] SUB-Q, Drug form: INJ, Q8H, Dosing Weight 81.818, kg, Start date: 12/11/16 8:46:00 CDT, Duration: 30 day, Stop date: 01/10/17 8:00:00 CDTNotes: porcine heparin propofol (ANES) Route: IV, Drug Inactive form: INJ, ONCE, 2016 [place] Stop date: 12/11/16 7:31:00 CDT fentaNYL (ANES) Route: IV, Drug Inactive form: INJ, ONCE, 2016 [place] Stop date: 12/11/16 7:31:00 CDT ceFAZolin (ANES) Route: IV, Drug Inactive form: INJ, ONCE, 2016 [place] Stop date: 12/11/16 7:31:00 CDT midazolam (ANES) Route: IV, Drug Inactive form: SOLN, 2016 [place] ONCE, Stop date: 12/11/16 7:31:00 CDT Calcium Chloride 1,000 mL, Rate: No Longer 0.0014 MEQ/ML / 25 ml/hr, Infuse Active 2016 [place] Potassium over: 40 hr, Chloride 0.004 Route: IV, MEQ/ML / Sodium Dosing Weight Chloride 0.103 88.091 kg, Total MEQ/ML / Sodium Volume: 1,000, Lactate 0.028 Start date: MEQ/ML 12/11/16 6:28:00 Injectable CDT, Duration: Solution 30 day, Stop date: 01/10/17 6:27:00 CDT vancomycin Route: IV, Drug Inactive (ANES) (ANES) form: INJ, Start 2016 [place] date: 12/11/16 6:15:00 CDT, Stop date: 12/11/16 7:15:00 CDT LR 1000 mL INJ Route: IV, Total Inactive (ANES) Volume: 1,000, 2016 [place] Start date: 12/11/16 6:00:00 CDT, Stop date: 12/11/16 7:00:00 CDT Dilaudid 0.5 mg, 0.5 mL, Inactive Route: IV, Drug 2016 [place] form: INJ, ONCE, Dosing Weight 88.091, kg, Start date: 12/11/16 4:41:00 CDT, Stop date: 12/11/16 4:41:00 CDTNotes: Same as: Dilaudid sodium chloride 1,000 mL, Rate: No Longer 0.45% 1000 ml 100 ml/hr, Active 2016 [place] INJ 1,000 mL Infuse over: 10 hr, Route: IV, Dosing Weight 81.818 kg, Total Volume: 1,000, Start date: 12/10/16 20:55:00 CDT, Duration: 30 day, Stop date: 01/09/17 20:54:00 CDT Reglan 10 mg, 2 mL, No Longer Route: IVP, Drug Active 2016 [place] form: INJ, Q6H, Dosing Weight 81.818, kg, PRN Nausea & Vomiting, Start date: 12/10/16 20:53:00 CDT, Duration: 30 day, Stop date: 01/09/17 20:52:00 CDTNotes: (Same as: Reglan) Acetaminophen 650 mg, 2 tab, No Longer Route: PO, Drug Active 2016 [place] form: TAB, Q4H, Dosing Weight 81.818, kg, PRN Pain 1-3/Temp > 100.4 F, Start date: 12/10/16 20:45:00 CDT, Duration: 30 day, Stop date: 01/09/17 20:44:00 CDTNotes: Do not exceed 4 gm/day. (Same as: Tylenol) Saline Flush 10 ml, Route: No Longer 0.9% IVP, Drug Form: Active 2016 [place] INJ, Dosing Weight 81.818, kg, PRN, PRN Line Flush, Start date: 12/10/16 20:45:00 CDT, Duration: 30 day, Stop date: 01/09/17 20:44:00 CDTNotes: (Same as: BD Posiflush) Ondansetron 4 mg, 2 mL, Inactive Route: IVP, Drug 2016 [place] form: INJ, Q6H, Dosing Weight 81.818, kg, PRN Nausea & Vomiting, Start date: 12/10/16 20:45:00 CDT, Duration: 30 day, Stop date: 01/09/17 20:44:00 CDTNotes: (Same as: Zofran) MEDICATION WASTE Product Size: 4 mg Product Wasted: ___ mg Sodium Chloride 1,000 mL, Rate: Inactive 0.154 MEQ/ML 100 ml/hr, 2017 [place] Injectable Infuse over: 10 Solution hr, Route: IV, Dosing Weight 81.818 kg, Total Volume: 1,000, Start date: 12/10/16 20:45:00 CDT, Duration: 30 day, Stop date: 01/09/17 20:44:00 CDT Dilaudid 0.5 mg, 0.5 mL, No Longer Route: IVP, Drug Active 2016 [place] form: INJ, Q3H, Dosing Weight 81.818, kg, PRN Pain Score 7-10, Start date: 12/10/16 20:45:00 CDT, Duration: 30 day, Stop date: 01/09/17 20:44:00 CDTNotes: Same as: Dilaudid Acetaminophen 1 tab, Route: No Longer 325 MG / PO, Drug Form: Active 2016 [place] Hydrocodone TAB, Dosing Bitartrate 10 MG Weight 81.818, Oral Tablet kg, Q4H, PRN [[place] 10/325] Pain Score 4-6, Start date: 12/10/16 20:45:00 CDT, Duration: 30 day, Stop date: 01/09/17 20:44:00 CDTNotes: Do not exceed 4gm/day of acetaminophen. (Same as: [place] 325/10) Zofran 4 mg, 2 mL, Inactive Route: IVP, Drug 2016 [place] form: INJ, ONCE, Dosing Weight 81.818, kg, Priority: STAT, Start date: 12/10/16 19:30:00 CDT, Stop date: 12/10/16 19:30:00 CDTNotes: (Same as: Zofran) MEDICATION WASTE Product Size: 4 mg Product Wasted: ___ mg Morphine 4 mg, 1 mL, Inactive Route: IVP, Drug 2016 [place] form: INJ, ONCE, Dosing Weight 81.818, kg, [...] INR 0.98 0.85 - 12/06 MH 1. [place] HEMATOLOGY PT 12.8 s 12.0 - 12/06 MH 14. [place] HEMATOLOGY PTT 29.8 s 22.9 - 12/06 MH 35.8 [place] Venogram Venogram Patient Name: THELMA HOLGUIN 12/06 - [facility] /2018 [facility] vena cava vena cava VR : 1950; Age: 68 years Female VR MR: [id number] Read by: Denny Zavala MD Dictated Date/time: [...] per protocol prior to the procedure. 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 The patient was continuously monitored by a nurse using automated blood pressure , electrocardiogram, and pulse oximetry. The [facility] sedation record is permanently stored in the [...] was noted to have difficu lty. A 4-Setswana sheath was then placed over the wire. [...] brachiocephalic vein with numerous venous collaterals. SL: [id number] CVC insert CVC insert Patient Name: THELMA HOLGUIN 12/06 - [facility] [place] w/-w/o w/-w/o : 1950; Age: 68 years Female port/pump port/pump age 5+ yrs age 5+ yrs MR: [id number] Read by: Denny Zavala MD VR VR [...] per protocol prior to the procedure. 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 The patient was continuously monitored by a nurse using automated blood pressure , electrocardiogram, and pulse oximetry. The [facility] erate sedation record is permanently stored in [...] was noted to have difficu lty. A 4-Setswana sheath was then placed over the wire. [...] brachiocephalic vein with numerous venous collaterals. SL: [id number] Drain/Inj Drain/Inj EXAM: ULTRASOUND-GUIDED THERAPEUTIC LEFT GREATER TROCHANTER REGION INJECTIONS 03/25 - MICHELLE Major Major /2018 - [place] Joint/Bursa Joint/Bursa This report was dictated by a Hide Grader/Fellow. I have personally reviewed the images as [...] 10x3 4.5 K/CMM 3.7 - 10.4 12/14 [place] HEMATOLOGY Hgb 8.4 g/dL 12.0 - 12/14 MH 16.0 [place] HEMATOLOGY RBC X 10x6 2.84 M/CMM 4.20 - 12/14 MH 5.40 /2017 [place] HEMATOLOGY Hct 25.0 % 36.0 - 12/14 MH 48.0 [place] HEMATOLOGY RDW 13.5 % 11.5 - 12/14 MH 14.5 [place] HEMATOLOGY MCV 88.0 fL 80.0 - 12/14 MH 98.0 /2016 [place] HEMATOLOGY MCHC 33.5 g/dL 32.0 - 12/14 MH 36.0 [place] HEMATOLOGY MCH 29.5 pg 27.0 - 12/14 MH 31.0 [facility] Platelet 159 K/CMM 133 - 450 12/14 [facility] MPV 7.9 fL 7.4 - 10.4 12/14 [place] URINE AND UA Bacteria Occasional None Seen 12/13 STOOL /HPF /HPF /2016 [place] URINE AND UA RBC 0-2 /HPF 0 - 2 12/13 STOOL [place] URINE AND UA WBC 0-2 /HPF None Seen 12/13 STOOL /HPF [place] URINE AND UA Sq Epi Occasional Few /LPF 12/13 STOOL /LPF /2016 [place] URINE AND UA Leuk Est Negative Negative 12/13 STOOL [place] (12/13/16 4:31 PM) URINE AND UA 0.2 EU/dL 0.1 - 1.0 12/13 STOOL Urobilinogen [place] URINE AND UA Nitrite Negative Negative 12/13 STOOL [place] (12/13/16 4:31 PM) URINE AND UA Blood Negative Negative 12/13 STOOL [place] (12/13/16 4:31 PM) URINE AND UA Bili Negative Negative 12/13 STOOL [place] *NA* (12/13/16 4:31 PM) URINE AND UA Ketones 40 mg/dL Negative 12/13 STOOL mg/dL [place] URINE AND UA Glucose Negative Negative 12/13 STOOL [place] (12/13/16 4:31 PM) URINE AND UA Protein Negative Negative 12/13 STOOL [place] (12/13/16 4:31 PM) URINE AND UA pH 6.0 5.0 - 8.0 12/13 [place] URINE AND UA Spec Grav 1.010 <=1.030 12/13 [place] URINE AND UA Turbidity Clear Clear 12/13 STOOL [place] (12/13/16 4:31 PM) URINE AND UA Color Yellow Yellow 12/13 [place] *NA* (12/13/16 4:31 PM) CHEM PANEL Magnesium 2.0 mg/dL 1.8 - 2.4 12/13 [facility] [place] CHEM PANEL Lactic Acid 0.8 mMol/L 0.5 - 2.2 12/13 [facility] [place] Chest 1view Chest 1view Patient Name: THELMA HOLGUIN 12/13 - [facility] DX DX /2016 - [place] : 1950; Age: 66 years Female MR: [id number] Read by: Albert Wilcox MD Dictated Date/time: [...] change, adenopathy, mass. Right axillary nicole. SL: [id number] ELECTROLYTE AGAP 13.1 meq/L 10.0 - 05 MH S 20.0 [place] ELECTROLYTE eGFR 96 12/12 Result Comment: The [...] is not recommended in the following populations: [place] 3m2 Individuals with unstable creatinine concentrations, including [...] 135 - 145 05/20 MH S /2016 [place] ELECTROLYTE Creatinine 0.60 mg/dL 0.50 - 0520 MH S Lvl 1.40 /2016 [place] ELECTROLYTE CO2 26 meq/L 24 - 32 05/20 MH S /2016 [place] ELECTROLYTE Chloride Lvl 104 meq/L 95 - 109 05/20 MH S /2016 [place] ELECTROLYTE Potassium 4.1 meq/L 3.5 - 5.1 05/20 MH S Lvl /2016 [place] ELECTROLYTE Calcium Lvl 8.1 mg/dL 8.5 - 10.5 05/20 MH S [place] ELECTROLYTE Glucose Lvl 128 mg/dL 70 - 99 12/12 S [place] ELECTROLYTE BUN 14 mg/dL 7 - 22 12/12 S [place] HEMATOLOGY Monocytes # 0.5 K/CMM 0.0 - 0.8 12/12 [place] HEMATOLOGY Monocytes 10.1 % 2.0 - 12.0 12/12 MH [place] HEMATOLOGY Eosinophils 0.1 % 0.0 - 4.0 12/12 MH [place] HEMATOLOGY Lymphocytes 0.4 K/CMM 1.0 - 5.5 / MH # /2017 [place] HEMATOLOGY Segs-Bands # 4.1 K/CMM 1.5 - 8.1 12/12 MH [place] HEMATOLOGY Basophils 0.1 % 0.0 - 1.0 12/12 [place] HEMATOLOGY Segs 81.3 % 45.0 - 12/12 MH 75.0 [place] HEMATOLOGY Lymphocytes 8.4 % 20.0 - 12/12 MH 40.0 [place] HEMATOLOGY Platelet 151 K/CMM 133 - 450 12/12 [place] HEMATOLOGY MPV 8.3 fL 7.4 - 10.4 12/12 [place] HEMATOLOGY MCHC 33.7 g/dL 32.0 - 12/12 MH 36.0 [place] HEMATOLOGY Hct 27.9 % 36.0 - 12/12 MH 48.0 [place] HEMATOLOGY MCH 29.9 pg 27.0 - 12/12 MH 31.0 [place] HEMATOLOGY RDW 13.6 % 11.5 - 12/12 MH 14.5 [place] HEMATOLOGY MCV 88.7 fL 80.0 - 12/12 MH 98.0 [place] HEMATOLOGY WBC X 10x3 5.1 K/CMM 3.7 - 10.4 12/12 [place] HEMATOLOGY RBC X 10x6 3.14 M/CMM 4.20 - 12/12 MH 5.40 [place] HEMATOLOGY Hgb 9.4 g/dL 12.0 - 12/12 MH 16.0 [place] CHEM PANEL eGFR 91 12/11 Result Comment: [...] is not recommended in the following populations: [place] [address] Individuals with unstable creatinine concentrations, including patients [...] CO2 24 meq/L 24 - 32 12/11 [place] CHEM PANEL Calcium Lvl 8.5 mg/dL 8.5 - 10.5 12/11 [place] CHEM PANEL Potassium 4.2 meq/L 3.5 - 5.1 12/11 MH Lvl /2016 [place] CHEM PANEL Sodium Lvl 140 meq/L 135 - 145 12/11 [place] CHEM PANEL Chloride Lvl 106 meq/L 95 - 109 12/11 [place] CHEM PANEL Creatinine 0.70 mg/dL 0.50 - 12/11 MH Lvl 1.40 [place] CHEM PANEL BUN 16 mg/dL 7 - 22 12/11 [place] CHEM PANEL Glucose Lvl 113 mg/dL 70 - 99 12/11 [place] CHEM PANEL AGAP 14.2 meq/L 10.0 - 12/11 MH 20.0 /2016 [place] HEMATOLOGY Lymphocytes 9.3 % 20.0 - 12/11 MH 40.0 [place] HEMATOLOGY Segs 80.3 % 45.0 - 12/11 MH 75.0 [place] HEMATOLOGY Monocytes 10.0 % 2.0 - 12.0 12/11 [place] HEMATOLOGY Segs-Bands # 5.5 K/CMM 1.5 - 8.1 12/11 [place] HEMATOLOGY Lymphocytes 0.6 K/CMM 1.0 - 5.5 12/11 MH # /2017 [place] HEMATOLOGY Basophils 0.1 % 0.0 - 1.0 12/11 [facility] HEMATOLOGY Eosinophils 0.3 % 0.0 - 4.0 12/11 [place] HEMATOLOGY Monocytes # 0.7 K/CMM 0.0 - 0.8 12/11 /2016 [place] HEMATOLOGY aPTT 27.2 s 22.9 - 12/11 MH 35.8 /2016 [place] HEMATOLOGY PROTIME 13.1 s 12.0 - 12/11 MH 14.7 [place] HEMATOLOGY INR 0.97 0.85 - 12/11 MH 1.17 [place] HEMATOLOGY MPV 7.7 fL 7.4 - 10.4 12/11 /2016 [place] HEMATOLOGY RDW 14.2 % 11.5 - 12/11 MH 14.5 [place] HEMATOLOGY Hgb 12.5 g/dL 12.0 - 12/11 MH 16.0 [place] HEMATOLOGY WBC X 10x3 6.8 K/CMM 3.7 - 10.4 12/11 /2016 [place] HEMATOLOGY MCHC 33.2 g/dL 32.0 - 12/11 MH 36.0 [facility] HEMATOLOGY Hct 37.7 % 36.0 - 12/11 MH 48.0 [place] HEMATOLOGY MCV 89.6 fL 80.0 - 12/11 MH 98.0 [place] HEMATOLOGY MCH 29.7 pg 27.0 - 12/11 MH 31.0 [place] HEMATOLOGY RBC X 10x6 4.21 M/CMM 4.20 - 12/11 MH 5.40 /2016 [place] HEMATOLOGY Platelet 170 K/CMM 133 - 450 12/11 /2016 [place] BLOOD BANK ABO/Rh A POS 12/11 RESULTS /2016 [place] BLOOD BANK Antibody Negative 12/11 RESULTS Scrn /2016 [place] (12/10/16 11:25 PM) CARDIAC Total CK 115 unit/L 12 - 191 12/11 MH ENZYMES /2016 [place] ELECTROLYTE AGAP 11.3 meq/L 10.0 - 12/11 MH S 20.0 [place] ELECTROLYTE B/C Ratio 22 6 - 25 12/11 S Excel ELECTROLYTE Globulin 3.3 g/dL 2.7 - 4.2 12/11 S Excel ELECTROLYTE A/G Ratio 1.2 0.7 - 1.6 12/11 S [place] ELECTROLYTE eGFR 86 12/11 Result Comment: The [...] is not recommended in the following populations: [address] Individuals with unstable creatinine concentrations, including [...] 18 unit/L 0 - 37 12/11 S [place] ELECTROLYTE Chloride Lvl 108 meq/L 95 - 109 12/11 S [place] ELECTROLYTE CO2 27 meq/L 24 - 32 12/11 S Excel ELECTROLYTE Calcium Lvl 8.9 mg/dL 8.5 - 10.5 12/11 S Excel ELECTROLYTE Bili Total 0.6 mg/dL 0.2 - 1.3 12/11 S Excel ELECTROLYTE Total 7.2 g/dL 6.4 - 8.4 12/11 S Protein Excel ELECTROLYTE ALANINE 35 unit/L 0 - 65 12/11 S AMINOTRANSFE Excel RASE ELECTROLYTE Sodium Lvl 142 meq/L 135 - 145 12/11 S Excel ELECTROLYTE Potassium 4.3 meq/L 3.5 - 5.1 12/11 S Lvl [place] ELECTROLYTE Creatinine 0.74 mg/dL 0.50 - 12/11 S Lvl 1.40 [place] ELECTROLYTE Alk Phos 113 unit/L 39 - 136 12/11 S Excel ELECTROLYTE Glucose Lvl 151 mg/dL 70 - 99 12/11 S Excel ELECTROLYTE BUN 16 mg/dL 7 - 22 12/11 S Excel ELECTROLYTE Albumin Lvl 3.9 g/dL 3.5 - 5.0 12/11 S [facility] HEMATOLOGY Basophils 0.2 % 0.0 - 1.0 12/11 [facility] HEMATOLOGY Monocytes # 0.4 K/CMM 0.0 - 0.8 12/11 [facility] HEMATOLOGY Segs-Bands # 5.5 K/CMM 1.5 - 8.1 12/11 [facility] HEMATOLOGY Lymphocytes 0.5 K/CMM 1.0 - 5.5 12/11 MH # /2017 [place] HEMATOLOGY Lymphocytes 8.4 % 20.0 - 12/11 MH 40.0 /2016 [place] HEMATOLOGY Monocytes 6.1 % 2.0 - 12.0 12/11 [facility] HEMATOLOGY Eosinophils 0.2 % 0.0 - 4.0 12/11 [facility] HEMATOLOGY Segs 85.1 % 45.0 - 12/11 MH 75.0 [facility] HEMATOLOGY aPTT 24.3 s 22.9 - 12/11 MH 35.8 [facility] HEMATOLOGY PROTIME 11.9 s 12.0 - 12/11 MH 14.7 [place] HEMATOLOGY INR 0.86 0.85 - 12/11 MH 1. Excel Femur Femur series EXAM: XR LEFT FEMUR, 2 VIEWS 12/10 - [facility] series DX DX /2016 - [place] DATE: 12/10/2016 7:21 PM CDT Read by: [...] fracture of the left femoral neck. 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 hh/lashaun:06/16/2016 15:06:15 [employer] Sewing [employer] Operator: Macy URIARTE(Linnea)(M), [facility] This exam was dictated and interpreted by [id number] for [facility]. letter sent: Normal [place] Mammogram BI-RADS: 2 Benign Vital Signs Vital Sign Value Date Comments Source Weight 77.273 2018 [facility] BMI Calculated 23.1 2018 [facility] Height 182.88 cm 2018 [facility] Heart Rate 81 12/15/2016 [facility] Temperature Oral (F) 98.3 F 12/15/2016 [facility] Respitory Rate 18 12/15/2016 [facility] Systolic (mm Hg) 133 12/15/2016 [facility] Diastolic (mm Hg) 79 12/15/2016 [facility] Respitory Rate 18 12/15/2016 [facility] Heart Rate 96 12/15/2016 [facility] Systolic (mm Hg) 140 12/15/2016 [facility] Diastolic (mm Hg) 78 12/15/2016 [facility] Temperature Oral (F) 98.0 F 12/15/2016 [facility] Respitory Rate 18 12/15/2016 [facility] Temperature Oral (F) 97.7 F 12/15/2016 [facility] Systolic (mm Hg) 144 12/15/2016 [facility] Diastolic (mm Hg) 80 12/15/2016 [facility] [facility] Heart Rate 93 12/15/2016 [facility] Height 182.88 cm 12/11/2016 [facility] Weight 88.091 12/11/2016 [facility] BMI Calculated 26.34 12/11/2016 [facility] Weight 81.818 12/10/2016 [facility] BMI Calculated 24.46 12/10/2016 [facility] Height 182.88 cm 12/10/2016 [facility] Encounters Location Location Encounter Encounter Reason Attending ADM DC Status Source Details Type Number For Provider Date Date Visit Outpatient [id number] [facility]18 [facility] [id number] JULIA 06/03 [facility] Outpatient [id number] Elizabeth Michael 06/16 06/17 [facility] Outpt Diag [id number] Elizabeth Michael 06/16 06/17 [facility] Outpatient [id number] JULIA 10/14 [facility] [id number] JULIA 10/23 [facility] Out[facility] [id number] ABRAR 12/03 [facility] [id number] Coryadijat 12/10 12/16 [place] 1 [place] /2016 [facility] OP Therapy [id number] Manfred Junie 12/22 01/21 [facility] OP Therapy [id number] Manfred Junie 01/21 02/20 [facility] [id number] Manfred Junie 03/25 03/26 [facility] Outpt Diag [id number] Manfred Junie 05/23 05/23 [facility] [id number] Dominique 12/06 12/07 [facility] Procedures Procedure Code Date Perfomer Comments Source Arthrocentesis, 03/25/2018 [facility] aspiration and/or [facility] injection, major joint or bursa (eg, shoulder, hip, knee, subacromial bursa); with ultrasound guidance, with permanent recording and reporting Breast [id number] 07/26/1994 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 cancer<sup>1</sup> right breast [facility] Mastectomy [id number] [facility] Mastectomy [id number] [facility] Mastectomy [id number] [facility] [id number] [facility] Hip replacement [id number] [facility] operation [id number] [facility] Hip replacement [id number] [facility]
--- OUTSIDE RECORDS SUMMARY | 2018-12-12 11:59 | XMS REPORT ---
:1950 [facility] [address] [place] [address] Care Team Providers Name Role Phone CARLOS HUNT Unavailable Unavailable Problems This patient has no known problems. Allergies, Adverse Reactions, Alerts This patient has no known allergies or adverse reactions. Medications This patient has no known medications. Encounters Start End Encounter Admission Attending Care Care Encounter Date/Time Date/Time Type Type Clinicians Facility Department ID 2018 2018 Outpatient [facility] MED [id number] 07:24:00 07:24:00 Results Test Description Test Time Test Comments Text Results Atomic Results Result Comments FINE NEEDLE 2018-11-29 Medical Cytology Report ASPIRATION BY 15:36:00 Case: [id number] CLINICIAN Authorizing Provider: Emelyn Horta Collected: 11/04/2018 Megan Woodard MD Ordering Location: [address] Received: 11/07/2018 1148 SERVICE Pathologist: Eric Flower MD Specimen: Liver REASON FOR ADDENDUM: TO REPORT ADDITIONAL IMMUNOSTAINS.RESULT:SOILA-3 IMMUNOSTAIN: NEGATIVE (PATCHY/WEAK)MAMMOGLOBIN: NEGATIVETissue will be sent for PDL-1 as per the request of the clinician.CPT code:[id number] electronically signed by Tresa Lanier MD on 11/29/2018 at 3:36 PMFOCAL LIVER LESIONS, FNA BY CLINICIAN (CYTOSPINS AND CELL BLOCK OF ASPIRATE): - POSITIVE FOR MALIGNANCY - METASTATIC ADENOCARCINOMA Signing Pathologist Direct Phone Line: [phone] signed by Eric Flower MD on 11/08/2018 at 1:16 PMThe tumor cells show the same morphologic appearance as the adenocarcinoma in the pancreas.Please also see surgical pathology report [id number] and cytopathology reports [id number] and 993. 52288, 96470Nazhd liver lesions; pancreatic mass invading vein and liver; hepatobiliary obstruction; elevated LFTs; h/o breast cancer s/p Chemo/XRT and right mastectomyFOCAL LIVER LESIONS FNAPrepared cell block(A2) and 4 cytospins from 15 ml cytorich red fixative sampleCollected: [id number]: [id number], [facility] of [facility]ology, [address] [place] [address], [facility]bdifgSan [facility], Department of Pathology, [address] [place] [address], YivppuSan [facility]andro Hospital, Department of Pathology, [address] [place] [address], TISSUE EXAM 2018-11-10 Surgical Pathology Report 14:07:00 Case: [id number] Authorizing Provider: Emelyn Horta Collected: 11/04/2018 Ad Woodard MD Ordering Location: [address] Received: 11/07/2018 0808 SERVICE Pathologist: Tresa Lanier MD Specimen: Pancreas, Head, fine needle aspirate of mass in formulin A. PANCREAS, HEAD MASS, FNA GUIDED BIOPSY: - INVASIVE POORLY DIFFERENTIATED ADENOCARCINOMA (SEE COMMENT) Signing Pathologist Direct Phone Line: [phone] signed by Tresa Lanier MD on 11/10/2018 [...] mammaglobin are negative.IDC: Dr. Pedro Pablo Umana concurs.[id number] ncreatic massPancreas head fine needle aspirate of [...] stains. Immunohistochemistry technical testing was performed at [facility], Pathology Laboratory where it was developed [...] FINAL REPORT PATIENT ID: LIMITED 18:07:00 exam:->please [id number] Limited abdominal biopsy liver ultrasound Technique/findings: masses [...] MDReport Verified Date/Time: 11/09/2018 18:07:18 Reading Location: [address] Ultrasound Reading Room HROMBIN TIME/INR 2018-11-09 11:59:00 Test Item Value Reference Range Comments PROTIME (BEAKER) (test nqtc=694) 13.3 seconds 11.7-14.7 INR (BEAKER) (test zcwi=719) 1.0 <=5.9 RECOMMENDED COUMADIN/WARFARIN INR THERAPY RANGESSTANDARD DOSE: 2.0 - 3.0 Includes: PROPHYLAXIS forvenous thrombosis, systemic embolization; TREATMENT for venous thrombosis and/or pulmonary embolus.HIGH RISK: Target INR is 2.5-3.5 for patients with mechanical heart valves.HEPATIC FUNCTION [id number] 05:41 :00 Test Item Value Reference Range Comments TOTAL PROTEIN (BEAKER) (test quup=916) 6.0 gm/dL 6.0-8.3 ALBUMIN (BEAKER) (test modr=3639) 3.3 g/dL 3.5-5.0 BILIRUBIN TOTAL (BEAKER) (test rbxa=067) 0.7 mg/dL 0.2-1.2 BILIRUBIN DIRECT (BEAKER) (test foax=140) 0.5 mg/dL 0.1-0.5 ALKALINE PHOSPHATASE (BEAKER) (test acff=274) 301 U/L 40-150 AST (SGOT) (BEAKER) (test apia=414) 20 U/L 5-34 ALT (SGPT) (BEAKER) (test joyl=488) 112 U/L 6-55 BASIC METABOLIC [id number] 05:41:00 Test Item Value Reference Range Comments SODIUM (BEAKER) (test 131 meq/L 136-145 fywb=408) POTASSIUM (BEAKER) (test 4.6 meq/L 3.5-5.1 akfk=985) CHLORIDE (BEAKER) (test 97 meq/L 98-107 nsbc=379) CO2 (BEAKER) (test 26 meq/L 22-29 xmum=438) BLOOD UREA NITROGEN 24 mg/dL 7-21 (BEAKER) (test bony=402) CREATININE (BEAKER) (test 0.75 mg/dL 0.57-1.25 mnwu=208) GLUCOSE RANDOM (BEAKER) 157 mg/dL 70-105 (test fcvr=490) CALCIUM (BEAKER) (test 8.7 mg/dL 8.4-10.2 uacg=790) EGFR (BEAKER) (test 77 mL/min/1.73 sq m ESTIMATED GFR IS NOT mbso=0727) ACCURATE CREATININE CLEARANCE IN PREDICTING GLOMERULAR FILTRATION RATE. ESTIMATED GFR IS NOT APPLICABLE FOR DIALYSIS PATIENTS. CBC W/PLT COUNT & AUTO [id number] 05:15:00 Test Item Value Reference Range Comments WHITE BLOOD CELL COUNT (BEAKER) (test heuv=322) 4.7 K/ L 3.5-10.5 RED BLOOD CELL COUNT (BEAKER) (test yyib=983) 4.02 M/ L 3.93-5.22 HEMOGLOBIN (BEAKER) (test bfcv=947) 11.7 GM/DL 11.2-15.7 HEMATOCRIT (BEAKER) (test bgch=928) 37.3 % 34.1-44.9 MEAN CORPUSCULAR VOLUME (BEAKER) (test hxan=976) 92.8 fL 79.4-94.8 MEAN CORPUSCULAR HEMOGLOBIN (BEAKER) (test 29.1 pg 25.6-32.2 ihbv=538) MEAN CORPUSCULAR HEMOGLOBIN CONC (BEAKER) (test 31.4 GM/DL 32.2-35.5 vknh=170) RED CELL DISTRIBUTION WIDTH (BEAKER) (test 13.4 % 11.7-14.4 xflp=401) PLATELET COUNT (BEAKER) (test xivo=950) 252 K/CU MM 150-450 MEAN PLATELET VOLUME (BEAKER) (test euaa=446) 9.2 fL 9.4-12.3 NUCLEATED RED BLOOD CELLS (BEAKER) (test 0 /100 WBC 0-0 zwql=814) NEUTROPHILS RELATIVE PERCENT (BEAKER) (test 69 % jsuw=504) LYMPHOCYTES RELATIVE PERCENT (BEAKER) (test 17 % umgv=895) MONOCYTES RELATIVE PERCENT (BEAKER) (test 13 % wlnz=969) EOSINOPHILS RELATIVE PERCENT (BEAKER) (test 1 % gsyb=331) BASOPHILS RELATIVE PERCENT (BEAKER) (test 0 % skkn=162) NEUTROPHILS ABSOLUTE COUNT (BEAKER) (test 3.25 K/ L 1.56-6.13 qsgo=996) LYMPHOCYTES ABSOLUTE COUNT (BEAKER) (test 0.79 K/ L 1.18-3.74 tkmx=921) MONOCYTES ABSOLUTE COUNT (BEAKER) (test 0.62 K/ L 0.24-0.36 uciu=012) EOSINOPHILS ABSOLUTE COUNT (BEAKER) (test 0.05 K/ L 0.04-0.36 mvvr=907) BASOPHILS ABSOLUTE COUNT (BEAKER) (test 0.01 K/ L 0.01-0.08 ahmz=757) IMMATURE GRANULOCYTES-RELATIVE PERCENT (BEAKER) 0 % 0-1 (test qkkv=4451) CT, CHEST, WITH [id number] 16:30:00FINAL REPORT CT of the Chest, abdomen [...] Melgar MDReport Verified Date/Time: 11/08/2018 16:30:42Reading Location: [facility] B1 C013Y CT Body Reading Room 04: 30 PMCT, ABDOMEN - PELVIS, PANCREAS [id number] 16:30:00Reason for exam :->evaluation of pancreatic cancer.FINAL [...] Sosa Melgarort Verified Date/Time: 11/08/2018 16:30:42Reading Location: [facility] B1 C013Y CT Body Reading Room 04: 30 [id number] 13:12:00Medical Cytology Report Case: [id number] Authorizing Provider: Emelyn Horta Collected: 11/04/2018 173Yanelis Woodard MD OrderingLocation: [address] Received: 2018 1148 SERVICE Pathologist: Eric Flower MD Specimen: Common Bile Duct COMMON BILE DUCT BRUSHING (CYTOSPINS): - SUSPICIOUS FOR MALIGNANCY Signing Pathologist Direct Phone Line: [phone] signed by Eric Flower MD on 11/08/2018 at 1:12 PMPlease also see surgical pathology report [id number] and cytopathology reports [id number] and 992. 72918Yvhvg liver lesions; pancreatic mass invading vein and liver; hepatobiliary obstruction; elevated LFTs; h/o breast cancer s/p Chemo/XRT and right mastectomyCOMMON BILE DUCT BRUSHING Prepared 2 cytospins from 1 brush tip collected in 15 ml cytorich red fixativeCollected: [id number]: [id number] [facility], Department of Pathology, [address] [place] [address], KpqybkSan Leandro Hospital, Department of Pathology, [address] [place] [address] , DjzrrxSan Leandro Hospital, Department of Pathology, [address] [place] [address], NBJO NEEDLE ASPIRATION BY [id number] 13:10:00Medical Cytology Report Case: [id number] Authorizing Provider: Emelyn Horta Collected: 11/04/2018 Lashay Woodard MD OrderingLocation: [address] Received: 2018 1148 SERVICE Pathologist: Eric Flower MD Specimen: Pancreas, Head HEAD OF PANCREAS MASS, FNA BY CLINICIAN (CYTOSPINS AND CELL BLOCK OF ASPIRATE): - POSITIVE FOR MALIGNANCY - ADENOCARCINOMA, DUCTAL TYPE Signing Pathologist Direct Phone Line: [phone] signed by Eric Flower MD on 11/08/2018 at 1:10 PMPlease also see surgical pathology report [id number] and cytopathology reports [id number] and 993. 69572, 33574Uzbnu liver lesions; pancreatic mass invading vein and liver; hepatobiliary obstruction; elevated LFTs; h/o breast cancer s/p Chemo/XRT and right mastectomyHEAD OF PANCREAS MASS FNAPrepared cell block(A2) and 4 cytospins from 18 ml cytorich red fixative sampleCollected: [id number]: [id number] Plaza Doctors [facility], Department of Pathology, [address] [place] [address], CbzawvSan Leandro Hospital, Department of Pathology, [address] [place] [address], Tel QSan Leandro Hospital, Department of Pathology, [address] [place] [address], NGC, ABDOMEN/KUB, 1 VIEW [id number] 11:16:00Reason for exam:->ConstipationFINAL REPORT Abdomen one view [...] MDReport Verified Date/Time: 11/08/2018 11:16:58 Reading Location: [facility] Radiology Reading Room 11: 16 AMHEPATIC FUNCTION [id number] 06:24:00 Test Item Value Reference Range Comments TOTAL PROTEIN (BEAKER) (test zjzm=956) 6.2 gm/dL 6.0-8.3 ALBUMIN (BEAKER) (test hwue=9131) 3.5 g/dL 3.5-5.0 BILIRUBIN TOTAL (BEAKER) (test rueu=400) 0.7 mg/dL 0.2-1.2 BILIRUBIN DIRECT (BEAKER) (test hlrt=550) 0.5 mg/dL 0.1-0.5 ALKALINE PHOSPHATASE (BEAKER) (test vogz=398) 330 U/L 40-150 AST (SGOT) (BEAKER) (test mtin=783) 40 U/L 5-34 ALT (SGPT) (BEAKER) (test qlda=296) 170 U/L 6-55 BASIC METABOLIC [id number] 06:24:00 Test Item Value Reference Range Comments SODIUM (BEAKER) (test 138 meq/L 136-145 tzbm=290) POTASSIUM (BEAKER) (test 3.9 meq/L 3.5-5.1 gznn=965) CHLORIDE (BEAKER) (test 103 meq/L 98-107 pegb=582) CO2 (BEAKER) (test 26 meq/L 22-29 ntfa=208) BLOOD UREA NITROGEN 21 mg/dL 7-21 (BEAKER) (test xmpx=776) CREATININE (BEAKER) (test 0.73 mg/dL 0.57-1.25 hjzw=657) GLUCOSE RANDOM (BEAKER) 119 mg/dL 70-105 (test oqcb=109) CALCIUM (BEAKER) (test 9.4 mg/dL 8.4-10.2 wmtd=844) EGFR (BEAKER) (test 80 mL/min/1.73 sq m ESTIMATED GFR IS NOT pwcn=7620) ACCURATE CREATININE CLEARANCE IN PREDICTING GLOMERULAR FILTRATION RATE. ESTIMATED GFR IS NOT APPLICABLE FOR DIALYSIS PATIENTS. CBC W/PLT COUNT & AUTO [id number] 06:10:00 Test Item Value Reference Range Comments WHITE BLOOD CELL COUNT (BEAKER) (test hrrg=086) 4.8 K/ L 3.5-10.5 RED BLOOD CELL COUNT (BEAKER) (test pdfp=982) 4.63 M/ L 3.93-5.22 HEMOGLOBIN (BEAKER) (test hkld=879) 13.4 GM/DL 11.2-15.7 HEMATOCRIT (BEAKER) (test egbm=693) 44.6 % 34.1-44.9 MEAN CORPUSCULAR VOLUME (BEAKER) (test cgsh=609) 96.3 fL 79.4-94.8 MEAN CORPUSCULAR HEMOGLOBIN (BEAKER) (test 28.9 pg 25.6-32.2 aqwc=310) MEAN CORPUSCULAR HEMOGLOBIN CONC (BEAKER) (test 30.0 GM/DL 32.2-35.5 rgia=581) RED CELL DISTRIBUTION WIDTH (BEAKER) (test 13.5 % 11.7-14.4 prtz=027) PLATELET COUNT (BEAKER) (test mdgl=608) 218 K/CU MM 150-450 MEAN PLATELET VOLUME (BEAKER) (test rzac=572) 9.6 fL 9.4-12.3 NUCLEATED RED BLOOD CELLS (BEAKER) (test 0 /100 WBC 0-0 peqr=507) NEUTROPHILS RELATIVE PERCENT (BEAKER) (test 63 % zcvj=325) LYMPHOCYTES RELATIVE PERCENT (BEAKER) (test 23 % fbbk=084) MONOCYTES RELATIVE PERCENT (BEAKER) (test 12 % gbgv=123) EOSINOPHILS RELATIVE PERCENT (BEAKER) (test 1 % intw=274) BASOPHILS RELATIVE PERCENT (BEAKER) (test 0 % ujoh=505) NEUTROPHILS ABSOLUTE COUNT (BEAKER) (test 3.06 K/ L 1.56-6.13 azbj=782) LYMPHOCYTES ABSOLUTE COUNT (BEAKER) (test 1.13 K/ L 1.18-3.74 lfru=216) MONOCYTES ABSOLUTE COUNT (BEAKER) (test 0.56 K/ L 0.24-0.36 huyn=340) EOSINOPHILS ABSOLUTE COUNT (BEAKER) (test 0.06 K/ L 0.04-0.36 wjyp=060) BASOPHILS ABSOLUTE COUNT (BEAKER) (test 0.01 K/ L 0.01-0.08 nfiq=986) IMMATURE GRANULOCYTES-RELATIVE PERCENT (BEAKER) 0 % 0-1 (test ldkz=0543) TROPONIN [id number] 17:36:00 Test Item Value Reference Range Comments TROPONIN I (BEAKER) (test kvgp=248) < ng/mL 0.00-0.03 Troponin I (TnI) levels [...] acidosis, acute neurological disease, and persistent tachyarrhythmia.CYTOLOGY [id number] 13:00:00 Test Item Value Reference Range Comments CYTOLOGY RESULT POINTER (BEAKER) (test See Separate Report jlqe=7473) FINE NEEDLE ASPIRATE (FNA) [id number] 13:00:00 Test Item Value Reference Range Comments CYTOLOGY RESULT POINTER (BEAKER) (test See Separate Report mezc=5686) FINE NEEDLE ASPIRATE (FNA) [id number] 13:00:00 Test Item Value Reference Range Comments CYTOLOGY RESULT POINTER (BEAKER) (test See Separate Report itht=9441) CARCINOEMBRYONIC ANTIGEN (CEA)2018-11-07 12:05:00 Test Item Value Reference Range Comments CARCINOEMBRYONIC ANTIGEN (BEAKER) (test rcjt=031) 2.6 ng/mL 0.0-5.0 HEPATIC FUNCTION [id number] 07:29:00 Test Item Value Reference Range Comments TOTAL PROTEIN (BEAKER) (test rplp=194) 6.5 gm/dL 6.0-8.3 ALBUMIN (BEAKER) (test dwyu=1018) 3.6 g/dL 3.5-5.0 BILIRUBIN TOTAL (BEAKER) (test vgqb=750) 0.8 mg/dL 0.2-1.2 BILIRUBIN DIRECT (BEAKER) (test xaqw=272) 0.6 mg/dL 0.1-0.5 ALKALINE PHOSPHATASE (BEAKER) (test ydvk=370) 377 U/L 40-150 AST (SGOT) (BEAKER) (test asee=148) 54 U/L 5-34 ALT (SGPT) (BEAKER) (test immh=963) 239 U/L 6-55 BASIC METABOLIC [id number] 07:29:00 Test Item Value Reference Range Comments SODIUM (BEAKER) (test 137 meq/L 136-145 qlym=658) POTASSIUM (BEAKER) (test 4.1 meq/L 3.5-5.1 dwcy=706) CHLORIDE (BEAKER) (test 102 meq/L 98-107 njfc=908) CO2 (BEAKER) (test 26 meq/L 22-29 gpdc=335) BLOOD UREA NITROGEN 15 mg/dL 7-21 (BEAKER) (test ppll=158) CREATININE (BEAKER) (test 0.76 mg/dL 0.57-1.25 jccy=933) GLUCOSE RANDOM (BEAKER) 134 mg/dL 70-105 (test ajdt=446) CALCIUM (BEAKER) (test 9.8 mg/dL 8.4-10.2 glnw=348) EGFR (BEAKER) (test 76 mL/min/1.73 sq m ESTIMATED GFR IS NOT crqz=0959) ACCURATE CREATININE CLEARANCE IN PREDICTING GLOMERULAR FILTRATION RATE. ESTIMATED GFR IS NOT APPLICABLE FOR DIALYSIS PATIENTS. CBC W/PLT COUNT & AUTO [id number] 06:59:00 Test Item Value Reference Range Comments WHITE BLOOD CELL COUNT (BEAKER) (test bqvu=309) 5.3 K/ L 3.5-10.5 RED BLOOD CELL COUNT (BEAKER) (test jqti=918) 4.18 M/ L 3.93-5.22 HEMOGLOBIN (BEAKER) (test hako=617) 12.4 GM/DL 11.2-15.7 HEMATOCRIT (BEAKER) (test vhgv=306) 37.9 % 34.1-44.9 MEAN CORPUSCULAR VOLUME (BEAKER) (test mhyh=450) 90.7 fL 79.4-94.8 MEAN CORPUSCULAR HEMOGLOBIN (BEAKER) (test 29.7 pg 25.6-32.2 osvt=998) MEAN CORPUSCULAR HEMOGLOBIN CONC (BEAKER) (test 32.7 GM/DL 32.2-35.5 xewc=626) RED CELL DISTRIBUTION WIDTH (BEAKER) (test 13.4 % 11.7-14.4 utgv=502) PLATELET COUNT (BEAKER) (test pzna=675) 223 K/CU MM 150-450 MEAN PLATELET VOLUME (BEAKER) (test fojo=474) 9.4 fL 9.4-12.3 NUCLEATED RED BLOOD CELLS (BEAKER) (test 0 /100 WBC 0-0 cpdd=692) NEUTROPHILS RELATIVE PERCENT (BEAKER) (test 76 % rajx=833) LYMPHOCYTES RELATIVE PERCENT (BEAKER) (test 14 % narm=888) MONOCYTES RELATIVE PERCENT (BEAKER) (test 9 % htrf=830) EOSINOPHILS RELATIVE PERCENT (BEAKER) (test 1 % ocyp=732) BASOPHILS RELATIVE PERCENT (BEAKER) (test 0 % ezkn=355) NEUTROPHILS ABSOLUTE COUNT (BEAKER) (test 3.97 K/ L 1.56-6.13 osfp=288) LYMPHOCYTES ABSOLUTE COUNT (BEAKER) (test 0.76 K/ L 1.18-3.74 shvi=843) MONOCYTES ABSOLUTE COUNT (BEAKER) (test 0.46 K/ L 0.24-0.36 vyqe=526) EOSINOPHILS ABSOLUTE COUNT (BEAKER) (test 0.04 K/ L 0.04-0.36 sxss=501) BASOPHILS ABSOLUTE COUNT (BEAKER) (test 0.01 K/ L 0.01-0.08 ramc=872) IMMATURE GRANULOCYTES-RELATIVE PERCENT (BEAKER) 0 % 0-1 (test oqnq=3385) HEPATIC FUNCTION [id number] 07:57:00 Test Item Value Reference Range Comments TOTAL PROTEIN (BEAKER) (test zqbm=878) 6.5 gm/dL 6.0-8.3 ALBUMIN (BEAKER) (test jrqn=1122) 3.6 g/dL 3.5-5.0 BILIRUBIN TOTAL (BEAKER) (test sgon=907) 0.9 mg/dL 0.2-1.2 BILIRUBIN DIRECT (BEAKER) (test juut=657) 0.6 mg/dL 0.1-0.5 ALKALINE PHOSPHATASE (BEAKER) (test fyqy=275) 410 U/L 40-150 AST (SGOT) (BEAKER) (test cncw=861) 72 U/L 5-34 ALT (SGPT) (BEAKER) (test yhef=944) 321 U/L 6-55 BASIC METABOLIC [id number] 07:41:00 Test Item Value Reference Range Comments SODIUM (BEAKER) (test 136 meq/L 136-145 oacr=127) POTASSIUM (BEAKER) (test 3.8 meq/L 3.5-5.1 Specimen slightly akbe=243) hemolyzed CHLORIDE (BEAKER) (test 103 meq/L 98-107 anrj=502) CO2 (BEAKER) (test 24 meq/L 22-29 odzr=395) BLOOD UREA NITROGEN 11 mg/dL 7-21 (BEAKER) (test jdee=970) CREATININE (BEAKER) (test 0.66 mg/dL 0.57-1.25 Specimen slightly rxqk=375) hemolyzed GLUCOSE RANDOM (BEAKER) 125 mg/dL 70-105 (test psuv=733) CALCIUM (BEAKER) (test 9.3 mg/dL 8.4-10.2 acyu=735) EGFR (BEAKER) (test 90 mL/min/1.73 sq m ESTIMATED GFR IS NOT ptsu=0514) ACCURATE CREATININE CLEARANCE IN PREDICTING GLOMERULAR FILTRATION RATE. ESTIMATED GFR IS NOT APPLICABLE FOR DIALYSIS PATIENTS. CBC W/PLT COUNT & AUTO [id number] 06:24:00 Test Item Value Reference Range Comments WHITE BLOOD CELL COUNT (BEAKER) (test jslu=434) 5.7 K/ L 3.5-10.5 RED BLOOD CELL COUNT (BEAKER) (test rsmm=539) 4.28 M/ L 3.93-5.22 HEMOGLOBIN (BEAKER) (test gweh=026) 12.6 GM/DL 11.2-15.7 HEMATOCRIT (BEAKER) (test lfsk=199) 39.6 % 34.1-44.9 MEAN CORPUSCULAR VOLUME (BEAKER) (test bsvu=631) 92.5 fL 79.4-94.8 MEAN CORPUSCULAR HEMOGLOBIN (BEAKER) (test 29.4 pg 25.6-32.2 wcpc=206) MEAN CORPUSCULAR HEMOGLOBIN CONC (BEAKER) (test 31.8 GM/DL 32.2-35.5 lmnk=343) RED CELL DISTRIBUTION WIDTH (BEAKER) (test 13.7 % 11.7-14.4 mgfc=854) PLATELET COUNT (BEAKER) (test uwpe=449) 236 K/CU MM 150-450 MEAN PLATELET VOLUME (BEAKER) (test uosr=059) 9.6 fL 9.4-12.3 NUCLEATED RED BLOOD CELLS (BEAKER) (test 0 /100 WBC 0-0 yqdb=802) NEUTROPHILS RELATIVE PERCENT (BEAKER) (test 80 % widw=288) LYMPHOCYTES RELATIVE PERCENT (BEAKER) (test 11 % hewd=341) MONOCYTES RELATIVE PERCENT (BEAKER) (test 8 % ykzs=290) EOSINOPHILS RELATIVE PERCENT (BEAKER) (test 1 % fepg=632) BASOPHILS RELATIVE PERCENT (BEAKER) (test 0 % qrtv=297) NEUTROPHILS ABSOLUTE COUNT (BEAKER) (test 4.54 K/ L 1.56-6.13 rpsz=818) LYMPHOCYTES ABSOLUTE COUNT (BEAKER) (test 0.63 K/ L 1.18-3.74 gmec=591) MONOCYTES ABSOLUTE COUNT (BEAKER) (test 0.45 K/ L 0.24-0.36 yxxc=509) EOSINOPHILS ABSOLUTE COUNT (BEAKER) (test 0.05 K/ L 0.04-0.36 lnxn=018) BASOPHILS ABSOLUTE COUNT (BEAKER) (test 0.01 K/ L 0.01-0.08 viev=809) IMMATURE GRANULOCYTES-RELATIVE PERCENT (BEAKER) 0 % 0-1 (test wnfc=4329) [id number] 06:07:00 Test Item Value Reference Range Comments PHOSPHORUS (BEAKER) (test ifvv=848) 2.7 mg/dL 2.3-4.7 [id number] 06:07:00 Test Item Value Reference Range Comments MAGNESIUM (BEAKER) (test zgnr=513) 1.9 mg/dL 1.6-2.6 BASIC METABOLIC [id number] 06:07:00 Test Item Value Reference Range Comments SODIUM (BEAKER) (test 139 meq/L 136-145 zzmu=814) POTASSIUM (BEAKER) (test 4.0 meq/L 3.5-5.1 qcfj=877) CHLORIDE (BEAKER) (test 109 meq/L 98-107 ufgv=994) CO2 (BEAKER) (test 19 meq/L 22-29 brng=143) BLOOD UREA NITROGEN 13 mg/dL 7-21 (BEAKER) (test hezb=418) CREATININE (BEAKER) (test 0.63 mg/dL 0.57-1.25 gvcq=276) GLUCOSE RANDOM (BEAKER) 114 mg/dL 70-105 (test gzfm=544) CALCIUM (BEAKER) (test 8.9 mg/dL 8.4-10.2 rfcn=121) EGFR (BEAKER) (test 95 mL/min/1.73 sq m ESTIMATED GFR IS NOT kxbq=8648) ACCURATE CREATININE CLEARANCE IN PREDICTING GLOMERULAR FILTRATION RATE. ESTIMATED GFR IS NOT APPLICABLE FOR DIALYSIS PATIENTS. HEPATIC FUNCTION [id number] 06:07:00 Test Item Value Reference Range Comments TOTAL PROTEIN (BEAKER) (test yzgp=591) 6.1 gm/dL 6.0-8.3 ALBUMIN (BEAKER) (test wtcu=7552) 3.5 g/dL 3.5-5.0 BILIRUBIN TOTAL (BEAKER) (test hdzw=195) 1.3 mg/dL 0.2-1.2 BILIRUBIN DIRECT (BEAKER) (test xuuw=568) 0.9 mg/dL 0.1-0.5 ALKALINE PHOSPHATASE (BEAKER) (test xcqs=469) 419 U/L 40-150 AST (SGOT) (BEAKER) (test zwnj=434) 121 U/L 5-34 ALT (SGPT) (BEAKER) (test bwsx=283) 418 U/L 6-55 CALCIUM, [id number] 05:42:00 Test Item Value Reference Range Comments CALCIUM IONIZED (BEAKER) (test jqyd=833) 1.06 mmol/L 1.12-1.27 PH, BLOOD (BEAKER) (test gyih=3403) 7.39 CBC W/PLT COUNT & AUTO [id number] 05:29:00 Test Item Value Reference Range Comments WHITE BLOOD CELL COUNT (BEAKER) (test linr=524) 5.8 K/ L 3.5-10.5 RED BLOOD CELL COUNT (BEAKER) (test fghe=137) 4.07 M/ L 3.93-5.22 HEMOGLOBIN (BEAKER) (test fhnx=813) 11.9 GM/DL 11.2-15.7 HEMATOCRIT (BEAKER) (test ogcc=030) 37.3 % 34.1-44.9 MEAN CORPUSCULAR VOLUME (BEAKER) (test ctuc=460) 91.6 fL 79.4-94.8 MEAN CORPUSCULAR HEMOGLOBIN (BEAKER) (test 29.2 pg 25.6-32.2 pyxn=369) MEAN CORPUSCULAR HEMOGLOBIN CONC (BEAKER) (test 31.9 GM/DL 32.2-35.5 kytt=743) RED CELL DISTRIBUTION WIDTH (BEAKER) (test 13.8 % 11.7-14.4 kxdx=574) PLATELET COUNT (BEAKER) (test jocs=385) 218 K/CU MM 150-450 MEAN PLATELET VOLUME (BEAKER) (test jadx=120) 9.5 fL 9.4-12.3 NUCLEATED RED BLOOD CELLS (BEAKER) (test 0 /100 WBC 0-0 fjgr=516) NEUTROPHILS RELATIVE PERCENT (BEAKER) (test 81 % evca=746) LYMPHOCYTES RELATIVE PERCENT (BEAKER) (test 9 % asat=735) MONOCYTES RELATIVE PERCENT (BEAKER) (test 9 % uzdv=109) EOSINOPHILS RELATIVE PERCENT (BEAKER) (test 1 % zaog=357) BASOPHILS RELATIVE PERCENT (BEAKER) (test 0 % dnen=433) NEUTROPHILS ABSOLUTE COUNT (BEAKER) (test 4.69 K/ L 1.56-6.13 trpi=632) LYMPHOCYTES ABSOLUTE COUNT (BEAKER) (test 0.51 K/ L 1.18-3.74 ixnd=153) MONOCYTES ABSOLUTE COUNT (BEAKER) (test 0.51 K/ L 0.24-0.36 ryif=561) EOSINOPHILS ABSOLUTE COUNT (BEAKER) (test 0.04 K/ L 0.04-0.36 ozqx=472) BASOPHILS ABSOLUTE COUNT (BEAKER) (test 0.01 K/ L 0.01-0.08 nkdi=812) IMMATURE GRANULOCYTES-RELATIVE PERCENT (BEAKER) 0 % 0-1 (test dkmc=6203) FL, [id number] 21:43:00Reason for exam:->Pancreatic head massFINAL REPORT Examination: ERCP 5 fluoroscopic spot views were obtained during the procedure by the ordering service. Images are nondiagnostic as no radiologist was present at the time of imaging. Fluoroscopic time was 71.7 seconds. Please see the procedure report for details. Signed: Rubio Lucas MDReport Verified Date/Time: 11/04/2018 21:43: 27 Reading Location: [address] Reading Room RAD, CHEST, 1 VIEW, NON [id number] 14:08:00Reason for exam:->SOBShould this be performed at [...] MDReport Verified Date/Time: 2018 14:08:49 Reading Location: [facility] Radiology Reading Room CARCINOEMBRYONIC ANTIGEN (CEA)2018-11-04 05:00:00 Test Item Value Reference Range Comments CARCINOEMBRYONIC ANTIGEN (BEAKER) (test wqkr=494) 2.5 ng/mL 0.0-5.0 BASIC METABOLIC [id number] 00:58:00 Test Item Value Reference Range Comments SODIUM (BEAKER) (test 139 meq/L 136-145 mipt=332) POTASSIUM (BEAKER) (test 3.4 meq/L 3.5-5.1 bpba=352) CHLORIDE (BEAKER) (test 108 meq/L 98-107 sbgl=667) CO2 (BEAKER) (test 22 meq/L 22-29 gnyd=022) BLOOD UREA NITROGEN 10 mg/dL 7-21 (BEAKER) (test ixxz=609) CREATININE (BEAKER) (test 0.74 mg/dL 0.57-1.25 oomr=097) GLUCOSE RANDOM (BEAKER) 184 mg/dL 70-105 (test lqao=501) CALCIUM (BEAKER) (test 8.8 mg/dL 8.4-10.2 wfqb=673) EGFR (BEAKER) (test 79 mL/min/1.73 sq m ESTIMATED GFR IS NOT cvxw=3969) ACCURATE CREATININE CLEARANCE IN PREDICTING GLOMERULAR FILTRATION RATE. ESTIMATED GFR IS NOT APPLICABLE FOR DIALYSIS PATIENTS. Specimen slightly ictericGAMMA GLUTAMYL TRANSFERASE (GGT)2018-11-04 00:58:00 Test Item Value Reference Range Comments GAMMA GLUTAMYL TRANSFERASE (BEAKER) (test uwhb=286) 465 U/L 9-64 Specimen slightly ictericHEPATIC FUNCTION [id number] 00:58:00 Test Item Value Reference Range Comments TOTAL PROTEIN (BEAKER) (test bevo=062) 6.5 gm/dL 6.0-8.3 ALBUMIN (BEAKER) (test lvix=3337) 3.7 g/dL 3.5-5.0 BILIRUBIN TOTAL (BEAKER) (test dars=607) 3.0 mg/dL 0.2-1.2 BILIRUBIN DIRECT (BEAKER) (test yvsv=207) 2.3 mg/dL 0.1-0.5 ALKALINE PHOSPHATASE (BEAKER) (test znlg=927) 462 U/L 40-150 AST (SGOT) (BEAKER) (test ubna=739) 211 U/L 5-34 ALT (SGPT) (BEAKER) (test jygn=423) 552 U/L 6-55 Specimen slightly [id number] 00:58:00 Test Item Value Reference Range Comments LIPASE (BEAKER) (test swni=569) 34 U/L 8-78 Specimen slightly ictericPROTHROMBIN [id number] 00:37:00 Test Item Value Reference Range Comments PROTIME (BEAKER) (test imuw=199) 13.5 seconds 11.7-14.7 INR (BEAKER) (test hsdp=957) 1.0 <=5.9 RECOMMENDED COUMADIN/WARFARIN INR THERAPY RANGESSTANDARD DOSE: 2.0 - 3.0 Includes: PROPHYLAXIS forvenous thrombosis, systemic embolization; TREATMENT for venous thrombosis and/or pulmonary embolus.HIGH RISK: Target INR is 2.5-3.5 for patients with mechanical heart valves.CBC W/PLT COUNT & AUTO [id number] 00:30:00 Test Item Value Reference Range Comments WHITE BLOOD CELL COUNT (BEAKER) (test sebl=433) 3.7 K/ L 3.5-10.5 RED BLOOD CELL COUNT (BEAKER) (test rwfq=230) 4.04 M/ L 3.93-5.22 HEMOGLOBIN (BEAKER) (test uhrv=018) 11.8 GM/DL 11.2-15.7 HEMATOCRIT (BEAKER) (test pvmt=411) 37.0 % 34.1-44.9 MEAN CORPUSCULAR VOLUME (BEAKER) (test divx=924) 91.6 fL 79.4-94.8 MEAN CORPUSCULAR HEMOGLOBIN (BEAKER) (test 29.2 pg 25.6-32.2 sgzf=429) MEAN CORPUSCULAR HEMOGLOBIN CONC (BEAKER) (test 31.9 GM/DL 32.2-35.5 qdcd=255) RED CELL DISTRIBUTION WIDTH (BEAKER) (test 13.5 % 11.7-14.4 mbua=581) PLATELET COUNT (BEAKER) (test qbpr=341) 181 K/CU MM 150-450 MEAN PLATELET VOLUME (BEAKER) (test eltg=000) 9.8 fL 9.4-12.3 NUCLEATED RED BLOOD CELLS (BEAKER) (test 0 /100 WBC 0-0 cjyz=251) NEUTROPHILS RELATIVE PERCENT (BEAKER) (test 72 % lazo=162) LYMPHOCYTES RELATIVE PERCENT (BEAKER) (test 17 % xczp=129) MONOCYTES RELATIVE PERCENT (BEAKER) (test 9 % axcg=045) EOSINOPHILS RELATIVE PERCENT (BEAKER) (test 1 % bnsf=409) BASOPHILS RELATIVE PERCENT (BEAKER) (test 0 % nfya=589) NEUTROPHILS ABSOLUTE COUNT (BEAKER) (test 2.68 K/ L 1.56-6.13 cxoz=303) LYMPHOCYTES ABSOLUTE COUNT (BEAKER) (test 0.64 K/ L 1.18-3.74 mbtx=344) MONOCYTES ABSOLUTE COUNT (BEAKER) (test 0.33 K/ L 0.24-0.36 vhzl=167) EOSINOPHILS ABSOLUTE COUNT (BEAKER) (test 0.05 K/ L 0.04-0.36 lyks=690) BASOPHILS ABSOLUTE COUNT (BEAKER) (test 0.01 K/ L 0.01-0.08 ymmb=239) IMMATURE GRANULOCYTES-RELATIVE PERCENT (BEAKER) 0 % 0-1 (test dlbm=0372) URINALYSIS WITH MICROSCOPIC IF [id number] 00:29:00 Test Item Value Reference Range Comments COLOR (BEAKER) (test uhxo=938) Yellow CLARITY (BEAKER) (test btqb=412) Clear SPECIFIC GRAVITY UA (BEAKER) (test nsgr=975) 1.019 1.001-1.035 PH UA (BEAKER) (test tooa=058) 7.0 5.0-8.0 PROTEIN UA (BEAKER) (test jylq=016) Negative Negative GLUCOSE UA (BEAKER) (test puhf=826) 50 mg/dL Negative KETONES UA (BEAKER) (test fgop=393) 100 mg/dL Negative BILIRUBIN UA (BEAKER) (test gjdt=147) Negative Negative BLOOD UA (BEAKER) (test mcga=536) Negative Negative NITRITE UA (BEAKER) (test fuph=282) Negative Negative LEUKOCYTE ESTERASE UA (BEAKER) (test reym=017) Negative Negative UROBILINOGEN UA (BEAKER) (test goef=710) 0.2 mg/dL 0.2-1.0 SOURCE(BEAKER) (test wxmq=0359)
[2018-12-12 12:24] VITALS: BMI 3241.6
[2018-12-12 12:56] LABS: ALT/SGPT 90 U/L (12-78); AST/SGOT 29 U/L (15-37); Absolute Lymphocytes (CBC) 0.4 K/uL (0.7-4.9); Absolute Monocytes 0.7 K/uL (0.1-1.3); Absolute Neutrophil 6.3 K/uL (1.8-8.0); Alkaline Phosphatase 482 U/L (45-117); BUN Blood Urea Nitrogen 12 mg/dL (7-18); Basophils % 0.1 % (0-1.3); Bicarbonate 27 mmol/L (21-32); Bilirubin Total 0.5 mg/dL (0.2-1.0); Eosinophils % 0.1 % (0-4.4); Glucose Level 140 mg/dL (74-106); Hematocrit 33.7 % (36.0-45.0); Lymphocytes % 5.8 % (15.3-44.8); MPV 7.7 fL (7.6-11.3); Monocytes % 9.1 % (3.3-12.3); Potassium 3.7 mmol/L (3.5-5.1); Protein, Total 6.1 g/dL (6.4-8.2); RBC Red Blood Cell Count 3.87 M/uL (3.86-4.86); Sodium Level 137 mmol/L (136-145)
--- NOTE | 2018-12-12 14:41 | RAD REPORT ---
EXAM DESCRIPTION: MRI - MRA Head Wo Cont - 12/12/2018 2:25 pm CLINICAL HISTORY: CVA, left arm weakness COMPARISON: CT head December 11 TECHNIQUE: Axial and coronal 3D jqav-hy-xuloeh image acquisition was performed. 3D rotational images were generated with source and reconstruction images reviewed. Horizontal and vertical axis rotation al views generated using MIP protocol. FINDINGS: Major venous sinuses are patent. Left vertebral artery is dominant. Basilar tortuosity is present without stenosis or dissection. Post erior cerebral artery show no suspicious findings. From skullbase determination the internal carotid artery show no dissection, stenosis or suspicious f indings. Anterior cerebral and middle cerebral artery distributions without significant disease. No aneurysm or vascular malformation. Imaging extends to near the origin of each internal carotid artery. No internal carotid abnormality s een. IMPRESSION: MRA imaging, as detailed above, shows no significant or suspicious finding.
--- NOTE | 2018-12-12 14:48 | RAD REPORT ---
EXAM DESCRIPTION: RAD - Chest Pa And Lat (2 Views) - 12/12/2018 2:25 pm CLINICAL HISTORY: Right apex abnormality on CT imaging COMPARISON: CT head and cervical December 11, portable chest November 03 ; chest examination November 2016 TECHNIQUE: PA and lateral views of the chest were obtained. FINDINGS: The lungs are normal volume. Fibrotic lung changes are present similar to comparison. Medi al right apex opacification is present. This is most likely fibrotic scarring. Pattern is not substan tially different back to 2017. This can be monitored on subsequent imaging. Right-sided Port-A-Cath is in place. Heart size is normal and central vasculature is within normal li mits. No pneumothorax present. Small right pleural effusion is seen. No acute bony finding noted. N o aortic abnormality. IMPRESSION: Medial right apex opacification seen on the CT study is believed to be scarring. Finding s are not substantially different back to 2017. This can be monitored on subsequent imaging. Small right pleural effusion. Underlying chronic interstitial lung disease with no new or progressive lung parenchymal process.
--- NOTE | 2018-12-12 14:55 | RAD REPORT ---
EXAM DESCRIPTION: MRI - Brain Wo Cont - 12/12/2018 2:25 pm CLINICAL HISTORY: Left arm numbness and weakness, CVA symptoms COMPARISON: CT imaging December 11 TECHNIQUE: Sagittal T1-weighted images were obtained along with axial PD, heavily T2-weighted and T2 -FLAIR images. Axial DWI and ADC mapping sequences were also obtained along with coronal heavily T2-w eighted images. FINDINGS: No intracranial hemorrhage is present. There are multiple 2-8 mm sized foci of hyperintens e signal on diffusion-weighted imaging. These total 10 or 12 in number. These are in the right cerebr al hemisphere near the central sulcus. There is corresponding hypointense signal on ADC mapping and h yperintense T2/IR signal. These acute nonhemorrhagic CVA findings would explain left extremity sympto ms. No other area of acute infarction identified in the right cerebral hemisphere. There is 1 very small 1-2 millimeter hyperintense focus on diffusion-weighted imaging in the anterior left frontal lobe. Th is is too small to assess for a corresponding diminished signal on ADC mapping. No acute diffusion si gnal abnormality in the posterior circulation or posterior fossa. No mass, edema or shift of midline structures. Patient has minimal scattered chronic ischemic changes elsewhere in the bilateral cerebral hemispheres. Brainstem and basal ganglia are spared. No extra-ax ial fluid collections. Clements-matter/white matter junction is preserved. Signal voids are seen as a nor mal finding in the major intracranial vessels. Mastoid air cells and paranasal sinuses are clear. IMPRESSION: Multiple foci of acute nonhemorrhagic infarction are present closely clustered near the central sulcus of the right cerebral hemisphere. These right cerebral hemisphere acute CVA changes would explain left extremity symptoms. There is a single punctate focus of acute nonhemorrhagic CVA in the anterior left frontal lobe. The p resence of this contralateral CVA finding could indicate embolic source proximal to the carotid vascu lature.
[2018-12-12] MEDS: NA CHLORIDE 0.9% 1,000 ML IV SCH (14:59)
[2018-12-12] MEDS ORDERED: ASPIRIN EC 81 MG TAB PO ONE (15:01)
[2018-12-12] MEDS: ENOXAPARIN 30 MG/0.3 ML SQ SCH (16:06)
--- NOTE | 2018-12-12 16:48 | RAD REPORT ---
EXAM DESCRIPTION: USCarotid Artery Bilateral12/12/2018 4:34 pm CLINICAL HISTORY: cva COMPARISON: None FINDINGS: The velocity of the right internal carotid artery equals 101 cm/sec. The right ICA/CCA rat io 1.4 The velocity of the left internal carotid artery equals 92 cm/sec. The left ICA/CCA ratio 1.4 Tortuous internal carotid arteries. No plaque seen The vertebral arteries demonstrate antegrade flow IMPRESSION: Tortuous internal carotid arteries without visualization of plaque NASCET criteria used. Mild 0-49% stenosis Moderate 50-69% stenosis Severe 70-99% stenosis
[2018-12-12] MEDS ORDERED: POTASSIUM CL SA 10 MEQ TAB PO ONE (17:00)
[2018-12-12 20:19] LABS: Urine Appearance CLEAR; Urine Blood NEGATIVE (NEG); Urine Color DK YELLOW; Urine Glucose NEGATIVE (NEG); Urine Protein 1+ (NEG); Urine Specific Gravity 1.025 (1.005-1.030)
[2018-12-12 20:25] LABS: Urine Bilirubin NEGATIVE (NEG); Urine Microscopic Reflex ORDER UMIC
[2018-12-12 20:49] LABS: Calcium Oxalate Crystals- Ur FEW (NONE SEEN); Urine Bacteria 20-50 /HPF (<20); Urine Culture Reflex Order REFLEXED; Urine RBC NONE SEEN /HPF (NONE SEEN)
[2018-12-12] MEDS: MORPHINE 2 MG/ML SYR IV PRN (21:41)
[2018-12-13] MEDS: NA CHLORIDE 0.9% 1,000 ML IV SCH ×3 (01:20→17:11)
--- NOTE | 2018-12-13 05:17 | HP ---
Date of Admission: 12/12/2018 Chief Complaint: Left arm weakness. History Of Present Illness: This is a 68-year-old very pleasant female patient, who was diagnosed as having pancreatic cancer about a month ago. She sees oncologist, Dr. Locke and this week she w as supposed to start her chemotherapy. The patient says that yesterday morning after she woke up, angella ilia found out that her left arm is weaker than normal. She is left-handed and she had trouble doing th ings and her daily tasks with her left hand because of the weakness and also had some numbness of the left hand. She also realized that her balance was not good when she was walking. Denied any headac hes or visual complaints. She has been having nausea, vomiting, and diarrhea for last 3-4 weeks, whi ch has not changed any and also has some upper abdominal pain which has not changed any with her panc reatic cancer. Yesterday, she went to emergency room with these complaints and after she was evaluat ed in the ER, she had a CAT scan of the head done in the emergency room, which was negative as she sa ys and she was released to go home. She came to see me today with her son. After I evaluated her, I was concerned about possibility of stroke, so a decision was made to admit her directly to the [facility] for further evaluation and management of this problem. Medications: List reviewed. Review of Systems: GIANT TIRE REPAIRER: As mentioned above. GI: As mentioned above. All other systems reviewed and negative. Allergies: NO KNOWN ALLERGIES. Social History: Negative for smoking and alcohol use. Past Medical History: Cancer of pancreas, diverticulosis, right breast cancer, hyperlipidemia and os teoporosis, lymphedema of right upper extremity secondary to mastectomy. Past Surgical History: Removal of lipoma from left leg, April 28, 2017. Had right-sided mastectomy in 1994 and hip replacement due to hip fracture about 2 to 3 years ago. Social History: Negative for smoking and alcohol use. Physical Examination: Vital Signs: Height 6 feet tall, weight 166 pounds, temperature 97.7, pulse 89, respiratory rate 16, blood pressure 114/69. General: Awake, alert, oriented, not in distress. HEENT: Head atraumatic, normocephalic. Conjunctivae nonerythematous. Sclerae white. Mouth, no thr ush or edema noted. Ears/Nose, no mass, lesion, discharge noted. Neck: Supple. No JVD, lymph nodes, bruit, thyromegaly noted. Lungs: Bilateral good equal air entry. Clear to auscultation. No rhonchi. No rales. Heart: Normal heart sounds, no murmur or gallop. Abdomen: Soft. Mild tenderness in the upper abdomen. No guarding, rigidity. No rebound tenderness . No distention. Bowel sounds normoactive. Extremities: Lymphedema of right upper extremity, chronic and unchanged. Skin: No rash, ulcer, cellulitis. Lymphatics: No lymph node enlargement in neck, supraclavicular, infraclavicular region. Neuro: Left upper extremity and left lower extremity power is 4 to 4+/5. Right upper and right lowe r extremity power is normal. No facial asymmetry. Chest: Unremarkable. External Genitalia: Deferred. Rectal: Deferred. Laboratory Data: MRI of the brain done today per stroke protocol reveals presence of multiple small nonhemorrhagic infarct in the right cerebral hemisphere and one such area in the left cerebral hemisp here. Carotid Doppler: No evidence of any carotid artery stenosis. Chest x-ray, some scarring in t he upper lobe unchanged from before. No mass. Echocardiogram ordered and it is pending. White coun t 7.4, hemoglobin 11, platelets 238. Sodium 137, potassium 3.7, chloride 101, bicarb 27, BUN 12, cre atinine 0.58, glucose 140. Liver function tests unremarkable except ALT 90, alkaline phosphatase 482 . Impression: 1.Stroke. 2.Cancer of pancreas. 3.Right female breast cancer. 4.Hyperlipidemia. 5.Diverticulosis. 6.Osteoporosis. 7.Lymphedema, right upper extremity, post mastectomy. Plan: Admit the patient to hospital for further evaluation and management of this problem. The corrina ent is appropriate for inpatient and is expected to spend 2 midnights in hospital. Soon after I got the report on MRI, aspirin 81 mg p.o. x1 dose was given and we will continue that on a daily basis. We will get a fasting lipid profile tomorrow. We will continue aspirin 81 mg daily. Lovenox for DVT prophylaxis will be given. SCD was ordered. We will consult Physical Therapy, Occupational Therapy and Speech Therapy, consult Dr. Chang and Inpatient Rehab. We will communicate with her Oncologi st, Dr. Locke regarding this stroke and other details. Plan of treatment discussed with the benjamín vazquez. I did go back to hospital this evening and discussed all the details with the patient. DUSTY/BRO Voice ID: [id number]
--- NOTE | 2018-12-13 06:16 | EKG ---
Test Date: 2018-12-12 Test Time: 17:52:36 Survival Specialist: ABHILASH MEASUREMENT RESULTS: Intervals: Rate: 97 GA: 178 QRSD: 82 QT: 372 QTc: 472 [place]: P: 41 GA: 178 QRS: 6 T: 40 INTERPRETIVE STATEMENTS: Normal sinus rhythm Normal ECG Compared to ECG 12/11/2018 11:26:16 No significant changes Electronically Signed On 12-13-18 06:16:03 CDT by Connor Hoskins
[2018-12-13 06:18] LABS: BUN Blood Urea Nitrogen 9 mg/dL (7-18); Bicarbonate 28 mmol/L (21-32); Glucose Level 126 mg/dL (74-106); Potassium 3.8 mmol/L (3.5-5.1); Sodium Level 136 mmol/L (136-145)
[2018-12-13] MEDS: ONDANSETRON 4 MG/2 ML VIAL IV PRN ×3 (08:29→19:17)
[2018-12-13] MEDS: ASPIRIN EC 81 MG TAB PO SCH (08:29)
[2018-12-13] MEDS: MORPHINE 2 MG/ML SYR IV PRN ×4 (08:29→23:03)
[2018-12-13] MEDS ORDERED: POTASSIUM CL SA 10 MEQ TAB PO ONE (09:00)
[2018-12-13] MEDS: MAGNES/ALUMIN/SIMET 30ML UCUP PO PRN (12:25)
--- NOTE | 2018-12-13 14:41 | ECHO ---
HEIGHT: 6 ft 0 in WEIGHT: 166 lb 0 oz DATE OF STUDY: 12/13/[address]: Gm Lim MD 2-DIMENSIONAL: YES M.MODE: YES DOPPLER: YES COLOR FLOW: YES TDS: NO PORTABLE: NO DEFINITY: NO BUBBLE STUDY: NO DIAGNOSIS: STROKE CARDIAC HISTORY: CATHERIZATION: NO SURGERY: NO PROSTHETIC VALVE: NO PACEMAKER: NO MEASUREMENTS (cm) DIASTOLIC (NORMALS) SYSTOLIC (NORMALS) IVSd 1.2 (0.6-1.2) LA Diam 3.6 (1.9-4.0) LVEF 53% LVIDd 4.0 (3.5-5.7) LVIDs 2.9 (2.0-3.5) %FS 27% LVPWd 1.2 (0.6-1.2) Ao Diam 3.2 (2.0-3.7) 2 DIMENSIONAL ASSESSMENT: RIGHT ATRIUM: NORMAL LEFT ATRIUM: NORMAL RIGHT VENTRICLE: NORMAL LEFT VENTRICLE: NORMAL TRICUSPID VALVE: NORMAL MITRAL VALVE: NORMAL PULMONIC VALVE: NORMAL AORTIC VALVE: NORMAL PERICARDIAL EFFUSION: NONE AORTIC ROOT: NORMAL LEFT VENTRICULAR WALL MOTION: NORMAL DOPPLER/COLOR FLOW: NORMAL COMMENTS: NORMAL LEFT VENTRICULAR EJECTION FRACTION AND SIZE. NO WALL MOTION ABNORMALITY. NO EFFUSION. TECHNOLOGIST: Damion LINDA
[2018-12-13] MEDS: FENTANYL 50 MCG/PATCH TD SCH (15:02)
[2018-12-13] MEDS: ENOXAPARIN 30 MG/0.3 ML SQ SCH (17:08)
--- NOTE | 2018-12-13 20:51 | CON ---
Reason For Consultation: Consultation called because of stroke. History Of Present Illness: Ms. Hou is a 68-year-old left-handed patient, diagnosed with stage IV pancreatic cancer, who scheduled to begin chemotherapy on Wednesday when she woke up that morning and noted left hand weakness and numbness. She was unable to manipulate object sensoriall y with the left hand. She denied any weakness of the left face or leg or loss of sensation in those regions. She came to [facility] after the event as her head CT scan was unremarkable. She is actually discharged home from the emergency room without a diagnosis of stroke. She followed up w adama Lim, her primary care physician following day, which is Wednesday and he had her admitted for s troke workup. The brain MRI identified multiple foci of acute nonhemorrhagic stroke, closely cluster ed near the central sulcus in the right hemisphere, which the radiologist notes may explain the patie nt's left-sided symptoms. There was a single punctate area of acute nonhemorrhagic stroke in the ant erior left frontal lobe, which is on the opposite side of the additional strokes. This suggests poss ibility of a cardioembolic source. Her subsequent echocardiogram of the heart, however, did not show any abnormalities with ejection fraction of 53%. No wall motion abnormalities. No effusion. She h as been noted this is a transthoracic and not transesophageal; however, it did not show a thrombus as this scan is again limited in its ability to detect. Carotid artery ultrasound identified tortuous internal carotid arteries without visualization of plaque. Regarding her symptoms, her left-sided we akness did resolve around 24 hours after the onset of symptoms and she reports being fully back to no rmal in terms of her left arm strength and coordination. She did receive aspirin 81 mg daily with po tassium replacement. She did say she was using a fentanyl patch for pain due to her pancreatic cance r. The patch was placed last on Wednesday, but she did not replace it on Wednesday as she is unable to as she came into the hospital and the patch is put back in place. Past Medical History: As indicated, is in addition to breast cancer in the right with pancreatic can cer involving the liver, stage IV. Allergies: NO KNOWN DRUG ALLERGIES. Home Medications: Senna 8.6-50 twice daily, [place] 5/325 every 6 hours, Dulcolax 5 mg 2 tablets daily , gabapentin 100 mg 3 times daily. Surgical History: Port placement in the right chest region, mastectomy, right hip replacement and ve in stripping procedure. Social History: No alcohol, tobacco, or IV drug abuse. Family History: Noncontributory. Review of Systems: She reports mild weight loss, but nausea and abdominal pain with burning sensations in the abdominal regions related to her pancreatic cancer. Otherwise, no new psychiatric issues. No dermatological i ssues. No respiratory or cardiovascular issues. No genitourinary issues. Physical Examination: Vital Signs: Blood pressure 112/60, pulse 90, respiratory rate 16, temperature 99.5, oxygen saturati on 98%. General: Ms. Hou is resting comfortably in bed, although she does report pain up to 8/10. Her fen tanyl patch is just being replaced. HEENT: She is normocephalic, atraumatic. Sclerae anicteric. Oropharynx is moist. Neck: Supple. Chest: Clear. Abdomen: Soft. Extremities: Show no edema or cyanosis. Neurological: Cranial nerves 2 through 12 are intact by exam. Motor examination; she has full stren gth in the upper and lower extremities, proximally and distally. Sensory exam; intact in upper and l ower extremities, proximally and distally. Coordination; intact in the upper and lower extremities. Gait; good stance and stride. Reflexes 1 to 2+ in the upper and lower extremities and symmetric. Laboratory Studies: Complete blood count with differential essentially unremarkable, except for slig htly low hemoglobin, hematocrit, and neutrophils elevated to 84.9. Chemistries; she initially was ad mitted with low potassium at 3.3, now corrected at 3.8, magnesium is low at 8.0, glucose ranged from 126 to 140. ALT elevated to 90, AST elevated to 38, alkaline phosphate elevated to 482, HDL choleste rol low at 31, total cholesterol is 76, LDL cholesterol at 24. Urinalysis shows 1+ esterase, 1+ keto shivani, 20-50 bacteria, 1+ total protein. Assessment: Ms. Hou is a 68-year-old patient with multiple strokes in the right more than left fro ntal brain likely of cardioembolic source. She is likely also to have a hypercoagulable state given her pancreatic cancer with involvement of the liver. Plan: 1.She is on aspirin 81 mg daily. We will continue. 2.Continue with aggressive pain management given the painful nature of pancreatic cancer. 3.Okay for intravenous hydration, the patient is still able to take oral feeding, although that may be re-evaluated depending on the nature of her pain and the level of liver and pancreatic dysfunction . 4.The carotid artery ultrasound showed no hemodynamically significant stenosis and the echocardiogra m showed no thrombus. At this point, the patient should be continued on telemetry to rule out the po ssibility of atrial fibrillation as a cause for cardioembolic stroke. 5.She does have normal blood pressures that ranged from around 110 to around 130 systolic. We will hold off on any further antihypertensive medications in this period of acute to subacute ischemic str geni. 6.Her cholesterol panel is in good condition. We will not recommend starting statins at this point. 7.She may be discharged home with followup with Dr. Chang in clinic in [address] Geoff rodriguez and her oncologist as scheduled. KAILEE/BRO Voice ID: [id number] Report ID: [id number]
--- NOTE | 2018-12-14 00:43 | PN ---
Date of Progress Note: 12/13/2018 Subjective: The patient was seen this morning for followup. No new complaints or problems reported. Her pain is well controlled with current pain medication. Continues to have nausea, vomiting off a nd on. Objective: Vital Signs: Reviewed. HEENT: Unremarkable. Lungs: Clear to auscultation. Heart: Sounds normal. Abdomen: Soft. Bowel sounds normal. No guarding, rigidity, tenderness, distention. Extremities: No leg edema. POLICE OFFICER: Unchanged from yesterday. Impression: 1.Stroke. 2.Cancer of pancreas. 3.Cancer of right breast. 4.Postmastectomy lymphedema, right upper extremity. Plan: When I saw her this morning, the echocardiogram result was pending. Lipid profile was done th morning. Her LDL is very very low, so considering this LDL value, she will not be given any stati n therapy. I did call her oncologist, Dr. Locke and details were discussed with her and she inf ormed me that the patient's overall prognosis is poor and chemotherapy that she is planning to start will need to wait until patient gets better and recovers from this and upon discharge from the [facility], the patient will need to follow up with oncologist, as her cancer therapy is palliative in nature as I understand now. We will continue aspirin and Lovenox and continue to follow with neurologist, Dr. Chang who was requested to provide consultation. DUSTY/MODL Voice ID: [id number] Report ID: [id number]
[2018-12-14] MEDS: PIPER/TAZO/NS 3.375gm 3.375 GM/100 ML BAG IVPB SCH ×4 (01:45→23:59)
[2018-12-14] MEDS: ACETAMINOPHEN 500 MG TAB PO PRN ×2 (02:11→18:09)
[2018-12-14] MEDS: MORPHINE 2 MG/ML SYR IV PRN ×5 (02:44→20:09)
[2018-12-14] MEDS ORDERED: PIPERACIL/TAZO 3.375 GM VIAL IV ONE (02:49)
[2018-12-14] MEDS ORDERED: NA CHLORIDE 0.9% 100 ML ONE ×2 (02:52→06:30)
[2018-12-14 03:09] LABS: Absolute Lymphocytes (CBC) 0.5 K/uL (0.7-4.9); Absolute Monocytes 0.8 K/uL (0.1-1.3); Absolute Neutrophil 5.9 K/uL (1.8-8.0); Basophils % 0.1 % (0-1.3); Eosinophils % 0.1 % (0-4.4); Hematocrit 29.2 % (36.0-45.0); Lymphocytes % 6.4 % (15.3-44.8); MPV 7.6 fL (7.6-11.3); Monocytes % 11.1 % (3.3-12.3); RBC Red Blood Cell Count 3.33 M/uL (3.86-4.86)
[2018-12-14 03:12] LABS: Urine Appearance CLEAR; Urine Blood NEGATIVE (NEG); Urine Color DK YELLOW; Urine Glucose NEGATIVE (NEG); Urine Protein TRACE (NEG)
[2018-12-14 03:16] LABS: Urine Microscopic Reflex ORDER UMIC
[2018-12-14 03:17] LABS: Urine Bilirubin NEGATIVE (NEG)
[2018-12-14 03:19] LABS: BUN Blood Urea Nitrogen 8 mg/dL (7-18); Bicarbonate 26 mmol/L (21-32); Glucose Level 122 mg/dL (74-106); Potassium 4.1 mmol/L (3.5-5.1); Sodium Level 134 mmol/L (136-145)
[2018-12-14 03:24] LABS: Urine Culture Reflex Order NOT NEEDED
[2018-12-14 03:25] LABS: Urine Bacteria <20 /HPF (<20); Urine Mucus 2+ /HPF (NONE SEEN); Urine RBC <5 /HPF (NONE SEEN)
[2018-12-14] MEDS: NA CHLORIDE 0.9% 1,000 ML IV SCH (06:43)
--- NOTE | 2018-12-14 07:02 | RAD REPORT ---
EXAM DESCRIPTION: RAD - Chest Single View - 12/14/2018 1:47 am CLINICAL HISTORY: Fever COMPARISON: December 12 TECHNIQUE: AP portable chest image was obtained 0142 hours . FINDINGS: Lung volumes are low. This accentuates interstitial markings. No significant interstitial edema or infiltrate. No focal consolidation. Heart size and vasculature within normal limits. Right-s ided Port-A-Cath in place. No measurable pleural effusion and no pneumothorax. No acute bony abnormal ity seen. No acute aortic findings suspected. IMPRESSION: No acute cardiopulmonary process. No suspicious change comparison.
[2018-12-14] MEDS: ONDANSETRON 4 MG/2 ML VIAL IV PRN ×4 (07:34→20:09)
[2018-12-14 07:40] LABS: Absolute Lymphocytes (CBC) 0.3 K/uL (0.7-4.9); Absolute Monocytes 0.5 K/uL (0.1-1.3); Absolute Neutrophil 5.2 K/uL (1.8-8.0); Basophils % 0.1 % (0-1.3); Eosinophils % 0.1 % (0-4.4); Hematocrit 28.2 % (36.0-45.0); Lymphocytes % 5.1 % (15.3-44.8); MPV 7.6 fL (7.6-11.3); RBC Red Blood Cell Count 3.19 M/uL (3.86-4.86)
[2018-12-14 07:44] LABS: ALT/SGPT 45 U/L (12-78); AST/SGOT 24 U/L (15-37); Albumin 1.6 g/dL (3.4-5.0); Alkaline Phosphatase 339 U/L (45-117); BUN Blood Urea Nitrogen 8 mg/dL (7-18); Bicarbonate 26 mmol/L (21-32); Bilirubin Total 0.6 mg/dL (0.2-1.0); Glucose Level 127 mg/dL (74-106); Magnesium 2.1 mg/dL (1.8-2.4); Potassium 3.8 mmol/L (3.5-5.1); Protein, Total 5.2 g/dL (6.4-8.2); Sodium Level 137 mmol/L (136-145)
[2018-12-14] MEDS ORDERED: POTASSIUM CL SA 10 MEQ TAB PO ONE (07:58)
[2018-12-14] MEDS: MAGNES/ALUMIN/SIMET 30ML UCUP PO PRN ×2 (08:44→13:55)
[2018-12-14] MEDS: HYDROMORPHONE ORAL 4 MG TAB PO PRN ×4 (08:44→22:12)
[2018-12-14] MEDS: ASPIRIN EC 81 MG TAB PO SCH (08:44)
[2018-12-14 09:40] LABS: Blood Morphology Comment NOT SEEN (NOT SEEN); Platelet Estimate ADEQ; Urine White Blood Cell Casts OK
[2018-12-14] MEDS: ENOXAPARIN 30 MG/0.3 ML SQ SCH (16:00)
--- NOTE | 2018-12-14 20:48 | PN ---
Date of Progress Note: 12/14/2018 Subjective: The patient was seen this morning for followup. No new complaints or problems reported by patient. Lying in bed, not in any distress. Her ongoing complaint is her abdominal pain from her pancreatic cancer. Objective: Vital Signs: Reviewed. HEENT: Examination unremarkable. Lungs: Clear to auscultation. Heart: Sounds normal. Abdomen: Soft. Bowel sounds normal. No guarding, rigidity, distention. Extremities: No leg edema. Laboratory Data: Hemoglobin 9.4. Procalcitonin during nighttime was 0.46. This morning procalcitonin level pending. Chest x-ray, no infiltrate. Liver function tests unremarkable except alkaline phosphatase 339. Sodium 137, potassium 3.8, chloride 104, bicarb 26, BUN 8, creatinine 0.48, glucose 127. Urinalysis negative. Impression: 1. Stroke. 2. Fever. 3. Cancer of pancreas. Plan: The patient started to have fever last night around 101 degrees Fahrenheit. Blood culture was done. She was started on empiric antibiotic, which was Zosyn and we will continue that antibiotic. Follow up on culture results. Physical therapy to continue to help ambulate the patient. I will see her tomorrow for followup. The patient will not be go to rehab floor because she is considered high level for inpatient rehab benefit, so we will have Social Service help make arrangements for home health and home physical therapy upon discharge from the hospital. The patient's daughter was present with her at bedside. We did talk about her overall prognosis with cancer of pancreas is poor and I did talk to her oncologist yesterday and the patient to follow up with oncologist upon discharge for her palliative care. I did talk to patient to find out from oncologist that how much time she has with her without chemotherapy and then make reasonable decision regarding the therapy. It is certain point in future we will have to consider hospice care and this was discussed with her as well. I will see her tomorrow for followup. DUSTY/MODL Voice ID: [id number] Report ID: [id number] MTDD
[2018-12-15] MEDS: MORPHINE 2 MG/ML SYR IV PRN ×4 (02:15→17:31)
[2018-12-15] MEDS: ONDANSETRON 4 MG/2 ML VIAL IV PRN (02:15)
[2018-12-15] MEDS: HYDROMORPHONE ORAL 4 MG TAB PO PRN ×3 (05:49→19:39)
[2018-12-15 06:29] LABS: BUN Blood Urea Nitrogen 10 mg/dL (7-18); Bicarbonate 26 mmol/L (21-32); Glucose Level 115 mg/dL (74-106); Potassium 4.1 mmol/L (3.5-5.1); Sodium Level 137 mmol/L (136-145)
[2018-12-15] MEDS: PIPER/TAZO/NS 3.375gm 3.375 GM/100 ML BAG IVPB SCH ×2 (08:40→17:30)
[2018-12-15] MEDS: ASPIRIN EC 81 MG TAB PO SCH (08:41)
[2018-12-15] MEDS: MAGNES/ALUMIN/SIMET 30ML UCUP PO PRN ×2 (10:33→17:30)
[2018-12-15] MEDS: GABAPENTIN 300 MG CAP PO SCH ×2 (14:39→22:12)
[2018-12-15] MEDS: ENOXAPARIN 30 MG/0.3 ML SQ SCH (17:31)
[2018-12-15] MEDS: NA CHLORIDE 0.9% 1,000 ML IV SCH ×3 (17:36→20:00)
[2018-12-15] MEDS ORDERED: BISACODYL 10 MG RECTAL SUPP PR ONE (20:56)
[2018-12-15] MEDS ORDERED: MAGNESIUM HYDROXIDE 8% 30 ML PO PRN (20:57)
[2018-12-15] MEDS ORDERED: MAGNESIUM HYDROXIDE 8% 30 ML PO ONE (20:57)
--- NOTE | 2018-12-16 01:29 | PN ---
Date of Progress Note: 12/15/2018 Subjective: The patient was seen this morning for followup. No new complaints or problems reported by the patient. Lying in bed. Not in any distress. Her pain is under better control. She has some constipation problem. She has not had a bowel movement since admission. Objective: Vital Signs: Reviewed. HEENT: Unremarkable. Lungs: Clear to auscultation. Heart: Sounds normal. Abdomen: Soft. Bowel sounds normal. No guarding, rigidity, tenderness. Extremities: No leg edema. Laboratory Data: Urine culture is growing E coli. Blood culture positive. Definite identification and sensitivity result pending. Impression: 1.Urinary tract infection. 2.Stroke. 3.Cancer of pancreas. 4.Rule out sepsis. Plan: E coli is growing in the urine. We will continue current antibiotic, which is Zosyn and it is sensitive to Zosyn. The patient still had low-grade fever this morning. We will continue IV fluid. Ambulation was encouraged. Physical therapy to work with the patient. We will treat constipation with Dulcolax rectal suppository and milk of magnesia. The patient had urinary retention later today and we will do straight cath p.r.n. for urinary tract retention problem. I will see her tomorrow for follow up. DUSTY/MODL Voice ID: [id number] Report ID: [id number]
[2018-12-16] MEDS: PIPER/TAZO/NS 3.375gm 3.375 GM/100 ML BAG IVPB SCH ×3 (02:13→16:32)
[2018-12-16] MEDS: HYDROMORPHONE ORAL 4 MG TAB PO PRN (06:10)
[2018-12-16] MEDS: ASPIRIN EC 81 MG TAB PO SCH (08:33)
[2018-12-16] MEDS: GABAPENTIN 300 MG CAP PO SCH ×2 (08:33→21:00)
[2018-12-16] MEDS: FENTANYL 50 MCG/PATCH TD SCH (08:33)
[2018-12-16] MEDS: NA CHLORIDE 0.9% 1,000 ML IV SCH ×3 (09:20→22:40)
[2018-12-16] MEDS ORDERED: DIGOXIN 0.25 MG/ML AMP IV ONE (10:30)
[2018-12-16] MEDS: APIXABAN 5 MG TABLET PO SCH ×2 (10:37→21:00)
[2018-12-16] MEDS: MAGNES/ALUMIN/SIMET 30ML UCUP PO PRN (12:16)
[2018-12-16] MEDS ORDERED: NITROGLYCERIN 1 GM PKT TD ONE (12:23)
[2018-12-16 13:09] LABS: CKMB Creatine Kinase MB < 1.0 ng/mL (0.3-3.6); Creatine Phosphokinase 43 U/L (26-192); Troponin I 0.21 ng/mL (0.0-0.045)
--- NOTE | 2018-12-16 14:29 | PN ---
Date of Progress Note: 12/16/2018 Subjective: The patient was seen this morning for followup. Her abdominal pain complaint remains same when I saw her, unchanged. Weakness on the left upper and left lower extremity remained unchanged. She is ambulating well. Objective: Vital Signs: Reviewed. Has remained afebrile now. HEENT: Unremarkable. Lungs: Clear to auscultation. Heart: Sounds normal. Abdomen: Soft. Bowel sounds normal. No guarding, rigidity, distention. Presence of some tenderness in mostly right upper quadrant, unchanged. No rebound tenderness. Bowel sounds normoactive. No distention. Impression: 1. Urinary tract infection. 2. Stroke. 3. Cancer of pancreas. Plan: After I wrote the discharge order, nurse notified me that the patient was ambulating, and while she was ambulating, all of a sudden her heart rate went up to 150-170 range, and there was concern about possibility of atrial fibrillation on the controller operations and hr manager, and this is first time we are detecting it during this hospital stay, so stat EKG was ordered. I went back to the patient's room. Her heart rhythm was irregular. She was hemodynamically stable , and we are waiting for stat EKG. Obviously, plan is to cancel her discharge. We will start her on anticoagulant medication after we review EKG and consult Cardiology. Discontinue aspirin and possible discharge in next day or 2 days. Details were discussed with her. DUSTY/BRO Voice ID: [id number] Report ID: [id number] ROXANA
[2018-12-16] MEDS: MORPHINE 2 MG/ML SYR IV PRN (16:31)
[2018-12-16] MEDS: METOPROLOL TAR 25 MG TAB PO SCH (16:32)
[2018-12-16] MEDS: ENOXAPARIN 30 MG/0.3 ML SQ SCH (16:41)
--- NOTE | 2018-12-16 16:44 | EKG ---
Test Date: 2018-12-16 Test Time: 12:29:32 Tug Master: ABHILASH MEASUREMENT RESULTS: Intervals: Rate: 80 [place]: 158 QRSD: 88 QT: 436 QTc: 502 [place]: P: 36 [place]: 158 QRS: 0 T: 4 INTERPRETIVE STATEMENTS: Normal sinus rhythm Anterior infarct, age undetermined Abnormal ECG Compared to ECG 12/16/2018 09:38:53 Myocardial infarct finding now present Atrial fibrillation no longer present T-wave abnormality no longer present Electronically Signed On 12-16-18 16:42:37 CDT by Ciro Kumar
--- NOTE | 2018-12-16 16:45 | EKG ---
Test Date: 2018-12-16 Test Time: 09:38:53 Cabinet Professional: JERARDO MEASUREMENT RESULTS: Intervals: Rate: 118 [place]: QRSD: 80 QT: 338 QTc: 473 [place]: P: [place]: QRS: 10 T: 11 INTERPRETIVE STATEMENTS: Atrial fibrillation with rapid ventricular response Nonspecific T wave abnormality, probably digitalis effect Abnormal ECG Compared to ECG 12/12/2018 17:52:36 T-wave abnormality now present Sinus rhythm no longer present Electronically Signed On 12-16-18 16:42:55 CDT by Ciro Kumar
[2018-12-16] MEDS: ACETAMINOPHEN 500 MG TAB PO PRN (20:59)
[2018-12-17] MEDS: PIPER/TAZO/NS 3.375gm 3.375 GM/100 ML BAG IVPB SCH ×2 (00:37→10:05)
[2018-12-17] MEDS: METOPROLOL TAR 25 MG TAB PO SCH (05:03)
[2018-12-17] MEDS: MORPHINE 2 MG/ML SYR IV PRN (05:46)
[2018-12-17 06:09] LABS: Absolute Lymphocytes (CBC) 0.6 K/uL (0.7-4.9); Absolute Monocytes 0.6 K/uL (0.1-1.3); Absolute Neutrophil 4.7 K/uL (1.8-8.0); Basophils % 0.1 % (0-1.3); Eosinophils % 1.9 % (0-4.4); Hematocrit 27.7 % (36.0-45.0); Lymphocytes % 10.7 % (15.3-44.8); MPV 7.8 fL (7.6-11.3); Monocytes % 9.8 % (3.3-12.3); RBC Red Blood Cell Count 3.15 M/uL (3.86-4.86)
[2018-12-17 06:16] LABS: ALT/SGPT 39 U/L (12-78); AST/SGOT 32 U/L (15-37); Albumin 1.4 g/dL (3.4-5.0); Alkaline Phosphatase 384 U/L (45-117); BUN Blood Urea Nitrogen 6 mg/dL (7-18); Bicarbonate 29 mmol/L (21-32); Bilirubin Total 0.4 mg/dL (0.2-1.0); Glucose Level 115 mg/dL (74-106); Magnesium 2.2 mg/dL (1.8-2.4); Potassium 4.1 mmol/L (3.5-5.1); Protein, Total 5.3 g/dL (6.4-8.2); Sodium Level 139 mmol/L (136-145)
[2018-12-17] MEDS: MAGNES/ALUMIN/SIMET 30ML UCUP PO PRN (07:09)
[2018-12-17] MEDS: ACETAMINOPHEN 500 MG TAB PO PRN (08:29)
[2018-12-17] MEDS: APIXABAN 5 MG TABLET PO SCH (08:30)
[2018-12-17] MEDS: GABAPENTIN 300 MG CAP PO SCH (08:30)
[2018-12-17 08:35] VITALS: O2SAT 97
[2018-12-17] MEDS ORDERED: HEPARIN 500 UNIT/5 ML SYR IV PRN (11:33)
--- NOTE | 2018-12-17 13:18 | CON ---
Date of Consultation: 12/16/2018 Reason For Consultation: Atrial fibrillation. History Of Present Illness: Ms. Hou is a 68-year-old white woman who was admitted on 12/12/2018 wi th a CVA. She was found to have a right hemispheric CVA by MRI of the brain. She had a normal echoc ardiogram, normal carotid Doppler, normal MRA of the vasculature of the brain. She has history of pa ncreatic, liver and breast cancer in the past. No previous cardiac history. However on the day of d ischarge, she went into atrial fibrillation, which confirmed the etiology of her stroke. She was sta rted on Eliquis, was given digoxin and a low-dose beta-jolene. She is in normal rhythm now and asym ptomatic from that standpoint. She still feels weak from her stroke, but no cardiac symptoms. Past Medical History: Otherwise stated above. Allergies: NONE. Review of Systems: Negative. Social History: Negative. Family History: Noncontributory. Present Medication: Listed earlier. Physical Examination: Vital signs: Stable. Sinus rhythm. HEENT: Negative. Neck: Supple no bruit. Chest: Clear to auscultation and percussion. Cardiac: Exam revealed a regular rhythm and rate. No murmurs, gallops, or rubs. Abdomen: Benign. Extremities: Revealed no clubbing, cyanosis, or edema. Diagnostic Data: As stated earlier. Impression And Plan: Cerebrovascular accident secondary to paroxysmal atrial fibrillation. The corrina ent is in sinus rhythm today on low-dose beta-jolene. I agree with the Eliquis. She had a normal e chocardiogram. I would be comfortable with her going home from that aspect. We will be happy to see her in the office in a couple weeks. She may need a stress test eventually down the road and if her atrial fibrillation becomes recurrent we may have to change her metoprolol to a different antiarrhyt hmic. For now, we will stick with her present therapy. I will discuss the case further with Dr. Muna MONTOYA/BRO Voice ID: [id number] Report ID: [id number]
[2018-12-17 13:31] VITALS: BP 122/64; TEMP 96.8
--- NOTE | 2018-12-17 14:03 | DS ---
Date of Discharge: 12/17/2018 Disposition: Discharged to go home. Physical Examination: HEENT: Unremarkable. Lungs: Clear to auscultation. Heart: Sounds normal. Abdomen: Soft. Bowel sounds normal. No guarding, rigidity, distention. No tenderness noted this m orning. Extremities: No leg edema. Laboratory Data: Last CBC today, white count is 6, hemoglobin 9.3, platelet count 286. Upon admissi on, white count was 7.4, hemoglobin 11, platelets 238. Last chemistry today, sodium 139, potassium 4 .1, chloride 105, bicarb 29, BUN 6, creatinine 0.51, glucose 115. Liver function tests unremarkable. Yesterday, first troponin 0.21, second troponin 0.17. Blood culture negative. Urine culture growi ng E. coli. Discharge Medications And Instructions: 1.Continue all prior home medication. 2.Take Senokot-S 2 tablets by mouth 2 times a day for constipation and if it does not help with cons tipation, then add MiraLAX 17 g powder mixed in 8-ounce water and drink it 2 times a day as needed fo r constipation. 3.Take Cipro 500 mg twice a day for 5 days and Eliquis 5 mg twice a day and metoprolol 25 mg take purvis lf a tablet 2 times a day as prescribed. 4.Follow up with Dr. Locke next week and follow up at my office week after next. Hospital Course: A 68-year-old female patient admitted to hospital with left arm weakness. Please s ee dictated H and P for more information. The patient came into office with the complaints of weakne ss of left upper extremity that started about 24 hours before she came in to see me. She did go to [facility] emergency room day before she came to see me at the office and after she was evaluated in the ER, she was released to go home from emergency room by ER physician as her CAT scan of the brain was nega tive. The patient also noted having some balance problem while walking. There was no fall. No inju ry. After I saw her, I was concerned about possibility of stroke, and I admitted her to the hospital . MRI of the brain was done, which came back positive for acute known hemorrhagic multiple infarcts in the right cerebral hemisphere, and 1 such area in the left cerebral hemisphere. There was no evid ence of any bleeding. Dr. Chang was consulted from Neurology. The patient was started on aspirin 81 mg daily and her blood pressure was running on lower side around 110-115 systolic. Lipid profile revealed very low LDL, so the patient did not require any statin therapy. EKG was normal sinus rhyt . The patient was kept on real estate development manager and physical therapy, occupational therapy, and speech therapy consultation was requested. The patient started ambulating well with the physical therapy a nd inpatient rehab was consulted, but the patient was determined that she was a high level for inpati ent rehab benefit. The patient had ongoing abdominal pain problem from her pancreatic cancer for [facility] her overall prognosis is very poor, and she is going to start palliative chemotherapy when overall her health improves after this hospitalization. I did communicate with her Oncologist, Dr. Price am when the patient was admitted to the hospital and informed her about the stroke finding. We were concerned about if the patient had any underlying atrial fibrillation to cause this stroke, but we we re not able to prove it up until yesterday. Yesterday, I wrote the order for her to go home and afte r I saw her, actually when she was ambulating, her heart rate went up to 150-170 range, and real estate development manager did show that she was in atrial fibrillation with rapid ventricular rate. EKG was done [facility] proved that. One dose of digoxin IV was given as her systolic blood pressure was around 95-96. La ter on, patient converted to sinus rhythm and remained in sinus rhythm. Cardiology consultation was obtained. The patient had some complaints of chest pain yesterday afternoon and 1 dose of nitroglyce rin ointment was applied and that actually helped to resolve her complaints. Dr. Kumar saw her [facility] Cardiology. Details were discussed with him and as of yesterday evening, I started her on low-dose metoprolol which she has tolerated very well. Dr. Kumar does not have any other recommendation at this point. Details were discussed with the patient today and her son was present with her at [facility]. I did talk to her about risk and benefit of anticoagulation therapy. Risk involving spontaneous bleeding and different signs, symptoms of bleeding explained to her, and if she has any such problem to come to emergency room. The patient was made aware of the risk of spontaneous intracranial bleed ing as well or such complication as a result of head injury. The patient was made aware of the fact that if she has any head injury or any signs, symptoms of bleeding, then to return to emergency room right away. She will have nursing staff find out from her pharmacy if insurance will pay for Eliquis as ordered or not, and if not, then we will change it to Xarelto. The patient was advised that if s he ends up taking Eliquis, she will have to take it about 12 hours apart as prescribed, and if she en ds up taking Xarelto, then she will need to take it once a day after evening meal. Her carotid Doppl er was negative and echocardiogram was unremarkable with normal ejection fraction. Her left-sided we akness has remained stable. Final Diagnoses: 1.Atrial fibrillation, new onset, paroxysmal. 2.Stroke as a result of atrial fibrillations, cardioembolic stroke. 3.Anemia, chronic. 4.Cancer of pancreas. 5.Right breast cancer. 6.Lymphedema, postmastectomy, right upper extremity. 7.Urinary tract infection, organism Escherichia coli. 8.Diverticulosis. 9.Osteoporosis. DUSTY/MODL Voice ID: [id number] Report ID: [id number]
== END 2018-12-17 13:14 | disposition home health service (06) | DRG 65 ==
LOC: 2ND 11:51 → INTOOBSV 11:51 → OBSVTOIN 11:51
PROVIDERS: ADMIT Internal Medicine; ATTEND Internal Medicine
DX: I63.9 Cerebral infarction, unspecified (principal); G81.94 Hemiplegia, unspecified affecting left nondominant side; C25.9 Malignant neoplasm of pancreas, unspecified; N39.0 Urinary tract infection, site not specified; C22.8 Malignant neoplasm of liver, primary, unspecified as to type; I48.0 Paroxysmal atrial fibrillation; C50.911 Malignant neoplasm of unspecified site of right female breast; E78.5 Hyperlipidemia, unspecified; K57.90 Diverticulosis of intestine, part unspecified, without perforation or abscess without bleeding; M81.0 Age-related osteoporosis without current pathological fracture; I97.2 Postmastectomy lymphedema syndrome; Y83.6 Removal of other organ (partial) (total) as the cause of abnormal reaction of the patient, or of later complication, without mention of misadventure at the time of the procedure; B96.20 Unspecified Escherichia coli [E. coli] as the cause of diseases classified elsewhere; K59.00 Constipation, unspecified
CPT/HCPCS: 36415; 70450; 70544; 70551; 71045; 71046; 72125; 80048; 80053; 80061; 81003; 81015; 82550; 82553; 83605; 83735; 84145; 84484; 85025; 87040; 87077; 87086; 87088; 87186; 87205; 92523; 92610; 93005; 93306; 93880; 96365; 96367; 97116; 97163; 97167; 97530; 99284; G0378; G0379; J1160; J1642; J1650; J2270; J2405; J2543; J7030

== ENCOUNTER 2018-12-21 15:48 | Emergency (ER) | payer OTHER ==
[2018-12-21 17:29] LABS: Absolute Lymphocytes (CBC) 0.6 K/uL (0.7-4.9); Absolute Monocytes 0.7 K/uL (0.1-1.3); Absolute Neutrophil 6.5 K/uL (1.8-8.0); Basophils % 0.2 % (0-1.3); Eosinophils % 0.5 % (0-4.4); Hematocrit 30.8 % (36.0-45.0); Lymphocytes % 8.2 % (15.3-44.8); Monocytes % 8.8 % (3.3-12.3); RBC Red Blood Cell Count 3.47 M/uL (3.86-4.86)
[2018-12-21 17:47] LABS: ALT/SGPT 23 U/L (12-78); AST/SGOT 21 U/L (15-37); Albumin 1.7 g/dL (3.4-5.0); Alkaline Phosphatase 270 U/L (45-117); BUN Blood Urea Nitrogen 7 mg/dL (7-18); Bicarbonate 32 mmol/L (21-32); Bilirubin Direct 0.2 mg/dL (0-0.2); Bilirubin Total 0.3 mg/dL (0.2-1.0); Glucose Level 109 mg/dL (74-106); Magnesium 1.9 mg/dL (1.8-2.4); NT PRO-BNP 2265 pg/mL (<125); Potassium 3.8 mmol/L (3.5-5.1); Protein, Total 5.7 g/dL (6.4-8.2); Sodium Level 135 mmol/L (136-145); Troponin (Emerg Dept Use Only) 0.03 ng/mL (0.0-0.045)
--- NOTE | 2018-12-21 18:05 | ER ---
Nurse's Notes [facility] Name: Mayela Hou Age: 68 yrs Sex: Female : 1950 Arrival Date: 12/21/2018 Time: 15:49 Bed 2 Private MD: Gm Lim Diagnosis: Cerebral infarction;Atrial fibrillation and flutter-history;Malignant neoplasm of pancreatic duct-stage 4 Presentation: 12/21 15:49 Presenting complaint: Patient states: "I woke up this morning at 10 am with numbness to aa5 my left arm". Left arm drift noted in triage. Pt states "I went to bed at 7pm last night and I woke up at 5 am and I had trouble opening my pill bottle but that is not unusual for me so I went back to sleep". Pt reports she was seen here on 12/11/18 with left hand weakness and was prescribed Eliquis for CVA. 15:49 Transition of care: patient was not received from another setting of care. Onset of aa5 symptoms was December 21, 2018. Risk Assessment: Do you want to hurt yourself or someone else? Patient reports no desire to harm self or others. Care prior to arrival: None. 15:49 Acuity: DANIEL 2 aa5 15:49 Method Of Arrival: Wheelchair aa5 17:27 Initial Sepsis Screen: Does the patient meet any 2 criteria? No. Patient's initial ph sepsis screen is negative. Does the patient have a suspected source of infection? No. Patient's initial sepsis screen is negative. Historical: - Allergies: 15:49 No Known Allergies; aa5 - PMHx: 15:49 Cancer, Breast Right; Cancer, Pancreatic and Liver Stage 4; aa5 15:49 CVA; aa5 - PSHx: 15:49 Port-a-cath Placement; Mastectomy, Right; Hip Replacement; aa5 - Immunization history:: Adult Immunizations unknown. - Ebola Screening: : No symptoms or risks identified at this time. - Social history:: Smoking status: Patient/guardian denies using tobacco. - Family history:: not pertinent. Screenin:00 VAN Screening: Arm Drift: Severe drift. Visual Disturbance: No visual disturbance ph noted. Aphasia: No aphasia noted. 16:30 Patient has been NPO before screening. The patient is alert, able to follow commands. ph The patient does not exhibit slurred or garbled speech The patient is not exhibiting difficulty speaking. The patient does not exhibit difficulty understanding words. The patient is able to swallow own secretions with no drooling or need for suction. Patient tolerated one teaspoon of water. No drooling, immediate coughing, gurgling, or clearing of the throat was noted. The patient tolerated 90mL of water. No drooling, immediate coughing, gurgling, or clearing of the throat was noted. The patient passed the bedside swallow screening. Oral medications may be given as ordered. Contact Physician for further diet orders. 17:20 Abuse screen: Denies threats or abuse. Denies injuries from another. Nutritional ph screening: No deficits noted. Tuberculosis screening: No symptoms or risk factors identified. Fall Risk No fall in past 12 months (0 pts). No secondary diagnosis (0 pts). IV access (20 points). Ambulatory Aid- None/Bed Rest/Nurse Assist (0 pts). Gait- Weak (10 pts.). Mental Status- Oriented to own ability (0 pts). Total Huynh Fall Scale indicates Low Risk Score (25-44 pts). Fall prevention measures have been instituted. Side Rails Up X 2 Frequent Obs/Assesments occuring Family Present and informed to notify staff if they need to leave bedside As available Patient and Family Educated on Fall Prevention Program and strategies. Assessment: 16:00 General: Appears in no apparent distress. comfortable, well groomed, Behavior is calm, ph cooperative, appropriate for age, Denies fever. Pain: Complains of pain in left arm Quality of pain is described as tingling. Neuro: Level of Consciousness is awake, alert, obeys commands, Oriented to person, place, time, situation, Reports paresthesias in left arm "heaviness" in L arm. Denies dizziness, headache. Cardiovascular: Reports fatigue, Denies chest pain, nausea, vomiting, Capillary refill < 3 seconds in bilateral fingers Patient's skin is warm and dry. Respiratory: Airway is patent Respiratory effort is even, unlabored, Respiratory pattern is regular, symmetrical. Derm: Skin is fragile, is thin, Skin is pink, warm \\T\\ dry. Musculoskeletal: Circulation, motion, and sensation intact. Range of motion: intact in all extremities. 16:19 Reassessment: xray at bedside. sg 18:11 Reassessment: pt daughter phone number (Nataliya). iw 18:15 Reassessment: Patient appears in no apparent distress at this time. Patient and/or ph family updated on plan of care and expected duration. Pain level reassessed. Patient is alert, oriented x 3, equal unlabored respirations, skin warm/dry/pink. Pt taken to Ct for CT angio. 19:13 Reassessment: Pt returned from CT. Pt requested pain medication. Dr. Tavera notified. ed1 20:00 Reassessment: Patient appears in no apparent distress at this time. Patient and/or ed1 family updated on plan of care and expected duration. Pain level reassessed. Patient is alert, oriented x 3, equal unlabored respirations, skin warm/dry/pink. Pt refuses to wear pt gown. Patient states symptoms have not improved. 20:56 Reassessment: Grant from EMS states "I can not give meds through a port-a-cath. Can ed1 yall please medicate her for pain?" Dr. Matos notified. New orders received. Vital Signs: 15:50 BP 113 / 76; Pulse 102; Resp 18 S; Temp 98.2(TE); Pulse Ox 94% on R/A; aa5 17:21 BP 131 / 74; Pulse 99; Resp 20; Pulse Ox 94% on R/A; ph 18:10 BP 122 / 76; Pulse 76; Resp 18; Pulse Ox 99% on 2 lpm NC; ph 19:47 BP 151 / 91; Pulse 95; Resp 13; Pulse Ox 97% on 2 lpm NC; Pain 6/10; ed1 NIH Stroke Scale Scores: 16:00 NIHSS Score: 6 ph 17:48 NIHSS Score: 6 oni 17:55 NIHSS Score: 6 oni ED Course: 15:49 Patient arrived in ED. rg4 15:49 Arm band placed on Patient placed in an exam room, on a stretcher. aa5 15:50 Gm Lim MD is Private Physician. rg4 16:01 Kole Tavera MD is Attending Physician. oni 16:06 Triage completed. aa5 16:15 Macy Bangura, NELSY is Primary Nurse. ph 16:15 EKG done, by residential tech. reviewed by Kole Tavera MD. sm3 16:37 CT Head Brain wo Cont In Process Unspecified. EDMS 17:16 Initial lab(s) drawn, by me, sent to lab. Accessed Port-a-Cath. using accessed w/ # 20 sg De [place] needle, ,sterile technique, per hospital protocol. Clean \\T\\ dry. Good blood return. Flushes easily. 17:27 Patient has correct armband on for positive identification. Bed in low position. Call ph light in reach. Side rails up X 1. Pulse ox on. NIBP on. Door closed. Noise minimized. Warm blanket given. Head of bed elevated. 18:27 CT Head Angio In Process Unspecified. EDMS 18:41 No provider procedures requiring assistance completed. Patient transferred, IV remains ph in place. 18:54 Brain Wo Cont In Process Unspecified. EDMS 19:53 Primary Nurse role handed off by Macy Bangura, NELSY ed1 19:53 Radha Powers, RN is Primary Nurse. ed1 20:36 XRAY Chest (1 view) In Process Unspecified. EDMS 20:56 Attending Physician role handed off by Kole Tavera MD ed1 Administered Medications: 18:10 Drug: NS 0.9% 500 ml Route: IV; Rate: bolus; Site: Port-a-cath; ph 19:45 Follow up: IV Status: Completed infusion; IV Intake: 500ml ed1 18:10 Drug: foLIC Acid 1 mg Route: IVPB; Site: Port-a-cath; ph 18:42 Follow up: Response: No adverse reaction; IV Status: Completed infusion ph 19:44 Drug: Zofran 4 mg Route: IVP; Site: Port-a-cath; ed1 20:35 Follow up: Response: No adverse reaction; Nausea is decreased ed1 19:44 Drug: fentaNYL (PF) 25 mcg Route: IVP; Site: Port-a-cath; ed1 20:15 Follow up: Response: No adverse reaction; Pain is decreased ed1 19:45 Not Given (Physician Discretion): NS 0.9% 1000 ml IV at 125 ml/hr continuous ed1 19:46 Drug: NS 0.9% 500 ml Route: IV; Rate: bolus; Site: Port-a-cath; ed1 20:36 Follow up: IV Status: Completed infusion; IV Intake: 500ml ed1 20:59 Drug: fentaNYL (PF) 25 mcg Route: IVP; Site: Port-a-cath; ed1 20:59 Follow up: Response: Medication administered at discharge. ed1 Intake: 19:45 IV: 500ml; Total: 500ml. ed1 20:36 IV: 500ml; Total: 1000ml. ed1 Outcome: 18:04 ER care complete, transfer ordered by . oni 20:34 Transferred by ground EMS to [facility], Transfer form completed. ed1 Note: Report called to NELSY Ho. 20:34 Condition: stable 20:34 Discharge instructions given to patient, Instructed on the need for transfer, Demonstrated understanding of instructions. 20:36 Patient left the ED. ed1 20:59 Patient left the ED. ed1 NIH Stroke Scale - NIH Stroke Score Date: 12/21/2018 Time: 16:00 Total Score = 6 1a. Level of Consciousness (LOC) - 0(Alert) 1b. Level of Consciousness (LOC) (Year \\T\\ Age) - 0(Both) 1c. LOC Commands (Open \\T\\ Closes Eyes/Hearing Dog Trainer) - 0(Both) 2. Best Gaze (Lateral Gaze Paresis) - 0(Normal) 3. Visual Field Loss - 0(No visual loss) 4. Facial Palsy - 0(Normal) 5a. Left Arm: Motor (10-second hold) - 3(No effort against gravity) 5b. Right Arm: Motor (10-second hold) - 0(No drift) 6a. Left Leg: Motor (5-second hold - always test supine) - 1(Drift) 6b. Right Leg: Motor (5-second hold - always test supine) - 0(No drift) 7. Limb Ataxia (finger/nose \\T\\ heel/crabtree - test with eyes open) - 2(Present in two limbs) 8. Sensory Loss (pinprick arms/legs/face) - 0(Normal) 9. Best Language: Aphasia (description/naming/reading) - 0(No aphasia) 10. Dysarthria (speech clarity - read or repeat words) - 0(Normal) 11. Extinction and Inattention (visual/tactile/auditory/spatial/personal) - 0(No abnormality) Initials: NIH Stroke Scale - NIH Stroke Score Date: 12/21/2018 Time: 17:48 Total Score = 6 1a. Level of Consciousness (LOC) - 0(Alert) 1b. Level of Consciousness (LOC) (Year \\T\\ Age) - 0(Both) 1c. LOC Commands (Open \\T\\ Closes Eyes/Hearing Dog Trainer) - 0(Both) 2. Best Gaze (Lateral Gaze Paresis) - 0(Normal) 3. Visual Field Loss - 0(No visual loss) 4. Facial Palsy - 0(Normal) 5a. Left Arm: Motor (10-second hold) - 3(No effort against gravity) 5b. Right Arm: Motor (10-second hold) - 0(No drift) 6a. Left Leg: Motor (5-second hold - always test supine) - 1(Drift) 6b. Right Leg: Motor (5-second hold - always test supine) - 0(No drift) 7. Limb Ataxia (finger/nose \\T\\ heel/crabtree - test with eyes open) - 2(Present in two limbs) 8. Sensory Loss (pinprick arms/legs/face) - 0(Normal) 9. Best Language: Aphasia (description/naming/reading) - 0(No aphasia) 10. Dysarthria (speech clarity - read or repeat words) - 0(Normal) 11. Extinction and Inattention (visual/tactile/auditory/spatial/personal) - 0(No abnormality) Initials: [facility] NIH Stroke Scale - NIH Stroke Score Date: 12/21/2018 Time: 17:55 Total Score = 6 1a. Level of Consciousness (LOC) - 0(Alert) 1b. Level of Consciousness (LOC) (Year \\T\\ Age) - 0(Both) 1c. LOC Commands (Open \\T\\ Closes Eyes/Hearing Dog Trainer) - 0(Both) 2. Best Gaze (Lateral Gaze Paresis) - 0(Normal) 3. Visual Field Loss - 0(No visual loss) 4. Facial Palsy - 0(Normal) 5a. Left Arm: Motor (10-second hold) - 3(No effort against gravity) 5b. Right Arm: Motor (10-second hold) - 0(No drift) 6a. Left Leg: Motor (5-second hold - always test supine) - 1(Drift) 6b. Right Leg: Motor (5-second hold - always test supine) - 0(No drift) 7. Limb Ataxia (finger/nose \\T\\ heel/crabtree - test with eyes open) - 2(Present in two limbs) 8. Sensory Loss (pinprick arms/legs/face) - 0(Normal) 9. Best Language: Aphasia (description/naming/reading) - 0(No aphasia) 10. Dysarthria (speech clarity - read or repeat words) - 0(Normal) 11. Extinction and Inattention (visual/tactile/auditory/spatial/personal) - 0(No abnormality) Initials: oni Signatures: Dispatcher [employer] EDEstrada Gagnon, RN Kole Sandhu MD MD cha Williams, Irene RN NELSY iw Mony Maradiaga, RN RN aa5 Radha Powers RN RN ed1 Macy Bangura RN NELSY Tiffany Storey 4 Lisa Louis 3 Corrections: (The following items were deleted from the chart) 18:12 18:11 Reassessment: pt daughter phone number [facility] 20:01 20:00 Reassessment: Patient appears in no apparent distress at this time. ed1 Patient and/or family updated on plan of care and expected duration. Pain level reassessed. Patient is alert, oriented x 3, equal unlabored respirations, skin warm/dry/pink. Patient states symptoms have not improved. ed1
--- NOTE | 2018-12-21 18:05 | EDPHYS ---
Physician Documentation [facility] Name: Mayela Hou Age: 68 yrs Sex: Female : 1950 Arrival Date: 12/21/2018 Time: 15:49 Bed 2 Private MD: Gm Lim ED Physician HPI: 12/21 17:48 This 68 yrs old Female presents to ER via Wheelchair with complaints of oni Numbness Of Face, Numbness Of Arm. 17:48 The patient's problem is reported as weakness, in the left upper extremity. Onset: The oni symptoms/episode began/occurred 7 hour(s) ago. Duration: This was a single incident, The episode is continuous. Context: the episode(s) was witnessed, by family. The symptoms are alleviated by nothing. The symptoms are aggravated by nothing. Associated signs and symptoms: The patient has no apparent associated signs or symptoms. Severity of symptoms: At their worst the symptoms were mild. Patient's baseline: Neuro: alert and fully oriented. Historical: - Allergies: 15:49 No Known Allergies; aa5 - PMHx: 15:49 Cancer, Breast Right; Cancer, Pancreatic and Liver Stage 4; aa5 15:49 CVA; aa5 - PSHx: 15:49 Port-a-cath Placement; Mastectomy, Right; Hip Replacement; aa5 - Immunization history:: Adult Immunizations unknown. - Ebola Screening: : No symptoms or risks identified at this time. - Social history:: Smoking status: Patient/guardian denies using tobacco. - Family history:: not pertinent. ROS: 17:48 Constitutional: Negative for fever, chills, and weight loss, Eyes: Negative for injury, oni pain, redness, and discharge, ENT: Negative for injury, pain, and discharge, Neck: Negative for injury, pain, and swelling, Cardiovascular: Negative for chest pain, palpitations, and edema, Respiratory: Negative for shortness of breath, cough, wheezing, and pleuritic chest pain, Abdomen/GI: Negative for abdominal pain, nausea, vomiting, diarrhea, and constipation, Back: Negative for injury and pain, : Negative for injury, bleeding, discharge, and swelling, MS/Extremity: Negative for injury and deformity, Skin: Negative for injury, rash, and discoloration, Psych: Negative for depression, anxiety, suicide ideation, homicidal ideation, and hallucinations, Allergy/Immunology: Negative for hives, rash, and allergies, Endocrine: Negative for neck swelling, polydipsia, polyuria, polyphagia, and marked weight changes, Hematologic/Lymphatic: Negative for swollen nodes, abnormal bleeding, and unusual bruising. 17:48 Neuro: Positive for dizziness, weakness, of the left arm. Exam: 17:48 Radiologist reports: neg oni 17:48 Constitutional: This is a well developed, well nourished patient who is awake, alert, and in no acute distress. Head/Face: Normocephalic, atraumatic. Eyes: Pupils equal round and reactive to light, extra-ocular motions intact. Lids and lashes normal. Conjunctiva and sclera are non-icteric and not injected. Cornea within normal limits. Periorbital areas with no swelling, redness, or edema. ENT: Nares patent. No nasal discharge, no septal abnormalities noted. Tympanic membranes are normal and external auditory canals are clear. Oropharynx with no redness, swelling, or masses, exudates, or evidence of obstruction, uvula midline. Mucous membranes moist. Neck: Trachea midline, no thyromegaly or masses palpated, and no cervical lymphadenopathy. Supple, full range of motion without nuchal rigidity, or vertebral point tenderness. No Meningismus. Chest/axilla: Normal chest wall appearance and motion. Nontender with no deformity. No lesions are appreciated. Cardiovascular: Regular rate and rhythm with a normal S1 and S2. No gallops, murmurs, or rubs. Normal PMI, no JVD. No pulse deficits. Respiratory: Lungs have equal breath sounds bilaterally, clear to auscultation and percussion. No rales, rhonchi or wheezes noted. No increased work of breathing, no retractions or nasal flaring. Abdomen/GI: Soft, non-tender, with normal bowel sounds. No distension or tympany. No guarding or rebound. No evidence of tenderness throughout. Back: No spinal tenderness. No costovertebral tenderness. Full range of motion. Female : Normal external genitalia. Skin: Warm, dry with normal turgor. Normal color with no rashes, no lesions, and no evidence of cellulitis. MS/ Extremity: Pulses equal, no cyanosis. Neurovascular intact. Full, normal range of motion. Psych: Awake, alert, with orientation to person, place and time. Behavior, mood, and affect are within normal limits. 17:48 Neuro: Orientation: is normal, appropriate for stated age, no acute changes, Mentation: is normal, appropriate for stated age, no acute changes, Memory: is normal, appropriate for stated age, no acute changes, Cranial nerves: grossly normal, is grossly normal based on the patient's age, no acute changes, Cerebellar function: is grossly normal, is grossly normal based on the patient's age, no acute changes, Motor: moves all fours, Strength is 3/5 in the left arm, Sensation: is normal, no obvious gross deficits, appropriate no acute changes, Gait: not tested. Babinski testing is normal, seizure activity, is not displayed by the patient. Vital Signs: 15:50 BP 113 / 76; Pulse 102; Resp 18 S; Temp 98.2(TE); Pulse Ox 94% on R/A; aa5 17:21 BP 131 / 74; Pulse 99; Resp 20; Pulse Ox 94% on R/A; ph 18:10 BP 122 / 76; Pulse 76; Resp 18; Pulse Ox 99% on 2 lpm NC; ph 19:47 BP 151 / 91; Pulse 95; Resp 13; Pulse Ox 97% on 2 lpm NC; Pain 6/10; ed1 NIH Stroke Scale Scores: 16:00 NIHSS Score: 6 ph 17:48 NIHSS Score: 6 oni 17:55 NIHSS Score: 6 oni MDM: 16:01 Patient medically screened. oni 17:53 Data reviewed: vital signs, nurses notes, lab test result(s), EKG, radiologic studies, [facility] CT scan, MRI, plain films. 19:15 ED course: symptoms were present at 10 am, patient is on eliquis, not a tpa candidate. [facility] 12/21 16:04 Order name: Basic Metabolic Panel; Complete Time: 17:58 [facility] 12/21 16:04 Order name: CBC with Diff; Complete Time: 17:58 [facility] 12/21 16:04 Order name: LFT's; Complete Time: 17:58 [facility] 12/21 16:04 Order name: Magnesium; Complete Time: 17:58 [facility] 12/21 16:04 Order name: NT PRO-BNP; Complete Time: 17:58 [facility] 12/21 16:04 Order name: PT-INR; Complete Time: 17:58 [facility] 12/21 16:04 Order name: Troponin (emerg Dept Use Only); Complete Time: 17:58 [facility] 12/21 16:04 Order name: XRAY Chest (1 view) [facility] 12/21 16:04 Order name: CT Head Brain wo Cont [facility] 12/21 17:25 Order name: Brain Wo Cont [facility]MS 12/21 17:46 Order name: Lipase [facility] 12/21 18:00 Order name: CT Head Angio [facility] 12/21 16:04 Order name: EKG; Complete Time: 16:05 [facility] 12/21 16:04 Order name: Cardiac monitoring; Complete Time: 16:23 [facility] 12/21 16:04 Order name: EKG - Nurse/Tech; Complete Time: 16:23 [facility] 12/21 16:04 Order name: IV Saline Lock; Complete Time: 17:43 [facility] 12/21 16:04 Order name: Labs collected and sent; Complete Time: 18:51 [facility] 12/21 16:04 Order name: O2 Per Protocol; Complete Time: 16:23 [facility] 12/21 16:04 Order name: O2 Sat Monitoring; Complete Time: 16:23 [facility] Administered Medications: 18:10 Drug: NS 0.9% 500 ml Route: IV; Rate: bolus; Site: Port-a-cath; ph 19:45 Follow up: IV Status: Completed infusion; IV Intake: 500ml ed1 18:10 Drug: foLIC Acid 1 mg Route: IVPB; Site: Port-a-cath; ph 18:42 Follow up: Response: No adverse reaction; IV Status: Completed infusion ph 19:44 Drug: Zofran 4 mg Route: IVP; Site: Port-a-cath; ed1 20:35 Follow up: Response: No adverse reaction; Nausea is decreased ed1 19:44 Drug: fentaNYL (PF) 25 mcg Route: IVP; Site: Port-a-cath; ed1 20:15 Follow up: Response: No adverse reaction; Pain is decreased ed1 19:45 Not Given (Physician Discretion): NS 0.9% 1000 ml IV at 125 ml/hr continuous ed1 19:46 Drug: NS 0.9% 500 ml Route: IV; Rate: bolus; Site: Port-a-cath; ed1 20:36 Follow up: IV Status: Completed infusion; IV Intake: 500ml ed1 20:59 Drug: fentaNYL (PF) 25 mcg Route: IVP; Site: Port-a-cath; ed1 20:59 Follow up: Response: Medication administered at discharge. ed1 Disposition: 12/21/18 18:04 Transfer ordered to [facility]. Diagnosis are Cerebral infarction, Atrial fibrillation and flutter - history, Malignant neoplasm of pancreatic duct - stage 4. - Reason for transfer: Higher level of care. - Accepting physician is to neuro, dr marshall. - Condition is Fair. - Problem is new. - Symptoms have improved. NIH Stroke Scale - NIH Stroke Score Date: 12/21/2018 Time: 16:00 Total Score = 6 1a. Level of Consciousness (LOC) - 0(Alert) 1b. Level of Consciousness (LOC) (Year \T\ Age) - 0(Both) 1c. LOC Commands (Open \T\ Closes Eyes/Route Service Representative) - 0(Both) 2. Best Gaze (Lateral Gaze Paresis) - 0(Normal) 3. Visual Field Loss - 0(No visual loss) 4. Facial Palsy - 0(Normal) 5a. Left Arm: Motor (10-second hold) - 3(No effort against gravity) 5b. Right Arm: Motor (10-second hold) - 0(No drift) 6a. Left Leg: Motor (5-second hold - always test supine) - 1(Drift) 6b. Right Leg: Motor (5-second hold - always test supine) - 0(No drift) 7. Limb Ataxia (finger/nose \T\ heel/crabtree - test with eyes open) - 2(Present in two limbs) 8. Sensory Loss (pinprick arms/legs/face) - 0(Normal) 9. Best Language: Aphasia (description/naming/reading) - 0(No aphasia) 10. Dysarthria (speech clarity - read or repeat words) - 0(Normal) 11. Extinction and Inattention (visual/tactile/auditory/spatial/personal) - 0(No abnormality) Initials: NIH Stroke Scale - NIH Stroke Score Date: 12/21/2018 Time: 17:48 Total Score = 6 1a. Level of Consciousness (LOC) - 0(Alert) 1b. Level of Consciousness (LOC) (Year \T\ Age) - 0(Both) 1c. LOC Commands (Open \T\ Closes Eyes/Route Service Representative) - 0(Both) 2. Best Gaze (Lateral Gaze Paresis) - 0(Normal) 3. Visual Field Loss - 0(No visual loss) 4. Facial Palsy - 0(Normal) 5a. Left Arm: Motor (10-second hold) - 3(No effort against gravity) 5b. Right Arm: Motor (10-second hold) - 0(No drift) 6a. Left Leg: Motor (5-second hold - always test supine) - 1(Drift) 6b. Right Leg: Motor (5-second hold - always test supine) - 0(No drift) 7. Limb Ataxia (finger/nose \T\ heel/crabtree - test with eyes open) - 2(Present in two limbs) 8. Sensory Loss (pinprick arms/legs/face) - 0(Normal) 9. Best Language: Aphasia (description/naming/reading) - 0(No aphasia) 10. Dysarthria (speech clarity - read or repeat words) - 0(Normal) 11. Extinction and Inattention (visual/tactile/auditory/spatial/personal) - 0(No abnormality) Initials: [facility] NIH Stroke Scale - NIH Stroke Score Date: 12/21/2018 Time: 17:55 Total Score = 6 1a. Level of Consciousness (LOC) - 0(Alert) 1b. Level of Consciousness (LOC) (Year \T\ Age) - 0(Both) 1c. LOC Commands (Open \T\ Closes Eyes/Route Service Representative) - 0(Both) 2. Best Gaze (Lateral Gaze Paresis) - 0(Normal) 3. Visual Field Loss - 0(No visual loss) 4. Facial Palsy - 0(Normal) 5a. Left Arm: Motor (10-second hold) - 3(No effort against gravity) 5b. Right Arm: Motor (10-second hold) - 0(No drift) 6a. Left Leg: Motor (5-second hold - always test supine) - 1(Drift) 6b. Right Leg: Motor (5-second hold - always test supine) - 0(No drift) 7. Limb Ataxia (finger/nose \T\ heel/crabtree - test with eyes open) - 2(Present in two limbs) 8. Sensory Loss (pinprick arms/legs/face) - 0(Normal) 9. Best Language: Aphasia (description/naming/reading) - 0(No aphasia) 10. Dysarthria (speech clarity - read or repeat words) - 0(Normal) 11. Extinction and Inattention (visual/tactile/auditory/spatial/personal) - 0(No abnormality) Initials: oni Signatures: Dispatcher [employer] EDVA Kole Tavera MD MD cha Calderon, Audri, RN RN aa5 Radha Powers RN RN ed1 Macy Bangura, RN RN ph Corrections: (The following items were deleted from the chart) 17:25 16:05 MR STROKE PROTOCOL+MRI.RAD.BRZ ordered. [facility] 20:36 18:04 12/21/2018 18:04 Transfer ordered to [facility]. 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 Reason for transfer: Higher level of care. Accepting physician is to dr rolando tang. Condition is Fair. Problem is new. Symptoms have improved. [facility] 20:59 20:36 12/21/2018 18:04 Transfer ordered to [facility]. 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 Reason for transfer: Higher level of care. Accepting physician is to dr rolando tang. Condition is Fair. Problem is new. Symptoms have improved. ed1
[2018-12-21] MEDS ORDERED: NA CHLORIDE 0.9% 1,000 ML ONE (18:12)
[2018-12-21] MEDS ORDERED: FOLIC ACID 5 MG/ML VIAL ONE (18:12)
[2018-12-21] MEDS ORDERED: FENTANYL CITR 100 MCG/2 ML ONE ×2 (19:54→21:08)
[2018-12-21] MEDS ORDERED: ONDANSETRON 4 MG/2 ML VIAL ONE (19:54)
[2018-12-21 21:00] VITALS: TEMP 98.2
[2018-12-21 21:05] VITALS: BP 151/91; O2SAT 97
[2018-12-21] MEDS ORDERED: cloNIDine HCl 0.1 MG TAB ONE (21:50)
[2018-12-21] MEDS ORDERED: NA CHLORIDE 0.9% 500 ML ONE (21:50)
--- OUTSIDE RECORDS SUMMARY | 2018-12-22 11:59 | XMS REPORT | Clinical Summary ---
:1950 Author Organization [facility] Address [address] [place] [address] Care Team Providers Name Role Phone Gm Lim MD Primary Care Provider Allergies No Known Allergies Medications Medication Sig Dispensed Refills Start Date End Date Status cetirizine (ZYRTEC) Take 1 tablet 30 tablet 0 11/06/2018 2018 10 MG tablet (10 mg total) by mouth daily for 30 days. HYDROcodone-acetami Take 1 tablet 30 tablet 0 11/05/2018 11/05/2018 Discontinued nophen (NORCO by mouth 5-325) 5-325 mg per every 6 (six) tablet hours as needed for up to 10 days. Max Daily Amount: 4 tablets sodium chloride 1 spray by 15 mL 0 11/05/2018 11/05/2019 Suspended 0.65% (OCEAN) 0.65 Nasal route % nasal spray as needed. amLODIPine Take 1 tablet 30 tablet 0 [...] Take 1 90 capsule 2 11/09/2018 11/09/2019 Suspended (NEURONTIN) 100 MG capsule (100 capsule mg total) by mouth 3 (three) times daily. senna-docusate Take 1 tablet 60 tablet 11 11/09/2018 11/09/2019 Suspended (SENOKOT S) 8.6-50 by mouth 2 mg per tablet (two) times daily. pantoprazole Take 1 tablet 30 tablet 1 11/09/2018 Suspended (PROTONIX) 40 MG (40 mg total) tablet by mouth daily. oxyCODONE Take 1 tablet 60 tablet 0 11/09/2018 12/09/2018 (ROXICODONE) 5 MG (5 mg total) immediate release by mouth tablet every 4 (four) hours as needed for up to 30 days. Max Daily Amount: 30 mg ELIQUIS 5 MG tablet Take 1 tablet 3 12/17/2018 Suspended by mouth 2 (two) times daily. fentaNYL Place 1 patch 0 Suspended (DURAGESIC) 50 onto the skin mcg/hr patch every third day. HYDROmorphone Take 4 mg by 0 Suspended (DILAUDID) 4 MG mouth every 4 tablet (four) hours as needed for Pain. HYDROcodone-acetami Take 1 tablet 0 Suspended nophen (NORCO by mouth 10-325) 10-325 mg every 6 (six) per tablet hours as needed for Pain. Active Problems Problem Noted Date Stroke 12/21/2018 Cancer related pain 11/10/2018 Constipation due to opioid therapy 11/10/2018 Pancreatic carcinoma metastatic to liver 11/10/2018 Liver mass 11/04/2018 Biliary obstruction 11/04/2018 Breast CA 11/04/2018 Pancreatic mass 11/03/2018 Elevated LFTs 11/03/2018 Encounters Date Type Specialty Care Team Description 12/21/2018 [facility] Internal [facility], Cancer related pain; Encounter Medicine Maria Isabel Pancreatic carcinoma metastatic to liver (HCC); MD Renetta Cerebrovascular accident (CVA), unspecified mechanism (HCC); Juliana Fink Paroxysmal atrial fibrillation (HCC) MD Alyssa Flores, Radha Salomon MD 12/21/2018 Travel 11/04/2018 Surgery Gastroenterology Mychal, UPPER ENDOSCOPY,FNA [facility] W/ULTRASOUND Mychal Woodard MD 11/04/2018 Anesthesia Event Gastroenterology Radha Salomon 11/03/2018 [facility] Oncology Vika, Elevated LFTs; - Encounter Caren De La Cruz, Pancreatic mass; 11/10/2018 History of breast cancer; Aurelio, Biliary obstruction; Sonny Elmore Malignant neoplasm of female breast, unspecified estrogen receptor status, unspecified laterality, unspecified site of breast (HCC); MD OSCAR Liver mass; Renetta, Cancer related pain; Doc Rivera, Pancreatic adenocarcinoma (HCC); Metastatic cancer (HCC) 11/03/2018 Travel after 12/21/2017 Social History Tobacco Use Types Packs/Day Years [...] Vital Sign Reading Time Taken Blood Pressure 128/67 12/22/2018 10:30 AM CDT Pulse 87 12/22/2018 10:30 AM CDT Temperature 36.9 C (98.4 F) 12/22/2018 7:26 AM CDT Respiratory Rate 17 12/22/2018 10:30 AM CDT Oxygen Saturation 96% 12/22/2018 10:30 AM CDT Inhaled Oxygen Concentration 21% 11/07/2018 11:00 PM CDT Weight 82.6 kg (182 lb 3.2 oz) 12/22/2018 2:58 AM CDT Height 182.9 cm (6') 12/22/2018 2:58 AM CDT Body Mass Index 24.71 12/22/2018 2:58 AM CDT Plan of Treatment Not on file Implants Implanted Type Area Dye Range Tender Device Shelf Model / Identifier Expiration Date Serial / Lot Stent Panc Advanix 5fx3cm Str 3750 - [id number] Stents-Pe [employer] 11/06/2019 3750 / Implanted: Qty: 1 on 11/04/2018 by Emelyn Horta MD ripheral / Stent Viabil Bili 10x6 No Hole [id number] - [id number] Stents-Pe [employer] & 04/29/2020 [id number] / Implanted: Qty: 1 on 11/04/2018 by Emelyn Horta MD ripheral ASSC:MED PRDT / Procedures The patient is currently admitted. The information in this section might not be complete until the patient is discharged. Procedure Name Priority Date/Time Associated Comments Diagnosis VITAMIN B12 AND FOLATE Routine 12/22/2018 5:44 Results for this AM CDT procedure are in the results section. TSH/FREE T4 IF INDICATED Routine 12/22/2018 5:44 Results for this AM CDT procedure are in the results section. HEMOGLOBIN A1C Routine 12/22/2018 5:44 Results for this AM CDT procedure are in the results section. LIPID PANEL Routine 12/22/2018 5:44 Results for this AM CDT procedure are in the results section. CBC (HEMOGRAM ONLY) Routine 12/22/2018 5:44 Results for this AM CDT procedure are in the results section. MAGNESIUM Routine 12/22/2018 5:44 Results for this AM CDT procedure are in the results section. HEPATIC FUNCTION PANEL Routine 12/22/2018 5:44 Results for this AM CDT procedure are in the results section. BASIC METABOLIC PANEL Routine 12/22/2018 5:44 Results for this (7) AM CDT procedure are in the results section. REPORT OF PROCEDURE - 11/22/2018 6:14 ENDOSCOPY [...] procedure are in the results section. after 12/21/2017 Results Vitamin B12 and Folate (12/22/2018 5:44 AM CDT) Vitamin B12 1,700 (H) 213 - 816 pg/mL [facility] Folate 14.8 >=7.0 ng/mL [facility] Specimen Blood Performing Organization Address City/State/Zipcode Phone Number [facility] [address] [place] [address] CENTER TSH/Free T4 If Indicated (12/22/2018 5:44 AM CDT) TSH 2.17 0.35 - 4.94 uIU/mL [facility] Specimen Blood Performing Organization Address City/[facility]/Zipcode Phone Number [address] [address] [place] CBC (Hemogram only) (12/22/2018 5:44 AM CDT) WBC 8.7 3.5 - 10.5 K/L [facility] RBC 3.18 (L) 3.93 - 5.22 M/L [facility] Hemoglobin 9.0 (L) 11.2 - 15.7 GM/DL [facility] Hematocrit 29.2 (L) 34.1 - 44.9 % [facility] MCV 91.8 79.4 - 94.8 fL [facility] MCH 28.3 25.6 - 32.2 pg [facility] MCHC 30.8 (L) 32.2 - 35.5 GM/DL [facility] RDW 13.7 11.7 - 14.4 % [facility] Platelets 214 150 - 450 K/CU MM [facility] MPV 8.9 (L) 9.4 - 12.3 fL [facility] nRBC 0 0 - 0 /100 WBC [facility] Specimen Blood Performing Organization Address City/[facility]/Zipcode Phone Number [address] [address] CENTER Magnesium (12/22/2018 5:44 AM CDT)Only the most recent of2 resultswithin the time period is included. Magnesium 1.4 (L) 1.6 - 2.6 mg/dL [facility] Specimen Blood Performing Organization Address City/[facility]/Zipcode Phone Number [address] [address] [place] Hemoglobin A1c (12/22/2018 5:44 AM CDT) Hemoglobin A1C 6.3 (H) 4.3 - 6.1 % [facility] Specimen Blood Performing Organization Address City/[facility] Phone Number [address] [address] [phone] [place] Hepatic function panel (12/22/2018 5:44 AM CDT)Only the most recent of7 resultswithin the time period is included. Protein, Total 5.1 (L) 6.0 - 8.3 gm/dL [facility] Albumin 2.3 (L) 3.5 - 5.0 g/dL [facility] Total Bilirubin 0.3 0.2 - 1.2 mg/dL [facility] Bilirubin, Direct 0.2 0.1 - 0.5 mg/dL [facility] Alkaline Phosphatase 241 (H) 40 - 150 U/L [facility] AST 19 5 - 34 U/L [facility] ALT 17 6 - 55 U/L [facility] Specimen Blood Performing Organization Address City/State/Zipcode Phone Number [address] [address] [place] Lipid panel (12/22/2018 5:44 AM CDT) Triglycerides 81 mg/dL [facility] Cholesterol 66 mg/dL [facility] HDL 23 mg/dL [facility] LDL Calculated 27 mg/dL [facility] Specimen Blood Narrative Performed At Triglyceride Reference Range: [facility] Low Risk <150 [id number] High Risk 200-499 Very High Risk>=500 Cholesterol Reference Range: Low Risk <200 [id number] High Risk>240 HDL Cholesterol Reference Range: Low Risk >=60 High Risk <40 LDL Cholesterol Reference Range: Optimal<100 Near Jisidaq606-609 [id number] Kxiy121-013 Very High >=190 Performing Organization Address [facility] Cent[facility]ode Phone Number [phone] [place] [address] [phone] [place] Basic metabolic panel (12/22/2018 5:44 AM CDT)Only the most recent of7 resultswithin the time period is included. Sodium 133 (L) 136 - 145 meq/L [facility] Potassium 3.5 3.5 - 5.1 meq/L [facility] Chloride 96 (L) 98 - 107 meq/L [facility] CO2 29 22 - 29 meq/L [facility] BUN 6 (L) 7 - 21 mg/dL [facility] Creatinine 0.52 (L) 0.57 - 1.25 mg/dL [facility] Glucose 110 (H) 70 - 105 mg/dL [facility] Calcium 7.7 (L) 8.4 - 10.2 mg/dL [facility] EGFR 118Comment: ESTIMATED GFR IS mL/min/1.73 sq m [facility] NOT ACCURATE CREATININE [facility] CENTER CLEARANCE IN PREDICTING GLOMERULAR FILTRATION RATE. ESTIMATED GFR IS NOT APPLICABLE FOR DIALYSIS PATIENTS. Specimen Blood Performing Organization Address City/[facility] Cent[facility]ode Phone Number [phone] [place] [address] [place] REPORT OF PROCEDURE - ENDOSCOPY URL (11/22/2018 6:14 PM CDT) Narrative Performed At RHYTHM STRIP - SCAN (11/11/2018 10:52 AM CDT) Narrative Performed At US abdomen limited (11/09/2018 5:11 PM CDT) Specimen Narrative Performed At FINAL REPORT [employer] Limited abdominal ultrasound Technique/findings: Limited sonographic images [...] MD Report Verified Date/Time:11/09/2018 18:07:18 Reading Location: [address] Ultrasound Reading Room Procedure Note Interface, [...] Report Verified Date/Time: 11/09/2018 18:07:18 Reading Location: [address] Ultrasound Reading Room Performing Organization Address City/State/Zipcode Phone Number [facility] Prothrombin time/INR (11/09/2018 11:32 AM CDT)Only the most recent of2 resultswithin the time period is included. Protime 13.3 11.7 - 14.7 seconds [facility] INR 1.0 <=5.9 [facility] Specimen Blood Narrative Performed At RECOMMENDED COUMADIN/WARFARIN INR THERAPY [facility] RANGES STANDARD DOSE: 2.0 - 3.0 Includes: PROPHYLAXIS for venous thrombosis, systemic embolization; TREATMENT for venous thrombosis and/or pulmonary embolus. HIGH RISK: Target INR is 2.5-3.5 for patients with mechanical heart valves. Performing Organization Address City/State/Zipcode Phone Number [facility] [address] [place] [address] C[facility] CBC with platelet count + automated diff (11/09/2018 4:24 AM CDT)Only the most recent of6 resultswithin the time period is included. WBC 4.7 3.5 - 10.5 K/L [facility] RBC 4.02 3.93 - 5.22 M/L [facility] Hemoglobin 11.7 11.2 - 15.7 GM/DL [facility] Hematocrit 37.3 34.1 - 44.9 % [facility] MCV 92.8 79.4 - 94.8 fL [facility] MCH 29.1 25.6 - 32.2 pg [facility] MCHC 31.4 (L) 32.2 - 35.5 GM/DL [facility] RDW 13.4 11.7 - 14.4 % [facility] Platelets 252 150 - 450 K/CU MM [facility] MPV 9.2 (L) 9.4 - 12.3 fL [facility] nRBC 0 0 - 0 /100 WBC [facility] % Neutros 69 % [facility] % Lymphs 17 % [facility] % Monos 13 % [facility] % Eos 1 % [facility] % Baso 0 % [facility] # Neutros 3.25 1.56 - 6.13 K/L [facility] # Lymphs 0.79 (L) 1.18 - 3.74 K/L [facility] # Monos 0.62 (H) 0.24 - 0.36 K/L [facility] # Eos 0.05 0.04 - 0.36 K/L [facility] # Baso 0.01 0.01 - 0.08 K/L [facility] Immature Granulocytes-Relative 0 0 - 1 % [facility] Specimen Blood Performing Organization Address City/State/Zipcode Phone Number [facility] [address] [place] [address] abd/pelvis - pancreas evaluation (11/08/2018 1:01 PM CDT) Specimen Narrative Performed At FINAL REPORT [facility] CT of the Chest, abdomen and pelvis [...] MD Report Verified Date/Time:11/08/2018 16:30:42 Reading Location: [facility] C0Y CT Body Reading Room Procedure Note Interface, [...] Report Verified Date/Time: 11/08/2018 16:30:42 Reading Location: [address] Body Reading Room Performing Organization Address City/State/Zipcode Phone Number [facility] CT chest with IV contrast (11/08/2018 1:01 PM CDT) Specimen Narrative Performed At FINAL REPORT [facility] CT of the Chest, abdomen and pelvis [...] MD Report Verified Date/Time:11/08/2018 16:30:42 Reading Location: [address] Body Reading Room Procedure Note [...] Report Verified Date/Time: 11/08/2018 16:30:42 Reading Location: [facility] B1 C013Y CT Body Reading Room Performing Organization Address City/State/Zipcode Phone Number [employer] XR abdomen / KUB 1 view (11/08/2018 10:42 AM CDT) Specimen Narrative Performed At FINAL REPORT [employer] Abdomen one view Comparison: None. Reason for [...] MD Report Verified Date/Time:11/08/2018 11:16:58 Reading Location: [facility] Radiology Reading Room Procedure Note Interface, [...] Report Verified Date/Time: 11/08/2018 11:16:58 Reading Location: [facility] Radiology Reading Room Performing Organization Address City/[employer] Phone Number GE R[facility] ECG 12 lead (11/07/2018 5:49 PM CDT)Only the most recent of2 resultswithin the time period is included. Specimen Narrative Performed At Ventricular Rate 89 BPM GE MUSE Atrial Rate 89 BPM P-R Interval 166 ms QRS Duration 82 ms Q-T Interval 412 ms QTC Calculation(Bazett) 501 ms P [place] 33 degrees R [place] -3 degrees T [place] 43 degrees Normal sinus rhythm Normal ECG When compared with ECG of 03-NOV-2018 22:15, No significant change was found Confirmed by Marisol FOWLER MICHAEL ([id number]) on 11/08/2018 7:39:45 AM Procedure Note Interface, External Ris In - 11/08/2018 7:39 AM CDT Ventricular Rate 89 BPM Atrial Rate 89 BPM P-R Interval 166 ms QRS Duration 82 ms Q-T Interval 412 ms QTC Calculation(Bazett) 501 ms P [place] 33 degrees R [place] -3 degrees T [place] 43 degrees Normal sinus rhythm Normal ECG When compared with ECG of 03-NOV-2018 22:15, No significant change was found Confirmed by Marisol FOWLER MICHAEL ([id number]) on 11/08/2018 7:39:45 AM Performing Organization Address City/[employer] Phone Number GE MUSE Troponin I (11/07/2018 4:24 PM CDT) Troponin I <0.01 0.00 - 0.03 ng/mL [facility] Specimen Blood Narrative Performed At Troponin I (TnI) levels must be interpreted [facility] in the context of the presenting symptoms [...] disease, and persistent tachyarrhythmia. Performing Organization Address City/[facility] Centercode Phone Number [address] [address] [phone] [place] Carbohydrate antigen 19-9 (CA 19-9) (11/07/2018 11:01 AM CDT)Only the most recent of2 resultswithin the time period is included. CA 19-9 1978 (H) <34 U/mL [facility] Comment: This test was performed using the Siemens Chemiluminescent method. Values obtained from different assay methods cannot be used interchangeably. CA19-9 levels, regardless of value, should not be interpreted as absolute evidence of the presence or absence of disease. Specimen Blood Narrative Performed At Performing Lab [facility] [address] [address] Heidy Kaur MD, PhD, CRISTÓBAL Performing Organization Address [facility] Phone Number [place] [address] [address] [place] [address] Carcinoembryonic Antigen (CEA) (11/07/2018 11:01 AM CDT)Only the most recent of2 resultswithin the time period is included. CEA, SERUM 2.6 0.0 - 5.0 ng/mL [facility] Specimen Blood Performing Organization Address [facility] Cent[facility]ode Phone Number [facility] [address] [place] [address] CENTER Calcium, Ionized (11/05/2018 4:39 AM CDT) Calcium, Ion 1.06 (L) 1.12 - 1.27 mmol/L [facility] pH, Blood 7.39 [facility] Specimen Blood Performing Organization Address City/State/Zipcode Phone Number [facility] [address] [place], [place] [phone] CENTER Phosphorus (11/05/2018 4:39 AM CDT) Phosphorus 2.7 2.3 - 4.7 mg/dL [facility] Specimen Blood Performing Organization Address [facility] Cent[facility] Phone Number [facility] [address] [place] [address] [phone] [place] REPORT OF PROCEDURE - ENDOSCOPY URL (11/04/2018 6:12 PM CDT) Narrative Performed At [place] ERCP (11/04/2018 5:55 PM CDT) Specimen Narrative Performed At FINAL REPORT [facility] Examination: ERCP 5 fluoroscopic spot views were obtained during the procedure by the ordering service. Images are nondiagnostic as no radiologist was present at the time of imaging. Fluoroscopic time was 71.7 seconds. Please see the procedure report for details. Signed: Rubio Goel MD Report Verified Date/Time:11/04/2018 21:43:27 Reading Location: [address] Reading Room Procedure Note Interface, External [...] Report Verified Date/Time: 11/04/2018 21:43:27 Reading Location: [address] Reading Room Performing Organization Address City/[facility] Cent[facility] Phone Number GE [facility] CYTOLOGY REQUEST (11/04/2018 5:37 PM CDT) Cytology See Separate Report [facility] Specimen Brushings Performing Organization Address City/State/Zipcode Phone Number [facility] [address] [place], [place] [phone] CENTER Cytology (11/04/2018 5:37 PM CDT) Case Report Medical Cytology Report Case: [id number] [facility] Authorizing Provider:Emelyn Horta Collected: 11/04/2018 9849 [facility] MD Vance Ordering Location: [address] Received: 11/07/2018 1148 SERVICE Pathologist: Eric Flower MD Specimen:Common Bile Duct DIAGNOSIS COMMON BILE DUCT BRUSHING (CYTOSPINS): [facility] - SUSPICIOUS FOR MALIGNANCY [facility] Signing Pathologist Direct Phone Line: [phone] [facility] Please also see surgical pathology report [id number] and cytopathology reports [id number] and 992. [facility] CPT Code(s) [address]2716 [facility] CLINICAL DATA Focal liver lesions; [facility] pancreatic massinvading [facility] vein and liver; hepatobiliary obstruction; elevated LFTs; h/o breast cancer s/p Chemo/XRT and right mastectomy SPECIMEN SOURCE COMMON BILE DUCT BRUSHING [facility] GROSS DESCRIPTION Prepared 2 cytospins from 1 brush tip collected in [address] [facility] Collected: [id number] [facility] Received: [id number] STATEMENT OF ADEQUACY Satisfactory [facility] Gross assessment was [facility] performed at [place], Department of [facility] Pathology, [address] [place] [address], Technical component was [facility] performed at [place], Department of [facility] Pathology, [address] [place] [address], Professional component was [facility] performed at Center, Department of [facility] Pathology, [address] [facility], [place] [address], Specimen Brushings Narrative Performed At Performing Organization Address City/State/Zipcode Phone Number [facility] [address] [place] [address] CENTER Tissue Exam (11/04/2018 5:17 PM CDT) Case Report Surgical Pathology Report Case: [id number] [facility] Authorizing Provider:Emelyn Horta Collected: 11/04/2018 1717 [facility] MD Vance Ordering Location: [address] Received: 11/07/2018 0808 SERVICE Pathologist: Tresa Lanier MD Specimen:Pancreas, Head,fine needle aspirate of mass in formulin DIAGNOSIS A. PANCREAS, HEAD MASS, FNA GUIDED BIOPSY: [facility] - INVASIVE POORLY DIFFERENTIATED ADENOCARCINOMA (SEE COMMENT) [facility] Signing Pathologist Direct Phone Line: [phone] COMMENT There is extremely minimal amount of tumor in the biopsy. Please correlate with results of concurrently obtained cytology results ([id number] ). [facility] Special stain for mucicarmine is negative. Immunostain for Cam5.2 highlights the stromal invasion. Immunostain for SOILA-3 (faint nuclear staining is non- specific), ER and mammaglobin are negative. IDC: Dr. Pedro Pablo Umana concurs. CPT Code(s) 35707 [facility] [address] [facility] [id number] CLINICAL HISTORY Pancreatic mass [facility] SPECIMEN SOURCE Pancreas head fine needle aspirate [facility] GROSS DESCRIPTION The specimen is received in a [facility] formalin-filled container labeled [facility] with the patient's information and labeled "pancreas head fine needle aspirate" and consists of multiple stringy fragments of hemorrhagic soft tissue measuring 1 x 0.4 x 0.2 cm in aggregate, submitted entirely in A1. /ew SPECIAL STUDIES The interpretation of this case included the use of immunohistochemistry or special stains. [facility] Immunohistochemistry technical testing was performed at [facility], Pathology Laboratory where it was [...] Tissue - Pancreas, Head Performing Organization Address City/[facility]/Zipcode Phone Number [address] [phone] [place] FINE NEEDLE ASPIRATE (FNA) REQUEST (11/04/2018 4:55 PM CDT)Only the most recent of2 resultswithin the time period is included. Cytology See Separate Report [facility] Specimen Fine Needle Aspirate - Pancreas, Head Performing Organization Address City/[facility] Phone Number [address] [phone] [place] Fine Needle Aspirate by Clinician (11/04/2018 4:55 PM CDT)Only the most recent of2 resultswithin the time period is included. Case Report Medical Cytology Report Case: [id number] [facility] Authorizing Provider:Emelyn Horta Collected: 11/04/2018 1655 [facility] MD Vance Ordering Location: [address] Received: 11/07/2018 1148 SERVICE Pathologist: Eric Flower MD Specimen:Pancreas, Head DIAGNOSIS HEAD OF PANCREAS MASS, FNA BY CLINICIAN (CYTOSPINS AND CELL BLOCK OF ASPIRATE): [facility] - POSITIVE FOR MALIGNANCY [facility] - ADENOCARCINOMA, DUCTAL TYPE Signing Pathologist Direct Phone Line: [phone] [facility] Please also see surgical pathology report [id number] and cytopathology reports [id number] and 993. [facility] CPT Code(s) 54624, 95[address] [facility] CLINICAL DATA Focal liver lesions; [facility] pancreatic massinvading [facility] vein and liver; hepatobiliary obstruction; elevated LFTs; h/o breast cancer s/p Chemo/XRT and right mastectomy SPECIMEN SOURCE HEAD OF PANCREAS MASS FNA [facility] GROSS DESCRIPTION Prepared cell block(A2) and 4 cytospins from 18 ml cytorich red fixative sample [facility] Collected: [id number] [facility] Received: [id number] Gross assessment was [facility] performed at [place], Department of [facility] Pathology, [address] [place] [id number], Technical component was [facility] performed at [place], Department of [facility] Pathology, [address] [place] [id number], Professional component was [facility] performed at [place], Department of [facility] Pathology, [address] [place] [phone], Specimen Fine Needle Aspirate - Pancreas, Head Narrative Performed At Performing Organization Address City/State/Zipcode Phone Number [address] [address] [place] XR chest 1 view portable / bedside (11/04/2018 11:56 AM CDT) Specimen Narrative Performed At FINAL REPORT [employer] TECHNIQUE: Frontal chest radiograph dated 11/04/2018. CLINICAL HISTORY: SOB COMPARISON STUDY: None IMPRESSION: Linear scarring is seen in the medial right upper lobe. Lungs are otherwise clear. No pleural effusion or pneumothorax. Cardiomediastinal silhouette is normal in size. No pulmonary edema. Bones are osteopenic. The right axilla. Signed: Michaela Martinez MD Report Verified Date/Time:11/04/2018 14:08:49 Reading Location: [facility] Radiology Reading Room Procedure Note Interface, [...] Report Verified Date/Time: 11/04/2018 14:08:49 Reading Location: [facility] Radiology Reading Room Performing Organization Address City/[facility] Phone Number RIS Lipase (11/03/2018 11:50 PM CDT) Lipase 34 8 - 78 U/L [facility] Specimen Blood Narrative Performed At Specimen slightly icteric [facility] Performing Organization Address City/[facility] [place] [address] [phone] [facility] Gamma Glutamyl Transferase (GGT) (11/03/2018 11:50 PM CDT) GGT 465 (H) 9 - 64 U/L [facility] Specimen Blood Narrative Performed At Specimen slightly icteric [facility] Performing Organization Address [facility] [place] [address] C[place] Urinalysis with Microscopic If Indicated (11/03/2018 11:49 PM CDT) Color, UA Yellow [facility] Clarity, UA Clear [facility] Specific [place], UA 1.019 1.001 - 1.035 [facility] pH, UA 7.0 5.0 - 8.0 [facility] Protein, UA Negative Negative [facility] Glucose, UA 50 mg/dL (A) Negative [facility] Ketones, UA 100 mg/dL (A) Negative [facility] Bilirubin, UA Negative Negative [facility] Blood, UA Negative Negative [facility] Nitrite, UA Negative Negative [facility] Leukocytes, UA Negative Negative [facility] Urobilinogen, UA 0.2 0.2 - 1.0 mg/dL [facility] Specimen Source [facility] Specimen Urine Performing Organization Address City/State/Zipcode Phone Number [facility] [address] [place] [address] CENTER after 12/21/2017 Insurance Payer Benefit Plan / Group Subscriber ID Type Phone Address MEDICARE MEDICARE A B xxxxxxxxxxx Medicare [facility] GENERIC MEDICARE xxxxxxxxx [employer] SUPPLEMENT/INDIVIDUAL SUPPLEMENT Advance Directives For more information, please contact:[address] [phone] Code Status Date Activated Date Inactivated Comments Full Code 12/21/2018 11:06 PM This code status was determined by: Patient Full Code 11/03/2018 9:48 PM 11/10/2018 12:13 PM This code status was determined by: Patient Name Relationship Healthcare Agent Relationship Phone JOSEPH ALICIA Primary healthcare agent [phone]
--- OUTSIDE RECORDS SUMMARY | 2018-12-22 12:03 | XMS REPORT | Continuity of Care Document ---
:1950 Author Organization Interface Problems Problem Status Onset Classification Date Comments Source Date Reported CHEMOTHERAPY Active 12/02/19 [facility] 19 [place] Trochanteric 06/23/20 10/12/2018 [facility] bursitis, left 18 [place] hip Unspecified 06/07/20 12/20/2018 [facility] intracapsular 18 [place] fracture of left [facility] femur, [place] subsequent encounter for closed fracture with routine healing 727.49 - BURSAL Active 04/27/20 [facility] CYST NEC 18 [place] Z00.00 - ENCNTR Active 03/11/20 [facility] FOR GENERAL 18 [place] ADULT MEDIC LEFT HIP Active 12/23/19 [facility] WALTER METHOD 18 [facility] UPDATE Active 12/10/19 [facility] 18 [facility] L HIP DRY NEEDLE Active 07/26/19 [facility] 18 [facility] LEFT Active 12/12/19 [facility] HIP/WALTER 17 [place] [facility] HIP FRACTURE Active 12/11/19 [facility] 17 [place] LEFT HIP Active 11/24/19 [facility] 17 [facility] R22.31 - Active 06/09/20 [facility] "LOCALIZED 16 [place] SWELLING, MASS AND L Kidney disease Active Problem 12/20/2018 MICHELLE Vera,[facility] Breast cancer Res[facility] Problem [facility]20[facility] pox Res[facility] Problem 12/20/2018 MICHELLE Vera,[facility] Pain in left hip 12/20/2018 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 Medications Medication Details Route Status Patient Ordering Order Source Instructions Provider Date Imodium A-D 2 mg, 1 cap, Inactive Route: PO, Drug 2019 [place] form: CAP, ONCE, Dosing Weight 77.273, kg, Start date: 12/06/18 8:25:00 CDT, Stop date: 12/06/18 8:25:00 CDTNotes: (Same as: Imodium) MAX adult dose is 8 caps/day Loperamide 2 mg=1 tab, PO, Inactive Hydrochloride 2 ONCE, PRN Loose 2019 [place] MG Oral Tablet Stools, # 1 tab, [Imodium] 0 Refill(s) gabapentin 100 100 mg=1 cap, Active MG Oral Capsule PO, TID, # 90 2019 [place] cap, 1 Refill(s) Calcium 500 mg, PO, BID, Active Carbonate 500 MG # 60 tab, 0 2017 [place] Chewable Tablet Refill(s), Pharmacy: [facility] [id number] 0.4 ML 40 mg, SUB-Q, Active Enoxaparin Q12H, X 10 day, 2017 [place] sodium 100 MG/ML # 20 ea, 0 Prefilled Refill(s), Syringe Pharmacy: [Lovenox] [facility] [id number] Acetaminophen 1 - 2 tab, PO, Active 300 MG / Codeine Q4H, PRN Pain, X 2017 [place] Phosphate 30 MG 4 day, # 36 tab, Oral Tablet 0 Refill(s) [Tylenol with Codeine #3] Melatonin 3 MG 3 mg=1 tab, PO, Active Extended Release Bedtime, PRN as 2017 [place] Tablet needed for insomnia, X 14 day, # 14 tab, 0 Refill(s), Pharmacy: [id number] Reglan 10 mg, 1 tab, Inactive Route: PO, Drug 2016 [place] form: TAB, Q6H, PRN Nausea & Vomiting, Start date: 12/15/16 13:13:00 CDT, Duration: 30 day, Stop date: 01/14/17 13:12:00 CDTNotes: (Same as: Reglan) Take 30 min before meals Trazodone 25 mg, 0.5 tab, No Longer Route: PO, Drug Active 2016 [place] form: TAB, Bedtime, Dosing Weight 88.091, kg, PRN Sleep, Start date: 12/13/16 14:39:00 CDT, Duration: 30 day, Stop date: 01/12/17 14:38:00 CDT, ..Notes: (Same As: Desyrel) Melatonin 3 MG 3 mg, 1 tab, No Longer Extended Release Route: PO, Drug Active 2016 [place] Tablet Form: TAB, Dosing Weight 88.091, kg, Bedtime, PRN as needed for insomnia, Start date: 12/13/16 14:39:00 CDT, Duration: 30 day, Stop date: 01/12/17 14:38:00 CDTNotes: (Same as: Melatonin) Ambien 5 mg, 1 tab, No Longer Route: PO, Drug Active 2016 [place] form: TAB, Bedtime, Dosing Weight 88.091, kg, PRN Insomnia, Start date: 12/13/16 14:39:00 CDT, Duration: 30 day, Stop date: 01/12/17 14:38:00 CDTNotes: (Same As: Ambien) Calcium 2,000 mg, 20 mL, Inactive Gluconate Route: IVPB, 2016 [place] ONCE, Dosing Weight 88.091, kg, Priority: STAT, Start date: 12/13/16 11:33:00 CDT, Stop date: 12/13/16 11:33:00 CDTNotes: WASTE: F/P - Sink; E - Municipal Trash Bin Vitamin D3 50,000 IntlUnit, No Longer 10 tab, Route: Active 2016 [place] PO, Drug form: TAB, Q7D, Start date: 12/12/16 11:00:00 CDT, Duration: 30 day, Stop date: 01/09/17 9:00:00 CDTNotes: Same as: Vitamin D3 Non-Formulary Vitamin D2 50,000 IntlUnit, Inactive 1 cap, Route: 2016 [place] PO, Drug form: CAP, Q7D, Start date: 12/12/16 9:00:00 CDT, Duration: 30 day, Stop date: 01/09/17 9:00:00 CDTNotes: (Same as: Vitamin D) "Do Not Crush" phenol 1 spray, Route: No Longer TOP, BID, Drug Active 2016 [place] form: SPRY, PRN Sore Throat, Start date: 12/11/16 21:19:00 CDT, Duration: 30 day, Stop date: 01/10/17 21:18:00 CDTNotes: WASTE: F/P - Black; E - Municipal Trash Bin heparin 5,000 unit, 1 No Longer mL, Route: Active 2016 [place] SUB-Q, Drug form: INJ, Q8H, Start date: 12/11/16 20:00:00 CDT, Duration: 30 day, Stop date: 01/10/17 20:00:00 CDTNotes: porcine heparin vancomycin 1,250 mg, Route: No Longer (SCIP) + sodium IVPB, [id number], Active 2016 [place] chloride 0.9% Dosing Weight 250 mL INJ [...] 2 gm, Route: Inactive IVPB, [id number], 2016 [place] Dosing Weight 88.091, kg, Start date: 12/11/16 15:00:00 CDT, Duration: 1 doses or times, Stop date: 12/11/16 15:00:00 CDT, ABX Indication: Surgical ProphylaxisNotes : (Same As: AncefJuanfzol) MEDICATION WASTE Product Size: 1000 mg Product Wasted: ___ mg Dilaudid 0.5 mg, Route: Inactive IVP, ONCE, 2016 [place] Dosing Weight 88.091, kg, Priority: STAT, Start date: 12/11/16 14:01:00 CDT, Stop date: 12/11/16 14:01:00 CDT Fentanyl 25 microgram, Inactive Route: IV, 2016 [place] Q10Min, Dosing Weight 88.091, kg, PRN Pain Score 6-10, Start date: 12/11/16 10:02:00 CDT, Duration: 30 day, Stop date: 01/10/17 10:01:00 CDT Ondansetron 4 mg, Route: Inactive 12/11[facility] IVP, ONCE, 2017 [place] Dosing Weight 88.091, kg, PRN Nausea & Vomiting, Start date: 12/11/16 10:02:00 CDT Hydromorphone 0.5 mg, Route: Inactive 12/11[facility] IVP, Q5Min, 2016 [place] Dosing Weight 88.091, kg, PRN Pain Score 7-10, Start date: 12/11/16 10:02:00 CDT, Duration: 4 doses or times, Stop date: Limited # of times Morphine 4 mg, Route: Inactive 12/11[facility] IVP, Q5Min, 2016 [place] Dosing Weight 88.091, kg, PRN Pain Score 7-10, Start date: 12/11/16 10:02:00 CDT, Duration: 3 doses or times, Stop date: Limited # of times Oxycodone 10 mg, Route: Inactive 12/11[facility] PO, Drug form: 2016 [place] TAB, Q4H, Dosing Weight 88.091, kg, PRN Pain Score 7-10, Start date: 12/11/16 10:02:00 CDT, Duration: 30 day, Stop date: 01/10/17 10:01:00 CDT Flumazenil 0.2 mg, Route: Inactive IVP, PRN, Dosing 2017 [place] Weight 88.091, kg, PRN Benzodiazepine Reversal, Initial dose, Start date: 12/11/16 10:02:00 CDT, Duration: 30 day, Stop date: 01/10/17 10:01:00 CDT Naloxone 0.4 mg, Route: Inactive 12/11[facility] IVP, Q2MIN, 2017 [place] Dosing Weight 88.091, kg, PRN Narcotic Reversal, Start date: 12/11/16 10:02:00 CDT, Duration: 8 doses or times, Stop date: Limited # of times ketOROLAC (ANES) IV, ONCE Inactive 2016 [place] dexamethasone Route: IV, Drug Inactive (ANES) form: INJ, ONCE, 2016 [place] Stop date: 12/11/16 9:57:00 CDT ondansetron Route: IV, Drug Inactive (ANES) form: INJ, ONCE, 2016 [place] Stop date: 12/11/16 9:57:00 CDT ergocalciferol 50,000 unit, 1 Inactive cap, Route: PO, 2016 [place] Drug form: CAP, Q7D, Dosing Weight 88.091, kg, Start date: 12/11/16 9:00:00 CDT, Duration: 30 day, Stop date: 01/08/17 9:00:00 CDTNotes: (Same as: Vitamin D) "Do Not Crush" Calcium 500 mg, 1 tab, No Longer Carbonate Route: PO, Drug Active 2016 [place] form: TAB, BID, Dosing Weight 88.091, kg, Start date: 12/11/16 9:00:00 CDT, Duration: 30 day, Stop date: 01/09/17 17:00:00 CDTNotes: 500mg elemental [id number] calcium carbonate. Contains 500mg elemental calcium. (Same As: OsCal 500) Vancomycin 1,250 mg, Route: Inactive IVPB, [id number], 2016 [place] Dosing Weight 88.091, kg, Time Critical Medication, [...] 5,000 unit, 1 Inactive mL, Route: 2016 [place] SUB-Q, Drug form: INJ, Q8H, Dosing Weight 81.818, kg, Start date: 12/11/16 8:46:00 CDT, Duration: 30 day, Stop date: 01/10/17 8:00:00 CDTNotes: porcine heparin propofol (ANES) Route: IV, Drug Inactive form: INJ, ONCE, 2016 [place] Stop date: 12/11/16 7:31:00 CDT fentaNYL (ANES) Route: IV, Drug Inactive form: INJ, ONCE, 2016 [place] Stop date: 12/11/16 7:31:00 CDT ceFAZolin (ANES) Route: IV, Drug Inactive form: INJ, ONCE, 2016 [place] Stop date: 12/11/16 7:31:00 CDT midazolam (ANES) Route: IV, Drug Inactive form: SOLN, 2016 [place] ONCE, Stop date: 12/11/16 7:31:00 CDT Calcium Chloride 1,000 mL, Rate: No Longer 0.0014 MEQ/ML / 25 ml/hr, Infuse Active 2016 [place] Potassium over: 40 hr, Chloride 0.004 Route: IV, MEQ/ML / Sodium Dosing Weight Chloride 0.103 88.091 kg, Total MEQ/ML / Sodium Volume: 1,000, Lactate 0.028 Start date: MEQ/ML 12/11/16 6:28:00 Injectable CDT, Duration: Solution 30 day, Stop date: 01/10/17 6:27:00 CDT vancomycin Route: IV, Drug Inactive (ANES) (ANES) form: INJ, Start 2016 [place] date: 12/11/16 6:15:00 CDT, Stop date: 12/11/16 7:15:00 CDT LR 1000 mL INJ Route: IV, Total Inactive (ANES) Volume: 1,000, 2016 [place] Start date: 12/11/16 6:00:00 CDT, Stop date: 12/11/16 7:00:00 CDT Dilaudid 0.5 mg, 0.5 mL, Inactive Route: IV, Drug 2016 [place] form: INJ, ONCE, Dosing Weight 88.091, kg, Start date: 12/11/16 4:41:00 CDT, Stop date: 12/11/16 4:41:00 CDTNotes: Same as: Dilaudid sodium chloride 1,000 mL, Rate: No Longer 0.45% 1000 ml 100 ml/hr, Active 2016 [place] INJ 1,000 mL Infuse over: 10 hr, Route: IV, Dosing Weight 81.818 kg, Total Volume: 1,000, Start date: 12/10/16 20:55:00 CDT, Duration: 30 day, Stop date: 01/09/17 20:54:00 CDT Reglan 10 mg, 2 mL, No Longer Route: IVP, Drug Active 2016 [place] form: INJ, Q6H, Dosing Weight 81.818, kg, PRN Nausea & Vomiting, Start date: 12/10/16 20:53:00 CDT, Duration: 30 day, Stop date: 01/09/17 20:52:00 CDTNotes: (Same as: Reglan) Acetaminophen 650 mg, 2 tab, No Longer Route: PO, Drug Active 2016 [place] form: TAB, Q4H, Dosing Weight 81.818, kg, PRN Pain 1-3/Temp > 100.4 F, Start date: 12/10/16 20:45:00 CDT, Duration: 30 day, Stop date: 01/09/17 20:44:00 CDTNotes: Do not exceed 4 gm/day. (Same as: Tylenol) Saline Flush 10 ml, Route: No Longer 0.9% IVP, Drug Form: Active 2016 [place] INJ, Dosing Weight 81.818, kg, PRN, PRN Line Flush, Start date: 12/10/16 20:45:00 CDT, Duration: 30 day, Stop date: 01/09/17 20:44:00 CDTNotes: (Same as: BD Posiflush) Ondansetron 4 mg, 2 mL, Inactive Route: IVP, Drug 2016 [place] form: INJ, Q6H, Dosing Weight 81.818, kg, PRN Nausea & Vomiting, Start date: 12/10/16 20:45:00 CDT, Duration: 30 day, Stop date: 01/09/17 20:44:00 CDTNotes: (Same as: Zofran) MEDICATION WASTE Product Size: 4 mg Product Wasted: ___ mg Sodium Chloride 1,000 mL, Rate: Inactive 0.154 MEQ/ML 100 ml/hr, 2017 [place] Injectable Infuse over: 10 Solution hr, Route: IV, Dosing Weight 81.818 kg, Total Volume: 1,000, Start date: 12/10/16 20:45:00 CDT, Duration: 30 day, Stop date: 01/09/17 20:44:00 CDT Dilaudid 0.5 mg, 0.5 mL, No Longer Route: IVP, Drug Active 2016 [place] form: INJ, Q3H, Dosing Weight 81.818, kg, PRN Pain Score 7-10, Start date: 12/10/16 20:45:00 CDT, Duration: 30 day, Stop date: 01/09/17 20:44:00 CDTNotes: Same as: Dilaudid Acetaminophen 1 tab, Route: No Longer 325 MG / PO, Drug Form: Active 2016 [place] Hydrocodone TAB, Dosing Bitartrate 10 MG Weight 81.818, Oral Tablet kg, Q4H, PRN [[place] 10/325] Pain Score 4-6, Start date: 12/10/16 20:45:00 CDT, Duration: 30 day, Stop date: 01/09/17 20:44:00 CDTNotes: Do not exceed 4gm/day of acetaminophen. (Same as: [place] 325/10) Zofran 4 mg, 2 mL, Inactive Route: IVP, Drug 2016 [place] form: INJ, ONCE, Dosing Weight 81.818, kg, Priority: STAT, Start date: 12/10/16 19:30:00 CDT, Stop date: 12/10/16 19:30:00 CDTNotes: (Same as: Zofran) MEDICATION WASTE Product Size: 4 mg Product Wasted: ___ mg Morphine 4 mg, 1 mL, Inactive Route: IVP, Drug 2016 [place] form: INJ, ONCE, Dosing Weight 81.818, kg, [...] INR 0.98 0.85 - 12/06 MH 1. [place] HEMATOLOGY PT 12.8 s 12.0 - 12/06 MH 14. [place] HEMATOLOGY PTT 29.8 s 22.9 - 12/06 MH 35.8 [place] Venogram Venogram Patient Name: THELMA HOLGUIN 12/06 - [facility] /2018 [facility] vena cava vena cava VR : 1950; Age: 68 years Female VR MR: [id number] Read by: Denny Zavala MD Dictated Date/time: [...] per protocol prior to the procedure. 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 Zavala Preoperative diagnosis: Need for chemotherapy, history of pancreatic and breast cancer Postoperative diagnosis: Same Fluoroscopy time: 1 min Reference air kerma: 50 mGy Estimated blood loss: Minimal Contrast: 15 mL of Visipaque 320 Moderate sedation: I supervised moderate sedation during this procedure. The patient was continuously monitored by a nurse using automated blood pressure , electrocardiogram, and pulse oximetry. The [facility] sedation record is permanently stored [...] was noted to have difficu lty. A 4-Frisian sheath was then placed over the wire. [...] brachiocephalic vein with numerous venous collaterals. SL: [id number] CVC insert CVC insert Patient Name: THELMA HOLGUIN 12/06 - [facility] [place] w/-w/o w/-w/o : 1950; Age: 68 years Female port/pump port/pump age 5+ yrs age 5+ yrs MR: [id number] Read by: Denny Zavala MD VR VR [...] per protocol prior to the procedure. 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 Zavala Preoperative diagnosis: Need for chemotherapy, history of pancreatic and breast cancer Postoperative diagnosis: Same Fluoroscopy time: 1 min Reference air kerma: 50 mGy Estimated blood loss: Minimal Contrast: 15 mL of Visipaque 320 Moderate sedation: I supervised moderate sedation during this procedure. The patient was continuously monitored by a nurse using automated blood pressure , electrocardiogram, and pulse oximetry. The [facility] erate sedation record is permanently stored in [...] was noted to have difficu lty. A 4-Frisian sheath was then placed over the wire. [...] brachiocephalic vein with numerous venous collaterals. SL: [id number] Drain/Inj Drain/Inj EXAM: ULTRASOUND-GUIDED THERAPEUTIC LEFT GREATER TROCHANTER REGION INJECTIONS 03/25 - MICHELLE Major Major /2018 - [place] Joint/Bursa Joint/Bursa This report was dictated by a Auto Emissions Technician/Fellow. I have personally reviewed the images as [...] 10x3 4.5 K/CMM 3.7 - 10.4 12/14 [place] HEMATOLOGY Hgb 8.4 g/dL 12.0 - 12/14 MH 16.0 [place] HEMATOLOGY RBC X 10x6 2.84 M/CMM 4.20 - 12/14 MH 5.40 /2017 [place] HEMATOLOGY Hct 25.0 % 36.0 - 12/14 MH 48.0 [place] HEMATOLOGY RDW 13.5 % 11.5 - 12/14 MH 14.5 [place] HEMATOLOGY MCV 88.0 fL 80.0 - 12/14 MH 98.0 /2016 [place] HEMATOLOGY MCHC 33.5 g/dL 32.0 - 12/14 MH 36.0 [place] HEMATOLOGY MCH 29.5 pg 27.0 - 12/14 MH 31.0 [facility] Platelet 159 K/CMM 133 - 450 12/14 [facility] MPV 7.9 fL 7.4 - 10.4 12/14 [place] URINE AND UA Bacteria Occasional None Seen 12/13 STOOL /HPF /HPF /2016 [place] URINE AND UA RBC 0-2 /HPF 0 - 2 12/13 STOOL [place] URINE AND UA WBC 0-2 /HPF None Seen 12/13 STOOL /HPF [place] URINE AND UA Sq Epi Occasional Few /LPF 12/13 STOOL /LPF /2016 [place] URINE AND UA Leuk Est Negative Negative 12/13 STOOL [place] (12/13/16 4:31 PM) URINE AND UA 0.2 EU/dL 0.1 - 1.0 12/13 STOOL Urobilinogen [place] URINE AND UA Nitrite Negative Negative 12/13 STOOL [place] (12/13/16 4:31 PM) URINE AND UA Blood Negative Negative 12/13 STOOL [place] (12/13/16 4:31 PM) URINE AND UA Bili Negative Negative 12/13 STOOL [place] *NA* (12/13/16 4:31 PM) URINE AND UA Ketones 40 mg/dL Negative 12/13 STOOL mg/dL [place] URINE AND UA Glucose Negative Negative 12/13 STOOL [place] (12/13/16 4:31 PM) URINE AND UA Protein Negative Negative 12/13 STOOL [place] (12/13/16 4:31 PM) URINE AND UA pH 6.0 5.0 - 8.0 12/13 [place] URINE AND UA Spec Grav 1.010 <=1.030 12/13 [place] URINE AND UA Turbidity Clear Clear 12/13 STOOL [place] (12/13/16 4:31 PM) URINE AND UA Color Yellow Yellow 12/13 [place] *NA* (12/13/16 4:31 PM) CHEM PANEL Magnesium 2.0 mg/dL 1.8 - 2.4 12/13 [facility] [place] CHEM PANEL Lactic Acid 0.8 mMol/L 0.5 - 2.2 12/13 [facility] [place] Chest 1view Chest 1view Patient Name: THELMA HOLGUIN 12/13 - [facility] DX DX /2016 - [place] : 1950; Age: 66 years Female MR: [id number] Read by: Albert Wilcox MD Dictated Date/time: [...] change, adenopathy, mass. Right axillary nicole. SL: [id number] ELECTROLYTE AGAP 13.1 meq/L 10.0 - 05 MH S 20.0 [place] ELECTROLYTE eGFR 96 12/12 Result Comment: The [...] is not recommended in the following populations: [place] 3m2 Individuals with unstable creatinine concentrations, including [...] 135 - 145 05/20 MH S /2016 [place] ELECTROLYTE Creatinine 0.60 mg/dL 0.50 - 0520 MH S Lvl 1.40 /2016 [place] ELECTROLYTE CO2 26 meq/L 24 - 32 05/20 MH S /2016 [place] ELECTROLYTE Chloride Lvl 104 meq/L 95 - 109 05/20 MH S /2016 [place] ELECTROLYTE Potassium 4.1 meq/L 3.5 - 5.1 05/20 MH S Lvl /2016 [place] ELECTROLYTE Calcium Lvl 8.1 mg/dL 8.5 - 10.5 05/20 MH S [place] ELECTROLYTE Glucose Lvl 128 mg/dL 70 - 99 12/12 S [place] ELECTROLYTE BUN 14 mg/dL 7 - 22 12/12 S [place] HEMATOLOGY Monocytes # 0.5 K/CMM 0.0 - 0.8 12/12 [place] HEMATOLOGY Monocytes 10.1 % 2.0 - 12.0 12/12 MH [place] HEMATOLOGY Eosinophils 0.1 % 0.0 - 4.0 12/12 MH [place] HEMATOLOGY Lymphocytes 0.4 K/CMM 1.0 - 5.5 / MH # /2017 [place] HEMATOLOGY Segs-Bands # 4.1 K/CMM 1.5 - 8.1 12/12 MH [place] HEMATOLOGY Basophils 0.1 % 0.0 - 1.0 12/12 [place] HEMATOLOGY Segs 81.3 % 45.0 - 12/12 MH 75.0 [place] HEMATOLOGY Lymphocytes 8.4 % 20.0 - 12/12 MH 40.0 [place] HEMATOLOGY Platelet 151 K/CMM 133 - 450 12/12 [place] HEMATOLOGY MPV 8.3 fL 7.4 - 10.4 12/12 [place] HEMATOLOGY MCHC 33.7 g/dL 32.0 - 12/12 MH 36.0 [place] HEMATOLOGY Hct 27.9 % 36.0 - 12/12 MH 48.0 [place] HEMATOLOGY MCH 29.9 pg 27.0 - 12/12 MH 31.0 [place] HEMATOLOGY RDW 13.6 % 11.5 - 12/12 MH 14.5 [place] HEMATOLOGY MCV 88.7 fL 80.0 - 12/12 MH 98.0 [place] HEMATOLOGY WBC X 10x3 5.1 K/CMM 3.7 - 10.4 12/12 [place] HEMATOLOGY RBC X 10x6 3.14 M/CMM 4.20 - 12/12 MH 5.40 [place] HEMATOLOGY Hgb 9.4 g/dL 12.0 - 12/12 MH 16.0 [place] CHEM PANEL eGFR 91 12/11 Result Comment: [...] is not recommended in the following populations: [place] [address] Individuals with unstable creatinine concentrations, including patients [...] CO2 24 meq/L 24 - 32 12/11 [place] CHEM PANEL Calcium Lvl 8.5 mg/dL 8.5 - 10.5 12/11 [place] CHEM PANEL Potassium 4.2 meq/L 3.5 - 5.1 12/11 MH Lvl /2016 [place] CHEM PANEL Sodium Lvl 140 meq/L 135 - 145 12/11 [place] CHEM PANEL Chloride Lvl 106 meq/L 95 - 109 12/11 [place] CHEM PANEL Creatinine 0.70 mg/dL 0.50 - 12/11 MH Lvl 1.40 [place] CHEM PANEL BUN 16 mg/dL 7 - 22 12/11 [place] CHEM PANEL Glucose Lvl 113 mg/dL 70 - 99 12/11 [place] CHEM PANEL AGAP 14.2 meq/L 10.0 - 12/11 MH 20.0 /2016 [place] HEMATOLOGY Lymphocytes 9.3 % 20.0 - 12/11 MH 40.0 [place] HEMATOLOGY Segs 80.3 % 45.0 - 12/11 MH 75.0 [place] HEMATOLOGY Monocytes 10.0 % 2.0 - 12.0 12/11 [place] HEMATOLOGY Segs-Bands # 5.5 K/CMM 1.5 - 8.1 12/11 [place] HEMATOLOGY Lymphocytes 0.6 K/CMM 1.0 - 5.5 12/11 MH # /2017 [place] HEMATOLOGY Basophils 0.1 % 0.0 - 1.0 12/11 [place] HEMATOLOGY Eosinophils 0.3 % 0.0 - 4.0 12/11 [place] HEMATOLOGY Monocytes # 0.7 K/CMM 0.0 - 0.8 12/11 /2016 [place] HEMATOLOGY aPTT 27.2 s 22.9 - 12/11 MH 35.8 /2016 [place] HEMATOLOGY PROTIME 13.1 s 12.0 - 12/11 MH 14.7 [place] HEMATOLOGY INR 0.97 0.85 - 12/11 MH 1.17 [place] HEMATOLOGY MPV 7.7 fL 7.4 - 10.4 12/11 /2016 [place] HEMATOLOGY RDW 14.2 % 11.5 - 12/11 MH 14.5 [place] HEMATOLOGY Hgb 12.5 g/dL 12.0 - 12/11 MH 16.0 [place] HEMATOLOGY WBC X 10x3 6.8 K/CMM 3.7 - 10.4 12/11 /2016 [place] HEMATOLOGY MCHC 33.2 g/dL 32.0 - 12/11 MH 36.0 [place] HEMATOLOGY Hct 37.7 % 36.0 - 12/11 MH 48.0 [place] HEMATOLOGY MCV 89.6 fL 80.0 - 12/11 MH 98.0 [place] HEMATOLOGY MCH 29.7 pg 27.0 - 12/11 MH 31.0 [place] HEMATOLOGY RBC X 10x6 4.21 M/CMM 4.20 - 12/11 MH 5.40 /2016 [place] HEMATOLOGY Platelet 170 K/CMM 133 - 450 12/11 /2016 [place] BLOOD BANK ABO/Rh A POS 12/11 RESULTS /2016 [place] BLOOD BANK Antibody Negative 12/11 RESULTS Scrn /2016 [place] (12/10/16 11:25 PM) CARDIAC Total CK 115 unit/L 12 - 191 12/11 MH ENZYMES /2016 [place] ELECTROLYTE AGAP 11.3 meq/L 10.0 - 12/11 MH S 20.0 [place] ELECTROLYTE B/C Ratio 22 6 - 25 12/11 S [place] ELECTROLYTE Globulin 3.3 g/dL 2.7 - 4.2 12/11 S [place] ELECTROLYTE A/G Ratio 1.2 0.7 - 1.6 12/11 S [place] ELECTROLYTE eGFR 86 12/11 Result Comment: The [...] is not recommended in the following populations: [address] Individuals with unstable creatinine concentrations, including [...] 18 unit/L 0 - 37 12/11 S [place] ELECTROLYTE Chloride Lvl 108 meq/L 95 - 109 12/11 S [place] ELECTROLYTE CO2 27 meq/L 24 - 32 12/11 S [place] ELECTROLYTE Calcium Lvl 8.9 mg/dL 8.5 - 10.5 12/11 S [place] ELECTROLYTE Bili Total 0.6 mg/dL 0.2 - 1.3 12/11 S [place] ELECTROLYTE Total 7.2 g/dL 6.4 - 8.4 12/11 S Protein [place] ELECTROLYTE ALANINE 35 unit/L 0 - 65 12/11 S AMINOTRANSFE [place] RASE ELECTROLYTE Sodium Lvl 142 meq/L 135 - 145 12/11 S [place] ELECTROLYTE Potassium 4.3 meq/L 3.5 - 5.1 12/11 S Lvl [place] ELECTROLYTE Creatinine 0.74 mg/dL 0.50 - 12/11 S Lvl 1.40 [place] ELECTROLYTE Alk Phos 113 unit/L 39 - 136 12/11 S [place] ELECTROLYTE Glucose Lvl 151 mg/dL 70 - 99 12/11 S [place] ELECTROLYTE BUN 16 mg/dL 7 - 22 12/11 S [place] ELECTROLYTE Albumin Lvl 3.9 g/dL 3.5 - 5.0 12/11 S [place] HEMATOLOGY Basophils 0.2 % 0.0 - 1.0 12/11 [place] HEMATOLOGY Monocytes # 0.4 K/CMM 0.0 - 0.8 12/11 [place] HEMATOLOGY Segs-Bands # 5.5 K/CMM 1.5 - 8.1 12/11 [place] HEMATOLOGY Lymphocytes 0.5 K/CMM 1.0 - 5.5 12/11 MH # /2017 [place] HEMATOLOGY Lymphocytes 8.4 % 20.0 - 12/11 MH 40.0 /2016 [place] HEMATOLOGY Monocytes 6.1 % 2.0 - 12.0 12/11 [place] HEMATOLOGY Eosinophils 0.2 % 0.0 - 4.0 12/11 [place] HEMATOLOGY Segs 85.1 % 45.0 - 12/11 MH 75.0 [place] HEMATOLOGY aPTT 24.3 s 22.9 - 12/11 MH 35.8 [place] HEMATOLOGY PROTIME 11.9 s 12.0 - 12/11 MH 14.7 [place] [facility] INR 0.86 0.85 - 12/11 MH 1. [place] Femur Femur series EXAM: XR LEFT FEMUR, 2 VIEWS 12/10 - [facility] series DX DX /2016 - [facility] DATE: 12/10/2016 7:21 PM CDT Read by: [...] fracture of the left femoral neck. SL: [id number] Ext Upper Ext Upper EXAM: US Right UPPER EXTREMITY VENOUS DOPPLER 06/16 - [facility] Venous Venous /2015 - [facility] Doppler Doppler Unilat US Unilat US DATE: 06/16/2016 3:10 PM APPLIANCE FIXER Read by: Ramírez Carson MD Dictated Date/time: [...] - [facility] Mammo DX Mammo DX - [facility] [place] UNILATERAL LEFT DIGITAL DIAGNOSTIC MAMMOGRAM: [...] Additional Observers: Franklyn Burns M.D. hh/lashaun:06/16/2016 15:06:15 Complaint Analyst: Macy URIARTE(Linnea)(M), [facility] Out[facility] Imaging Department This exam was dictated and interpreted by [id number] for [facility]. letter sent: Normal [place] Mammogram BI-RADS: 2 Benign Vital Signs Vital Sign Value Date Comments Source Weight 77.[address] [facility] BMI Calculated 23.[address] [facility] Height 182.[address] [facility] Heart Rate 81 12/15/2016 [facility] Temperature Oral (F) 98.3 F 12/15/2016 [facility] Respitory Rate 18 12/15/2016 [facility] Systolic (mm Hg) 133 12/15/2016 [facility] Diastolic (mm Hg) 79 12/15/2016 [facility] Respitory Rate 18 12/15/2016 [facility] Heart Rate 96 12/15/2016 [facility] Systolic (mm Hg) 140 12/15/2016 [facility] Diastolic (mm Hg) 78 12/15/2016 [facility] Temperature Oral (F) 98.0 F 12/15/2016 [facility] Respitory Rate 18 12/15/2016 [facility] Temperature Oral (F) 97.7 F 12/15/2016 [facility] Systolic (mm Hg) 144 12/15/2016 [facility] Diastolic (mm Hg) 80 12/15/2016 [facility] Heart Rate 93 12/15/2016 [facility] Height 182.88 cm 12/11/2016 [facility] Weight 88.091 12/11/2016 [facility] BMI Calculated 26.34 12/11/2016 [facility] Weight 81.818 12/10/2016 [facility] BMI Calculated 24.46 12/10/2016 [facility] Height 182.88 cm 12/10/2016 [facility] Encounters Location Location Encounter Encounter Reason Attending ADM DC Status Source Details Type Number For Provider Date Date Visit Outpatient [id number] [facility]18 [facility] [id number] JULIA 06/03 [facility] Outpatient [id number] Elizabeth Michael 06/16 06/17 [facility] Outpt Diag [id number] Elizabeth Michael 06/16 06/17 [facility] [id number] JULIA 10/14 [facility] [id number] JULIA 10/23 [facility] [id number] ABRAR 12/03 [facility] beds at the [facility] Inpatient [id number] Coryadijat 12/10 12/16 [facility] 1 [place] /2016 [facility] OP Therapy [id number] Manfred Junie 12/22 01/21 [facility] Patients [facility] OP Therapy [id number] Manfred Junie 01/21 02/20 [facility] Patients [facility] Outpt Diag [id number] Manfred Junie 03/25 03/26 [facility] OP Therapy [id number] Manfred Junie 05/03 06/02 [facility] Outpt Diag [id number] Manfred Junie 05/23 05/23 [facility] Outpatient [id number] Dominique 12/06 12/07 [facility] 0 [facility] Procedures Procedure Code Date Perfomer Comments Source Arthrocentesis, 03/25/2018 [facility] aspiration and/or [facility] injection, major joint or bursa (eg, shoulder, hip, knee, subacromial bursa); with ultrasound guidance, with permanent recording and reporting Breast [id number] 07/26/1994 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 Mastectomy [id number] [facility] Mastectomy [id number] [facility] [place] [facility] operation [id number] [facility] Hip replacement [id number] [facility] Finger operation [id number] [facility] [place] Hip replacement [id number] [facility] operation [id number] [facility] Hip replacement [id number] [facility]
--- OUTSIDE RECORDS SUMMARY | 2018-12-22 12:06 | XMS REPORT | Summary of Care ---
:1950 Author Organization [facility] Address Unavailable , Encounter HQ Renetta(GAEL) [id number] Date(s): 05/03/18 - 06/01/18 [facility] Encounter Diagnosis Unspecified intracapsular fracture of left femur, subsequent encounter for closed fracture with routine healing (Final) - 06/06/18 Pain in left hip (Final) - Discharge [...]
--- OUTSIDE RECORDS SUMMARY | 2018-12-22 12:07 | XMS REPORT ---
:1950 [facility] Address [address] [place] [address] Dr. [address] [place] [id number] Care Team Providers Name Role Phone MICHELLE HARMON Unavailable Unavailable CARLOS HUNT Unavailable Unavailable Problems This patient has no known problems. Allergies, Adverse Reactions, Alerts This patient has no known allergies or adverse reactions. Medications This patient has no known medications. Encounters Start End Encounter Admission Attending Care Care Encounter Date/Time Date/Time Type Type Clinicians Facility Department ID 2018 2018 Outpatient [facility] MED 7500 07:24:00 07:24:00 Results Test Description Test Time Test Comments Text Results Atomic Results Result Comments HEMOGLOBIN A1C 2018-12-22 10:45:00 Test Item Value Reference Range Comments HEMOGLOBIN A1C (BEAKER) (test hldl=793) 6.3 % 4.3-6.1 TSH/FREE T4 IF [id number] 07:18:00 Test Item Value Reference Range Comments THYROID STIMULATING HORMONE (BEAKER) (test 2.17 uIU/mL 0.35-4.94 thin=575) VITAMIN B12 AND [id number] 07:18:00 Test Item Value Reference Range Comments VITAMIN B12 (BEAKER) (test omvr=701) 1700 pg/mL 213-816 FOLATE (BEAKER) (test uigr=039) 14.8 ng/mL >=7.0 BASIC METABOLIC [id number] 06:38:00 Test Item Value Reference Range Comments SODIUM (BEAKER) (test 133 meq/L 136-145 xojg=282) POTASSIUM (BEAKER) (test 3.5 meq/L 3.5-5.1 tugq=456) CHLORIDE (BEAKER) (test 96 meq/L 98-107 senq=455) CO2 (BEAKER) (test 29 meq/L 22-29 aetw=620) BLOOD UREA NITROGEN 6 mg/dL 7-21 (BEAKER) (test dwxp=748) CREATININE (BEAKER) (test 0.52 mg/dL 0.57-1.25 kxzw=615) GLUCOSE RANDOM (BEAKER) 110 mg/dL 70-105 (test wiir=426) CALCIUM (BEAKER) (test 7.7 mg/dL 8.4-10.2 pgwr=629) EGFR (BEAKER) (test 118 mL/min/1.73 sq m ESTIMATED GFR IS NOT wjpb=5150) ACCURATE CREATININE CLEARANCE IN PREDICTING GLOMERULAR FILTRATION RATE. ESTIMATED GFR IS NOT APPLICABLE FOR DIALYSIS PATIENTS. [id number] 06:33:00 Test Item Value Reference Range Comments MAGNESIUM (BEAKER) (test hnvb=277) 1.4 mg/dL 1.6-2.6 LIPID [id number] 06:33:00 Test Item Value Reference Range Comments TRIGLYCERIDES (BEAKER) (test mzmd=136) 81 mg/dL CHOLESTEROL (BEAKER) (test uden=094) 66 mg/dL HDL CHOLESTEROL (BEAKER) (test qcug=550) 23 mg/dL LDL CHOLESTEROL CALCULATED (BEAKER) (test bqls=011) 27 mg/dL Triglyceride Reference Range: Low Risk <150 Borderline 150- 199 High Risk 200-499 Very High Risk >=500Cholesterol Reference Range: Low Risk <200 Borderline 200-239 High Risk > 240HDL Cholesterol Reference Range: Low Risk >=60 High Risk <40LDL Cholesterol Reference Range: Optimal <100 Near Optimal 100-129 Borderline 130-159 High 160-189 Very High >=190HEPATIC FUNCTION [id number] 06:33:00 Test Item Value Reference Range Comments TOTAL PROTEIN (BEAKER) (test yzll=841) 5.1 gm/dL 6.0-8.3 ALBUMIN (BEAKER) (test rovv=8253) 2.3 g/dL 3.5-5.0 BILIRUBIN TOTAL (BEAKER) (test rkbp=085) 0.3 mg/dL 0.2-1.2 BILIRUBIN DIRECT (BEAKER) (test rygx=156) 0.2 mg/dL 0.1-0.5 ALKALINE PHOSPHATASE (BEAKER) (test abyc=744) 241 U/L 40-150 AST (SGOT) (BEAKER) (test oela=820) 19 U/L 5-34 ALT (SGPT) (BEAKER) (test lxdx=186) 17 U/L 6-55 CBC (HEMOGRAM ONLY)2018-12-22 06:03:00 Test Item Value Reference Range Comments WHITE BLOOD CELL COUNT (BEAKER) (test sgdl=370) 8.7 K/ L 3.5-10.5 RED BLOOD CELL COUNT (BEAKER) (test mhka=395) 3.18 M/ L 3.93-5.22 HEMOGLOBIN (BEAKER) (test zokw=313) 9.0 GM/DL 11.2-15.7 HEMATOCRIT (BEAKER) (test jwep=231) 29.2 % 34.1-44.9 MEAN CORPUSCULAR VOLUME (BEAKER) (test wuml=001) 91.8 fL 79.4-94.8 MEAN CORPUSCULAR HEMOGLOBIN (BEAKER) (test 28.3 pg 25.6-32.2 atby=771) MEAN CORPUSCULAR HEMOGLOBIN CONC (BEAKER) (test 30.8 GM/DL 32.2-35.5 izyw=319) RED CELL DISTRIBUTION WIDTH (BEAKER) (test 13.7 % 11.7-14.4 cqpf=430) PLATELET COUNT (BEAKER) (test qpca=603) 214 K/CU MM 150-450 MEAN PLATELET VOLUME (BEAKER) (test oszl=291) 8.9 fL 9.4-12.3 NUCLEATED RED BLOOD CELLS (BEAKER) (test 0 /100 WBC 0-0 fskz=764) FINE NEEDLE ASPIRATION BY [id number] 15:36:00Medical Cytology Report Case: [id number] Authorizing Provider: Emelyn Horta Collected: 2018 1646 MD Vance Ordering[address]: [address] Received : 11/07/2018 1148 SERVICE Pathologist: Eric Flower MD Specimen: Liver REASON FOR ADDENDUM: TOREPORT ADDITIONAL IMMUNOSTAINS.RESULT: SOILA-3 IMMUNOSTAIN: NEGATIVE (PATCHY/WEAK)MAMMOGLOBIN: NEGATIVETissue will be sent for PDL-1 as per the request of the clinician.CPT code:[id number] electronically signed by Tresa Lanier MD on 11/29/2018 at 3:36 PMFOCAL LIVER LESIONS, FNA BY CLINICIAN (CYTOSPINS AND CELL BLOCK OF ASPIRATE): - POSITIVE FOR MALIGNANCY - METASTATIC ADENOCARCINOMA Signing Pathologist Direct Phone Line: [phone] signed by Eric Flower MD on 11/08/2018 at 1:16 PMThe tumor cells show the same morphologic appearance as the adenocarcinoma in the pancreas.Please also see surgical pathology report [id number] and cytopathology reports [id number] and 993. 01428, 56[address]Ruinz liver lesions; pancreatic mass invading vein and liver; hepatobiliary obstruction; elevated LFTs; h/o breast cancer s/p Chemo/XRT and right mastectomyFOCAL LIVER LESIONS FNAPrepared cell block(A2) and 4 cytospins from 15 ml cytorich red fixative sampleCollected: [id number]: [id number] [facility], Department of Pathology, [address] [place] [address], [facility]wgigq[facility], [facility] of Pathology, [address] [place] [address], LsfeocLoma [facility], Department of Pathology, [address] [place] [address], GEASCX [id number] 14:07:00Surgical Pathology Report Case: [id number] Authorizing Provider: Emelyn Horta Collected: 2018 Ad Woodard MD OrderingLocation: [address] Received : 11/07/2018 0808 SERVICE Pathologist: Tresa Lanier MD Specimen: Pancreas, Head, fine needle aspirate of mass in formulin A. PANCREAS, HEAD MASS, FNA GUIDED BIOPSY: - INVASIVE POORLY DIFFERENTIATED ADENOCARCINOMA (SEE COMMENT) Signing Pathologist Direct Phone Line: [phone] signed by Tresa Lanier MD on 11/10/2018 at 2:07 PMPreliminary result electronically signed by Tresa Lanier MD on 2018 at 3:45 PMPreliminary result electronically signed by Tresa Lanier MD on 11/07/2018 at 6:50 PMThere is extremely minimal amount of tumor in the biopsy. Please correlate with results of concurrently obtained cytology results ([id number] to 993 ).Special stain for mucicarmine is negative. Immunostainfor Cam5.2 highlights the stromal invasion. Immunostain for SOILA-3 (faint nuclear staining is non-specific), ER and mammaglobin are negative.IDC: Dr. Pedro Pablo Umana concurs.[id number] massPancreas head fine needle aspirate of mass [...] stains. Immunohistochemistry technical testing was performed at [facility], Pathology Laboratory where it was developed and its performance characteristics were determined. It has not been cleared or approved by the U.S. Food and Drug Administration. The FDA hasdetermined that such clearance or approval is not necessary. The test is used for clinical purposes.It should not be regarded as investigational or for research. This laboratory is certified under theClinical Laboratory Improvement Amendments of 1988 (CLIA-88) as qualified to perform high complexityclinical laboratory testing.U/S, ABDOMINAL, [id number] 18:07:00Reason for exam:->please biopsy liver masses visualized on CT to diagnose metastatic cancerFINAL REPORT Limited abdominal ultrasound Technique/findings: Limited sonographic images were obtained of the liver or the assessment of liver lesions. A 2.7 cm hypoechoic lesionis identified within at the junction of the [...] MDReport Verified Date/Time: 11/09/2018 18:07:18 Reading Location: [place] [id number] Ultrasound Reading Room PROTHROMBIN [id number] 11:59:00 Test Item Value Reference Range Comments PROTIME (BEAKER) (test dimc=594) 13.3 seconds 11.7-14.7 INR (BEAKER) (test dahy=666) 1.0 <=5.9 RECOMMENDED COUMADIN/WARFARIN INR THERAPY RANGESSTANDARD DOSE: 2.0 - 3.0 Includes: PROPHYLAXIS forvenous thrombosis, systemic embolization; TREATMENT for venous thrombosis and/or pulmonary embolus.HIGH RISK: Target INR is 2.5-3.5 for patients with mechanical heart valves.HEPATIC FUNCTION [id number] 05:41 :00 Test Item Value Reference Range Comments TOTAL PROTEIN (BEAKER) (test jtqj=601) 6.0 gm/dL 6.0-8.3 ALBUMIN (BEAKER) (test bthm=9988) 3.3 g/dL 3.5-5.0 BILIRUBIN TOTAL (BEAKER) (test qzjp=499) 0.7 mg/dL 0.2-1.2 BILIRUBIN DIRECT (BEAKER) (test zeyw=932) 0.5 mg/dL 0.1-0.5 ALKALINE PHOSPHATASE (BEAKER) (test whud=735) 301 U/L 40-150 AST (SGOT) (BEAKER) (test dfqv=033) 20 U/L 5-34 ALT (SGPT) (BEAKER) (test obys=902) 112 U/L 6-55 BASIC METABOLIC [id number] 05:41:00 Test Item Value Reference Range Comments SODIUM (BEAKER) (test 131 meq/L 136-145 jszo=385) POTASSIUM (BEAKER) (test 4.6 meq/L 3.5-5.1 qiki=971) CHLORIDE (BEAKER) (test 97 meq/L 98-107 fbaz=414) CO2 (BEAKER) (test 26 meq/L 22-29 dfep=565) BLOOD UREA NITROGEN 24 mg/dL 7-21 (BEAKER) (test hvab=551) CREATININE (BEAKER) (test 0.75 mg/dL 0.57-1.25 fwex=201) GLUCOSE RANDOM (BEAKER) 157 mg/dL 70-105 (test ifuu=824) CALCIUM (BEAKER) (test 8.7 mg/dL 8.4-10.2 kqea=199) EGFR (BEAKER) (test 77 mL/min/1.73 sq m ESTIMATED GFR IS NOT yhjz=7511) ACCURATE CREATININE CLEARANCE IN PREDICTING GLOMERULAR FILTRATION RATE. ESTIMATED GFR IS NOT APPLICABLE FOR DIALYSIS PATIENTS. CBC W/PLT COUNT & AUTO [id number] 05:15:00 Test Item Value Reference Range Comments WHITE BLOOD CELL COUNT (BEAKER) (test xztl=291) 4.7 K/ L 3.5-10.5 RED BLOOD CELL COUNT (BEAKER) (test lrbz=652) 4.02 M/ L 3.93-5.22 HEMOGLOBIN (BEAKER) (test cyuv=136) 11.7 GM/DL 11.2-15.7 HEMATOCRIT (BEAKER) (test nvnf=696) 37.3 % 34.1-44.9 MEAN CORPUSCULAR VOLUME (BEAKER) (test hfhm=204) 92.8 fL 79.4-94.8 MEAN CORPUSCULAR HEMOGLOBIN (BEAKER) (test 29.1 pg 25.6-32.2 ulbv=612) MEAN CORPUSCULAR HEMOGLOBIN CONC (BEAKER) (test 31.4 GM/DL 32.2-35.5 amny=211) RED CELL DISTRIBUTION WIDTH (BEAKER) (test 13.4 % 11.7-14.4 owsf=231) PLATELET COUNT (BEAKER) (test yfvc=401) 252 K/CU MM 150-450 MEAN PLATELET VOLUME (BEAKER) (test crac=096) 9.2 fL 9.4-12.3 NUCLEATED RED BLOOD CELLS (BEAKER) (test 0 /100 WBC 0-0 lloz=333) NEUTROPHILS RELATIVE PERCENT (BEAKER) (test 69 % hwgv=489) LYMPHOCYTES RELATIVE PERCENT (BEAKER) (test 17 % stwp=070) MONOCYTES RELATIVE PERCENT (BEAKER) (test 13 % pppz=241) EOSINOPHILS RELATIVE PERCENT (BEAKER) (test 1 % pmfd=179) BASOPHILS RELATIVE PERCENT (BEAKER) (test 0 % nijx=717) NEUTROPHILS ABSOLUTE COUNT (BEAKER) (test 3.25 K/ L 1.56-6.13 oxpk=779) LYMPHOCYTES ABSOLUTE COUNT (BEAKER) (test 0.79 K/ L 1.18-3.74 dsxs=937) MONOCYTES ABSOLUTE COUNT (BEAKER) (test 0.62 K/ L 0.24-0.36 brwu=512) EOSINOPHILS ABSOLUTE COUNT (BEAKER) (test 0.05 K/ L 0.04-0.36 nrbx=036) BASOPHILS ABSOLUTE COUNT (BEAKER) (test 0.01 K/ L 0.01-0.08 yjwy=661) IMMATURE GRANULOCYTES-RELATIVE PERCENT (BEAKER) 0 % 0-1 (test olav=0416) CT, CHEST, WITH [id number] 16:30:00FINAL REPORT CT of the Chest, abdomen [...] Melgar MDReport Verified Date/Time: 11/08/2018 16:30:42Reading Location: [address] Body Reading Room 04: 30 PMCT, ABDOMEN - PELVIS, PANCREAS [id number] 16:30:00Reason for exam :->evaluation of pancreatic cancer.FINAL [...] Melgar MDReport Verified Date/Time: 11/08/2018 16:30:42Reading Location: [address] Body Reading Room 04: 30 [id number] 13:12:00Medical Cytology Report Case: [id number] Authorizing Provider: Emelyn Horta Collected: 11/04/2018 Iris Woodard MD OrderingLocation: [address] Received: 2018 1148 SERVICE Pathologist: Eric Flower MD Specimen: Common Bile Duct COMMON BILE DUCT BRUSHING (CYTOSPINS): - SUSPICIOUS FOR MALIGNANCY Signing Pathologist Direct Phone Line: [phone] signed by Eric Flower MD on 11/08/2018 at 1:12 PMPlease also see surgical pathology report [id number] and cytopathology reports [id number] and 992. 824[address]Voske liver lesions; pancreatic mass invading vein and liver; hepatobiliary obstruction; elevated LFTs; h/o breast cancer s/p Chemo/XRT and right mastectomyCOMMON BILE DUCT BRUSHING Prepared 2 cytospins from 1 brush tip collected in 15 ml cytorich red fixativeCollected: [id number]: [id number]a [facility], Department of Pathology, [address] [place] [address], [place] [address], JczoslL[facility], Department of Pathology, [address] [place] [address] , DhgryyLoma [facility], Department of Pathology, [address] [place] [address], OHCL NEEDLE ASPIRATION BY [id number] 13:10:00Medical Cytology Report Case: [id number] Authorizing Provider: Eemlyn Horta Collected: 11/04/2018 Lashay Woodard MD OrderingLocation: [address] Received: 2018 1148 SERVICE Pathologist: Eric Flower MD Specimen: Pancreas, Head HEAD OF PANCREAS MASS, FNA BY CLINICIAN (CYTOSPINS AND CELL BLOCK OF ASPIRATE): - POSITIVE FOR MALIGNANCY - ADENOCARCINOMA, DUCTAL TYPE Signing Pathologist Direct Phone Line: [phone] signed by Eric Flower MD on 11/08/2018 at 1:10 PMPlease also see surgical pathology report [id number] and cytopathology reports [id number] and 993. 98[address], [address]Skzoz liver lesions; pancreatic mass invading vein and liver; hepatobiliary obstruction; elevated LFTs; h/o breast cancer s/p Chemo/XRT and right mastectomyHEAD OF PANCREAS MASS FNAPrepared cell block(A2) and 4 cytospins from 18 ml cytorich red fixative sampleCollected: [id number]: [id number] [facility], Department of Pathology, [address] [place] [address], KihqnqL[facility], Department of Pathology, [address] [place] [address], Tel [facility], [facility], [address] [place] [address], IPY, ABDOMEN/KUB, 1 VIEW [id number] 11:16:00Reason for exam:->ConstipationFINAL REPORT Abdomen one [...] hemiarthroplasty. No acute bony abnormality. Signed: Sean Godoyeport Verified Date/Time: 11/08/2018 11:16:58 Reading Location: [facility] Reading Room 11: 16 AMHEPATIC FUNCTION [id number] 06:24:00 Test Item Value Reference Range Comments TOTAL PROTEIN (BEAKER) (test iebn=086) 6.2 gm/dL 6.0-8.3 ALBUMIN (BEAKER) (test erjb=7136) 3.5 g/dL 3.5-5.0 BILIRUBIN TOTAL (BEAKER) (test nyvw=352) 0.7 mg/dL 0.2-1.2 BILIRUBIN DIRECT (BEAKER) (test ufdc=724) 0.5 mg/dL 0.1-0.5 ALKALINE PHOSPHATASE (BEAKER) (test hxss=247) 330 U/L 40-150 AST (SGOT) (BEAKER) (test vlee=735) 40 U/L 5-34 ALT (SGPT) (BEAKER) (test domd=586) 170 U/L 6-55 BASIC METABOLIC [id number] 06:24:00 Test Item Value Reference Range Comments SODIUM (BEAKER) (test 138 meq/L 136-145 vggd=058) POTASSIUM (BEAKER) (test 3.9 meq/L 3.5-5.1 vhhl=036) CHLORIDE (BEAKER) (test 103 meq/L 98-107 glob=658) CO2 (BEAKER) (test 26 meq/L 22-29 twoq=435) BLOOD UREA NITROGEN 21 mg/dL 7-21 (BEAKER) (test nfop=141) CREATININE (BEAKER) (test 0.73 mg/dL 0.57-1.25 xhkq=639) GLUCOSE RANDOM (BEAKER) 119 mg/dL 70-105 (test zufh=963) CALCIUM (BEAKER) (test 9.4 mg/dL 8.4-10.2 vuab=323) EGFR (BEAKER) (test 80 mL/min/1.73 sq m ESTIMATED GFR IS NOT axzg=9637) ACCURATE CREATININE CLEARANCE IN PREDICTING GLOMERULAR FILTRATION RATE. ESTIMATED GFR IS NOT APPLICABLE FOR DIALYSIS PATIENTS. CBC W/PLT COUNT & AUTO [id number] 06:10:00 Test Item Value Reference Range Comments WHITE BLOOD CELL COUNT (BEAKER) (test sofx=700) 4.8 K/ L 3.5-10.5 RED BLOOD CELL COUNT (BEAKER) (test ilsi=556) 4.63 M/ L 3.93-5.22 HEMOGLOBIN (BEAKER) (test ytet=722) 13.4 GM/DL 11.2-15.7 HEMATOCRIT (BEAKER) (test hzir=834) 44.6 % 34.1-44.9 MEAN CORPUSCULAR VOLUME (BEAKER) (test wieo=172) 96.3 fL 79.4-94.8 MEAN CORPUSCULAR HEMOGLOBIN (BEAKER) (test 28.9 pg 25.6-32.2 jlzx=012) MEAN CORPUSCULAR HEMOGLOBIN CONC (BEAKER) (test 30.0 GM/DL 32.2-35.5 yegt=222) RED CELL DISTRIBUTION WIDTH (BEAKER) (test 13.5 % 11.7-14.4 mhtz=740) PLATELET COUNT (BEAKER) (test ylty=595) 218 K/CU MM 150-450 MEAN PLATELET VOLUME (BEAKER) (test qbzh=484) 9.6 fL 9.4-12.3 NUCLEATED RED BLOOD CELLS (BEAKER) (test 0 /100 WBC 0-0 cffs=265) NEUTROPHILS RELATIVE PERCENT (BEAKER) (test 63 % wmzl=371) LYMPHOCYTES RELATIVE PERCENT (BEAKER) (test 23 % uxuy=881) MONOCYTES RELATIVE PERCENT (BEAKER) (test 12 % mcld=468) EOSINOPHILS RELATIVE PERCENT (BEAKER) (test 1 % mqeb=160) BASOPHILS RELATIVE PERCENT (BEAKER) (test 0 % ioyq=595) NEUTROPHILS ABSOLUTE COUNT (BEAKER) (test 3.06 K/ L 1.56-6.13 igiz=059) LYMPHOCYTES ABSOLUTE COUNT (BEAKER) (test 1.13 K/ L 1.18-3.74 cety=263) MONOCYTES ABSOLUTE COUNT (BEAKER) (test 0.56 K/ L 0.24-0.36 tbkr=187) EOSINOPHILS ABSOLUTE COUNT (BEAKER) (test 0.06 K/ L 0.04-0.36 cnxk=912) BASOPHILS ABSOLUTE COUNT (BEAKER) (test 0.01 K/ L 0.01-0.08 hsxk=590) IMMATURE GRANULOCYTES-RELATIVE PERCENT (BEAKER) 0 % 0-1 (test daqa=7847) TROPONIN [id number] 17:36:00 Test Item Value Reference Range Comments TROPONIN I (BEAKER) (test rlka=162) < ng/mL 0.00-0.03 Troponin I (TnI) levels [...] acidosis, acute neurological disease, and persistent tachyarrhythmia.CYTOLOGY [id number] 13:00:00 Test Item Value Reference Range Comments CYTOLOGY RESULT POINTER (BEAKER) (test See Separate Report yvwi=6674) FINE NEEDLE ASPIRATE (FNA) [id number] 13:00:00 Test Item Value Reference Range Comments CYTOLOGY RESULT POINTER (BEAKER) (test See Separate Report hnrv=1934) FINE NEEDLE ASPIRATE (FNA) [id number] 13:00:00 Test Item Value Reference Range Comments CYTOLOGY RESULT POINTER (BEAKER) (test See Separate Report rzuy=8415) CARCINOEMBRYONIC ANTIGEN (CEA)2018-11-07 12:05:00 Test Item Value Reference Range Comments CARCINOEMBRYONIC ANTIGEN (BEAKER) (test zxfe=000) 2.6 ng/mL 0.0-5.0 HEPATIC FUNCTION [id number] 07:29:00 Test Item Value Reference Range Comments TOTAL PROTEIN (BEAKER) (test cglk=111) 6.5 gm/dL 6.0-8.3 ALBUMIN (BEAKER) (test pgdo=3128) 3.6 g/dL 3.5-5.0 BILIRUBIN TOTAL (BEAKER) (test haxg=237) 0.8 mg/dL 0.2-1.2 BILIRUBIN DIRECT (BEAKER) (test pdgx=797) 0.6 mg/dL 0.1-0.5 ALKALINE PHOSPHATASE (BEAKER) (test fbqs=001) 377 U/L 40-150 AST (SGOT) (BEAKER) (test yplo=327) 54 U/L 5-34 ALT (SGPT) (BEAKER) (test gxmy=022) 239 U/L 6-55 BASIC METABOLIC [id number] 07:29:00 Test Item Value Reference Range Comments SODIUM (BEAKER) (test 137 meq/L 136-145 psnw=044) POTASSIUM (BEAKER) (test 4.1 meq/L 3.5-5.1 tgon=871) CHLORIDE (BEAKER) (test 102 meq/L 98-107 ylbb=955) CO2 (BEAKER) (test 26 meq/L 22-29 roqf=830) BLOOD UREA NITROGEN 15 mg/dL 7-21 (BEAKER) (test ywny=893) CREATININE (BEAKER) (test 0.76 mg/dL 0.57-1.25 chxq=434) GLUCOSE RANDOM (BEAKER) 134 mg/dL 70-105 (test fnxv=449) CALCIUM (BEAKER) (test 9.8 mg/dL 8.4-10.2 uigg=500) EGFR (BEAKER) (test 76 mL/min/1.73 sq m ESTIMATED GFR IS NOT tpyd=1435) ACCURATE CREATININE CLEARANCE IN PREDICTING GLOMERULAR FILTRATION RATE. ESTIMATED GFR IS NOT APPLICABLE FOR DIALYSIS PATIENTS. CBC W/PLT COUNT & AUTO [id number] 06:59:00 Test Item Value Reference Range Comments WHITE BLOOD CELL COUNT (BEAKER) (test ppog=553) 5.3 K/ L 3.5-10.5 RED BLOOD CELL COUNT (BEAKER) (test sxqq=529) 4.18 M/ L 3.93-5.22 HEMOGLOBIN (BEAKER) (test vdkd=532) 12.4 GM/DL 11.2-15.7 HEMATOCRIT (BEAKER) (test qfht=941) 37.9 % 34.1-44.9 MEAN CORPUSCULAR VOLUME (BEAKER) (test qqam=229) 90.7 fL 79.4-94.8 MEAN CORPUSCULAR HEMOGLOBIN (BEAKER) (test 29.7 pg 25.6-32.2 tefl=089) MEAN CORPUSCULAR HEMOGLOBIN CONC (BEAKER) (test 32.7 GM/DL 32.2-35.5 fgns=058) RED CELL DISTRIBUTION WIDTH (BEAKER) (test 13.4 % 11.7-14.4 eonh=159) PLATELET COUNT (BEAKER) (test neyg=075) 223 K/CU MM 150-450 MEAN PLATELET VOLUME (BEAKER) (test wuua=381) 9.4 fL 9.4-12.3 NUCLEATED RED BLOOD CELLS (BEAKER) (test 0 /100 WBC 0-0 wyus=294) NEUTROPHILS RELATIVE PERCENT (BEAKER) (test 76 % wqyy=921) LYMPHOCYTES RELATIVE PERCENT (BEAKER) (test 14 % ahlp=834) MONOCYTES RELATIVE PERCENT (BEAKER) (test 9 % fjxa=209) EOSINOPHILS RELATIVE PERCENT (BEAKER) (test 1 % rjym=781) BASOPHILS RELATIVE PERCENT (BEAKER) (test 0 % yhvu=102) NEUTROPHILS ABSOLUTE COUNT (BEAKER) (test 3.97 K/ L 1.56-6.13 dagx=677) LYMPHOCYTES ABSOLUTE COUNT (BEAKER) (test 0.76 K/ L 1.18-3.74 zbys=087) MONOCYTES ABSOLUTE COUNT (BEAKER) (test 0.46 K/ L 0.24-0.36 klfw=908) EOSINOPHILS ABSOLUTE COUNT (BEAKER) (test 0.04 K/ L 0.04-0.36 jtki=944) BASOPHILS ABSOLUTE COUNT (BEAKER) (test 0.01 K/ L 0.01-0.08 zfby=784) IMMATURE GRANULOCYTES-RELATIVE PERCENT (BEAKER) 0 % 0-1 (test boln=5049) HEPATIC FUNCTION [id number] 07:57:00 Test Item Value Reference Range Comments TOTAL PROTEIN (BEAKER) (test jivl=472) 6.5 gm/dL 6.0-8.3 ALBUMIN (BEAKER) (test hwds=9002) 3.6 g/dL 3.5-5.0 BILIRUBIN TOTAL (BEAKER) (test zjgb=881) 0.9 mg/dL 0.2-1.2 BILIRUBIN DIRECT (BEAKER) (test lucl=647) 0.6 mg/dL 0.1-0.5 ALKALINE PHOSPHATASE (BEAKER) (test pljl=398) 410 U/L 40-150 AST (SGOT) (BEAKER) (test rchc=669) 72 U/L 5-34 ALT (SGPT) (BEAKER) (test pnsy=583) 321 U/L 6-55 BASIC METABOLIC [id number] 07:41:00 Test Item Value Reference Range Comments SODIUM (BEAKER) (test 136 meq/L 136-145 grwt=649) POTASSIUM (BEAKER) (test 3.8 meq/L 3.5-5.1 Specimen slightly yird=998) hemolyzed CHLORIDE (BEAKER) (test 103 meq/L 98-107 hodj=836) CO2 (BEAKER) (test 24 meq/L 22-29 ubmo=664) BLOOD UREA NITROGEN 11 mg/dL 7-21 (BEAKER) (test whwo=868) CREATININE (BEAKER) (test 0.66 mg/dL 0.57-1.25 Specimen slightly bzbo=372) hemolyzed GLUCOSE RANDOM (BEAKER) 125 mg/dL 70-105 (test gvti=089) CALCIUM (BEAKER) (test 9.3 mg/dL 8.4-10.2 qwav=832) EGFR (BEAKER) (test 90 mL/min/1.73 sq m ESTIMATED GFR IS NOT zein=2109) ACCURATE CREATININE CLEARANCE IN PREDICTING GLOMERULAR FILTRATION RATE. ESTIMATED GFR IS NOT APPLICABLE FOR DIALYSIS PATIENTS. CBC W/PLT COUNT & AUTO [id number] 06:24:00 Test Item Value Reference Range Comments WHITE BLOOD CELL COUNT (BEAKER) (test bnkk=295) 5.7 K/ L 3.5-10.5 RED BLOOD CELL COUNT (BEAKER) (test nqfz=711) 4.28 M/ L 3.93-5.22 HEMOGLOBIN (BEAKER) (test lhlx=872) 12.6 GM/DL 11.2-15.7 HEMATOCRIT (BEAKER) (test psrs=931) 39.6 % 34.1-44.9 MEAN CORPUSCULAR VOLUME (BEAKER) (test ltet=170) 92.5 fL 79.4-94.8 MEAN CORPUSCULAR HEMOGLOBIN (BEAKER) (test 29.4 pg 25.6-32.2 gjzq=998) MEAN CORPUSCULAR HEMOGLOBIN CONC (BEAKER) (test 31.8 GM/DL 32.2-35.5 siza=709) RED CELL DISTRIBUTION WIDTH (BEAKER) (test 13.7 % 11.7-14.4 xxbi=933) PLATELET COUNT (BEAKER) (test fjhd=740) 236 K/CU MM 150-450 MEAN PLATELET VOLUME (BEAKER) (test hxnc=923) 9.6 fL 9.4-12.3 NUCLEATED RED BLOOD CELLS (BEAKER) (test 0 /100 WBC 0-0 mwea=314) NEUTROPHILS RELATIVE PERCENT (BEAKER) (test 80 % putc=449) LYMPHOCYTES RELATIVE PERCENT (BEAKER) (test 11 % jzaz=202) MONOCYTES RELATIVE PERCENT (BEAKER) (test 8 % szmf=473) EOSINOPHILS RELATIVE PERCENT (BEAKER) (test 1 % jhdc=970) BASOPHILS RELATIVE PERCENT (BEAKER) (test 0 % kfnq=654) NEUTROPHILS ABSOLUTE COUNT (BEAKER) (test 4.54 K/ L 1.56-6.13 erbh=140) LYMPHOCYTES ABSOLUTE COUNT (BEAKER) (test 0.63 K/ L 1.18-3.74 vhck=387) MONOCYTES ABSOLUTE COUNT (BEAKER) (test 0.45 K/ L 0.24-0.36 ruhb=306) EOSINOPHILS ABSOLUTE COUNT (BEAKER) (test 0.05 K/ L 0.04-0.36 vokv=675) BASOPHILS ABSOLUTE COUNT (BEAKER) (test 0.01 K/ L 0.01-0.08 npod=854) IMMATURE GRANULOCYTES-RELATIVE PERCENT (BEAKER) 0 % 0-1 (test dzwt=5507) [id number] 06:07:00 Test Item Value Reference Range Comments PHOSPHORUS (BEAKER) (test jjmg=696) 2.7 mg/dL 2.3-4.7 [id number] 06:07:00 Test Item Value Reference Range Comments MAGNESIUM (BEAKER) (test bfdw=646) 1.9 mg/dL 1.6-2.6 BASIC METABOLIC [id number] 06:07:00 Test Item Value Reference Range Comments SODIUM (BEAKER) (test 139 meq/L 136-145 saks=504) POTASSIUM (BEAKER) (test 4.0 meq/L 3.5-5.1 aprd=014) CHLORIDE (BEAKER) (test 109 meq/L 98-107 ilij=902) CO2 (BEAKER) (test 19 meq/L 22-29 rass=415) BLOOD UREA NITROGEN 13 mg/dL 7-21 (BEAKER) (test kyxb=170) CREATININE (BEAKER) (test 0.63 mg/dL 0.57-1.25 aird=336) GLUCOSE RANDOM (BEAKER) 114 mg/dL 70-105 (test ytok=829) CALCIUM (BEAKER) (test 8.9 mg/dL 8.4-10.2 srtm=819) EGFR (BEAKER) (test 95 mL/min/1.73 sq m ESTIMATED GFR IS NOT tsyk=6228) ACCURATE CREATININE CLEARANCE IN PREDICTING GLOMERULAR FILTRATION RATE. ESTIMATED GFR IS NOT APPLICABLE FOR DIALYSIS PATIENTS. HEPATIC FUNCTION [id number] 06:07:00 Test Item Value Reference Range Comments TOTAL PROTEIN (BEAKER) (test rldk=046) 6.1 gm/dL 6.0-8.3 ALBUMIN (BEAKER) (test gksl=5517) 3.5 g/dL 3.5-5.0 BILIRUBIN TOTAL (BEAKER) (test tiaw=427) 1.3 mg/dL 0.2-1.2 BILIRUBIN DIRECT (BEAKER) (test ddcc=350) 0.9 mg/dL 0.1-0.5 ALKALINE PHOSPHATASE (BEAKER) (test ffap=587) 419 U/L 40-150 AST (SGOT) (BEAKER) (test chem=753) 121 U/L 5-34 ALT (SGPT) (BEAKER) (test kwyg=765) 418 U/L 6-55 CALCIUM, [id number] 05:42:00 Test Item Value Reference Range Comments CALCIUM IONIZED (BEAKER) (test pmtg=227) 1.06 mmol/L 1.12-1.27 PH, BLOOD (BEAKER) (test gzcj=1056) 7.39 CBC W/PLT COUNT & AUTO [id number] 05:29:00 Test Item Value Reference Range Comments WHITE BLOOD CELL COUNT (BEAKER) (test zfvc=314) 5.8 K/ L 3.5-10.5 RED BLOOD CELL COUNT (BEAKER) (test jmwr=875) 4.07 M/ L 3.93-5.22 HEMOGLOBIN (BEAKER) (test glyr=285) 11.9 GM/DL 11.2-15.7 HEMATOCRIT (BEAKER) (test tsth=791) 37.3 % 34.1-44.9 MEAN CORPUSCULAR VOLUME (BEAKER) (test twvc=143) 91.6 fL 79.4-94.8 MEAN CORPUSCULAR HEMOGLOBIN (BEAKER) (test 29.2 pg 25.6-32.2 xsnh=737) MEAN CORPUSCULAR HEMOGLOBIN CONC (BEAKER) (test 31.9 GM/DL 32.2-35.5 ftug=791) RED CELL DISTRIBUTION WIDTH (BEAKER) (test 13.8 % 11.7-14.4 lesw=418) PLATELET COUNT (BEAKER) (test hbey=052) 218 K/CU MM 150-450 MEAN PLATELET VOLUME (BEAKER) (test crbr=993) 9.5 fL 9.4-12.3 NUCLEATED RED BLOOD CELLS (BEAKER) (test 0 /100 WBC 0-0 fqjg=094) NEUTROPHILS RELATIVE PERCENT (BEAKER) (test 81 % csoi=617) LYMPHOCYTES RELATIVE PERCENT (BEAKER) (test 9 % gbzn=858) MONOCYTES RELATIVE PERCENT (BEAKER) (test 9 % hyat=214) EOSINOPHILS RELATIVE PERCENT (BEAKER) (test 1 % akkc=871) BASOPHILS RELATIVE PERCENT (BEAKER) (test 0 % ruoc=565) NEUTROPHILS ABSOLUTE COUNT (BEAKER) (test 4.69 K/ L 1.56-6.13 rrza=029) LYMPHOCYTES ABSOLUTE COUNT (BEAKER) (test 0.51 K/ L 1.18-3.74 gpfr=865) MONOCYTES ABSOLUTE COUNT (BEAKER) (test 0.51 K/ L 0.24-0.36 wbea=737) EOSINOPHILS ABSOLUTE COUNT (BEAKER) (test 0.04 K/ L 0.04-0.36 cadb=781) BASOPHILS ABSOLUTE COUNT (BEAKER) (test 0.01 K/ L 0.01-0.08 urgu=306) IMMATURE GRANULOCYTES-RELATIVE PERCENT (BEAKER) 0 % 0-1 (test ahvu=2412) FL, [id number] 21:43:00Reason for exam:->Pancreatic head massFINAL REPORT Examination: ERCP 5 fluoroscopic spot views were obtained during the procedure by the ordering service. Images are nondiagnostic as no radiologist was present at the time of imaging. Fluoroscopic time was 71.7 seconds. Please see the procedure report for details. Signed: Rubio Goel MDReport Verified Date/Time: 11/04/2018 21:43: 27 Reading Location: [address] Reading Room RAD, CHEST, 1 VIEW, NON [id number] 14:08:00Reason for exam:->SOBShould this be performed at the bedside?->YesFINAL REPORT TECHNIQUE: Frontal chest radiograph dated 11/04/2018. CLINICAL HISTORY: SOB COMPARISON STUDY: None IMPRESSION:Linear scarring is seen in the medial right upper lobe.Lungs are otherwise clear. No pleural effusion or pneumothorax. Cardiomediastinal silhouette is normal in size. No pulmonary edema. Bones are osteopenic. The right axilla. Signed: Michaela Martinez MDReport Verified Date/Time: 2018 14:08:49 Reading Location: [facility] Radiology Reading Room CARCINOEMBRYONIC ANTIGEN (CEA)2018-11-04 05:00:00 Test Item Value Reference Range Comments CARCINOEMBRYONIC ANTIGEN (BEAKER) (test xpox=540) 2.5 ng/mL 0.0-5.0 BASIC METABOLIC [id number] 00:58:00 Test Item Value Reference Range Comments SODIUM (BEAKER) (test 139 meq/L 136-145 hqla=575) POTASSIUM (BEAKER) (test 3.4 meq/L 3.5-5.1 hves=925) CHLORIDE (BEAKER) (test 108 meq/L 98-107 tftt=003) CO2 (BEAKER) (test 22 meq/L 22-29 gajf=799) BLOOD UREA NITROGEN 10 mg/dL 7-21 (BEAKER) (test vbog=025) CREATININE (BEAKER) (test 0.74 mg/dL 0.57-1.25 jtro=457) GLUCOSE RANDOM (BEAKER) 184 mg/dL 70-105 (test rawl=805) CALCIUM (BEAKER) (test 8.8 mg/dL 8.4-10.2 yhkb=421) EGFR (BEAKER) (test 79 mL/min/1.73 sq m ESTIMATED GFR IS NOT sfxy=5050) ACCURATE CREATININE CLEARANCE IN PREDICTING GLOMERULAR FILTRATION RATE. ESTIMATED GFR IS NOT APPLICABLE FOR DIALYSIS PATIENTS. Specimen slightly ictericGAMMA GLUTAMYL TRANSFERASE (GGT)2018-11-04 00:58:00 Test Item Value Reference Range Comments GAMMA GLUTAMYL TRANSFERASE (BEAKER) (test zmul=036) 465 U/L 9-64 Specimen slightly ictericHEPATIC FUNCTION [id number] 00:58:00 Test Item Value Reference Range Comments TOTAL PROTEIN (BEAKER) (test kmvf=909) 6.5 gm/dL 6.0-8.3 ALBUMIN (BEAKER) (test dnhv=1327) 3.7 g/dL 3.5-5.0 BILIRUBIN TOTAL (BEAKER) (test eyli=963) 3.0 mg/dL 0.2-1.2 BILIRUBIN DIRECT (BEAKER) (test tvck=968) 2.3 mg/dL 0.1-0.5 ALKALINE PHOSPHATASE (BEAKER) (test jjzp=712) 462 U/L 40-150 AST (SGOT) (BEAKER) (test gvdy=305) 211 U/L 5-34 ALT (SGPT) (BEAKER) (test tqjc=347) 552 U/L 6-55 Specimen slightly [id number] 00:58:00 Test Item Value Reference Range Comments LIPASE (BEAKER) (test wpme=841) 34 U/L 8-78 Specimen slightly ictericPROTHROMBIN TIME/[id number] 00:37:00 Test Item Value Reference Range Comments PROTIME (BEAKER) (test xquo=018) 13.5 seconds 11.7-14.7 INR (BEAKER) (test prgy=703) 1.0 <=5.9 RECOMMENDED COUMADIN/WARFARIN INR THERAPY RANGESSTANDARD DOSE: 2.0 - 3.0 Includes: PROPHYLAXIS forvenous thrombosis, systemic embolization; TREATMENT for venous thrombosis and/or pulmonary embolus.HIGH RISK: Target INR is 2.5-3.5 for patients with mechanical heart valves.CBC W/PLT COUNT & AUTO [id number] 00:30:00 Test Item Value Reference Range Comments WHITE BLOOD CELL COUNT (BEAKER) (test waaj=299) 3.7 K/ L 3.5-10.5 RED BLOOD CELL COUNT (BEAKER) (test rqtd=371) 4.04 M/ L 3.93-5.22 HEMOGLOBIN (BEAKER) (test eysx=043) 11.8 GM/DL 11.2-15.7 HEMATOCRIT (BEAKER) (test kcgu=986) 37.0 % 34.1-44.9 MEAN CORPUSCULAR VOLUME (BEAKER) (test tcdi=025) 91.6 fL 79.4-94.8 MEAN CORPUSCULAR HEMOGLOBIN (BEAKER) (test 29.2 pg 25.6-32.2 slyt=000) MEAN CORPUSCULAR HEMOGLOBIN CONC (BEAKER) (test 31.9 GM/DL 32.2-35.5 eepi=564) RED CELL DISTRIBUTION WIDTH (BEAKER) (test 13.5 % 11.7-14.4 maxb=315) PLATELET COUNT (BEAKER) (test wjmp=722) 181 K/CU MM 150-450 MEAN PLATELET VOLUME (BEAKER) (test oruv=698) 9.8 fL 9.4-12.3 NUCLEATED RED BLOOD CELLS (BEAKER) (test 0 /100 WBC 0-0 euma=902) NEUTROPHILS RELATIVE PERCENT (BEAKER) (test 72 % erbm=081) LYMPHOCYTES RELATIVE PERCENT (BEAKER) (test 17 % onlf=646) MONOCYTES RELATIVE PERCENT (BEAKER) (test 9 % mfia=063) EOSINOPHILS RELATIVE PERCENT (BEAKER) (test 1 % mczz=052) BASOPHILS RELATIVE PERCENT (BEAKER) (test 0 % pkjf=278) NEUTROPHILS ABSOLUTE COUNT (BEAKER) (test 2.68 K/ L 1.56-6.13 evue=258) LYMPHOCYTES ABSOLUTE COUNT (BEAKER) (test 0.64 K/ L 1.18-3.74 czdl=893) MONOCYTES ABSOLUTE COUNT (BEAKER) (test 0.33 K/ L 0.24-0.36 sbeq=993) EOSINOPHILS ABSOLUTE COUNT (BEAKER) (test 0.05 K/ L 0.04-0.36 dccc=215) BASOPHILS ABSOLUTE COUNT (BEAKER) (test 0.01 K/ L 0.01-0.08 wnhm=900) IMMATURE GRANULOCYTES-RELATIVE PERCENT (BEAKER) 0 % 0-1 (test pala=7497) URINALYSIS WITH MICROSCOPIC IF [id number] 00:29:00 Test Item Value Reference Range Comments COLOR (BEAKER) (test ftrf=824) Yellow CLARITY (BEAKER) (test njhq=339) Clear SPECIFIC GRAVITY UA (BEAKER) (test noqo=153) 1.019 1.001-1.035 PH UA (BEAKER) (test pemu=846) 7.0 5.0-8.0 PROTEIN UA (BEAKER) (test bkcz=714) Negative Negative GLUCOSE UA (BEAKER) (test iaun=536) 50 mg/dL Negative KETONES UA (BEAKER) (test dmsu=806) 100 mg/dL Negative BILIRUBIN UA (BEAKER) (test kble=301) Negative Negative BLOOD UA (BEAKER) (test ingr=293) Negative Negative NITRITE UA (BEAKER) (test qmeg=581) Negative Negative LEUKOCYTE ESTERASE UA (BEAKER) (test kbgl=657) Negative Negative UROBILINOGEN UA (BEAKER) (test czkh=939) 0.2 mg/dL 0.2-1.0 SOURCE(BEAKER) (test jram=4291)
--- NOTE | 2018-12-22 12:30 | RAD REPORT ---
EXAM DESCRIPTION: CT - Head Brain Wo Cont - 12/22/2018 11:34 am CLINICAL HISTORY: Numbness COMPARISON: December 12, 2018 MRI TECHNIQUE: Computed axial tomography of the head was obtained. IV contrast was not requested. All CT scans are performed using dose optimization technique as appropriate and may include automated exposure control or mA/KV adjustment according to patient size. FINDINGS: A low-density area within the right cerebrum is without obvious change from the prior MRI. An intracranial bleed is not seen . The ventricles are normal in caliber. No extra-axial fluid collection is noted. Fluid within the sinuses/ mastoids is not seen. IMPRESSION: Subacute right cerebral infarct without obvious change from the prior exam
--- NOTE | 2018-12-22 12:32 | RAD REPORT ---
EXAM DESCRIPTION: CTHead angio12/22/2018 11:39 am CLINICAL HISTORY: Numbness COMPARISON: None TECHNIQUE: CT angiogram of the head was obtained. 3D MIPS reconstruction performed. All CT scans are performed using dose optimization technique as appropriate and may include automated exposure control or mA/KV adjustment according to patient size. FINDINGS: The basilar, internal carotid, anterior cerebral, middle cerebral and posterior cerebral a rteries are normal caliber. An aneurysm is not seen. A significant stenosis is not noted. IMPRESSION: Unremarkable CT angiogram head.
--- NOTE | 2018-12-22 12:37 | RAD REPORT ---
EXAM DESCRIPTION: MRI - Brain Wo Cont - 12/22/2018 11:34 am CLINICAL HISTORY: Numbness COMPARISON: December 12, 2018 TECHNIQUE: Axial, sagittal, and coronal magnetic images of the brain were obtained. Contrast was not requested FINDINGS: Serpiginous abnormal signal within the posterior right centrum semiovale is without signif icant change compatible with subacute infarction. There has been development of additional serpiginou s abnormal signal within the right parietal lobe compatible with acute infarction. Punctate subacute infarct within the left frontal lobe unchanged The ventricles are normal caliber. An extra-axial fluid collection is not present The sinuses and mastoids are clear. IMPRESSION: Development of acute infarction within the right parietal lobe Subacute predominantly right cerebral infarct Patient likely has emboli perhaps from the heart.
--- NOTE | 2018-12-22 14:32 | EKG ---
Test Date: 2018-12-21 Test Time: 16:14:52 Track Equipment Operator: ABHILASH MEASUREMENT RESULTS: Intervals: Rate: 94 DE: 154 QRSD: 80 QT: 378 QTc: 472 [place]: P: 33 DE: 154 QRS: 8 T: 12 INTERPRETIVE STATEMENTS: Normal sinus rhythm Anterior infarct, age undetermined Abnormal ECG Compared to ECG 12/16/2018 12:29:32 No significant changes Electronically Signed On 12-22-18 14:29:16 CDT by Ciro Kumar
--- NOTE | 2018-12-22 15:19 | RAD REPORT ---
EXAM DESCRIPTION: Federico Single View12/22/2018 11:34 am CLINICAL HISTORY: Cough COMPARISON: December 14, 2018 FINDINGS: The lungs appear clear of acute infiltrate. The heart is normal size. Central venous line remains in place IMPRESSION: No acute abnormalities displayed
== END 2018-12-21 20:59 | disposition short-term general hospital (02) ==
LOC: ER 15:48
DX: I63.9 Cerebral infarction, unspecified (principal); I48.91 Unspecified atrial fibrillation; C25.3 Malignant neoplasm of pancreatic duct; C50.919 Malignant neoplasm of unspecified site of unspecified female breast; C22.8 Malignant neoplasm of liver, primary, unspecified as to type
CPT/HCPCS: 96365; 96361; 93005; 85025; 80048; 36415; 83735; 85610; 80076; 84484; 83690; 83880; 70450; 70496; 71045; 70551; 96375; 99285; Q9967; J3010 ×2; J7030; J2405